=== PATIENT | female | born 1940 | race Caucasian/White ===

== ENCOUNTER 2018-05-04 02:44 | Outpatient (RCR) | payer MEDICARE, MEDICAID, SELFPAY ==
[2018-05-04] MEDS: Normal Saline Flush 10 ML SYR IVP (10:39)
[2018-05-04] MEDS: IRON SUCROSE COMPLEX 200 MG in Normal Saline 100 ML 110 MG IVPB (10:39)
[2018-05-18] MEDS: IRON SUCROSE COMPLEX 200 MG in Normal Saline 100 ML 110 MG IVPB (10:33)
[2018-05-18] MEDS: Normal Saline Flush 10 ML SYR IVP (10:33)
== END 2018-05-22 ==
LOC: INF 05-18 02:44
PROVIDERS: PCP Internal Medicine; Visit Provider Internal Medicine
DX: D64.9 Anemia, unspecified (principal)
CPT/HCPCS: 96365 ×2; J1756 ×2

== ENCOUNTER 2018-05-27 13:43 | Outpatient (CLI) | payer MEDICARE, MEDICAID, SELFPAY ==
[2018-05-27 14:18] LABS: Abs Immature Grans 0.03 k/cumm (0.0-0.09); Absolute Eosinophil Count 3.34 k/cumm (0.0-0.7); Absolute Monocyte Count 0.81 k/cumm (0.11-0.7); Absolute Neutrophil Count 4.77 k/cumm (1.2-6.7); Basophils % 0.9; Eosinophils % 31.1; HCT 30.5 % (36.0-46.0); HGB 9.4 g/dL (12.0-15.5); Immature Grans % 0.3; Lymphocytes % 15.8; Mean Corp. HGB Concentration 30.8 g/dL (32.0-36.0); Mean Corpuscular Hemoglobin 25.8 pg (27.0-33.0); Mean Corpuscular Volume 83.8 fL (80-95); Mean Platelet Volume 8.9 fL (8.0-11.0); Monocytes % 7.5; Neutrophils % 44.4; Platelet Count 414 x1000/uL (130-400); RBC 3.64 m/cumm (4.00-5.20); RBC Distribution Width 18.7 % (11.7-14.6); White Blood Cell Count 10.75 k/cumm (4.4-10.8)
[2018-05-27 14:35] LABS: Anisocytosis 2+; Ovalocytes 2+; Polychromasia Present
[2018-05-27 14:44] LABS: Hypochromasia 1+
[2018-05-27 15:44] LABS: Ferritin 215 ng/mL (8-388)
== END 2018-05-27 14:03 ==
PROVIDERS: PCP Internal Medicine; Visit Provider Internal Medicine
DX: D50.9 Iron deficiency anemia, unspecified (principal)
CPT/HCPCS: 36415; 82728; 85025

== ENCOUNTER 2018-06-01 00:54 | Outpatient (RCR) | payer MEDICARE, MEDICAID, SELFPAY ==
[2018-06-01] MEDS: IRON SUCROSE COMPLEX 200 MG in Normal Saline 100 ML 110 MG IVPB (10:20)
[2018-06-01] MEDS: Normal Saline Flush 10 ML SYR IVP (10:20)
== END 2018-06-21 23:59 | disposition home or self-care (01) ==
LOC: INF 00:54
PROVIDERS: PCP Internal Medicine; Visit Provider Internal Medicine
DX: D64.9 Anemia, unspecified (principal)
CPT/HCPCS: 96365; J1756

== ENCOUNTER 2018-07-21 08:54 | Emergency (ER) | payer MEDICARE, MEDICAID, SELFPAY ==
[2018-07-21 09:03] VITALS: BP 167/70; PULSE 90; RESP 16; TEMP 36.7; O2SAT 99
[2018-07-21 09:05] VITALS: RESP 16
--- NOTE | 2018-07-21 09:20 | ED.GENADUL_ITS ---
Discharge Plan Disposition Patient Disposition: HOME Condition: Stable Discharge Details Chief Complaint: GenMedical Clinical Impression: Knee pain, left Primary Care Provider: Autumn Awan ED Provider: Gene Chaudhary Home Meds and New Rx's Prescriptions: Continue acetaminophen [Mapap Extra Strength] 500 MG tablet 500 mg PO TID RF: 0 citalopram 20 MG tablet 20 mg PO DAILY RF: 0 loratadine 10 MG tablet 10 mg PO DAILY RF: 0 meloxicam 15 MG tablet 15 mg PO DAILY RF: 0 cefpodoxime 200 MG tablet 200 mg PO BID Qty: 20 RF: 0 Discharge Instructions Additional Instructions: I suspect you have arthritis that is causing your symptoms. Follow up with your primary care provider within 2 weeks if you have fevers, severe worsening of pain or persistent vomit return to the emergency department Medical Decision Making 78 yo female comes in with difficulty with walking due to discomfort in her knees, left greater than right since May. Denies any falls or trauma and no fevers. HAs pain of anterior knee with full rom on exam without warmth or redness and full rom of the hips. I suspect arthritis. Do not feel xrays indicated given lack of trauma as unlikely fx. The patient is here because she is having difficulty managing at home at this point. Will have care management assess. She has noticed some urinary incontinence so will check UA as well. HAs no calf pain or swelling so doubt dvt at this time met with care management and will be set up with home health, UA unremarkable. She has been able to ambulate here using a walker Differential Diagnosis arthritis, bursitis HPI General Mode of arrival: wheelchair . Date/Time Provider Initiated Documentation: 07/21/18 08:56 . Limitations to Documentation: no limitations . Information obtained by: patient and family . History of Present Illness 78 year old F presents to the emergency department with the chief complaint of knee pain, described as mild, with intensity rated at 3. Quality is described as aching, and is localized to the lower extremity. Patient reports no radiation. Patient started experiencing this hour(s) (1) and it has been constant. Rest improves symptom(s), Movement worsens symptoms . Patient did receive the following treatments prior to arrival, none Related Data Home Medications Medication Instructions Recorded Confirmed acetaminophen [Mapap Extra 500 mg PO TID 09/23/14 04/02/18 Strength] citalopram 20 mg PO DAILY 09/23/14 04/02/18 loratadine 10 mg PO DAILY 09/23/14 04/02/18 cefpodoxime 200 mg PO BID #20 tab 04/02/18 meloxicam 15 mg PO DAILY 04/02/18 04/02/18 Previous Rx's Medication Instructions Recorded cefpodoxime 200 mg PO BID #20 tab 04/02/18 Allergies Allergy/AdvReac Type Severity Reaction Status Date / Time Penicillins AdvReac Mild keeps Unverified 07/21/18 09:56 getting sicker General Stated Complaint: GenMedical IFTIKHAR: 3 Review of Systems Review of Systems All systems reviewed & are unremarkable except as noted in HPI and below Constitutional Denies chills, Denies fever(s) and Denies weakness Eyes Denies loss of vision ENT Denies change in voice Cardiovascular Denies chest pain and Denies dyspnea Respiratory Denies dyspnea Gastrointestinal Denies abdominal pain, Denies nausea and Denies vomiting Musculoskeletal Denies joint swelling Integumentary/Breasts Denies rash Neurologic Denies loss of vision and Denies weakness Psychiatric Denies depression Endocrine Denies cold intolerance and Denies heat intolerance Allergic/Immunologic Denies urticaria PFSH Social History Smoking/Tobacco Use Status: Former Tobacco Use Exam Const General: no acute distress Orientation: alert HENMT Head: normal to inspection Ears: external ears normal General nose exam: external nose normal Mouth: moist mucous membranes Eyes General: appearance normal, both eyes and all related structures Neck Neck: normal visual inspection Resp Effort & Inspection: normal respiratory effort and able to speak in complete sentences Cardio Rate: regular rate Skin General skin exam: no rashes or lesions noted Neuro General: alert and oriented x3 Extrem General: full ROM and normal capillary refill Psych Mental Status: mental status grossly normal Course Vital Signs Temperature 36.7 C 07/21/18 09:03 Pulse 90 07/21/18 09:03 Respiratory Rate 16 07/21/18 09:03 Blood Pressure 167/70 H 07/21/18 09:03 Pulse Oximetry 99 07/21/18 09:03 Temperature 36.7 C 07/21/18 09:03 Temperature Source Temporal Artery Scan 07/21/18 09:03 Pulse 90 07/21/18 09:03 Respiratory Rate 16 07/21/18 09:05 Respiratory Effort Non-Labored 07/21/18 09:05 Blood Pressure 167/70 H 07/21/18 09:03 Pulse Oximetry 99 07/21/18 09:03 Oxygen Delivery Method Room Air 07/21/18 09:03 Oxygen Flow Rate 0 07/21/18 09:03 Pain Level 10 07/21/18 09:03
[2018-07-21 09:37] LABS: Bilirubin Negative (Negative); Blood Small (Negative); Clarity Clear; Glucose Negative (Negative); Ketones Trace mg/dL (Negative); Leukocyte Esterase Negative (Negative); Nitrite Negative (Negative); Specific Gravity 1.015 (1.005-1.025); Urobilinogen 0.2 EU/dL (Up TO 0.2)
--- NOTE | 2018-07-21 09:40 | NUR.NOTE ---
Assumed care of patient, supportive family member at the bedside. Call huffman in reach, will continue to monitor.
[2018-07-21 09:57] LABS: Epithelial Cells Few HPF (Negative); Other Cells Few Transitional (Negative); WBC 0-2 HPF (0-5)
[2018-07-21 09:58] LABS: Bacteria Few HPF (Negative); C & S Indicated? No; Casts Negative LPF (Negative); Crystals Negative HPF (Negative); Mucus Moderate (Negative)
--- NOTE | 2018-07-21 10:08 | NUR.NOTE ---
Sveta, agronomy location manager is at the bedside with patient and daughter.
--- NOTE | 2018-07-21 10:54 | NUR.NOTE ---
Pt. ambulated independently with rolling walker in hallway about 40 feet, states that in her mobile home she would need to walk about 30 feet. Pt. admits to occasional pain.
[2018-07-21 11:31] VITALS: BP 155/70; PULSE 79; RESP 16; O2SAT 97
--- NOTE | 2018-07-21 11:45 | PDOC.ERCMPRO ---
Care Management Progress Note 07/21-Dr. Chaudhary requested assistance with discharge and services for Alexa. Met with Alexa and daughter Raisa Saez. Alexa and Raisa both stated that Luzs mobility has been decreasing for several months. Alexa is currently complaining of left knee pain. She has been having issues with her shoulders, left foot and left ankle. Alexa states she had been receiving home health PT but they stopped the end of last week and wanted her to go to outpatient PT for pool therapy. Both Alexa and Raisa stated that Alexa has been having worsening pain in the left knee for several months. Aelxa lives alone in her own home in [place]. Alexa has a homemaker that comes once a week for two hours. Prop Setter is Anjelica Devlin. Alexa states that she applying for alf medicaid, hasn't completed application yet. Alexa does have community Medicaid. VCIL built a ramp and are getting ready to modify her bathroom and put in grab bars. Alexa has a walker, cane, and shower chair. Alexa has a f/u with Dr. Awan on Friday, 07/24. Raisa has been in contact with Dr. Awan's ([facility]) office while Alexa has been in the ED. Alexa also has a f/u appt with Dr. Cohn, rheumatology on July 29. Discussed restarting PT which both Alexa and Raisa are in agreement with. Home Health form completed, signed by Dr. Chaudhary, and faxed to [facility]. This CM spoke with Danielle at [facility]. Discussed Level 3. Alexa and Raisa were interested in [facility]. Called [facility] and spoke with Derian. Derian states no beds. Derian has placed Alexa on the waiting list. This CM gave Raisa an application for [facility] to be completed. Discussion about rehab placement under Medicaid. No beds available at [facility] and [facility] or the [facility]. [facility] stated they would have a bed available next week. Raisa will reach out to Ban at the [facility] the first of next week to discuss bed availability. Alexa and Raisa are in agreement with home with [facility] and Raisa will reach out to the [facility] first of next week. Alexa and Raisa have my contact information if further assistance is needed.
--- NOTE | 2018-07-21 12:05 | CMPROGNOTE_ITS ---
Care Management Progress Note 07/21-Dr. Chaudhary requested assistance with discharge and services for Alexa. Met with Alexa and daughter Raisa Saez. Alexa and Raisa both stated that Luzs mobility has been decreasing for several months. Alexa is currently complaining of left knee pain. She has been having issues with her shoulders, left foot and left ankle. Alexa states she had been receiving home health PT but they stopped the end of last week and wanted her to go to outpatient PT for pool therapy. Both Alexa and Raisa stated that Alexa has been having worsening pain in the left knee for several months. Alexa lives alone in her own home in [place]. Alexa has a homemaker that comes once a week for two hours. Palm And Back Forger is Anjelica Devlin. Alexa states that she applying for half-way medicaid, hasn't completed application yet. Alexa does have community Medicaid. VCIL built a ramp and are getting ready to modify her bathroom and put in grab bars. Alexa has a walker, cane , and shower chair. Alexa has a f/u with Dr. Awan on Friday, 07/24. Raisa has been in contact with Dr. Awan's ([facility]) office while Alexa has been in the ED. Alexa also has a f/u appt with Dr. Cohn, rheumatology on July 29. Discussed restarting PT which both Alexa and Raisa are in agreement with. Home Health form completed, signed by Dr. Chaudhary, and faxed to [facility]. This CM spoke with Danielle at [facility]. Discussed Level 3. Alexa and Raisa were interested in [facility]. Called [facility] and spoke with Derian. Derian states no beds. Derian has placed Alexa on the waiting list. This CM gave Raisa an application for [facility] to be completed. Discussion about rehab placement under Medicaid. No beds available at [facility] and [facility] or the [facility]. [facility] stated they would have a bed available next week. Raisa will reach out to Ban at the [facility] the first of next week to discuss bed availability. Alexa and Raisa are in agreement with home with [facility] and Raisa will reach out to the [facility] first of next week. Alexa and Raisa have my contact information if further assistance is needed.
== END 2018-07-21 12:02 | disposition home or self-care (01) ==
PROVIDERS: Emergency Provider Emergency Medicine; PCP Internal Medicine
DX: M25.562 Pain in left knee (principal); M25.561 Pain in right knee; R31.9 Hematuria, unspecified
CPT/HCPCS: 51701; 99283; 81003; 81015

== ENCOUNTER 2018-09-17 09:54 | Outpatient (CLI) | payer MEDICARE, MEDICAID, SELFPAY ==
[2018-09-17 11:52] LABS: HCT 35.4 % (36.0-46.0); HGB 11.1 g/dL (12.0-15.5); Mean Corp. HGB Concentration 31.4 g/dL (32.0-36.0); Mean Corpuscular Hemoglobin 29.6 pg (27.0-33.0); Mean Corpuscular Volume 94.4 fL (80-95); Mean Platelet Volume 9.7 fL (8.0-11.0); Platelet Count 314 x1000/uL (130-400); RBC 3.75 m/cumm (4.00-5.20); RBC Distribution Width 17.1 % (11.7-14.6); White Blood Cell Count 14.08 k/cumm (4.4-10.8)
[2018-09-17 12:33] LABS: ALT 18 U/L (12-78); AST 17 U/L (15-37); Albumin 3.3 g/dL (3.4-5.0); Alkaline Phosphatase 102 U/L (46-116); Anion Gap 8.8 mmol/L (3-11); BUN 18 mg/dL (7-18); Bilirubin, Total 0.3 mg/dL (0.2-1.0); C-Reactive Protein 0.98 mg/dL (0.0-0.3); CO2 28.2 mmol/L (21.0-32.0); CREATININE 0.67 mg/dL (0.55-1.02); Calcium 8.5 mg/dL (8.5-10.1); Chloride 99 mmol/L (98-107); Glucose 134 mg/dL (70-100); Potassium 3.4 mmol/L (3.5-5.1); Sodium 136 mmol/L (136-145); Total Protein 6.3 g/dL (6.4-8.2)
[2018-09-17 13:31] LABS: ESR 13 MM/HR (0-30)
== END 2018-09-17 10:14 ==
PROVIDERS: PCP Internal Medicine; Visit Provider Internal Medicine Rheumatology
DX: M06.4 Inflammatory polyarthropathy (principal); Z79.899 Other long term (current) drug therapy
CPT/HCPCS: 36415; 80053; 85027; 85652; 86140

== ENCOUNTER 2019-01-02 00:52 | Outpatient (CLI) | payer MEDICARE, MEDICAID, SELFPAY ==
[2019-01-02 10:12] LABS: Mean Corp. HGB Concentration 32.4 g/dL (32.0-36.0); Mean Corpuscular Hemoglobin 31.5 pg (27.0-33.0); Mean Corpuscular Volume 97.1 fL (80-95); Mean Platelet Volume 9.7 fL (8.0-11.0); Platelet Count 308 x1000/uL (130-400); RBC 3.81 m/cumm (4.00-5.20); RBC Distribution Width 15.7 % (11.7-14.6); White Blood Cell Count 9.34 k/cumm (4.4-10.8)
[2019-01-02 10:51] LABS: ESR 19 MM/HR (0-30)
[2019-01-02 10:54] LABS: ALT 26 U/L (12-78); AST 17 U/L (15-37); Albumin 3.3 g/dL (3.4-5.0); Alkaline Phosphatase 85 U/L (46-116); Anion Gap 9.2 mmol/L (3-11); BUN 22 mg/dL (7-18); Bilirubin, Total 0.4 mg/dL (0.2-1.0); CO2 27.8 mmol/L (21.0-32.0); CREATININE 0.58 mg/dL (0.55-1.02); Calcium 8.9 mg/dL (8.5-10.1); Chloride 102 mmol/L (98-107); Cholesterol 198 mg/dL (50-200); Glucose 87 mg/dL (70-100); HDL Cholesterol 42 mg/dL (40-60); LDL CHOLESTEROL 118 mg/dL (<100); Potassium 3.9 mmol/L (3.5-5.1); Sodium 139 mmol/L (136-145); Total Protein 6.4 g/dL (6.4-8.2); Triglyceride 181 mg/dL (30-150)
[2019-01-02 11:28] LABS: C-Reactive Protein 0.61 mg/dL (0.0-0.3)
[2019-01-03 10:19] LABS: Hemoglobin A1C 5.4 % (4.5-6.2)
== END 2019-01-02 01:12 ==
PROVIDERS: PCP Internal Medicine; Visit Provider Internal Medicine
DX: M06.4 Inflammatory polyarthropathy (principal); Z79.899 Other long term (current) drug therapy; E78.5 Hyperlipidemia, unspecified; R73.01 Impaired fasting glucose
CPT/HCPCS: 36415; 80053; 80061; 83721; 85027; 85652; 83036; 86140

== ENCOUNTER 2019-01-10 10:40 | Inpatient (IN) | payer MEDICARE, MEDICAID, SELFPAY ==
[2019-01-10] VITALS (48 sets, daily range): BP systolic 125–175; BP diastolic 49–90; PULSE 59–78; RESP 11–29; TEMP 35.3–36.9; O2SAT 94–100
--- NOTE | 2019-01-10 11:14 | DI.RAD_ITS ---
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 There is no evidence of an acute fracture or dislocation.
--- NOTE | 2019-01-10 11:14 | DI.CT_ITS ---
SYMPTOM/DIAGNOSIS: SYNCOPE, POSSIBLE HEAD INJURY , UNKNOWN DOWN TIME NONCONTRAST HEAD CT: Comparison is made with 23 September 2014. No intracranial hemorrhage or skull fracture is seen. There is minimal sinus mucosal thickening. There are mild white matter changes of small vessel disease. The ventricles are normal in size. There is mild atrophy consistent with the patient's age. IMPRESSION: No acute abnormality. CT CERVICAL SPINE: There are degenerative changes at C1-2 as well as C6-7. No fracture or subluxation is seen. The airway appears intact. IMPRESSION: Degenerative changes. No acute abnormality.
--- NOTE | 2019-01-10 11:27 | ED.GENADUL_ITS ---
Discharge Plan Disposition [facility] Discharge Details Chief Complaint: Dizzy/Sync Clinical Impression: Syncope, Pulmonary emboli, Depression Admit Date/Time: 01/10/19 13:47 Admit Provider: Anita Carranza Attending Provider: Anita Carranza Primary Care Provider: Autumn Awan ED Provider: Jw Guillen Medical Decision Making Patient arrived with the above chief complaint. Vitals stable. Exam reveals mild tenderness of the left knee otherwise unremarked. Labs demonstrate normal CBC, CMP and troponin. Elevated d-dimer, therefore CTA chest ordered. CTA shows small left pulmonary embolism. No evidence of right heart strain on CT or on EKG. EKG shows normal sinus rhythm with a rate of 60. No ST changes and unchanged from previous. Head and neck CT are negative for acute injury. Discussed findings with patient and started Lovenox 1 mg/kg totaling 100 mg subcutaneous. Plan is to admit for syncope observation the setting of pulmonary embolism. In regards to the patient's depression, she denies thoughts of self- harm however is struggling greatly with her chronic pain. She is not on a analgesic regimen at this time. Case discussed with Dr. Carranza for admission will address depression and chronic pain during admission. ECG Data Attestation: I personally reviewed and interpreted this ECG (s) as follows: Interpretation: Normal sinus rhythm with a rate of 60. No STEMI unchanged April 02, 2018 HPI General Date/Time Provider Initiated Documentation: 01/10/19 11:14 . HPI Narrative: Alexa Lewis is an 78-year-old female with a significant past medical history for rheumatoid arthritis and episodic dizziness who presents to the emergency department via ambulance with syncope. Patient states she had some lightheadedness prior to having a bowel movement at home. She then ambulated to the living room chair afterwards she got up to make herself breakfast. She states while standing in her kitchen waiting for her breakfast she suddenly collapsed and woke up on the ground face down. She denies any preceding palpitations, chest pain, or shortness of breath. She is unaware of how long she was down for. She admits to chronic pain in her joints secondary to rheumatoid arthritis. Her left knee today is worse status post fall. She denies any head or neck pain. She does admit to feeling hopeless and is depressed secondary to her chronic pain. She is seen by a billboard installer in [facility] however will soon have to transition her care to [facility]. He denies any SI or HI however does state she would not want to live like this anymore if her pain is not controlled Related Data Home Medications Medication Instructions Recorded Confirmed acetaminophen [Mapap Extra 500 mg PO TID 09/23/14 01/10/19 Strength] citalopram 20 mg PO DAILY 09/23/14 01/10/19 loratadine 10 mg PO DAILY 09/23/14 01/10/19 aspirin [Aspir-Low] 81 mg PO DAILY 01/10/19 01/10/19 methotrexate sodium 12.5 mg PO QWEEK 01/10/19 01/10/19 omeprazole 20 mg PO DAILY 01/10/19 01/10/19 prednisone 7.5 mg PO DAILY 01/10/19 01/10/19 Allergies Allergy/AdvReac Type Severity Reaction Status Date / Time Penicillins AdvReac Mild keeps Unverified 01/10/19 12:34 getting sicker General Stated Complaint: Dizzy/Sync IFTIKHAR: 3 Review of Systems Constitutional Denies chills, Denies fatigue, Denies fever(s), Denies frequent falls, Denies headache(s), Denies lethargy, Denies night sweats, Reports weakness and Denies weight loss Eyes Denies blurry vision and Denies tunnel vision ENT Reports dizziness, Denies dry mouth, Denies headache(s), Denies hoarseness, Denies nasal trauma, Denies sinus pain and Denies sinus pressure Cardiovascular Denies chest pain, Denies chest pain at rest, Reports syncope, Denies rapid heart rate, Denies pedal edema, Denies edema, Denies irregular heart rhythm, Denies claudication and Denies dyspnea Respiratory Denies chest congestion, Denies cough, Denies hemoptysis, Denies pain on inspiration, Denies dyspnea and Denies wheezing Gastrointestinal Denies nausea and Denies vomiting Genitourinary Denies urinary frequency, Denies difficulty voiding, Denies urinary hesitancy and Denies urinary urgency Musculoskeletal Reports back pain, Denies myalgias, Reports arthralgias, Reports joint swelling, Reports limited range of motion and Denies numbness Integumentary/Breasts Denies rash Neurologic Reports dizziness, Reports syncope, Denies frequent falls, Denies headache(s), Denies numbness and Reports weakness Psychiatric Reports depression, Denies homicidal ideation and Denies suicidal ideation Endocrine Denies fatigue Hematologic/Lymphatic Denies easy bleeding Allergic/Immunologic Denies wheezing [facility] Social History Smoking/Tobacco Use Status: Former Tobacco Use Drug use: Never Do you feel safe in your relationship?: Yes Exam Const General: cooperative, healthy appearing, comfortable, no acute distress, well developed and well groomed Nutritional Appearance: obese Orientation: alert and awake HENCA Head: normal to inspection Ears: hearing grossly normal bilaterally General nose exam: external nose normal Face and sinus: normal facial exam Mouth: oral mucosae normal, lip normal and tongue normal Teeth and gingiva: dentition normal Eyes General: appearance normal, both eyes and all related structures Visual Weathers: normal visual weathers by confrontation Alignment and Position: alignment normal Periorbital: periorbital findings normal Conjunctivae: conjunctivae normal Pupils: PERRL and normal by confrontation EOM: EOM intact bilaterally Neck Neck: normal visual inspection, full ROM and supple Chest Chest: normal inspection of the chest and normal palpation of entire chest wall Resp Effort & Inspection: normal respiratory effort and able to speak in complete sentences Auscultation: clear to auscultation bilaterally Cardio Jugular venous pressure: no JVD Rate: regular rate Rhythm: regular rhythm Heart Sounds: S1 normal and S2 normal Pulses: normal peripheral pulses GI Inspection: normal to inspection Palpation: soft Back/Spine/Pelvis Back: no CVA tenderness Thoracic/Lumbar Spine: thoracic and lumbar spine normal to inspection Pelvis: no pain with anterior-posterior compression Skin General skin exam: no rashes or lesions noted and elasticity normal Lesions: no lesions Rashes: no rashes Neuro General: alert, awake, oriented x3, no focal motor deficits and CN's II-XI intact bilaterally Cognition: normal cognition Speech: speech normal Motor: muscle tone normal throughout Sensory Exam: no sensory deficits noted Extrem General: normal to inspection and no calf tenderness Left lower extremity: knee (Large midline vertical scar) Details: tenderness and abnormal ROM; no swelling Psych Appearance: grossly normal Mental Status: mental status grossly normal Speech and Movement: speech and movement normal Mood: congruent mood Affect: sad Attitude: cooperative Thought Process: normal Thought Content: normal Insight: insight good Course Vital Signs Respiratory Rate 12 01/10/19 10:39 Temperature 36.2 C L 01/10/19 10:49 Temperature Source Skin 01/10/19 10:49 Pulse 67 01/10/19 10:49 Pulse 61 01/10/19 10:50 Respiratory Rate 18 01/10/19 10:54 Respiratory Effort Non-Labored 01/10/19 10:54 Respiratory Depth Normal 01/10/19 10:54 Respiratory Pattern Normal 01/10/19 10:54 Blood Pressure 136/71 01/10/19 10:49 Blood Pressure Mean 83 01/10/19 10:46 Blood Pressure Position Sitting 01/10/19 10:49 Pulse Oximetry 97 01/10/19 10:50 Oxygen Delivery Method Room Air 01/10/19 10:49 Oxygen Flow Rate 0 01/10/19 10:49 Pain Level 0 01/10/19 10:49 Lab/Test Results Lab/Test Results: Lab Results 01/10/19 01/10/19 01/10/19 Range/Units 11:25 11:25 11:25 WBC 11.95 H (4.4-10.8) k/cumm RBC 3.68 L (4.00-5.20) m/cumm Hgb 11.6 L (12.0-15.5) g/dL Hct 35.7 L (36.0-46.0) % MCV 97.0 H (80-95) fL MCH 31.5 (27.0-33.0) pg MCHC 32.5 (32.0-36.0) g/dL RDW 15.5 H (11.7-14.6) % Plt Count 277 (130-400) x1000/uL MPV 9.7 (8.0-11.0) fL Immature Gran % 0.2 Neutrophils % 61.2 Lymphocytes % 20.1 Monocytes % 6.8 Eosinophils % 11.1 Basophils % 0.6 Absolute Neutrophils 7.31 H (1.2-6.7) k/cumm Absolute Lymphocytes 2.40 (1.2-3.4) k/cumm Absolute Monocytes 0.81 H (0.11-0.7) k/cumm Absolute Eosinophils 1.33 H (0.0-0.7) k/cumm Absolute Basophils 0.07 (0.0-0.2) k/cumm Differential Comment Agrees w/ instrument RBC Morphology Normal PT 9.9 (9.3-11.0) sec INR 1.0 (0.9-1.1) APTT 22.4 (21.0-31.4) sec D-Dimer 7019 H (<500) ng/mlFEU Sodium 135 L (136-145) mmol/L Potassium 3.5 (3.5-5.1) mmol/L Chloride 98 (98-107) mmol/L Carbon Dioxide 26.2 (21.0-32.0) mmol/L Anion Gap 10.8 (3-11) mmol/L BUN 21 H (7-18) mg/dL Creatinine 0.64 (0.55-1.02) mg/dL Estimated GFR/1.73 m2 >= 60.00 (mL/min/1.73m2) Glucose 95 (70-100) mg/dL Calcium 8.4 L (8.5-10.1) mg/dL Magnesium 1.7 L (1.8-2.4) mg/dL Total Bilirubin 0.4 (0.2-1.0) mg/dL AST 20 (15-37) U/L ALT 26 (12-78) U/L Alkaline Phosphatase 84 (46-116) U/L Troponin I < 0.02 (0.00-0.06) ng/mL Total Protein 6.4 (6.4-8.2) g/dL Albumin 3.3 L (3.4-5.0) g/dL Urine Color (Yellow) Urine Clarity Urine pH (5-8) Ur Specific Partridge (1.005-1.025) Urine Protein (Negative) mg/dL Urine Ketones (Negative) mg/dL Urine Blood (Negative) Urine Nitrite (Negative) Urine Bilirubin (Negative) Urine Urobilinogen (Up TO 0.2) EU/dL Ur Leukocyte Esterase (Negative) Urine RBC (0-2) Urine WBC (0-5) HPF Ur Epithelial Cells (Negative) HPF Urine Crystals (Negative) HPF Urine Bacteria (Negative) HPF Urine Casts (Negative) LPF Urine Mucus (Negative) Ur Culture Indicated? Urine Glucose (Negative) mg/dL 01/10/19 Range/Units 11:45 WBC (4.4-10.8) k/cumm RBC (4.00-5.20) m/cumm Hgb (12.0-15.5) g/dL Hct (36.0-46.0) % MCV (80-95) fL MCH (27.0-33.0) pg MCHC (32.0-36.0) g/dL RDW (11.7-14.6) % Plt Count (130-400) x1000/uL MPV (8.0-11.0) fL Immature Gran % Neutrophils % Lymphocytes % Monocytes % Eosinophils % Basophils % Absolute Neutrophils (1.2-6.7) k/cumm Absolute Lymphocytes (1.2-3.4) k/cumm Absolute Monocytes (0.11-0.7) k/cumm Absolute Eosinophils (0.0-0.7) k/cumm Absolute Basophils (0.0-0.2) k/cumm Differential Comment RBC Morphology PT (9.3-11.0) sec INR (0.9-1.1) APTT (21.0-31.4) sec D-Dimer (<500) ng/mlFEU Sodium (136-145) mmol/L Potassium (3.5-5.1) mmol/L Chloride (98-107) mmol/L Carbon Dioxide (21.0-32.0) mmol/L Anion Gap (3-11) mmol/L BUN (7-18) mg/dL Creatinine (0.55-1.02) mg/dL Estimated GFR/1.73 m2 (mL/min/1.73m2) Glucose (70-100) mg/dL Calcium (8.5-10.1) mg/dL Magnesium (1.8-2.4) mg/dL Total Bilirubin (0.2-1.0) mg/dL AST (15-37) U/L ALT (12-78) U/L Alkaline Phosphatase (46-116) U/L Troponin I (0.00-0.06) ng/mL Total Protein (6.4-8.2) g/dL Albumin (3.4-5.0) g/dL Urine Color Yellow (Yellow) Urine Clarity Sl cloudy Urine pH 8.5 H (5-8) Ur Specific Partridge 1.015 (1.005-1.025) Urine Protein Trace H (Negative) mg/dL Urine Ketones Negative (Negative) mg/dL Urine Blood Negative (Negative) Urine Nitrite Negative (Negative) Urine Bilirubin Negative (Negative) Urine Urobilinogen 0.2 (Up TO 0.2) EU/dL Ur Leukocyte Esterase Negative (Negative) Urine RBC 0-2 (0-2) Urine WBC 0-2 (0-5) HPF Ur Epithelial Cells Rare (Negative) HPF Urine Crystals Few amorphous (Negative) HPF Urine Bacteria Rare (Negative) HPF Urine Casts Negative (Negative) LPF Urine Mucus Trace (Negative) Ur Culture Indicated? No Urine Glucose Negative (Negative) mg/dL
[2019-01-10 11:36] LABS: Abs Immature Grans 0.02 k/cumm (0.0-0.09); Absolute Basophil Count 0.07 k/cumm (0.0-0.2); Absolute Eosinophil Count 1.33 k/cumm (0.0-0.7); Absolute Monocyte Count 0.81 k/cumm (0.11-0.7); Basophils % 0.6; Eosinophils % 11.1; HCT 35.7 % (36.0-46.0); HGB 11.6 g/dL (12.0-15.5); Immature Grans % 0.2; Lymphocytes % 20.1; Mean Corp. HGB Concentration 32.5 g/dL (32.0-36.0); Mean Corpuscular Hemoglobin 31.5 pg (27.0-33.0); Mean Platelet Volume 9.7 fL (8.0-11.0); Monocytes % 6.8; Neutrophils % 61.2; Platelet Count 277 x1000/uL (130-400); RBC 3.68 m/cumm (4.00-5.20); RBC Distribution Width 15.5 % (11.7-14.6); White Blood Cell Count 11.95 k/cumm (4.4-10.8)
[2019-01-10 11:44] LABS: Absolute Neutrophil Count 7.31 k/cumm (1.2-6.7)
[2019-01-10 11:50] LABS: PTT Activated 22.4 sec (21.0-31.4); Prothrombin Time 9.9 sec (9.3-11.0)
[2019-01-10 11:51] LABS: ALT 26 U/L (12-78); AST 20 U/L (15-37); Albumin 3.3 g/dL (3.4-5.0); Alkaline Phosphatase 84 U/L (46-116); Anion Gap 10.8 mmol/L (3-11); BUN 21 mg/dL (7-18); Bilirubin, Total 0.4 mg/dL (0.2-1.0); CO2 26.2 mmol/L (21.0-32.0); CREATININE 0.64 mg/dL (0.55-1.02); Calcium 8.4 mg/dL (8.5-10.1); Chloride 98 mmol/L (98-107); Glucose 95 mg/dL (70-100); Magnesium 1.7 mg/dL (1.8-2.4); Potassium 3.5 mmol/L (3.5-5.1); Sodium 135 mmol/L (136-145); Total Protein 6.4 g/dL (6.4-8.2)
[2019-01-10 11:52] LABS: Bilirubin Negative (Negative); Blood Negative (Negative); Clarity Sl Cloudy; Glucose Negative (Negative); Ketones Negative (Negative); Leukocyte Esterase Negative (Negative); Nitrite Negative (Negative); Specific Gravity 1.015 (1.005-1.025); Urobilinogen 0.2 EU/dL (Up TO 0.2); pH 8.5 (5-8)
[2019-01-10 11:52] LABS: Troponin I < 0.02 ng/mL (0.00-0.06)
[2019-01-10 12:01] LABS: Bacteria Rare HPF (Negative); C & S Indicated? No; Casts Negative LPF (Negative); Crystals Few Amorphous HPF (Negative); Epithelial Cells Rare HPF (Negative); Mucus Trace (Negative); RBC 0-2 (0-2); WBC 0-2 HPF (0-5)
[2019-01-10 12:05] LABS: D-Dimer 7019 ng/mlFEU (<500)
[2019-01-10 12:06] LABS: Diff Comment Agrees w/ Instrument; RBC Morphology Normal
--- NOTE | 2019-01-10 12:14 | DI.CT_ITS ---
SYMPTOM/DIAGNOSIS: SYNCOPE, ELEVATED D-DIMER, RULE OUT CHEST CT FOR PULMONARY EMBOLISM: CT angiography was performed with multi slice acquisition and multi planar and 3D reconstruction. The pulmonary arteries and aorta are well opacified with IV contrast. There is a filling defect in the left lower lobe pulmonary artery branch. No additional pulmonary emboli are identified. There is no evidence of aortic dissection. There is coronary artery as well as aortic calcification. There is enlargement of the left atrium and left ventricle. The exam is mildly limited by respiratory motion. No infiltrates or effusions are seen. There is enlargement of the right lobe of the thyroid. There is artifact extending through the thyroid. There is an old right lateral 8th rib fracture. IMPRESSION: Pulmonary embolism in branch of the left lower lobe. Cardiomegaly.
[2019-01-10] MEDS: Omnipaque 350 MG/ML 100 ML BTL IJ (12:30)
--- NOTE | 2019-01-10 12:56 | DI.VRAD_ITS ---
Addendum created by Alexandr Hollins MD on 01/10/2019 12:56:16 PM EDT Addendum: The impression to CT head should read No acute intracranial hemorrhage Opacities in the ethmoid sinuses may represent mild sinusitis Initial report created on 01/10/2019 12:55:32 PM EDT EXAM: CT Head Without Contrast EXAM DATE/TIME: 01/10/2019 11:17 AM CLINICAL HISTORY: 78 years old, female; Injury or trauma; Fall; Initial encounter; Blunt trauma (contusions or hematomas); With loss of consciousness; Not specified TECHNIQUE: Imaging protocol: Axial computed tomography images of the head/brain without contrast. Coronal and sagittal reformatted images were created and reviewed. COMPARISON: CT HEAD FACIALS WO 09/23/2014 12:40 PM FINDINGS: Brain: No acute intracranial hemorrhage.. There is mild diffuse heterogeneity of the white matter attenuation, consistent with chronic white matter ischemic changes. Mild cerebral atrophy Ventricles: Normal. No ventriculomegaly. Bones/joints: Degenerative changes in the temporomandibular joints Sinuses: Opacities in the ethmoid sinuses may represent mild sinusitis Mastoid air cells: Visualized mastoid air cells are unremarkable. No mastoid effusion. Soft tissues: Unremarkable. IMPRESSION: EXAM: CT Cervical Spine Without Contrast EXAM DATE/TIME: 01/10/2019 11:17 AM CLINICAL HISTORY: 78 years old, female; Injury or trauma; Fall; Initial encounter; Blunt trauma (contusions or hematomas); With loss of consciousness; Not specified TECHNIQUE: Imaging protocol: Axial computed tomography images of the cervical spine without intravenous contrast. Coronal and sagittal reformatted images were created and reviewed. COMPARISON: CT HEAD FACIALS WO 09/23/2014 12:40 PM FINDINGS: Vertebrae: No acute fracture of the cervical spine. No subluxation or dislocation of the cervical spine. Anterior osteophyte formation C5-T1 Degenerative changes in the facets at multiple levels Degenerative changes at C1/C2 Discs/Spinal canal/Neural foramina: Intervertebral disc space narrowing C6-T1 may represent degenerative disc disease.. Posterior osteophyte formation C5-T1 Soft tissues: Unremarkable. Thyroid: Right lobe of the thyroid is enlarged and heterogeneous and contains calcifications. Lungs: Lung apices are normal. IMPRESSION: 1. No acute fracture of the cervical spine. 2. No subluxation or dislocation of the cervical spine. 3. Intervertebral disc space narrowing C6-T1 may represent degenerative disc disease. Recommend MRI if clinically indicated. Dictated and Authenticated by: Aelxandr Hollins MD. Ordering:LACEY Escalera MD
--- NOTE | 2019-01-10 13:00 | DI.VRAD_ITS ---
Addendum created by Alexandr Hollins MD on 01/10/2019 1:05:17 PM EDT THIS REPORT CONTAINS FINDINGS THAT MAY BE CRITICAL TO PATIENT CARE. The findings were verbally communicated via telephone conference with Jw Guillen at 1:05 PM EDT on 01/10/2019. The findings were acknowledged and understood. Initial report created on 01/10/2019 1:00:21 PM EDT EXAM: CT Angiography Chest With Contrast EXAM DATE/TIME: 01/10/2019 12:15 PM CLINICAL HISTORY: 78 years old, female; Signs and symptoms and abnormal findings; Abnormal diagnostic tests; Elevated d-dimer; Other: Syncope TECHNIQUE: Imaging protocol: Axial computed tomographic angiography images of the chest with intravenous contrast using CT angiography protocol. Coronal and sagittal reformatted images were created and reviewed. 3D rendering: MIP reconstructed images were created and reviewed. COMPARISON: CR CHEST 2 VIEWS PA,LAT 04/02/2018 6:08 PM FINDINGS: Pulmonary arteries: Small left pulmonary embolus: Filling defect in a branch of the descending left pulmonary artery (4:37; 5:361). Aorta: Normal. No aortic aneurysm. No aortic dissection. Thyroid: Enlarged right lobe of the thyroid Lungs: Bibasilar atelectasis Pleural space: Normal. No pneumothorax. No pleural effusion. Heart: Normal. No cardiomegaly. No pericardial effusion. Lymph nodes: Unremarkable. No enlarged lymph nodes. Bones/joints: Cystic structures in the left humeral head Unhealed right lateral eighth rib fracture. Soft tissues: Unremarkable. IMPRESSION: Small left pulmonary embolus: Filling defect in a branch of the descending left pulmonary artery (4:37; 5:361). Dictated and Authenticated by: Alexandr Hollins MD. Ordering:LACEY Escalera MD
--- NOTE | 2019-01-10 13:03 | DI.VRAD_ITS ---
EXAM: XR Left Knee, 3 Views EXAM DATE/TIME: 01/10/2019 11:17 AM CLINICAL HISTORY: 78 years old, female; Pain; Knee; Left; Prior surgery; Surgery date: 6+ months TECHNIQUE: Imaging protocol: XR Left knee 3 views. COMPARISON: No relevant prior studies available. FINDINGS: Bones/joints: Total knee replacement There is no evidence of acute fracture. There is no evidence of malalignment or dislocation. 3 cm calcification anterior to the distal femur Soft tissues: Normal. IMPRESSION: There is no evidence of acute fracture. Dictated and Authenticated by: Alexandr Hollins MD. Ordering:LACEY Escalera MD
[2019-01-10] MEDS: Enoxaparin 100 MG/ML SYR SC (13:34)
[2019-01-10 14:36] LABS: Troponin I 0.02 ng/mL (0.00-0.06)
[2019-01-10] MEDS: Magnesium Oxide 400 MG TAB PO (14:55)
[2019-01-10] MEDS: Normal Saline 1,000 ML 100 ML IV (16:00)
[2019-01-10] MEDS: Acetaminophen 500 MG TAB PO (16:14)
[2019-01-10] MEDS: Hydrocortisone SOD SUC. 100 MG VIAL 50 MG IVP ×2 (16:36→22:08)
[2019-01-10] MEDS: Pantoprazole 40 MG VIAL IVP ×2 (16:36→19:23)
[2019-01-10] MEDS: Normal Saline Flush 10 ML SYR IVP ×2 (16:37→19:23)
--- NOTE | 2019-01-10 16:43 | HPE_ITS ---
Date of service: 01/10/19 Time of Service: 16:43 Assessment and Plan (1) Syncope: Current visit: Yes Status: Chronic Reports to the ED after syncopal episode at home today, where patient states she was in the kitchen felt dizzy, felt as though she was going to faint, went to sit in her chair and passed out. Believes it only lasted a couple of seconds. When she came through she was lying on the floor on her left side and pushed the help button around her neck, EMS helped her get up at the hospital she received a Chest CT, revealing a small PE, no SOB, though daughter does endorse that she has been having issues with trying to catch her breath when she is walking and she looks as though she is trying to get a deep breath. She was started on enoxaparin 1mg/kg bid for PE. It will be held and surgery consulted for positive hemeoccult, if ok with surgery will restart. Doppler u/s ordered to r/o DVT, She is on telemetery with echo pending for tomorrow, and u/s of carotids. This does not appear to be a vagal response as was just making breakfast, she was recently weaned from 10 mg of prednisone to 7.5 mg with increasing weakness. (2) Pulmonary embolism: Start date: 01/10/19 Start time: 16:29 Current visit: Yes Status: Chronic see above. 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 She was weaned down to 10 mg prednisone and was on for months over last couple weeks she was weaned down to 7.5 mg and since then her daughter believes she has gotten worse, she is more tired, falling now. Her K+ is borderline at 3.5, sodium 135, she appears to have a barakat on her legs, but denies being out in the sun. She will be started on a stress dose of steroids and we will see how she does with the stress dose with hopes to wean back to 10 mg she will need follow up for steroid dosing as an outpatient. (4) Rheumatoid arthritis: Start date: 01/10/19 Start time: 16:37 Current visit: Yes Status: Chronic Severe pain associated with RA, currently on methotrexate and prednisone, duloxitine has been added for the pain benefit with mood and tramadol for break through pain. (5) Pain: Start date: 01/10/19 Start time: 16:38 Current visit: Yes Status: Acute Chronic in nature with exacerbations, she is also having anxiety and depression related to pain. see above (6) H/O: GI bleed: Start date: 01/10/19 Start time: 16:39 Current visit: Yes Status: Acute History of iron deficient anemia in the setting of a GI bleed, currently being treated for PE hemetest was positive for blood. Monitor H/H Surgery consult, hold enoxaparin until surgery see pt, if ok will restart, started on Protonix 40 mg IV BID, carafate 1 gm bid (7) Occult blood positive stool: Start date: 01/10/19 Start time: 16:40 Current visit: Yes Status: Acute see above (8) Iron deficiency anemia: Start date: 01/10/19 Start time: 16:41 Current visit: Yes Status: Acute Received iron infusions in the past for Iron deficiency anemia in the setting of GI bleed. Stable H/H at this time. (9) HTN (hypertension): Start date: 01/10/19 Start time: 16:42 Current visit: Yes Status: Chronic Not currently on medication, does have a history, will monitor bp and see if it is elevated in the setting of pain. If elevated bp persists consider placing on low dose lisinopril. (10) DVT prophylaxis: Start date: 01/10/19 Start time: 16:40 Current visit: Yes Status: Acute On anticoagulation for PE (11) Discharge planning issues: Start date: 01/10/19 Start time: 16:40 Current visit: Yes Status: Acute DNR/DNI History of Present Illness Chief Complaint: SYNCOPE, PULMONARY EMBOLISM, ADRENAL INSUFFICIENCY Narrative: Ms. Lewis is an 78 y.o female with PMH RA reporting to [facility] emergency department after having a syncopal episode this morning. She was in the kitchen feeling dizzy and felt as though she was going to faint went to sit in her walker that is also a chair and had a syncopal episode. When she woke she was on the floor, she pushed the alert button around her neck and was brought to the emergency department by EMS. While in the ED she had a d-dimer at [address] followed by a chest CT revealing small left pulmonary embolus. She was asked to be admitted by our service. She was admitted to [facility] with telemetery. She was started on enoxaparin 100mg bid in the ED, hemeoccult reveals positive bloody stool. She does have a hx of GI bleed and iron deficiency anemia, her h/h is stable at this time, we will continue to monitor. Enoxaparin has been held, surgery consulted, PPI BID with Carafate. Enoxaparin will be restarted if ok with surgery. IVF infusing. Denies SOB at this time, not requiring any oxygen, echo with u/s bilateral lower extremities r/o dvt. She has been on steroids since last summer tapering a long dose for RA along with methotrexate, she was on 10 mg for a month or two and a couple of weeks ago tapered to 7.5 mg, her daughter noticed she was feeling weaker, having more pain, taking longer to get moving and now falling. Her K+ is border line at 3.5 sodium 135 and glucose 95, her legs look barakat though she has not been in the sun. We will treat her for adrenal insufficiency. She is also having severe pain from her RA with depression. Started on duloxitine for pain and mood, tylenol 1000 mg TID with tramadol for break through pain. For syncopal episode she is on telemetery, ECHO pending, u/s carotid. She deneis CP, SOB, N/V/D Review of Systems Constitutional Reports system reviewed and no additional complaints, except as docu Eyes Reports system reviewed and no additional complaints, except as docu ENT Reports system reviewed and no additional complaints, except as docu Cardiovascular Reports as per HPI Respiratory Reports as per HPI Gastrointestinal Reports system reviewed and no additional complaints, except as docu Genitourinary Reports system reviewed and no additional complaints, except as docu Musculoskeletal Reports as per HPI Integumentary/Breasts Reports system reviewed and no additional complaints, except as docu Neurologic Reports as per HPI Psychiatric Reports system reviewed and no additional complaints, except as docu Endocrine Reports as per HPI Hematologic/Lymphatic Reports as per HPI Allergic/Immunologic Reports system reviewed and no additional complaints, except as docu [facility] Social History Smoking/Tobacco Use Status: Former Tobacco Use Drug use: Never Do you feel safe in your relationship?: Yes Meds Home Medications Medication Instructions Recorded Confirmed Type acetaminophen [Mapap Extra 500 mg PO TID 09/23/14 01/10/19 History Strength] citalopram 20 mg PO DAILY 09/23/14 01/10/19 History loratadine 10 mg PO DAILY 09/23/14 01/10/19 History aspirin [Aspir-Low] 81 mg PO DAILY 01/10/19 01/10/19 History methotrexate sodium 12.5 mg PO QWEEK 01/10/19 01/10/19 History omeprazole 20 mg PO DAILY 01/10/19 01/10/19 History prednisone 7.5 mg PO DAILY 01/10/19 01/10/19 History Allergies Allergy/AdvReac Type Severity Reaction Status Date / Time Penicillins AdvReac Mild keeps Unverified 01/10/19 12:34 getting sicker Exam Const General: comfortable and no acute distress Nutritional Appearance: obese Orientation: alert, awake and oriented x3 HENMT Head: normal to inspection Eyes General: appearance normal, both eyes and all related structures Chest Chest: normal inspection of the chest Resp Effort & Inspection: normal respiratory effort and able to speak in complete sentences Auscultation: diminished lung sounds Cardio Jugular venous pressure: no JVD Palpation: normal PMI Rate: regular rate Rhythm: regular rhythm Heart Sounds: S1 normal and S2 normal GI Inspection: obesity Palpation: soft Auscultation: normal bowel sounds Rectal Exam - female: heme positive stool Back/Spine/Pelvis Back: no CVA tenderness Skin General skin exam: other Other: lower extermities look barakat Neuro General: alert, awake and oriented x3 Extrem General: normal to inspection Psych Appearance: grossly normal Affect: normal affect Attitude: cooperative Thought Process: normal Results Labs : 01/10/19 11:25 01/10/19 11:25 Laboratory Results - last 24 hr 01/10/19 01/10/19 01/10/19 11:25 11:25 11:25 WBC 11.95 H RBC 3.68 L Hgb 11.6 L Hct 35.7 L MCV 97.0 H MCH 31.5 MCHC 32.5 RDW 15.5 H Plt Count 277 MPV 9.7 Immature Gran % 0.2 Neutrophils % 61.2 Lymphocytes % 20.1 Monocytes % 6.8 Eosinophils % 11.1 Basophils % 0.6 Absolute Neutrophils 7.31 H Absolute Lymphocytes 2.40 Absolute Monocytes 0.81 H Absolute Eosinophils 1.33 H Absolute Basophils 0.07 Differential Comment Agrees w/ instrument RBC Morphology Normal PT 9.9 INR 1.0 APTT 22.4 D-Dimer 7019 H Sodium 135 L Potassium 3.5 Chloride 98 Carbon Dioxide 26.2 Anion Gap 10.8 BUN 21 H Creatinine 0.64 Estimated GFR/1.73 m2 >= 60.00 Glucose 95 Calcium 8.4 L Magnesium 1.7 L Total Bilirubin 0.4 AST 20 ALT 26 Alkaline Phosphatase 84 Troponin I < 0.02 Total Protein 6.4 Albumin 3.3 L Urine Color Urine Clarity Urine pH Ur Specific [place] Urine Protein Urine Ketones Urine Blood Urine Nitrite Urine Bilirubin Urine Urobilinogen Ur Leukocyte Esterase Urine RBC Urine WBC Ur Epithelial Cells Urine Crystals Urine Bacteria Urine Casts Urine Mucus Ur Culture Indicated? Urine Glucose 01/10/19 01/10/19 11:45 14:15 WBC RBC Hgb Hct MCV MCH MCHC RDW Plt Count MPV Immature Gran % Neutrophils % Lymphocytes % Monocytes % Eosinophils % Basophils % Absolute Neutrophils Absolute Lymphocytes Absolute Monocytes Absolute Eosinophils Absolute Basophils Differential Comment RBC Morphology PT INR APTT D-Dimer Sodium Potassium Chloride Carbon Dioxide Anion Gap BUN Creatinine Estimated GFR/1.73 m2 Glucose Calcium Magnesium Total Bilirubin AST ALT Alkaline Phosphatase Troponin I 0.02 Total Protein Albumin Urine Color Yellow Urine Clarity Sl cloudy Urine pH 8.5 H Ur Specific [place] 1.015 Urine Protein Trace H Urine Ketones Negative Urine Blood Negative Urine Nitrite Negative Urine Bilirubin Negative Urine Urobilinogen 0.2 Ur Leukocyte Esterase Negative Urine RBC 0-2 Urine WBC 0-2 Ur Epithelial Cells Rare Urine Crystals Few amorphous Urine Bacteria Rare Urine Casts Negative Urine Mucus Trace Ur Culture Indicated? No Urine Glucose Negative Last Vital Signs Temp 35.3 C L 01/10/19 16:18 Pulse 68 01/10/19 16:18 Resp 20 01/10/19 16:18 BP 150/81 H 01/10/19 16:18 Pulse Ox 97 01/10/19 16:18
--- NOTE | 2019-01-10 17:09 | NUR.NOTE ---
Nursing Note: Pt came to [facility] floor at 1500 via stretcher, with daughter at bedside. VSS, A&Ox3. 2 moderate assist to commode. Chronic pain; APAP administered at this time. No skin issues with the exception of several scars to wrists and knees from past surgeries. Pt and daughter familiarized with [facility] floor, call huffman within reach. RN will continue to monitor.
--- NOTE | 2019-01-10 19:06 | SCONE_ITS ---
Date of service: 01/10/19 Time of Service: 18:59 Assessment and Plan (1) Pulmonary embolism: Current visit: Yes Status: Chronic 78 y/o female with newly diagnosed pulmonary embolus which appears to be symptomatic. From a surgical standpoint, it would appear that the benefits for anticoagulation outweigh the risks as this time. Continue PPI coverage. Add Carafate. Monitor H/H. If she remains stable, then there is no urgent indication for endoscopy and she can follow-up with surgery or GI as an outpat ient to discuss outpatient EGD/colonoscopy. If she significantly drops her H/H and/ or develops signs of active GI bleed, then she will need urgent endoscopy and further management per findings. Discussed with Dr. Carranza. Will follow-up while inpatient as needed. (2) Occult blood positive stool: Current visit: Yes Status: Acute As above. No signs of active bleeding at this time. History of Present Illness Chief Complaint: Syncope Narrative: 78 y/o female admitted through the ED today for a syncopal episode and found to have a pulmonary embolus. Patient had a BM this morning which she describes as yellowish-brown in color and normal in appearance. Afterwards she felt dizzy and found herself lying on the floor after she had apparently passed out. She takes a baby ASA daily and has been on tapering doses of Prednisone and Methotrexate for severe arthritis. She is also on Prilosec chronically for GERD. She thinks that she had at least one prior colonoscopy in the past somewhere in the [facility] which was reportedly unremarkable. She also thinks that she had an EGD several years ago and was found to have a dried up ulcer for which she was started on the Prilosec. She denies any melena, hematochezia, diarrhea, constipation, nausea, vomiting, or abdominal pain. She had been on iron supplements in the past which made her stools dark but she is not on the iron supplements now. She is tolerating a po diet without problems. She was started on Lovenox for her PE but this was put on hold when she was found to be hemoccult (+) on exam on admission. H/H - 11.6/35.7. Stable/better than previous results in the last 3 years. Surgery consulted re: hemoccut (+) Review of Systems Constitutional Reports system reviewed and no additional complaints, except as docu Cardiovascular Denies chest pain, Reports syncope, Denies rapid heart rate and Reports dyspnea Respiratory Reports cough and Reports dyspnea Gastrointestinal Denies abdominal pain, Denies melena, Denies hematochezia, Denies constipation, Reports heartburn, Denies diarrhea, Denies nausea and Denies vomiting Genitourinary Denies hematuria and Denies dysuria Neurologic Reports syncope PFSH Medical History Arthritis (Acute) H/O: hysterectomy (Chronic) Surgical History History of cholecystectomy (Chronic) Social History Smoking/Tobacco Use Status: Former Tobacco Use Drug use: Never Do you feel safe in your relationship?: Yes Exam Const General: cooperative and well developed Nutritional Appearance: well nourished Orientation: alert and oriented x3 HENMT Head: normocephalic and atraumatic Eyes Sclera: sclerae normal Resp Effort & Inspection: normal respiratory effort and able to speak in complete sentences Cardio Jugular venous pressure: no JVD GI Inspection: non-distended Palpation: soft, not firm, no guarding, not rigid and nontender Skin General skin exam: no rashes or lesions noted and no jaundice Results Last Vital Signs Temp 35.3 C L 01/10/19 16:18 Pulse 68 01/10/19 16:18 Resp 20 01/10/19 16:18 BP 150/81 H 01/10/19 16:18 Pulse Ox 97 01/10/19 16:18 Labs : 01/10/19 11:25 01/10/19 11:25 Laboratory Results - last 24 hr 01/10/19 01/10/19 01/10/19 11:25 11:25 11:25 WBC 11.95 H RBC 3.68 L Hgb 11.6 L Hct 35.7 L MCV 97.0 H MCH 31.5 MCHC 32.5 RDW 15.5 H Plt Count 277 MPV 9.7 Immature Gran % 0.2 Neutrophils % 61.2 Lymphocytes % 20.1 Monocytes % 6.8 Eosinophils % 11.1 Basophils % 0.6 Absolute Neutrophils 7.31 H Absolute Lymphocytes 2.40 Absolute Monocytes 0.81 H Absolute Eosinophils 1.33 H Absolute Basophils 0.07 Differential Comment Agrees w/ instrument RBC Morphology Normal PT 9.9 INR 1.0 APTT 22.4 D-Dimer 7019 H Sodium 135 L Potassium 3.5 Chloride 98 Carbon Dioxide 26.2 Anion Gap 10.8 BUN 21 H Creatinine 0.64 Estimated GFR/1.73 m2 >= 60.00 Glucose 95 Calcium 8.4 L Magnesium 1.7 L Total Bilirubin 0.4 AST 20 ALT 26 Alkaline Phosphatase 84 Troponin I < 0.02 Total Protein 6.4 Albumin 3.3 L Urine Color Urine Clarity Urine pH Ur Specific [place] Urine Protein Urine Ketones Urine Blood Urine Nitrite Urine Bilirubin Urine Urobilinogen Ur Leukocyte Esterase Urine RBC Urine WBC Ur Epithelial Cells Urine Crystals Urine Bacteria Urine Casts Urine Mucus Ur Culture Indicated? Urine Glucose 01/10/19 01/10/19 11:45 14:15 WBC RBC Hgb Hct MCV MCH MCHC RDW Plt Count MPV Immature Gran % Neutrophils % Lymphocytes % Monocytes % Eosinophils % Basophils % Absolute Neutrophils Absolute Lymphocytes Absolute Monocytes Absolute Eosinophils Absolute Basophils Differential Comment RBC Morphology PT INR APTT D-Dimer Sodium Potassium Chloride Carbon Dioxide Anion Gap BUN Creatinine Estimated GFR/1.73 m2 Glucose Calcium Magnesium Total Bilirubin AST ALT Alkaline Phosphatase Troponin I 0.02 Total Protein Albumin Urine Color Yellow Urine Clarity Sl cloudy Urine pH 8.5 H Ur Specific [place] 1.015 Urine Protein Trace H Urine Ketones Negative Urine Blood Negative Urine Nitrite Negative Urine Bilirubin Negative Urine Urobilinogen 0.2 Ur Leukocyte Esterase Negative Urine RBC 0-2 Urine WBC 0-2 Ur Epithelial Cells Rare Urine Crystals Few amorphous Urine Bacteria Rare Urine Casts Negative Urine Mucus Trace Ur Culture Indicated? No Urine Glucose Negative
[2019-01-10] MEDS: Acetaminophen 500 MG TAB 1000 MG PO (19:23)
[2019-01-10] MEDS: Sucralfate 1 GM TAB PO (22:08)
[2019-01-10] MEDS: traMADol 50 MG TAB PO (23:34)
[2019-01-11] VITALS (9 sets, daily range): BP systolic 123–181; BP diastolic 53–95; PULSE 60–76; RESP 16–18; TEMP 35.7–37.1; O2SAT 91–99
[2019-01-11] MEDS: Normal Saline 1,000 ML 100 ML IV ×2 (01:04→15:25)
[2019-01-11] MEDS: Enoxaparin 100 MG/ML SYR SC ×2 (03:25→15:21)
[2019-01-11 07:24] LABS: Abs Immature Grans 0.01 k/cumm (0.0-0.09); Absolute Basophil Count 0.03 k/cumm (0.0-0.2); Absolute Lymphocyte Count 1.83 k/cumm (1.2-3.4); Absolute Monocyte Count 0.51 k/cumm (0.11-0.7); Basophils % 0.4; Eosinophils % 6.1; HCT 34.7 % (36.0-46.0); Immature Grans % 0.1; Lymphocytes % 22.4; Mean Corp. HGB Concentration 31.7 g/dL (32.0-36.0); Mean Corpuscular Hemoglobin 30.9 pg (27.0-33.0); Mean Corpuscular Volume 97.5 fL (80-95); Mean Platelet Volume 9.7 fL (8.0-11.0); Monocytes % 6.2; Neutrophils % 64.8; Platelet Count 259 x1000/uL (130-400); RBC 3.56 m/cumm (4.00-5.20); RBC Distribution Width 15.1 % (11.7-14.6); White Blood Cell Count 8.18 k/cumm (4.4-10.8)
--- NOTE | 2019-01-11 07:30 | MERGE_ITS ---
*[facility]* *[facility]* [address] [place] [address] Date of study: 01/11/2019 Transthoracic Echocardiography M-mode, complete 2D, complete spectral Doppler, and color Doppler *STUDY CONCLUSIONS* Summary: 1. Left ventricle: The cavity size was normal. Systolic function was normal. The estimated ejection fraction was 60-65%. Findings consistent with diastolic dysfunction. Doppler parameters are consistent with high ventricular filling pressure. 2. Mitral valve: There was moderate regurgitation. 3. Left atrium: The atrium was mildly dilated. 4. Right ventricle: The cavity size was normal. Wall thickness was normal. Systolic function was normal. 5. Atrial septum: No defect or patent foramen ovale was identified. 6. Pulmonary arteries: Pulmonary systolic pressure was in the range of 20mm Hg to 30mm Hg. 7. Inferior vena cava: The vessel was patent and normal in size. The respirophasic diameter changes were in the normal range (greater than or equal to 50%), consistent with normal central venous pressure. *PATIENT PRESENTATION* Height: 154.9cm ((61in) ) S/D Pressure: 155 / 69 Weight: 93.9kg ((206.6lb) ) BSA: 2.06m^2 Test start time: 07:40 AM. Test stop time: 08:40 AM. PERFORMING Unknown CONSULTING Autumn Awan PERFORMING [facility] ELECTRICIAN UNDERGROUND RT Dariela (R)(CT), [facility] ORDERING Anita Carranza REFERRING Anita Carranza *PROCEDURE DATA* Procedure information: The patient was identified by two identifiers. This study was interpreted by [facility]. Pertinent images and digital data are archived for permanent storage and are available for subsequent review. No prior study was available for comparison. Study status: Routine. Transthoracic echocardiography. M-mode, complete 2D, complete spectral Doppler, and color Doppler. A Transthoracic Echocardiogram was performed. Scanning was performed from the parasternal, apical, subcostal, and suprasternal notch acoustic windows. Images were obtained using an [id number] cardiac ultrasound machine. Image quality was adequate. Study completion: The patient tolerated the procedure well. History: PMH: PE syncope. *CARDIAC ANATOMY* Left ventricle: The cavity size was normal. Systolic function was normal. The estimated ejection fraction was 60-65%. The tissue Doppler parameters were abnormal. Findings consistent with diastolic dysfunction. Doppler parameters are consistent with high ventricular filling pressure. Aortic valve: Trileaflet. Doppler: There was no stenosis. There was no regurgitation. VTI ratio of LVOT to aortic valve: 0.59. Valve area (VTI): 1.8cm^2. Indexed valve area (VTI): 0.9cm^2/m^2. Peak velocity ratio of LVOT to aortic valve: 0.6. Valve area (Vmax): 1.8cm^2. Indexed valve area (Vmax): 0.9cm^2/m^2. Mean velocity ratio of LVOT to aortic valve: 0.57. Valve area (Vmean): 1.7cm^2. Indexed valve area (Vmean): 0.8cm^2/m^2. Mean gradient (S): 9.1mm Hg. Peak gradient (S): 15.3mm Hg. Aorta: Aortic root: The aortic root was normal in size. Ascending aorta: The ascending aorta was mildly dilated. Mitral valve: Doppler: There was no evidence for stenosis. There was moderate regurgitation. Valve area by pressure half-time: 3.2cm^2. Indexed valve area by pressure half-time: 1.5cm^2/m^2. Peak gradient (D): 4.7mm Hg. Left atrium: The atrium was mildly dilated. Atrial septum: No defect or patent foramen ovale was identified. Right ventricle: The cavity size was normal. Wall thickness was normal. Systolic function was normal. Pulmonic valve: Doppler: There was no evidence for stenosis. There was mild regurgitation. Peak gradient (S): 6.3mm Hg. Tricuspid valve: Doppler: There was mild regurgitation. Pulmonary artery: Poorly visualized. Pulmonary systolic pressure was in the range of 20mm Hg to 30mm Hg. Right atrium: The atrium was normal in size. Pericardium: There was no pericardial effusion. Systemic veins: Inferior vena cava: Well visualized. The vessel was patent and normal in size. The respirophasic diameter changes were in the normal range (greater than or equal to 50%), consistent with normal central venous pressure. Baseline ECG: Normal sinus rhythm. Measurements Left ventricle Value Reference LV ID, ED, PLAX 5.0 cm 3.5 - 6.0 LV ID, ES, PLAX 3.5 cm 2.1 - 4.0 LV PW thickness, ED, PLAX 1.1 cm LV end-diastolic volume, 1-p A2C 66 ml LV ejection fraction, 1-p A2C 57 % LV end-diastolic volume, 1-p A4C 98 ml LV ejection fraction, 1-p A4C 58 % LV e', lateral 0.051 m/sec LV E/e', lateral 21 LV e', medial 0.037 m/sec LV E/e', medial 29 LV e', average 0.044 m/sec LV E/e', average 25 Ventricular septum Value Reference IVS thickness, ED, PLAX 1.2 cm LVOT Value Reference LVOT ID, A-P 2.0 cm LVOT area 3 cm^2 LVOT peak velocity, S 1.18 m/sec LVOT mean velocity, S 0.83 m/sec LVOT VTI, S 28.8 cm LVOT peak gradient, S 5.6 mm Hg LVOT mean gradient, S 3.2 mm Hg Stroke volume (SV), LVOT DP 86 ml Stroke index (SV/bsa), LVOT DP 42 ml/m^2 Aortic valve Value Reference Aortic valve peak velocity, S 2 m/sec Aortic valve mean velocity, S 1.45 m/sec Aortic valve VTI, S 49.0 cm Aortic mean gradient, S 9.1 mm Hg Aortic peak gradient, S 15.3 mm Hg VTI ratio, LVOT/AV 0.59 Aortic valve area, VTI 1.8 cm^2 Velocity ratio, peak, LVOT/AV 0.6 Aortic valve area, peak velocity 1.8 cm^2 Velocity ratio, mean, LVOT/AV 0.57 Aortic valve area, mean velocity 1.7 cm^2 Aortic valve area/bsa, mean velocity 0.8 cm^2/m^2 Aorta Value Reference Aortic root ID, ED 2.6 cm Ascending aorta ID, A-P, S 3.4 cm Left atrium Value Reference LA ID, A-P, ES 4.6 cm LA ID/bsa, A-P 2.2 cm/m^2 <=2.2 LA area, ES, A4C (H) 24.1 cm^2 8.8 - 23.4 LA area, ES, A2C 21 cm^2 LA volume/bsa, ES, 1-p A4C 44 ml/m^2 LA volume, ES, 2-p 72 ml LA volume/bsa, ES, 2-p 35 ml/m^2 LA/aortic root ratio 1.74 Mitral valve Value Reference Mitral E-wave peak velocity 1.08 m/sec Mitral A-wave peak velocity 1.25 m/sec Mitral deceleration time (H) 239 ms 150 - 230 Mitral pressure half-time 69 ms Mitral peak gradient, D 4.7 mm Hg Mitral E/A ratio, peak 0.87 Mitral valve area, PHT, DP 3.2 cm^2 Mitral peak LV-LA gradient, S 166.6 mm Hg Mitral maximal regurg velocity, PISA 6.45 m/sec Mitral regurg VTI, PISA 255.3 cm Pulmonary veins Value Reference Pulmonary vein peak velocity, S 0.58 m/sec Pulmonary vein peak velocity, D 0.47 m/sec Pulmonary vein velocity ratio, peak, 1.23 S/D Pulmonary vein A-wave reversal peak 0.28 m/sec velocity Pulmonary vein A-wave reversal 163 ms duration Tricuspid valve Value Reference Tricuspid regurg peak velocity 2.3 m/sec Tricuspid peak RV-RA gradient 21.7 mm Hg Right atrium Value Reference RA area, ES, A4C 13.4 cm^2 8.3 - 19.5 Pulmonic valve Value Reference Pulmonic peak gradient, S 6.3 mm Hg Legend: (L) and (H) merrill values outside specified reference range. I have personally reviewed the images and have reviewed and edited the reported findings. Electronically signed by Gene Jacinto MD 01/11/2019 18:19
[2019-01-11 07:31] LABS: Anion Gap 8.4 mmol/L (3-11); BUN 14 mg/dL (7-18); CO2 27.6 mmol/L (21.0-32.0); Calcium 8.4 mg/dL (8.5-10.1); Chloride 102 mmol/L (98-107); Glucose 105 mg/dL (70-100); Magnesium 1.7 mg/dL (1.8-2.4); Potassium 3.6 mmol/L (3.5-5.1); Sodium 138 mmol/L (136-145)
--- NOTE | 2019-01-11 08:53 | DI.US_ITS ---
SYMPTOM/DIAGNOSIS: SYNCOPE AND DIZZINESS CAROTID ULTRASOUND: There is calcific plaque seen in both common carotid bulbs as well as proximal internal carotid arteries. No significant velocity elevations are seen, consistent with less than 50% stenosis. Both vertebral arteries show antegrade flow. IMPRESSION: Calcific plaque without significant internal carotid artery stenosis.
--- NOTE | 2019-01-11 09:21 | DI.US_ITS ---
SYMPTOM/DIAGNOSIS: R/O DVT BILATERAL LOWER EXTREMITY ULTRASOUND: The femoral and popliteal veins and visualized portions of the calf veins are freely compressible. No thrombus is visualized. There is no evidence of Brooks's cyst or hematoma. No superficial venous thrombosis is identified. IMPRESSION: Negative bilateral lower extremity ultrasound. No evidence of DVT.
[2019-01-11] MEDS: Acetaminophen 500 MG TAB 1000 MG PO ×3 (10:00→20:31)
[2019-01-11] MEDS: Magnesium Oxide 400 MG TAB PO ×2 (10:00→10:20)
[2019-01-11] MEDS: Sucralfate 1 GM TAB PO ×4 (10:00→20:30)
[2019-01-11] MEDS: MAGNESIUM SULFATE 2 GM/50 ML BAG IVPB (10:00)
[2019-01-11] MEDS: DULoxetine 20 MG CAP PO (10:01)
[2019-01-11] MEDS: Loratidine 10 MG TAB PO (10:01)
[2019-01-11] MEDS: Pantoprazole 40 MG VIAL IVP ×2 (10:01→20:31)
[2019-01-11] MEDS: Normal Saline Flush 10 ML SYR IVP ×2 (10:01→20:31)
[2019-01-11] MEDS: traMADol 50 MG TAB PO (10:18)
[2019-01-11] MEDS: Hydrocortisone SOD SUC. 100 MG VIAL 50 MG IVP (10:25)
--- NOTE | 2019-01-11 10:51 | PDOC.CMIN ---
Care Management Initial Assess REASON FOR HOSPITALIZATION:: Syncope PAST MEDICAL HISTORY/PAST SURGICAL HISTORY:: Rheumatoid Arthritis, arthritis, hysterectomy, cholecystectomy PREVIOUS FUNCTIONAL STATUS/SOCIAL/FAMILY SUPPORTS:: Alexa resides alone in [place], [place]. Her daughter and primary support person, Raisa resides nearby in [place]. CURRENT FUNCTIONAL STATUS:: Alexa was lying in bed, talkative and open to discussion. She was pleasant in interaction. ADVANCE DIRECTIVES:: On file; Raisa as agent. Has patient been provided with information about the portal?: Yes Did the patient sign up for the portal?: No CODE STATUS:: DNR/DNI INSURANCE COVERAGE / FINANCIAL ISSUES:: Medicaid. Medicare CURRENT HOME/COMMUNITY SERVICES/EQUIPMENT:: [employer], handicap accessible ramp, shower, toilet. 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 Homemaker tasks-2hrs/wk. PRIMARY CARE PHYSICIAN:: Autumn Awan POTENTIAL DISCHARGE NEEDS:: Evaluation for further needs, syncope work up. PATIENT/FAMILY EDUCATION NEEDS:: Review discharge instructions, discuss Ask Me Three. ANTICIPATED BARRIERS TO DISCHARGE:: None identified. TRANSPORTATION:: Via private vehicle with her daughter. PLAN:: Alexa will have a work up for syncope including Echo and Ultrasound. She had a surgical consult with Dr. Rinaldi who reported she could appropriately utilize anticoagulation to treat development of small PE per MD.
--- NOTE | 2019-01-11 10:58 | INITIAL_ITS ---
Care Management Initial Assess REASON FOR HOSPITALIZATION:: Syncope PAST MEDICAL HISTORY/PAST SURGICAL HISTORY:: Rheumatoid Arthritis, arthritis, hysterectomy, cholecystectomy PREVIOUS FUNCTIONAL STATUS/SOCIAL/FAMILY SUPPORTS:: Alexa resides alone in [place], [place]. Her daughter and primary support person, Raisa resides nearby in [place]. CURRENT FUNCTIONAL STATUS:: Alexa was lying in bed, talkative and open to discussion. She was pleasant in interaction. ADVANCE DIRECTIVES:: On file; Raisa as agent. Has patient been provided with information about the portal?: Yes Did the patient sign up for the portal?: No CODE STATUS:: DNR/DNI INSURANCE COVERAGE / FINANCIAL ISSUES:: Medicaid. Medicare CURRENT HOME/COMMUNITY SERVICES/EQUIPMENT:: [employer], handicap accessible ramp, shower, toilet. plastic tool maker; grocery shopping and food prep; one hour/wk. Homemaker tasks-2hrs/wk. PRIMARY CARE PHYSICIAN:: Autumn Awna POTENTIAL DISCHARGE NEEDS:: Evaluation for further needs, syncope work up. PATIENT/FAMILY EDUCATION NEEDS:: Review discharge instructions, discuss Ask Me Three. ANTICIPATED BARRIERS TO DISCHARGE:: None identified. TRANSPORTATION:: Via private vehicle with her daughter. PLAN:: Alexa will have a work up for syncope including Echo and Ultrasound. She had a surgical consult with Dr. Rinaldi who reported she could appropriately utilize anticoagulation to treat development of small PE per MD.
--- NOTE | 2019-01-11 13:58 | PGE_ITS ---
Date of Service Date of service: 01/11/19 Time of Service: 14:21 Assessment and Plan (1) Syncope: Current visit: Yes Status: Chronic Today no c/o dizziness, or syncopal episodes. Carotid u/s reveals Calcific plaque without significant internal carotid artery stenosis. Lipid panel ordered for am, consider statin for patient given plaque identification on discharge. Extremity u/s was negative for DVT bilaterally. Consider adrenal insufficiency or PE cause of syncopal episode. (2) Pulmonary embolism: Start date: 01/11/19 Start time: 14:02 Current visit: Yes Status: Chronic Surgery consulted on patient, ok to start anticoagulation recommend monitoring H/H stable at this time and if worsening bleeding or decline in H/H they will scope. would like to transition to eliquis will check with CM if insurance will cover and switch, if not consider a different po anticoagulatoin (3) Adrenal insufficiency: Start date: 01/11/19 Start time: 14:14 Current visit: Yes Status: Acute intermediate steroid use over the course of last year starting last summer, while trying to control RA symptoms. She was started on stress dose steroids with great improvement today. She feels energetic with a pain of 2 she was able to ambulate around the room with no weakness, dizziness. She will need a long taper and outpatient management for the right dose to prevent her symtpoms. (4) Rheumatoid arthritis: Start date: 01/11/19 Start time: 14:16 Current visit: Yes Status: Chronic Severe pain associated with RA, currently on methotrexate and prednisone, after adding duloxitine her pain level is a 2, she states this is the least amount of pain she has had in a long time, continue duloxitine, tramadol for break through and tylenol (5) Pain: Start date: 01/11/19 Start time: 14:17 Current visit: Yes Status: Acute Chronic in nature with exacerbations, she is also having anxiety and depression related to pain. see above (6) H/O: GI bleed: Start date: 01/11/19 Start time: 14:17 Current visit: Yes Status: Acute Heme positive stools seen by surgery:rom a surgical standpoint, it would appear that the benefits for anticoagulation outweigh the risks as this time. Continue PPI coverage. Add Carafate. Monitor H/H. If she remains stable, then there is no urgent indication for endoscopy and she can follow-up with surgery or GI as an outpatient to discuss outpatient EGD/colonoscopy. If she significantly drops her H/H and/ or develops signs of active GI bleed, then she will need urgent endoscopy and further management per findings. Discussed with Dr. Carranza. Will follow-up while inpatient as needed. (7) Occult blood positive stool: Start date: 01/11/19 Start time: 14:18 Current visit: Yes Status: Acute see above (8) Iron deficiency anemia: Start date: 01/11/19 Start time: 14:18 Current visit: Yes Status: Acute Received iron infusions in the past for Iron deficiency anemia in the setting of GI bleed. Stable H/H at this time. (9) HTN (hypertension): Start date: 01/11/19 Start time: 14:18 Current visit: Yes Status: Chronic Blood pressure is better improved today in the setting of better pain management and less anxiety. (10) DVT prophylaxis: Start date: 01/11/19 Start time: 14:19 Current visit: Yes Status: Acute On anticoagulation for PE (11) Discharge planning issues: Start date: 01/11/19 Start time: 14:19 Current visit: Yes Status: Acute DNR/DNI Will need long tapering steroid dose with follow up for adrenal insufficency. Subjective Patient reports: feels better Interval history since last seen: Mrs. Lewis is feeling much better today. She states she feels great. She appears to be more awake and energetic. Her pain is a 2, her blood pressure is lower. She was able to ambulate around the room without difficulty, moving her legs better than she has been able to in a month. She will need a care home taper steroid with follow up as an outpatient to manage adrenal insufficiency. Her carotid u/s revealed calcification plaque, a lipid panel was ordered for the morning recommend a statin on discharge. Her extremity venous u/s showed no evidence of DVT. She has had no dizziness or feelings of fainting when getting up today. Echo results pending at this time. Transitioning her to po anticoagulation and she could possibly go home tomorrow or the day after. Exam Const General: comfortable and no acute distress Nutritional Appearance: obese Orientation: alert, awake and oriented x3 HENMT Head: normal to inspection Eyes General: appearance normal, both eyes and all related structures Chest Chest: normal inspection of the chest Resp Effort & Inspection: normal respiratory effort and able to speak in complete s entences Auscultation: diminished lung sounds Cardio Jugular venous pressure: no JVD Palpation: normal PMI Rate: regular rate Rhythm: regular rhythm Heart Sounds: S1 normal and S2 normal GI Inspection: obesity Palpation: soft Auscultation: normal bowel sounds Rectal Exam - female: heme positive stool Back/Spine/Pelvis Back: no CVA tenderness Skin General skin exam: other Neuro General: alert, awake and oriented x3 Extrem General: normal to inspection Psych Appearance: grossly normal Affect: normal affect Attitude: cooperative Thought Process: normal Objective Objective Clinical Data: Abnormal lab results 01/11/19 01/11/19 Range/Units 07:06 07:06 RBC 3.56 L (4.00-5.20) m/cumm Hgb 11.0 L (12.0-15.5) g/dL Hct 34.7 L (36.0-46.0) % MCV 97.5 H (80-95) fL MCHC 31.7 L (32.0-36.0) g/dL RDW 15.1 H (11.7-14.6) % Glucose 105 H (70-100) mg/dL Calcium 8.4 L (8.5-10.1) mg/dL Magnesium 1.7 L (1.8-2.4) mg/dL Vital Signs Temperature 35.9 C L 01/11/19 11:00 Temperature Source Tympanic 01/11/19 11:00 Pulse 60 01/11/19 11:00 Pulse Rhythm Regular 01/11/19 10:03 Pulse 67 01/10/19 14:46 Respiratory Rate 18 01/11/19 11:00 Respiratory Effort Non-Labored 01/11/19 10:03 Respiratory Depth Normal 01/11/19 10:03 Respiratory Pattern Normal 01/11/19 10:03 Blood Pressure 132/69 01/11/19 11:00 Blood Pressure Mean 67 01/10/19 14:46 Blood Pressure Position Sitting 01/10/19 10:49 Pulse Oximetry 99 01/11/19 11:00 Oxygen Delivery Method Room Air 01/11/19 11:00 Oxygen Flow Rate 0 01/11/19 11:00 Pain Level 0 01/11/19 11:00 Intake & Output 01/10/19 01/11/1901/11/19 23:59 11:59 23:59 Intake Total 1400 / 1400 1406.667 / 1406.667 Output Total 1799 250 / 250 Balance -400 / -650 1156.667 / 1156.667 Weight 93.894 kg 94.2 kg Intake: IV 40 / 40 926.667 / 926.667 Oral 1360 / 1360 480 / 480 Output: Urine 1799 250 / 250 Other: Urine Color Yellow Yellow Urine Appearance Clear Clear Urine Odor Normal Normal Comment Pt reports occassional incontinence. pt reports that she does not have to void at this time. Voiding Methods Bedside Commode Toilet Laboratory Results WBC 8.18 k/cumm (4.4-10.8) D 01/11/19 07:06 RBC 3.56 m/cumm (4.00-5.20) L 01/11/19 07:06 Hgb 11.0 g/dL (12.0-15.5) L 01/11/19 07:06 Hct 34.7 % (36.0-46.0) L 01/11/19 07:06 MCV 97.5 fL (80-95) H 01/11/19 07:06 MCH 30.9 pg (27.0-33.0) 01/11/19 07:06 MCHC 31.7 g/dL (32.0-36.0) L 01/11/19 07:06 RDW 15.1 % (11.7-14.6) H 01/11/19 07:06 Plt Count 259 x1000/uL (130-400) 01/11/19 07:06 MPV 9.7 fL (8.0-11.0) 01/11/19 07:06 Immature Gran % 0.1 01/11/19 07:06 Neutrophils % 64.8 01/11/19 07:06 Lymphocytes % 22.4 01/11/19 07:06 Monocytes % 6.2 01/11/19 07:06 Eosinophils % 6.1 01/11/19 07:06 Basophils % 0.4 01/11/19 07:06 Absolute Neutrophils 5.30 k/cumm (1.2-6.7) 01/11/19 07:06 Absolute Lymphocytes 1.83 k/cumm (1.2-3.4) 01/11/19 07:06 Absolute Monocytes 0.51 k/cumm (0.11-0.7) 01/11/19 07:06 Absolute Eosinophils 0.50 k/cumm (0.0-0.7) 01/11/19 07:06 Absolute Basophils 0.03 k/cumm (0.0-0.2) 01/11/19 07:06 Differential Comment Agrees w/ instrument 01/10/19 11:25 RBC Morphology Normal 01/10/19 11:25 PT 9.9 sec (9.3-11.0) 01/10/19 11:25 INR 1.0 (0.9-1.1) 01/10/19 11:25 APTT 22.4 sec (21.0-31.4) 01/10/19 11:25 D-Dimer 7019 ng/mlFEU (<500) H 01/10/19 11:25 Sodium 138 mmol/L (136-145) 01/11/19 07:06 Potassium 3.6 mmol/L (3.5-5.1) 01/11/19 07:06 Chloride 102 mmol/L (98-107) 01/11/19 07:06 Carbon Dioxide 27.6 mmol/L (21.0-32.0) 01/11/19 07:06 Anion Gap 8.4 mmol/L (3-11) 01/11/19 07:06 BUN 14 mg/dL (7-18) D 01/11/19 07:06 Creatinine 0.60 mg/dL (0.55-1.02) 01/11/19 07:06 Estimated GFR/1.73 m2 >= 60.00 (mL/min/1.73m2) 01/11/19 07:06 Glucose 105 mg/dL (70-100) H 01/11/19 07:06 Calcium 8.4 mg/dL (8.5-10.1) L 01/11/19 07:06 Magnesium 1.7 mg/dL (1.8-2.4) L 01/11/19 07:06 Total Bilirubin 0.4 mg/dL (0.2-1.0) 01/10/19 11:25 AST 20 U/L (15-37) 01/10/19 11:25 ALT 26 U/L (12-78) 01/10/19 11:25 Alkaline Phosphatase 84 U/L (46-116) 01/10/19 11:25 Troponin I 0.02 ng/mL (0.00-0.06) 01/10/19 14:15 Total Protein 6.4 g/dL (6.4-8.2) 01/10/19 11:25 Albumin 3.3 g/dL (3.4-5.0) L 01/10/19 11:25 Urine Color Yellow (Yellow) 01/10/19 11:45 Urine Clarity Sl cloudy 01/10/19 11:45 Urine pH 8.5 (5-8) H 01/10/19 11:45 Ur Specific Anderson 1.015 (1.005-1.025) 01/10/19 11:45 Urine Protein Trace mg/dL (Negative) H 01/10/19 11:45 Urine Ketones Negative mg/dL (Negative) 01/10/19 11:45 Urine Blood Negative (Negative) 01/10/19 11:45 Urine Nitrite Negative (Negative) 01/10/19 11:45 Urine Bilirubin Negative (Negative) 01/10/19 11:45 Urine Urobilinogen 0.2 EU/dL (Up TO 0.2) 01/10/19 11:45 Ur Leukocyte Esterase Negative (Negative) 01/10/19 11:45 Urine RBC 0-2 (0-2) 01/10/19 11:45 Urine WBC 0-2 HPF (0-5) 01/10/19 11:45 Ur Epithelial Cells Rare HPF (Negative) 01/10/19 11:45 Urine Crystals Few amorphous HPF (Negative) 01/10/19 11:45 Urine Bacteria Rare HPF (Negative) 01/10/19 11:45 Urine Casts Negative LPF (Negative) 01/10/19 11:45 Urine Mucus Trace (Negative) 01/10/19 11:45 Ur Culture Indicated? No 01/10/19 11:45 Urine Glucose Negative mg/dL (Negative) 01/10/19 11:45
--- NOTE | 2019-01-11 14:53 | OT.INIE ---
Occupational Therapy Notes Inpatient Occupational Therapy Evaluation Date: 01/11/19 Referring Doctor:Kathryn Mccartney NP OT Orders: Falls, Syncope Precautions: Fall, Standard PATIENT PROFILE/ADMITTING DIAGNOSIS: Pt is a 78 year old female who was admitted through the ER on 01/10/19 for syncope, depression and pulmonary emboli. She states that she has had multiple tests throughout the day to assess for other DVT in her legs/(B) UEs. Past Medical History: Medical History Arthritis (Acute) H/O: hysterectomy (Chronic) Surgical History History of cholecystectomy (Chronic) Social History/Home Situation: Pt lives alone. She reports that prior to admission she was (I) with all ADLs/IADLs and that she gets (A) as needed from her friends/daughter. Equipment owned/DME: shower bench, grab bars. SUBJECTIVE: Pt was sitting in bed when OT arrived. She was agreeable to OT session and reports that she is tired from testing that has been performed prior. 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 Daily Activity Inpatient Short Form: Raw score: 23 Standardized score: 51.12 CMS score: 15.86% INFORMED CONSENT/EDUCATION: Pt instructed in purpose of OT Consult and plan of care. ASSESSMENT: Patient is a 78-year-old female referred to occupational therapy services with diagnosis of falls, syncope. Patient presents with clinical signs and symptoms consistent with dx, as demonstrated by the following impairment level findings/functional limitations: Decreased functional activity tolerance, decreased functional mobility, decreased (I) in baseline level of function for ADLs/IADLs, decreased (L) cement despatch operator strength. AMPAC score 23, CMS score 15.86% Patient is assessed as a Moderate 72653 complexity based on the following: History: See Above Examination: See Above Presentation: Evolving Decision Making: AMPAC score 23, CMS score 15.86% GOALS Goals x1 week in hospital setting 1. Transfers (I) 2. Dressing Sitting in chair (I) UE/LE dressing 3. Bathing Sitting in chair (I) with UE/LE bathing 4. Toileting on toilet (I) 5. Eating (I) 6. Brushing hair and teeth (I) standing at sink PLAN OF CARE/TREATMENT PLAN: 1x/day, 5 days/ week x 1week Initiate Occupational Therapy Services for bathing, dressing, grooming, toileting, eating, transfer training. DISCHARGE RECOMMENDATIONS Home when medically cleared per MD. TREATMENT TIME/MINUTES/CODES 36696, [id number], 25 minutes (10:25) [facility]
--- NOTE | 2019-01-11 15:06 | OTIE_ITS ---
Occupational Therapy Notes Inpatient Occupational Therapy Evaluation Date: 01/11/19 Referring Doctor:Kathryn Mccartney NP OT Orders: Falls, Syncope Precautions: Fall, Standard PATIENT PROFILE/ADMITTING DIAGNOSIS: Pt is a 78 year old female who was admitted through the ER on 01/10/19 for syncope, depression and pulmonary emboli. She states that she has had multiple tests throughout the day to assess for other DVT in her legs/(B) UEs. Past Medical History: Medical History Arthritis (Acute) H/O: hysterectomy (Chronic) Surgical History History of cholecystectomy (Chronic) Social History/Home Situation: Pt lives alone. She reports that prior to admission she was (I) with all ADLs/IADLs and that she gets (A) as needed from her friends/daughter. Equipment owned/DME: shower bench, grab bars. SUBJECTIVE: Pt was sitting in bed when OT arrived. She was agreeable to OT session and reports that she is tired from testing that has been performed prior. OBJECTIVE: General Observation: IV (L) UE Mental Status: A&Ox3 Pain: no c/o pain ROM: RUE AROM WFL L UE AROM WFL STRENGTH: RUE Shoulder flexion 4+/5, elbow 5/5, (R) help desk engineer > (L) LUE Shoulder flexion 4+/5, elbow 4+/5, (R) help desk engineer > (L) FUNCTIONAL MOBILITY/ADLS: BATHING Sitting in bed with max (A) set up per nursing (I) Washed face and (B) UE GROOMING Sitting in bed with max (A) set up (I) brushing teeth BALANCE: Static sitting Normal Dynamic Sitting Normal SPECIAL TESTS: Daily Activity Limitations Standardized Measure [facility] AM -PAC ?6 clicks? Daily Activity Inpatient Short Form: Raw score: 23 Standardized score: 51.12 CMS score: 15.86% INFORMED CONSENT/EDUCATION: Pt instructed in purpose of OT Consult and plan of care. ASSESSMENT: Patient is a 78-year-old female referred to occupational therapy services with diagnosis of falls, syncope. Patient presents with clinical signs and symptoms consistent with dx, as demonstrated by the following impairment level findings/functional limitations: Decreased functional activity tolerance, decreased functional mobility, decreased (I) in baseline level of function for ADLs/IADLs, decreased (L) help desk engineer strength. AMPAC score 23, CMS score 15.86% Patient is assessed as a Moderate 07605 complexity based on the following: History: See Above Examination: See Above Presentation: Evolving Decision Making: AMPAC score 23, CMS score 15.86% GOALS Goals x1 week in hospital setting 1. Transfers (I) 2. Dressing Sitting in chair (I) UE/LE dressing 3. Bathing Sitting in chair (I) with UE/LE bathing 4. Toileting on toilet (I) 5. Eating (I) 6. Brushing hair and teeth (I) standing at sink PLAN OF CARE/TREATMENT PLAN: 1x/day, 5 days/ week x 1week Initiate Occupational Therapy Services for bathing, dressing, grooming, toileting, eating, transfer training. DISCHARGE RECOMMENDATIONS Home when medically cleared per MD. TREATMENT TIME/MINUTES/CODES 70510, 19381, 25 minutes (10:25) [facility]
--- NOTE | 2019-01-11 15:12 | CHAPLAIN ---
Alexa was in bed, she was very pleasant when I visited. We had a short visit. She seems to be comfortable being here.
--- NOTE | 2019-01-11 15:20 | PHARADMIT ---
Admission Pharmacy Clinical Review Syncope Code Status DNR/DNI Current Weight 94.2 kg Renally Cleared and Narrow Therapeutic Index Meds Crcl ~78.4 mL/min using adjusted body weight QTc Value / Action Taken QTc 406 BP Control, Fever BP 132/69 afebrile Electrolytes reviewed mag 1.7 DVT Prophylaxis enoxaparin Opiate Usage / Scheduled Bowel Regimen Ordered no/prn Plt/SCr for Heparin / Enoxaparin plt 259 SCr 0.60 INR for Warfarin n/a H/H stable, WBC/Bands h/h 11.0/34.7 wbc 8.18 Antibiotic appropriateness none Cultures and Sensitivities none Surgical ABX d/c within 24 hr n/a DM control / Insulin Dosing BG 105 none Heart Failure (Check EF%) (MERLYN's, B-Block, Diuretics) none IV to PO Switch n/a Home Meds Reviewed -omeprazole may increase the serum concentration of citalopram; watch for toxicity if used in combination -aspirin may increase the serum concentration of methotrexate (lower doses for prophylaxis of cardiovascular events are not likely to be of concern) Home Meds Not Ordered aspirin, citalopram, omeprazole(has pantoprazole ordered), prednisone(has hydrocortisone ordered) Comments monitor h/h
[2019-01-12] VITALS (13 sets, daily range): BP systolic 91–183; BP diastolic 57–79; PULSE 64–150; RESP 16–20; TEMP 36.1–36.9; O2SAT 93–97
[2019-01-12] MEDS: Normal Saline 1,000 ML 100 ML IV (00:05)
[2019-01-12] MEDS: traMADol 50 MG TAB PO ×2 (01:44→11:41)
[2019-01-12] MEDS: Enoxaparin 100 MG/ML SYR SC (03:21)
[2019-01-12 08:06] LABS: Abs Immature Grans 0.03 k/cumm (0.0-0.09); Absolute Basophil Count 0.06 k/cumm (0.0-0.2); Absolute Eosinophil Count 1.52 k/cumm (0.0-0.7); Absolute Lymphocyte Count 3.22 k/cumm (1.2-3.4); Absolute Monocyte Count 0.66 k/cumm (0.11-0.7); Absolute Neutrophil Count 4.43 k/cumm (1.2-6.7); Basophils % 0.6; Eosinophils % 15.3; HCT 35.8 % (36.0-46.0); HGB 11.4 g/dL (12.0-15.5); Immature Grans % 0.3; Lymphocytes % 32.5; Mean Corp. HGB Concentration 31.8 g/dL (32.0-36.0); Mean Corpuscular Hemoglobin 31.3 pg (27.0-33.0); Mean Corpuscular Volume 98.4 fL (80-95); Mean Platelet Volume 10.3 fL (8.0-11.0); Monocytes % 6.7; Neutrophils % 44.6; Platelet Count 290 x1000/uL (130-400); RBC 3.64 m/cumm (4.00-5.20); RBC Distribution Width 15.3 % (11.7-14.6); White Blood Cell Count 9.92 k/cumm (4.4-10.8)
[2019-01-12 08:20] LABS: Anion Gap 6.8 mmol/L (3-11); BUN 13 mg/dL (7-18); CO2 29.2 mmol/L (21.0-32.0); CREATININE 0.51 mg/dL (0.55-1.02); Calcium 8.6 mg/dL (8.5-10.1); Chloride 102 mmol/L (98-107); Glucose 94 mg/dL (70-100); Potassium 3.4 mmol/L (3.5-5.1); Sodium 138 mmol/L (136-145)
[2019-01-12 08:26] LABS: Cholesterol 198 mg/dL (50-200); HDL Cholesterol 44 mg/dL (40-60); LDL CHOLESTEROL 123 mg/dL (<100); Magnesium 1.9 mg/dL (1.8-2.4); Triglyceride 173 mg/dL (30-150)
[2019-01-12 08:30] LABS: Diff Comment Diff Reviewed; RBC Morphology Normal
[2019-01-12] MEDS: Acetaminophen 500 MG TAB 1000 MG PO ×3 (09:46→20:01)
[2019-01-12] MEDS: Hydrocortisone SOD SUC. 100 MG VIAL 50 MG IVP (09:47)
[2019-01-12] MEDS: Magnesium Oxide 400 MG TAB PO (09:47)
[2019-01-12] MEDS: Normal Saline Flush 10 ML SYR IVP ×2 (09:47→20:00)
[2019-01-12] MEDS: Pantoprazole 40 MG VIAL IVP ×2 (09:47→20:00)
[2019-01-12] MEDS: Loratidine 10 MG TAB PO (09:47)
[2019-01-12] MEDS: DULoxetine 20 MG CAP PO (09:47)
--- NOTE | 2019-01-12 10:07 | OT.INDS ---
Date of service: 01/12/19 Time of Service: 08:45 Occupational Therapy Notes Occupational Therapy Inpatient Discharge Summary Date: 01/12/19 Dates of Service: 01/11/19-01/12/19 Referring Doctor:Kathryn Mccartney NP OT Orders: Falls, Syncope Precautions: Fall, Standard PATIENT PROFILE/ADMITTING DIAGNOSIS: Pt is a 78 year old female who was admitted through the ER on 01/10/19 for syncope, depression and pulmonary emboli. She states that she has had multiple tests throughout the day to assess for other DVT in her legs/(B) UEs. Past Medical History: Medical History Arthritis (Acute) H/O: hysterectomy (Chronic) Surgical History History of cholecystectomy (Chronic) Social History/Home Situation: Pt lives alone. She reports that prior to admission she was (I) with all ADLs/IADLs and that she gets (A) as needed from her friends/daughter. Equipment owned/DME: shower bench, grab bars. SUBJECTIVE: Pt was sitting in bed when OT arrived. She was agreeable to OT session. She states that she would like to get washed up today but only her UE as she states she will be going home today and that her daughter will help her. OBJECTIVE: General Observation: IV (L) UE Mental Status: A&Ox3 Pain: no c/o pain ROM: RUE AROM WFL L UE AROM WFL STRENGTH: RUE Shoulder flexion 4+/5, elbow 5/5, (R) transcription typist > (L) LUE Shoulder flexion 4+/5, elbow 4+/5, (R) transcription typist > (L) FUNCTIONAL MOBILITY/ADLS: BATHING Sitting on side of bed with max (A) set up (I) face, (B) UE, max (A) back. GROOMING Standing at sink (I) brushing teeth BALANCE: Static sitting Normal Dynamic Sitting Normal ASSESSMENT: Patient is a 78-year-old female referred to occupational therapy services with diagnosis of falls, syncope. She was seen for 2 skilled OT sessions. Pt demonstrated increased (I) in ADL routine. Pt does not want to perform LE bathing as she states that she is going home today. Functionally pt is able to perform her ADLs. Plan per CM is pt will be discharged later this afternoon. OT will d/c pt from skilled OT services. GOALS 1. Transfers (I) (S at this time) 2. Dressing Sitting in chair (I) UE/LE dressing (MET) 3. Bathing Sitting in chair (I) with UE/LE bathing (MET) 4. Toileting on toilet (I) (MET) 5. Eating (I) (MET) 6. Brushing hair and teeth (I) standing at sink (MET) PLAN OF CARE/TREATMENT PLAN: Discharge from skilled OT services. DISCHARGE RECOMMENDATIONS Home when medically cleared per MD. TREATMENT TIME/MINUTES/CODES [id number], 30 minutes (08:45) [facility]
--- NOTE | 2019-01-12 10:14 | OTDS_ITS ---
Date of service: 01/12/19 Time of Service: 08:45 Occupational Therapy Notes Occupational Therapy Inpatient Discharge Summary Date: 01/12/19 Dates of Service: 01/11/19-01/12/19 Referring Doctor:Kathryn Mccartney NP OT Orders: Falls, Syncope Precautions: Fall, Standard PATIENT PROFILE/ADMITTING DIAGNOSIS: Pt is a 78 year old female who was admitted through the ER on 01/10/19 for syncope, depression and pulmonary emboli. She states that she has had multiple tests throughout the day to assess for other DVT in her legs/(B) UEs. Past Medical History: Medical History Arthritis (Acute) H/O: hysterectomy (Chronic) Surgical History History of cholecystectomy (Chronic) Social History/Home Situation: Pt lives alone. She reports that prior to admission she was (I) with all ADLs/IADLs and that she gets (A) as needed from her friends/daughter. Equipment owned/DME: shower bench, grab bars. SUBJECTIVE: Pt was sitting in bed when OT arrived. She was agreeable to OT session. She states that she would like to get washed up today but only her UE as she states she will be going home today and that her daughter will help her. OBJECTIVE: General Observation: IV (L) UE Mental Status: A&Ox3 Pain: no c/o pain ROM: RUE AROM WFL L UE AROM WFL STRENGTH: RUE Shoulder flexion 4+/5, elbow 5/5, (R) inspector process > (L) LUE Shoulder flexion 4+/5, elbow 4+/5, (R) inspector process > (L) FUNCTIONAL MOBILITY/ADLS: BATHING Sitting on side of bed with max (A) set up (I) face, (B) UE, max (A) back. GROOMING Standing at sink (I) brushing teeth BALANCE: Static sitting Normal Dynamic Sitting Normal ASSESSMENT: Patient is a 78-year-old female referred to occupational therapy services with diagnosis of falls, syncope. She was seen for 2 skilled OT sessions. Pt demonstrated increased (I) in ADL routine. Pt does not want to perform LE bathing as she states that she is going home today. Functionally pt is able to perform her ADLs. Plan per CM is pt will be discharged later this afternoon. OT will d/c pt from skilled OT services. GOALS 1. Transfers (I) (S at this time) 2. Dressing Sitting in chair (I) UE/LE dressing (MET) 3. Bathing Sitting in chair (I) with UE/LE bathing (MET) 4. Toileting on toilet (I) (MET) 5. Eating (I) (MET) 6. Brushing hair and teeth (I) standing at sink (MET) PLAN OF CARE/TREATMENT PLAN: Discharge from skilled OT services. DISCHARGE RECOMMENDATIONS Home when medically cleared per MD. TREATMENT TIME/MINUTES/CODES [id number], 30 minutes (08:45) [facility]
[2019-01-12] MEDS: Potassium Chloride 20 MEQ TABCR 40 MEQ PO ×2 (11:42→20:01)
[2019-01-12] MEDS: Sucralfate 1 GM TAB PO ×3 (11:42→20:00)
--- NOTE | 2019-01-12 15:35 | PGE_ITS ---
Date of Service Date of service: 01/12/19 Time of Service: 15:32 Assessment and Plan (1) Syncope: Current visit: Yes Status: Chronic Denies dizziness or syncopal episodes again today. Carotid ultrasound reveals calcific plaque without significant internal carotid artery stenosis. Extremity ultrasound was negative for DVT bilaterally. Echocardiogram shows LVEF of 60-65% with diastolic dysfunction. Mitral valve with moderate regurgitation, left atrium mildly dilated, pulmonary systolic pressure 20-30 mmHg. Orthostatic blood pressure changes noted. (2) Orthostatic hypotension: Current visit: Yes Status: Acute As above, trial midodrine. Continue to monitor. (3) SVT (supraventricular tachycardia): Current visit: Yes Status: Chronic Noted on telemetry. One episode x11 beats overnight. Continue to monitor on telemetry. Hold off on starting beta blockers in the setting of orthostatic hypotension. Consider extended cafeteria monitor on discharge. (4) Pulmonary embolism: Current visit: Yes Status: Chronic She was seen by general surgery, recommend anticoagulation with stable hemoglobin and hematocrit. Continue to monitor hemoglobin and hematocrit. Transition from Lovenox to Eliquis today. (5) Adrenal insufficiency: Current visit: Yes Status: Acute On chronic steroids. Improved on stress dose steroids. Transition from IV steroids to oral prednisone today. Continue to monitor. Will need follow-up with rheumatology. (6) Rheumatoid arthritis: Current visit: Yes Status: Chronic As above, has been chronically on steroids and methotrexate. Pain improved with the addition of Cymbalta. Transition to oral steroids and begin to taper as above. (7) Pain: Current visit: Yes Status: Acute Chronic pain improved with the addition of Cymbalta. Continue Tylenol and tramadol for breakthrough pain. (8) H/O: GI bleed: Current visit: Yes Status: Acute With heme positive stools. She has been seen by general surgery, agree with anticoagulation as long as hemoglobin and hematocrit remained stable. Continue PPI and Carafate. Will need follow-up with general surgery for endoscopy. Continue to follow hemoglobin and hematocrit. (9) Occult blood positive stool: Current visit: Yes Status: Acute As above, continue to monitor hemoglobin hematocrit. (10) Iron deficiency anemia: Current visit: Yes Status: Acute Has received iron infusions in the past for iron deficiency anemia. Hemoglobin and hematocrit currently stable. Continue to monitor hemoglobin and hematocrit. (11) DVT prophylaxis: Current visit: Yes Status: Acute On anticoagulation with Eliquis. (12) Discharge planning issues: Current visit: Yes Status: Acute She is a DNR/DNI. This case was discussed with Dr. Carranza who is in agreement. Subjective Interval history since last seen: Alexa Lewis reports feeling better today. She is sitting up in the chair. Her only complaint is right wrist pain that she reports is tolerable. Nursing reports asymptomatic orthostatic blood pressure changes. She denies any dizziness or syncope. She denies any shortness of breath, cough, wheezing, chest pain/pressure, palpitations. She was noted to have 11 beats of SVT noted on telemetry at 0330 this morning, she was not aware of the episode, she denied feeling any palpitations. She reports that she has been eating and drinking, no abdominal pain, nausea, vomiting or diarrhea. She has not had a bowel movement for 2 days. Exam Narrative Exam Narrative: General: awake and alert, sitting up in chair with BLE's elevated. In no acute distress. HEENT: normocephalic, atraumatic, mucous membranes moist. Neck: supple, no JVD. Respiratory: respirations even and unlabored, lung sounds clear to auscultation throughout. Cardiovascular: Heart has regular rate and rhythm, soft, 1-2/6 systolic ejection murmur. Gastrointestinal: Normoactive bowel sounds, soft, nontender on palpation, nondistended. Extremities: Trace edema to bilateral lower extremities, pedal pulses palpable bilaterally. Objective Objective Clinical Data: Abnormal lab results 01/12/19 01/12/19 01/12/19 Range/Units 07:06 07:06 07:06 RBC 3.64 L (4.00-5.20) m/cumm Hgb 11.4 L (12.0-15.5) g/dL Hct 35.8 L (36.0-46.0) % MCV 98.4 H (80-95) fL MCHC 31.8 L (32.0-36.0) g/dL RDW 15.3 H (11.7-14.6) % Absolute Eosinophils 1.52 H (0.0-0.7) k/cumm Potassium 3.4 L (3.5-5.1) mmol/L Creatinine 0.51 L (0.55-1.02) mg/dL Triglycerides 173 H (30-150) mg/dL LDL Cholesterol Direct 123 H (<100) mg/dL Vital Signs Temperature 36.4 C L 01/12/19 11:00 Temperature Source Tympanic 01/12/19 11:00 Pulse 75 01/12/19 14:11 Pulse Rhythm Regular 01/12/19 12:20 Pulse 67 01/10/19 14:46 Respiratory Rate 16 01/12/19 11:00 Respiratory Effort Non-Labored 01/12/19 12:20 Respiratory Depth Normal 01/12/19 12:20 Respiratory Pattern Normal 01/12/19 12:20 Blood Pressure 133/67 01/12/19 14:11 Blood Pressure Mean 67 01/10/19 14:46 Blood Pressure Position Sitting 01/10/19 10:49 Pulse Oximetry 97 01/12/19 11:00 Oxygen Delivery Method Room Air 01/12/19 03:29 Oxygen Flow Rate 0 01/12/19 03:29 Pain Level 2 01/12/19 11:41 Comment 01/12/19 00:18 Intake & Output 01/11/19 01/12/19 01/12/19 23:59 11:59 23:59 Intake Total 790 / 3196.667 2466.667 / 2706.667 240 / 2706.667 Output Total 700 / 950 1400 / 1400 Balance 90 / 2246.667 1066.667 / 1306.667 240 / 1306.667 Intake: IV 70 / 9972.040 1586.667 / 1866.667 Oral 720 / 1200 600 / 840 240 / 840 Output: Urine 700 / 950 1400 / 1400 Other: Urine Color Yellow Yellow Urine Appearance Clear Clear Urine Odor Normal Voiding Methods Bedside Commode Toilet Laboratory Results WBC 9.92 k/cumm (4.4-10.8) 01/12/19 07:06 RBC 3.64 m/cumm (4.00-5.20) L 01/12/19 07:06 Hgb 11.4 g/dL (12.0-15.5) L 01/12/19 07:06 Hct 35.8 % (36.0-46.0) L 01/12/19 07:06 MCV 98.4 fL (80-95) H 01/12/19 07:06 MCH 31.3 pg (27.0-33.0) 01/12/19 07:06 MCHC 31.8 g/dL (32.0-36.0) L 01/12/19 07:06 RDW 15.3 % (11.7-14.6) H 01/12/19 07:06 Plt Count 290 x1000/uL (130-400) 01/12/19 07:06 MPV 10.3 fL (8.0-11.0) 01/12/19 07:06 Immature Gran % 0.3 01/12/19 07:06 Neutrophils % 44.6 01/12/19 07:06 Lymphocytes % 32.5 01/12/19 07:06 Monocytes % 6.7 01/12/19 07:06 Eosinophils % 15.3 01/12/19 07:06 Basophils % 0.6 01/12/19 07:06 Absolute Neutrophils 4.43 k/cumm (1.2-6.7) 01/12/19 07:06 Absolute Lymphocytes 3.22 k/cumm (1.2-3.4) 01/12/19 07:06 Absolute Monocytes 0.66 k/cumm (0.11-0.7) 01/12/19 07:06 Absolute Eosinophils 1.52 k/cumm (0.0-0.7) H 01/12/19 07:06 Absolute Basophils 0.06 k/cumm (0.0-0.2) 01/12/19 07:06 Differential Comment Diff reviewed 01/12/19 07:06 RBC Morphology Normal 01/12/19 07:06 PT 9.9 sec (9.3-11.0) 01/10/19 11:25 INR 1.0 (0.9-1.1) 01/10/19 11:25 APTT 22.4 sec (21.0-31.4) 01/10/19 11:25 D-Dimer 7019 ng/mlFEU (<500) H 01/10/19 11:25 Sodium 138 mmol/L (136-145) 01/12/19 07:06 Potassium 3.4 mmol/L (3.5-5.1) L 01/12/19 07:06 Chloride 102 mmol/L (98-107) 01/12/19 07:06 Carbon Dioxide 29.2 mmol/L (21.0-32.0) 01/12/19 07:06 Anion Gap 6.8 mmol/L (3-11) 01/12/19 07:06 BUN 13 mg/dL (7-18) 01/12/19 07:06 Creatinine 0.51 mg/dL (0.55-1.02) L 01/12/19 07:06 Estimated GFR/1.73 m2 >= 60.00 (mL/min/1.73m2) 01/12/19 07:06 Glucose 94 mg/dL (70-100) 01/12/19 07:06 Calcium 8.6 mg/dL (8.5-10.1) 01/12/19 07:06 Magnesium 1.9 mg/dL (1.8-2.4) 01/12/19 07:06 Total Bilirubin 0.4 mg/dL (0.2-1.0) 01/10/19 11:25 AST 20 U/L (15-37) 01/10/19 11:25 ALT 26 U/L (12-78) 01/10/19 11:25 Alkaline Phosphatase 84 U/L (46-116) 01/10/19 11:25 Troponin I 0.02 ng/mL (0.00-0.06) 01/10/19 14:15 Total Protein 6.4 g/dL (6.4-8.2) 01/10/19 11:25 Albumin 3.3 g/dL (3.4-5.0) L 01/10/19 11:25 Triglycerides 173 mg/dL (30-150) H 01/12/19 07:06 Total Cholesterol 198 mg/dL (50-200) 01/12/19 07:06 LDL Cholesterol Direct 123 mg/dL (<100) H 01/12/19 07:06 HDL Cholesterol 44 mg/dL (40-60) 01/12/19 07:06 Urine Color Yellow (Yellow) 01/10/19 11:45 Urine Clarity Sl cloudy 01/10/19 11:45 Urine pH 8.5 (5-8) H 01/10/19 11:45 Ur Specific Francis 1.015 (1.005-1.025) 01/10/19 11:45 Urine Protein Trace mg/dL (Negative) H 01/10/19 11:45 Urine Ketones Negative mg/dL (Negative) 01/10/19 11:45 Urine Blood Negative (Negative) 01/10/19 11:45 Urine Nitrite Negative (Negative) 01/10/19 11:45 Urine Bilirubin Negative (Negative) 01/10/19 11:45 Urine Urobilinogen 0.2 EU/dL (Up TO 0.2) 01/10/19 11:45 Ur Leukocyte Esterase Negative (Negative) 01/10/19 11:45 Urine RBC 0-2 (0-2) 01/10/19 11:45 Urine WBC 0-2 HPF (0-5) 01/10/19 11:45 Ur Epithelial Cells Rare HPF (Negative) 01/10/19 11:45 Urine Crystals Few amorphous HPF (Negative) 01/10/19 11:45 Urine Bacteria Rare HPF (Negative) 01/10/19 11:45 Urine Casts Negative LPF (Negative) 01/10/19 11:45 Urine Mucus Trace (Negative) 01/10/19 11:45 Ur Culture Indicated? No 01/10/19 11:45 Urine Glucose Negative mg/dL (Negative) 01/10/19 11:45
--- NOTE | 2019-01-12 15:55 | PT.INTREAT ---
Date of service: 01/12/19 Time of Service: 15:55 PT Notes Inpatient Physical Therapy Treatment Note [facility] Date: 01/12/19 PRECAUTIONS: Fall SUBJECTIVE: Alexa states that she is feeling better and is looking forward to returning home. In the afternoon she states I've been walking around all day. OBJECTIVE: PAIN: No c/o pain BED MOBILITY/TRANSFERS Supine?sit: Min A with HOB flat Sit-stand: SBA Stand-sit: SBA in a.m.; S in p.m. GAIT Assistive Device: FWW; 4WW Weight bearing: Full Assist: SBA Distance: 75' with FWW + 75' with 4WW in a.m.; 15' with 4WW in p.m. Deviation: Slowed imelda, decreased step-height on L THEREX: Patient completed several standing lower extremity strengthening exercises, as per flow sheet. TOILETING: Patient toileted with supervision for transfers ASSESSMENT: Patient tolerated sessions well, without complaint. She was able to tolerate a progression in gait distance with FWW, then 4WW support and SBA. She would benefit from continued strengthening, as well as gait and transfer training for improved activity tolerance and mobility. PLAN: Continue with PT's POC TREATMENT CODE/TIME: Session 1: 35 minutes; [id number], [id number] Session 2: 10 minutes; [id number]
--- NOTE | 2019-01-12 16:49 | PDOC.CMPRO ---
Care Management Progress Note S/O: Alexa was sitting up in her chair when CM met with her. She remains pleasant in interaction and shared no concerns at this time. CM spoke with Alexa's CM at [facility]; Anjelica as well as Cherrie Cedeno. Both CMs requested notification of discharge planning due to coordination of homemaker services. CM will continue to follow. A: 78 year old female admitted to [facility] 01/10/19 for Syncope P: Alexa will discharge home when ready per MD; anticipate she will discharge home on new prescription of Eliquis. She will transport via private vehicle with her daughter, Raisa, resume current service supports and follow up with her PCP.
--- NOTE | 2019-01-12 16:59 | CMPROGNOTE_ITS ---
Care Management Progress Note S/O: Alexa was sitting up in her chair when CM met with her. She remains pleasant in interaction and shared no concerns at this time. CM spoke with Alexa's CM at [facility] [place]; Anjelica as well as Cherrie Cedeno. Both CMs requested notification of discharge planning due to coordination of homemaker services. CM will continue to follow. A: 78 year old female admitted to [facility] 01/10/19 for Syncope P: Alexa will discharge home when ready per MD; anticipate she will discharge home on new prescription of Eliquis. She will transport via private vehicle with her daughter, Raisa, resume current service supports and follow up with her PCP.
[2019-01-12] MEDS: Apixaban 5 MG TAB 10 MG PO (20:01)
[2019-01-12] MEDS: Midodrine 2.5 MG TAB PO (20:09)
[2019-01-13] VITALS (7 sets, daily range): BP systolic 122–149; BP diastolic 67–87; PULSE 66–80; RESP 16–19; TEMP 36.5–36.6; O2SAT 95–96
[2019-01-13] MEDS: traMADol 50 MG TAB PO ×2 (03:14→08:23)
[2019-01-13 07:30] LABS: Abs Immature Grans 0.02 k/cumm (0.0-0.09); Absolute Basophil Count 0.04 k/cumm (0.0-0.2); Absolute Lymphocyte Count 2.69 k/cumm (1.2-3.4); Absolute Monocyte Count 0.66 k/cumm (0.11-0.7); Absolute Neutrophil Count 5.43 k/cumm (1.2-6.7); Basophils % 0.4; Eosinophils % 15.3; HCT 34.2 % (36.0-46.0); HGB 10.8 g/dL (12.0-15.5); Immature Grans % 0.2; Lymphocytes % 25.8; Mean Corp. HGB Concentration 31.6 g/dL (32.0-36.0); Mean Corpuscular Volume 98.3 fL (80-95); Mean Platelet Volume 9.8 fL (8.0-11.0); Monocytes % 6.3; Platelet Count 275 x1000/uL (130-400); RBC 3.48 m/cumm (4.00-5.20); RBC Distribution Width 15.3 % (11.7-14.6); White Blood Cell Count 10.44 k/cumm (4.4-10.8)
[2019-01-13 08:04] LABS: Anion Gap 7.5 mmol/L (3-11); BUN 12 mg/dL (7-18); CO2 26.5 mmol/L (21.0-32.0); CREATININE 0.65 mg/dL (0.55-1.02); Calcium 8.5 mg/dL (8.5-10.1); Chloride 101 mmol/L (98-107); Glucose 96 mg/dL (70-100); Magnesium 1.7 mg/dL (1.8-2.4); Sodium 135 mmol/L (136-145)
[2019-01-13] MEDS: Pantoprazole 40 MG VIAL IVP (08:21)
[2019-01-13] MEDS: Magnesium Oxide 400 MG TAB PO (08:21)
[2019-01-13] MEDS: Midodrine 2.5 MG TAB PO ×2 (08:21→14:15)
[2019-01-13] MEDS: Potassium Chloride 20 MEQ TABCR 40 MEQ PO (08:21)
[2019-01-13] MEDS: DULoxetine 20 MG CAP PO (08:21)
[2019-01-13] MEDS: Acetaminophen 500 MG TAB 1000 MG PO ×2 (08:22→14:15)
[2019-01-13] MEDS: Sucralfate 1 GM TAB PO ×3 (08:22→15:45)
[2019-01-13] MEDS: predniSONE 10 MG TAB PO (08:22)
[2019-01-13] MEDS: Loratidine 10 MG TAB PO (08:22)
[2019-01-13] MEDS: Apixaban 5 MG TAB 10 MG PO (08:23)
[2019-01-13 08:31] LABS: Anisocytosis 1+; Basophilic Stippling Present; Diff Comment Manual Differential; Polychromasia Present
--- NOTE | 2019-01-13 12:18 | W.PM.DS.N ---
Date of service: 01/13/19 Time of Service: 12:18 DS: Diagnosis Discharge Diagnosis (1) Syncope: Status: Chronic (2) Orthostatic hypotension: Status: Acute (3) SVT (supraventricular tachycardia): Status: Chronic (4) Pulmonary embolism: Status: Chronic (5) Adrenal insufficiency: Status: Acute (6) Rheumatoid arthritis: Status: Chronic (7) Pain: Status: Acute (8) H/O: GI bleed: Status: Acute (9) Occult blood positive stool: Status: Acute (10) Iron deficiency anemia: Status: Acute Discharge Plan Disposition Patient Disposition: HOME W/HOME HEALTH SERVICE Condition: Improving Discharge Details Reason For Visit: SYNCOPE Admit Date/Time: 01/10/19 13:47 Admit Provider: Anita Carranza Attending Provider: Anita Carranza Primary Care Provider: Autumn Awan Hospital Course Hospital Course: Alexa Lewis is a very pleasant 78-year-old female with a past medical history significant for depression, iron deficiency anemia, GI bleed, rheumatoid arthritis with chronic steroid use and adrenal insufficiency who presented to the emergency department on 01/10/2019 with the reports of a syncopal episode at home. Her syncopal episode was preceded by feeling dizzy, and associated with a fall. She was able to use her life alert to activate EMS and was transported to the emergency department. While she was in the emergency department she had labs and was found to have a d-dimer of 7019 followed by a chest CT which showed small left pulmonary embolus. She had a carotid artery ultrasound which showed calcific plaque without significant internal carotid artery stenosis. She had a CT head/cervical spine which revealed degenerative changes of her cervical spine, no acute abnormality. She had bilateral lower extremity ultrasounds which did not reveal evidence of a DVT. She went on to have an echocardiogram which revealed Aleve EF of 60 to 65%, findings consistent with diastolic dysfunction, mitral valve had moderate regurgitation, left atrium was mildly dilated, her pulmonary systolic pressure was 20 to 30 mmHg. She was admitted to the [facility] floor for further evaluation and management. She was initially started on therapeutic Lovenox. She was found to have heme positive stools and has a history of GI bleed with iron deficiency anemia. General surgery was consulted, she was initiated on PPI therapy with Carafate. General surgery felt that the benefits outweigh the risks and she was continued on anticoagulation. She transitioned to apixaban. Her hemoglobin and hematocrit have been monitored and have remained stable. She will be discharged home on a apixaban with follow-up CBC next week. She was also found to be experiencing increasing weakness and pain at home. She reported that she has been chronically on methotrexate and steroids and has been on a long prednisone taper at home. Given this, renal insufficiency was suspected. She was placed on high-dose steroids with improvement in her energy level. Her steroids were transitioned back to oral prednisone, she will be discharged home on 10 mg daily and will need to follow-up as an outpatient. For the syncopal episode, she was monitored on telemetry. She was noted on 423 at 3:30 AM to have one episode of SVT that lasted for 11 beats. She was also found later that morning to be orthostatic with her vital signs. She was started on Midodrine the day prior to her discharge. On the day of discharge, she is no longer experiencing blood pressure orthostatic changes. She will be discharged home on low-dose midodrine. Given the episode of SVT, she will be discharged home on a physician non invasive cardiologist to evaluate for further episodes of SVT. She was not initiated on beta-meghana therapy due to the orthostatic hypotension. She will follow-up with her primary care provider as scheduled. Her cholesterol was elevated, consider adding statin. She was counseled on heart healthy eating. Home Meds and New Rx's Prescriptions: New Eliquis 5 mg Tablet 10 mg PO BID Qty: 60 RF: 0 prednisone 10 mg Tablet 10 mg PO DAILY Qty: 14 RF: 0 sucralfate 1 gram Tablet 1 g PO AC & HS Qty: 120 RF: 0 midodrine 5 mg Tablet 2.5 mg PO TID Qty: 60 RF: 0 tramadol 50 mg Tablet 50 mg PO Q6H PRN PRNQty: 10 RF: 0 magnesium oxide 400 mg (241.3 mg magnesium) Tablet 400 mg PO BID Qty: 4 RF: 0 duloxetine [Cymbalta] 20 mg Capsule,Delayed Release(Dr/Ec) 20 mg PO DAILY Qty: 30 RF: 0 omeprazole 40 mg capsule,delayed release(DR/EC) 40 mg PO BID Qty: 30 RF: 0 Continued acetaminophen [Mapap Extra Strength] 500 MG tablet 500 mg PO TID RF: 0 citalopram 20 MG tablet 20 mg PO DAILY RF: 0 loratadine 10 MG tablet 10 mg PO DAILY RF: 0 aspirin [Aspir-Low] 81 mg Tablet,Delayed Release (Dr/Ec) 81 mg PO DAILY RF: 0 methotrexate sodium 2.5 mg Tablet 12.5 mg PO QWEEK RF: 0 Discontinued prednisone 5 mg Tablet 7.5 mg PO DAILY RF: 0 omeprazole 20 mg Capsule,Delayed Release(Dr/Ec) 20 mg PO DAILY RF: 0 Discharge Instructions Instructions: Supraventricular Tachycardia (DC), Pulmonary Embolism (DC), Heart Healthy Diet (DC), Safe Use of Anticoagulants (DC) Additional Instructions: Take Apixiban 10 mg two times daily for 6 more days then decrease to 5 mg two times daily (For Pulmonary embolism/blood clot in your lung). Continue taking Omeprazole two times per day and carafate before meals and at bedtime to protect your stomach (so you do not have a GI bleed). You need to have labs drawn next week to make sure you are not getting more anemic. Continue taking Midodrine for orthostatic hypotension (low blood pressure when you stand up). Wear heart monitor as directed. Take Prednisone 10 mg/day until you are advised otherwise. Follow up with your PCP as scheduled. Home health will come to your home. Take care! Stand Alone Forms: Nursing Discharge Form Referrals: Autumn Awan [Primary Care Provider] - Activity:: Activity as Tolerated Equipment/Supplies:: No Equipment Needed Diet:: Heart healthy diet. Discharge Orders Discharge Orders: Discharge Order (Routine); Ordered 01/13/19 Ordered By: Radha Vizcaino Other Ambulatory Orders: Complete Blood Count No Diff (Routine) Timeframe: 1 Week Location: Determined by Patient Ordered By: Radha Vizcaino Cardiac Event Recorder (Outpt) (ONCE) Location: Determined by Patient Ordered By: Radha Vizcaino Exam Narrative Exam Narrative: General: awake and alert, laying in bed. In no acute distress. HEENT: normocephalic, atraumatic, mucous membranes moist. Neck: supple, no JVD. Respiratory: respirations even and unlabored, lung sounds clear to auscultation throughout. Cardiovascular: Heart has regular rate and rhythm, soft, 1-2/6 systolic ejection murmur. Gastrointestinal: Normoactive bowel sounds, soft, nontender on palpation, nondistended. Extremities: Trace edema to bilateral lower extremities, pedal pulses palpable bilaterally. DS: Data Vitals/I&O Vitals and I&O: Vital Signs Temperature 36.5 C 01/13/19 07:20 Temperature Source Tympanic 01/13/19 07:20 Pulse 66 01/13/19 11:07 Pulse Rhythm Regular 01/12/19 22:34 Pulse 67 01/10/19 14:46 Respiratory Rate 16 01/13/19 07:20 Respiratory Effort Non-Labored 01/12/19 22:34 Respiratory Depth Normal 01/12/19 22:34 Respiratory Pattern Normal 01/12/19 22:34 Blood Pressure 132/76 01/13/19 11:07 Blood Pressure Mean 67 01/10/19 14:46 Blood Pressure Position Sitting 01/10/19 10:49 Pulse Oximetry 96 01/13/19 07:20 Oxygen Delivery Method Room Air 01/13/19 07:20 Oxygen Flow Rate 0 01/13/19 07:20 Pain Level 3 01/13/19 08:23 Comment 01/12/19 00:18 Intake & Output 01/12/19 01/13/19 01/13/19 23:59 11:59 23:59 Intake Total 740 / 3206.667 500 / 500 Output Total 1000 / 2400 1000 / 1000 Balance -260 / 806.667 -500 / -500 Weight 94.4 kg Intake: IV 20 / 1886.667 Oral 720 / 1320 500 / 500 Output: Urine 1000 / 2400 1000 / 1000 Other: Urine Color Yellow Pale Urine Appearance Clear Clear Urine Odor Strong Voiding Methods Bedside Commode Toilet Completed studies during hospitalization [Text1]: 01/10/19: NONCONTRAST HEAD CT: Comparison is made with 23 September 2014. No intracranial hemorrhage or skull fracture is seen. There is minimal sinus mucosal thickening. There are mild white matter changes of small vessel disease. The ventricles are normal in size. There is mild atrophy consistent with the patient's age. IMPRESSION: No acute abnormality. CT CERVICAL SPINE: There are degenerative changes at C1-2 as well as C6-7. No fracture or subluxation is seen. The airway appears intact. IMPRESSION: Degenerative changes. No acute abnormality. X-ray LEFT KNEE: A total knee prosthesis is seen. There is no evidence of an acute fracture or dislocation. CHEST CT FOR PULMONARY EMBOLISM: CT angiography was performed with multi slice acquisition and multi planar and 3D reconstruction. The pulmonary arteries and aorta are well opacified with IV contrast. There is a filling defect in the left lower lobe pulmonary artery branch. No additional pulmonary emboli are identified. There is no evidence of aortic dissection. There is coronary artery as well as aortic calcification. There is enlargement of the left atrium and left ventricle. The exam is mildly limited by respiratory motion. No infiltrates or effusions are seen. There is enlargement of the right lobe of the thyroid. There is artifact extending through the thyroid. There is an old right lateral 8th rib fracture. IMPRESSION: Pulmonary embolism in branch of the left lower lobe. Cardiomegaly. Date of study: 01/11/2019 Transthoracic Echocardiography M-mode, complete 2D, complete spectral Doppler, and color Doppler *STUDY CONCLUSIONS* Summary: 1. Left ventricle: The cavity size was normal. Systolic function was normal. The estimated ejection fraction was 60-65%. Findings consistent with diastolic dysfunction. Doppler parameters are consistent with high ventricular filling pressure. 2. Mitral valve: There was moderate regurgitation. 3. Left atrium: The atrium was mildly dilated. 4. Right ventricle: The cavity size was normal. Wall thickness was normal. Systolic function was normal. 5. Atrial septum: No defect or patent foramen ovale was identified. 6. Pulmonary arteries: Pulmonary systolic pressure was in the range of 20mm Hg to 30mm Hg. 7. Inferior vena cava: The vessel was patent and normal in size. The respirophasic diameter changes were in the normal range (greater than or equal to 50%), consistent with normal central venous pressure. 01/11/19: CAROTID ULTRASOUND: There is calcific plaque seen in both common carotid bulbs as well as proximal internal carotid arteries. No significant velocity elevations are seen, consistent with less than 50% stenosis. Both vertebral arteries show antegrade flow. IMPRESSION: Calcific plaque without significant internal carotid artery stenosis. BILATERAL LOWER EXTREMITY ULTRASOUND: The femoral and popliteal veins and visualized portions of the calf veins are freely compressible. No thrombus is visualized. There is no evidence of Brooks's cyst or hematoma. No superficial venous thrombosis is identified. IMPRESSION: Negative bilateral lower extremity ultrasound. No evidence of DVT. Labs on day of discharge: Labs from last 24 hours 01/13/19 01/13/19 07:12 07:12 WBC 10.44 RBC 3.48 L Hgb 10.8 L Hct 34.2 L MCV 98.3 H MCH 31.0 MCHC 31.6 L RDW 15.3 H Plt Count 275 MPV 9.8 Immature Gran % 0.2 Neutrophils % 52.0 Lymphocytes % 25.8 Monocytes % 6.3 Eosinophils % 15.3 Basophils % 0.4 Absolute Neutrophils 5.43 Absolute Lymphocytes 2.69 Absolute Monocytes 0.66 Absolute Eosinophils 1.60 H Absolute Basophils 0.04 Differential Comment Manual differential RBC Morphology See below Polychromasia Present Basophilic Stippling Present Anisocytosis 1+ Sodium 135 L Potassium 4.0 Chloride 101 Carbon Dioxide 26.5 Anion Gap 7.5 BUN 12 Creatinine 0.65 Estimated GFR/1.73 m2 >= 60.00 Glucose 96 Calcium 8.5 Magnesium 1.7 L PFSH Medical History Arthritis (Acute) H/O: hysterectomy (Chronic) Surgical History History of cholecystectomy (Chronic) Social History Smoking/Tobacco Use Status: Former Tobacco Use Drug use: Never Do you feel safe in your relationship?: Yes
--- NOTE | 2019-01-13 13:09 | PDOC.HHF2F ---
1. Encounter Date and Reason I certify that KAVEH MONTANO was seen by Radha Vizcaino on 01/13/19 and that I had a [id number] encounter with this patient that meets the physician face to face encounter requirements. 2. Clinical Findings Supporting Skilled Need and Homebound Status I certify that home health services are medically necessary, include either intermittent longterm and/or physical/speech therapy, and that this patient is homebound in that absences from the home require considerable and taxing effort and are infrequent or of short duration, or are attributable to the need to receive medical care. [X] (a) Attached documentation from encounter provides clinical findings supporting skilled need and homebound status (including what assistance patient requires to leave the home). The encounter with the patient was in whole, or in part, for the following medical condition, which is the primary reason for home health care: SYNCOPE with fall, SVT, othostatic hypotension, PE on anticoagulation with Hx GI bleed Half-Way: Needed to monitor medication administration, monitor vital signs including orthostatic vital signs. Please draw CBC on 01/20/19, results to PCP. Physical Therapy: Needed to continue to work on strength and endurance after hospitalization. OT: needed to evaluate home and make recommendations in home setting. Speech Therapy: Homebound: Unable to leave home without assistance. 3. Certification and Authentication I certify that I composed the above information based on my clinical judgement relating to this patient's medical condition and, if applicable, clinical findings communicated to me by the NPP or inpatient physician who performed the Home Health Referral. All further orders will be obtained through ___Autumn Awan (Community Based Physician - PCP)
--- NOTE | 2019-01-13 13:12 | HHF2F_ITS ---
1. Encounter Date and Reason I certify that KAVEH MONTANO was seen by Radha Vizcaino on 01/13/19 and that I had a [id number] encounter with this patient that meets the physician face to face encounter requirements. 2. Clinical Findings Supporting Skilled Need and Homebound Status I certify that home health services are medically necessary, include either intermittent senior living and/or physical/speech therapy, and that this patient is homebound in that absences from the home require considerable and taxing effort and are infrequent or of short duration, or are attributable to the need to receive medical care. [X] (a) Attached documentation from encounter provides clinical findings supporting skilled need and homebound status (including what assistance patient requires to leave the home). The encounter with the patient was in whole, or in part, for the following medical condition, which is the primary reason for home health care: SYNCOPE with fall, SVT, othostatic hypotension, PE on anticoagulation with Hx GI bleed Senior Living: Needed to monitor medication administration, monitor vital signs including orthostatic vital signs. Please draw CBC on 01/20/19, results to PCP. Physical Therapy: Needed to continue to work on strength and endurance after hospitalization. OT: needed to evaluate home and make recommendations in home setting. Speech Therapy: Homebound: Unable to leave home without assistance. 3. Certification and Authentication I certify that I composed the above information based on my clinical judgement relating to this patient's medical condition and, if applicable, clinical findings communicated to me by the NPP or inpatient physician who performed the Home Health Referral. All further orders will be obtained through ___Autumn Awan (Community Based Physician - PCP)
--- NOTE | 2019-01-13 15:09 | PT.INIE ---
Date of service: 01/11/19 Time of Service: 11:43 PT Notes Inpatient Physical Therapy Evaluation Date: 01/11/2019 Referring Doctor: Kathryn Mccartney NP PT Orders: PT CONSULT: Falls,syncope Precautions: Fall. Standard. Patient Profile/Admitting Diagnosis: Patient is an 78-year-old female who presented to the ED on 01/10/2019 with chief complaints of dizziness, fainting sensation with passing out on chair. She found herself on the floor upon regaining of consciousness and subsequently called EMS via [facility]. Patient was diagnosed with pulmonary embolism, syncope, and adrenal insufficiency. Patient is on anticoagulation to manage pulmonary embolism. PMHX: Medical History Arthritis (Acute) H/O: hysterectomy (Chronic) Surgical History History of cholecystectomy (Chronic) Bilateral total knee arthroplasty Social History/Home Situation: Patient lives alone in an 80-feet long mobile home in [place] with a ramp leading onto a deck and onto the kitchen. 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 She states she previously worked with home health PT for trengthening and fall reduction 6 months ago. She is on the moderate needs program through the [facility] for independent living. Daughter helps with meals. She states she has had 2 falls in the past 3 months. 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 She states that her dizzy spells started since MD increased her methothrexate and prednisone medication. Objective: General Observation: Patient lying in bed. Telemetry on. Bilateral TEDS on. Swelling noted on bilateral legs. Mental Status: Alert and oriented x3 Pain: 1-2/10 at rest on left leg, 4/10 with weightbearing. ROM: Right Upper Extremity: Shoulder Flexion WFL. Shoulder abduction WFL. Elbow flexion WFL. Wrist flexion WFL. Functional opening and closing of hand WFL. Left Upper Extremity: Shoulder Flexion WFL. Shoulder abduction WFL. Elbow flexion WFL. Wrist flexion WFL. Functional opening and closing of hand WFL. Right Lower Extremity: Hip flexion WFL. Hip abduction WFL. Knee flexion WFL. Ankle dorsiflexion WFL. Ankle plantarflexion WFL. Left Lower Extremity: Hip flexion 0-30. Hip abduction 0-10. Knee flexion 0-40. Ankle dorsiflexion 5 degrees beyond neutral. Ankle plantarflexion 5 degrees beyond neutral. Strength: Right Upper Extremity: Shoulder flexors 4/5. Shoulder abductors 4 /5. Elbow flexors 4 /5. Elbow extensors 3+/5. Wood Scrap Handler strong. Left Upper Extremity: Shoulder flexors 4/5. Shoulder abductors 4 /5. Elbow flexors 4 /5. Elbow extensors 3+/5. Wood Scrap Handler strong. Right Lower Extremity: Hip flexors 4+/5. Hip abductors 4+/5. Knee flexors 4+/5. Knee extensors 4 /5. Ankle dorsiflexors 5/5. Ankle plantarflexors 5/5. Left Lower Extremity:Hip flexors 3- /5. Hip abductors 3- /5. Knee flexors 3- /5. Knee extensors 3- /5. Ankle dorsiflexors 3- /5. Ankle plantarflexors 3- /5. Sensation: As to pain and pressure on bilateral lower extremities BED MOBILITY LEVELS/TRANSFERS Rolling minimal assist Supine to sit minimal assist Sit to supine minimal assist Sit to stand minimal assist Stand to sit minimal assist Bed to chair minimal assist Chair to bed minimal assist Gait: Patient tolerated level surface ambulation 20 feet x2 with 4WW with CGA provided with decreased step height and length on the left side, slowed imelda, and decreased gait velocity. Patient reported for a left LE with weight bearing. No pain in the chest reported throughout gait activity. Balance: Static Sitting: Good Dynamic Sitting: Good Static Standing: Fair Dynamic Standing: Fair Special Tests: Mobility Limitations Standardized Measure [facility]-P[facility] 6 clicks Basic Mobility Inpatient Short Form: Raw Score: 18 CMS Score: 47% deficit Informed Consent/Education: Patient instructed in purpose of PT consult and plan of care. Patient was instructed with a 4WW management gait pattern. Emphasized using call button when getting out of bed for overall safety due to diagnosis of syncope. Assessment: Patient is a 78 year old female referred to physical therapy services with the diagnosis of pulmonary embolism, syncope, and adrenal insufficiency. Patient presents with clinical signs and symptoms consistent with current/admitting diagnoses that have resulted to mobility limitations, gait instability, generalized weakness, and impairment of motor control as demonstrated by the following impairment level findings: 1. Decreased strength to B LE major muscle groups 2. Impaired sitting/standing balance 3. Impaired activity tolerance 4. Limitation of joint range of motion in left LE Impairments are contributing to the following functional limitations: 1. Dependent bed mobility skills 2. Increased dependence with transfers 3. Inability to safely ambulate without assistive device and physical assistance 4. Increase completion time for mobility ADL performance 5. Increased fall risk 6. Inability to negotiate steps alone safely Patient is assessed as a Moderate [id number] complexity based on the following: History: 78-year-old female who was previously mobility ADL performance with past medical history and comorbidities indicated above Examination: Underlying impairments and functional limitations as noted above Presentation: Evolving Decision Makin moderate Goals: 1. Supine-Sit independent 2. Sit-Supine independent 3. Sit-Stand independent 4. Stand-Sit independent 5. Bed-Chair independent 6. Chair-Bed independent 7. Independent gait on level surface with use of least restrictive device for at least 300 feet without report of pain nor dyspnea 8. Independent stair negotiation while holding onto bilateral rails for at least 10 steps without report of pain nor dyspnea 9. Independent with home exercise program 10. Good static and dynamic standing balance/tolerance Plan of Care/Treatment Plan: 1-2x/day, 7 days/week x 1 week. Plan of care has been reviewed with the RIBBER providing the service under Physical Therapy direction. Initiate Physical Therapy intervention for strengthening, bed mobility, transfers, gait, stairs, balance training, use of assistive device. DISCHARGE RECOMMENDATIONS: Patient will highly benefit from skilled therapy services in order to mobility level, assess home safety, and establish/implement this program for strengthening and fall reduction. No equipment needed at this time. TREATMENT CODE/TIME: 72690 25 minutes, 87523 26 minutes beginning at 11:43 AM. Thank you for this referral. Danette Conley, PT, DPT, CLT [facility]
--- NOTE | 2019-01-13 15:25 | IN_ITS ---
Date of service: 01/11/19 Time of Service: 11:43 PT Notes Inpatient Physical Therapy Evaluation Date: 01/11/2019 Referring Doctor: Kathryn Mccartney NP PT Orders: PT CONSULT: Falls,syncope Precautions: Fall. Standard. Patient Profile/Admitting Diagnosis: Patient is an 78-year-old female who presented to the ED on 01/10/2019 with chief complaints of dizziness, fainting sensation with passing out on chair. She found herself on the floor upon regaining of consciousness and subsequently called EMS via [facility]. Patient was diagnosed with pulmonary embolism, syncope, and adrenal insufficiency. Patient is on anticoagulation to manage pulmonary embolism. PMHX: Medical History Arthritis (Acute) H/O: hysterectomy (Chronic) Surgical History History of cholecystectomy (Chronic) Bilateral total knee arthroplasty Social History/Home Situation: Patient lives alone in an 80-feet long mobile home in [place] with a ramp leading onto a deck and onto the kitchen. Patient has a handicap shower and receives 3 hours a week of occupational therapist home based through [facility] for the past 3 years now. She states she previously worked with home health PT for trengthening and fall reduction 6 months ago. She is on the moderate needs program through the [facility] for independent living. Daughter helps with meals. She states she has had 2 falls in the past 3 months. Current Functional Limitations: Requires assistance with all transfer and ambulation to 4WW Equipment Owned/DME: [employer], manager presentation, shower chair Subjective: Patient is pleasant and cooperative, agreeable to a PT consult and treatment. She states that her dizzy spells started since MD increased her methothrexate and prednisone medication. Objective: General Observation: Patient lying in bed. Telemetry on. Bilateral TEDS on. Swelling noted on bilateral legs. Mental Status: Alert and oriented x3 Pain: 1-2/10 at rest on left leg, 4/10 with weightbearing. ROM: Right Upper Extremity: Shoulder Flexion WFL. Shoulder abduction WFL. Elbow flexion WFL. Wrist flexion WFL. Functional opening and closing of hand WFL. Left Upper Extremity: Shoulder Flexion WFL. Shoulder abduction WFL. Elbow flexion WFL. Wrist flexion WFL. Functional opening and closing of hand WFL. Right Lower Extremity: Hip flexion WFL. Hip abduction WFL. Knee flexion WFL. Ankle dorsiflexion WFL. Ankle plantarflexion WFL. Left Lower Extremity: Hip flexion 0-30. Hip abduction 0-10. Knee flexion 0-40. Ankle dorsiflexion 5 degrees beyond neutral. Ankle plantarflexion 5 degrees beyond neutral. Strength: Right Upper Extremity: Shoulder flexors 4/5. Shoulder abductors 4 /5. Elbow flexors 4 /5. Elbow extensors 3+/5. Thread Cutter strong. Left Upper Extremity: Shoulder flexors 4/5. Shoulder abductors 4 /5. Elbow flexors 4 /5. Elbow extensors 3+/5. Thread Cutter strong. Right Lower Extremity: Hip flexors 4+/5. Hip abductors 4+/5. Knee flexors 4+/5. Knee extensors 4 /5. Ankle dorsiflexors 5/5. Ankle plantarflexors 5/5. Left Lower Extremity:Hip flexors 3- /5. Hip abductors 3- /5. Knee flexors 3- /5. Knee extensors 3- /5. Ankle dorsiflexors 3- /5. Ankle plantarflexors 3- /5. Sensation: As to pain and pressure on bilateral lower extremities BED MOBILITY LEVELS/TRANSFERS Rolling minimal assist Supine to sit minimal assist Sit to supine minimal assist Sit to stand minimal assist Stand to sit minimal assist Bed to chair minimal assist Chair to bed minimal assist Gait: Patient tolerated level surface ambulation 20 feet x2 with 4WW with CGA provided with decreased step height and length on the left side, slowed imelda, and decreased gait velocity. Patient reported for a left LE with weight bearing. No pain in the chest reported throughout gait activity. Balance: Static Sitting: Good Dynamic Sitting: Good Static Standing: Fair Dynamic Standing: Fair Special Tests: Mobility Limitations Standardized Measure [facility]-PAC 6 clicks Basic Mobility Inpatient Short Form: Raw Score: 18 CMS Score: 47% deficit Informed Consent/Education: Patient instructed in purpose of PT consult and plan of care. Patient was instructed with a 4WW management gait pattern. Emphasized using call button when getting out of bed for overall safety due to diagnosis of syncope. Assessment: Patient is a 78 year old female referred to physical therapy services with the diagnosis of pulmonary embolism, syncope, and adrenal insufficiency. Patient presents with clinical signs and symptoms consistent with current/admitting diagnoses that have resulted to mobility limitations, gait instability, generalized weakness, and impairment of motor control as demonstrated by the following impairment level findings: 1. Decreased strength to B LE major muscle groups 2. Impaired sitting/standing balance 3. Impaired activity tolerance 4. Limitation of joint range of motion in left LE Impairments are contributing to the following functional limitations: 1. Dependent bed mobility skills 2. Increased dependence with transfers 3. Inability to safely ambulate without assistive device and physical assistance 4. Increase completion time for mobility ADL performance 5. Increased fall risk 6. Inability to negotiate steps alone safely Patient is assessed as a Moderate 91355 complexity based on the following: History: 78-year-old female who was previously mobility ADL performance with past medical history and comorbidities indicated above Examination: Underlying impairments and functional limitations as noted above Presentation: Evolving Decision Makin moderate Goals: 1. Supine-Sit independent 2. Sit-Supine independent 3. Sit-Stand independent 4. Stand-Sit independent 5. Bed-Chair independent 6. Chair-Bed independent 7. Independent gait on level surface with use of least restrictive device for at least 300 feet without report of pain nor dyspnea 8. Independent stair negotiation while holding onto bilateral rails for at least 10 steps without report of pain nor dyspnea 9. Independent with home exercise program 10. Good static and dynamic standing balance/tolerance Plan of Care/Treatment Plan: 1-2x/day, 7 days/week x 1 week. Plan of care has been reviewed with the [employer] providing the service under Physical Therapy direction. Initiate Physical Therapy intervention for strengthening, bed mobility, transfers, gait, stairs, balance training, use of assistive device. DISCHARGE RECOMMENDATIONS: Patient will highly benefit from skilled therapy services in order to mobility level, assess home safety, and establish/implement this program for strengthening and fall reduction. No equipment needed at this time. TREATMENT CODE/TIME: 52564 25 minutes, 18577 26 minutes beginning at 11:43 AM. Thank you for this referral. Danette Conley, PT, DPT, CLT [facility]
--- NOTE | 2019-01-13 15:39 | PDOC.CMDIS ---
LACE Index Scoring Tool - Questions: Length of Stay (in days): 4 - 6 Acuity (Admit via E.D.?): Yes E.D. Visits: 3 - Answers: Total Score: 10 Risk of Readmission: High Risk Care Management Discharge Reason for Hospitalization: Syncope Discharge Plan: Alexa will discharge home on new prescription of Eliquis when ready per MD, she will also have new orders for [facility] RN/PT/OT (CM notified [facility]; Nusrat) and resume nursing home physician supports (CM notified CM: Anjelica Devlin). She will transport via private vehicle with her daughter, Raisa, resume current service supports and follow up with her PCP. Patient/Family Education Needs: Review of discharge instructions, discuss Ask Me Three. Services Needed at Discharge: Home Health Care Services (RN/PT/OT), Homemaking Services
--- NOTE | 2019-01-13 15:46 | INDS_ITS ---
Date of service: 01/13/19 Time of Service: 10:49 PT Notes Inpatient Physical Therapy Discharge Summary Dates: 01/13/2019 Dates of Service: 01/11/2019 through 4 to Referring Doctor: Kathryn Mccartney NP PT Orders: PT CONSULT: Falls,syncope Precautions: Fall. Standard. Patient Profile/Admitting Diagnosis: Patient is an 78-year-old female who presented to the ED on 01/10/2019 with chief complaints of dizziness, fainting sensation with passing out on chair. She found herself on the floor upon reg aining of consciousness and subsequently called EMS via [facility]. Patient was diagnosed with pulmonary embolism, syncope, and adrenal insufficiency. Patient is on anticoagulation to manage pulmonary embolism. PMHX: Medical History Arthritis (Acute) H/O: hysterectomy (Chronic) Surgical History History of cholecystectomy (Chronic) Bilateral total knee arthroplasty Social History/Home Situation: Patient lives alone in an 80-feet long mobile home in [place] with a ramp leading onto a deck and onto the kitchen. Patient has a handicap shower and receives 3 hours a week of home health nurse licensed practical through [facility] for the past 3 years now. She states she previously worked with home health PT for trengthening and fall reduction 6 months ago. She is on the moderate needs program through the [facility] for independent living. Daughter helps with meals. She states she has had 2 falls in the past 3 months. Current Functional Limitations: Requires assistance with all transfer and ambulation to 4WW Equipment Owned/DME: [employer], coil machine supervisor, shower chair Subjective: Patient looks forward to going home this afternoon with daughter. She denies dizziness, chest pain, headache, leg pain throughout her 2 PT sessions today. Objective: General Observation: Patient sitting at edge of bed. Bilateral TEDS on. Swelling decreased on bilateral wrist and hand. Mental Status: Alert and oriented x3 Pain: 0/10. ROM: Right Upper Extremity: Shoulder Flexion WFL. Shoulder abduction WFL. Elbow flexion WFL. Wrist flexion WFL. Functional opening and closing of hand WFL. Left Upper Extremity: Shoulder Flexion WFL. Shoulder abduction WFL. Elbow flexion WFL. Wrist flexion WFL. Functional opening and closing of hand WFL. Right Lower Extremity: Hip flexion WFL. Hip abduction WFL. Knee flexion WFL. Ankle dorsiflexion WFL. Ankle plantarflexion WFL. Left Lower Extremity: Hip flexion 0-30. Hip abduction 0-10. Knee flexion 0-40. Ankle dorsiflexion 5 degrees beyond neutral. Ankle plantarflexion 5 degrees beyond neutral. Strength: Right Upper Extremity: Shoulder flexors 4/5. Shoulder abductors 4 /5. Elbow flexors 4 /5. Elbow extensors 3+/5. Thermo Cementing Folder Operator strong. Left Upper Extremity: Shoulder flexors 4/5. Shoulder abductors 4 /5. Elbow flexors 4 /5. Elbow extensors 3+/5. Thermo Cementing Folder Operator strong. Right Lower Extremity: Hip flexors 4+/5. Hip abductors 4+/5. Knee flexors 4+/5. Knee extensors 4 /5. Ankle dorsiflexors 5/5. Ankle plantarflexors 5/5. Left Lower Extremity:Hip flexors 3- /5. Hip abductors 3- /5. Knee flexors 3- /5. Knee extensors 3- /5. Ankle dorsiflexors 3- /5. Ankle plantarflexors 3- /5. Sensation: Intact as to pain and pressure on bilateral lower extremities. BED MOBILITY LEVELS/TRANSFERS Rolling independent Supine to sit independent Sit to supine independent Sit to stand independent Stand to sit independent Bed to chair independent Chair to bed independent Gait: Patient tolerated level surface ambulation 150 feet with 4WW with SBA provided with increased step height and length on the left side, improved, and gait velocity. Balance: Static Sitting: Good Dynamic Sitting: Good Static Standing: Fair Dynamic Standing: Fair Special Tests: Mobility Limitations Standardized Measure [facility] AM-PAC 6 clicks Basic Mobility Inpatient Short Form: Raw Score: 22 CMS Score: 21% deficit Assessment: Patient is a 78 year old female referred to physical therapy services with the diagnosis of pulmonary embolism, syncope, and adrenal insufficiency. Patient presents with clinical signs and symptoms consistent with current/admitting diagnoses that have resulted to mobility limitations, gait instability, generalized weakness, and impairment of motor control as demonstrated by the following impairment level findings: 1. Decreased strength to B LE major muscle groups 2. Impaired sitting/standing balance 3. Impaired activity tolerance 4. Limitation of joint range of motion in left LE Impairments are contributing to the following functional limitations: 1. Dependent bed mobility skills 2. Increased dependence with transfers 3. Inability to safely ambulate without assistive device and physical assistance 4. Increase completion time for mobility ADL performance 5. Increased fall risk 6. Inability to negotiate steps alone safely Goals: 1. Supine-Sit independent MET 2. Sit-Supine independent MET 3. Sit-Stand independent MET 4. Stand-Sit independent MET 5. Bed-Chair independent MET 6. Chair-Bed independent MET 7. Independent gait on level surface with use of least restrictive device for at least 300 feet without report of pain nor dyspnea NOT MET 8. Independent stair negotiation while holding onto bilateral rails for at least 10 steps without report of pain nor dyspnea NOT MET 9. Independent with home exercise program MET 10. Good static and dynamic standing balance/tolerance NOT MET DISCHARGE RECOMMENDATIONS: Patient will highly benefit from skilled home health physical therapy services in order to mobility level, assess home safety, and establish/implement this program for strengthening and fall reduction. No equipment needed at this time. TREATMENT CODE/TIME: 09014 25 minutes, 03222 26 minutes beginning at 11:43 AM. Thank you for this referral. Danette Conley, PT, DPT, CLT [facility]
--- NOTE | 2019-01-13 15:47 | CMDISCH_ITS ---
LACE Index Scoring Tool - Questions: Length of Stay (in days): 4 - 6 Acuity (Admit via E.D.?): Yes E.D. 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 She will transport via private vehicle with her daughter, Raisa, resume current service supports and follow up with her PCP. Patient/Family Education Needs: Review of discharge instructions, discuss Ask Me Three. Services Needed at Discharge: Home Health Care Services (RN/PT/OT), Homemaking Services
== END 2019-01-13 16:45 | disposition home health service (06) | DRG 312 ==
LOC: ER 14:06 → MS 15:08
PROVIDERS: Nurse Practitioner Family; Admitting Provider Internal Medicine; Emergency Provider Physician Assistant; PCP Internal Medicine; Visit Provider Internal Medicine
DX: R55 Syncope and collapse (principal); I47.1 Supraventricular tachycardia; I50.30 Unspecified diastolic (congestive) heart failure; E27.40 Unspecified adrenocortical insufficiency; I95.1 Orthostatic hypotension; R19.5 Other fecal abnormalities; I26.99 Other pulmonary embolism without acute cor pulmonale; D50.9 Iron deficiency anemia, unspecified; I05.1 Rheumatic mitral insufficiency; G89.29 Other chronic pain; F41.8 Other specified anxiety disorders; W18.39XA Other fall on same level, initial encounter; M06.9 Rheumatoid arthritis, unspecified; Z79.52 Long term (current) use of systemic steroids
CPT/HCPCS: 36415; 51701; 71275; 73562; 80048; 80053; 80061; 83721; 93005; 93270; 93306; 96372; 97110; 97162; 97166; 97530; 97535; 99222; 99223; 99232; 99233; 99239; 99252; 99285; 70450; 72125; 81003; 81015; 83735; 84484; 85025; 85379; 85610; 85730; 93010; 93880; 93970; J1650; J1720; J3490; J7512

== ENCOUNTER 2019-01-18 13:27 | Emergency (ER) | payer MEDICARE, MEDICAID, SELFPAY ==
[2019-01-18] VITALS (43 sets, daily range): BP systolic 134–171; BP diastolic 51–88; PULSE 68–88; RESP 8–29; TEMP 36.5–37; O2SAT 92–99
--- NOTE | 2019-01-18 13:54 | DI.RAD_ITS ---
SYMPTOMS/DIAGNOSIS: WRIST PAIN; LIGHTHEADEDNESS LEFT WRIST: Three views. There is a nondisplaced fracture involving the lateral aspect of the distal left radius with extension to the radiocarpal joint. No other fracture is identified. The bones appear osteopenic. There is soft tissue swelling about the wrist. IMPRESSION: Nondisplaced intraarticular fracture of the distal left radius. CHEST X-RAY, AP AND LATERAL: Comparison is 04/02/18. The heart size and pulmonary vasculature are within normal limits. No infiltrates, effusions or pneumothoraces are identified. Degenerative changes are seen in the spine. IMPRESSION: No acute pulmonary process.
[2019-01-18 14:00] LABS: Lactate-non-spesis 1.4 mmol/l (0.6-1.4)
[2019-01-18 14:06] LABS: Abs Immature Grans 0.02 k/cumm (0.0-0.09); Absolute Basophil Count 0.04 k/cumm (0.0-0.2); Absolute Eosinophil Count 0.47 k/cumm (0.0-0.7); Absolute Lymphocyte Count 0.75 k/cumm (1.2-3.4); Absolute Monocyte Count 0.45 k/cumm (0.11-0.7); Absolute Neutrophil Count 7.68 k/cumm (1.2-6.7); Basophils % 0.4; HCT 33.8 % (36.0-46.0); HGB 10.7 g/dL (12.0-15.5); Immature Grans % 0.2; Mean Corp. HGB Concentration 31.7 g/dL (32.0-36.0); Mean Corpuscular Hemoglobin 31.2 pg (27.0-33.0); Mean Corpuscular Volume 98.5 fL (80-95); Mean Platelet Volume 9.8 fL (8.0-11.0); Monocytes % 4.8; Neutrophils % 81.6; Platelet Count 300 x1000/uL (130-400); RBC 3.43 m/cumm (4.00-5.20); RBC Distribution Width 15.7 % (11.7-14.6); White Blood Cell Count 9.41 k/cumm (4.4-10.8)
[2019-01-18 14:18] LABS: ALT 31 U/L (12-78); AST 19 U/L (15-37); Albumin 3.1 g/dL (3.4-5.0); Alkaline Phosphatase 98 U/L (46-116); Anion Gap 7.5 mmol/L (3-11); BUN 24 mg/dL (7-18); Bilirubin, Total 0.3 mg/dL (0.2-1.0); CO2 29.5 mmol/L (21.0-32.0); CREATININE 0.71 mg/dL (0.55-1.02); Calcium 8.7 mg/dL (8.5-10.1); Chloride 100 mmol/L (98-107); Glucose 134 mg/dL (70-100); Potassium 4.2 mmol/L (3.5-5.1); Sodium 137 mmol/L (136-145); Total Protein 6.5 g/dL (6.4-8.2); Troponin I 0.02 ng/mL (0.00-0.06)
[2019-01-18 14:28] LABS: Bilirubin Negative (Negative); Blood Small (Negative); Clarity Clear; Glucose Negative (Negative); Ketones Negative (Negative); Leukocyte Esterase Negative (Negative); Nitrite Negative (Negative); Urobilinogen 0.2 EU/dL (Up TO 0.2)
[2019-01-18 14:37] LABS: Epithelial Cells Rare HPF (Negative); WBC 0-2 HPF (0-5)
[2019-01-18 14:38] LABS: Bacteria Negative HPF (Negative); C & S Indicated? No; Casts Negative LPF (Negative); Crystals Negative HPF (Negative); Mucus Negative (Negative)
--- NOTE | 2019-01-18 15:42 | ED.GENADUL_ITS ---
Discharge Plan Disposition Patient Disposition: HOME Condition: Stable Discharge Details Chief Complaint: GenMedical Clinical Impression: Fracture of left radius Primary Care Provider: Autumn Awan ED Provider: Gene Chaudhary Home Meds and New Rx's Prescriptions: No Action acetaminophen [Mapap Extra Strength] 500 MG tablet 1,000 mg PO TID RF: 0 citalopram 20 MG tablet 20 mg PO DAILY RF: 0 loratadine 10 MG tablet 10 mg PO DAILY RF: 0 aspirin [Aspir-Low] 81 mg Tablet,Delayed Release (Dr/Ec) 81 mg PO DAILY RF: 0 methotrexate sodium 2.5 mg Tablet 12.5 mg PO QWEEK RF: 0 Eliquis 5 mg Tablet 10 mg PO BID Qty: 60 RF: 0 prednisone 10 mg Tablet 10 mg PO DAILY Qty: 14 RF: 0 sucralfate 1 gram Tablet 1 g PO AC & HS Qty: 120 RF: 0 midodrine 5 mg Tablet 2.5 mg PO TID Qty: 60 RF: 0 tramadol 50 mg Tablet 50 mg PO Q6H PRN PRNQty: 10 RF: 0 magnesium oxide 400 mg (241.3 mg magnesium) Tablet 400 mg PO BID Qty: 4 RF: 0 duloxetine [Cymbalta] 20 mg Capsule,Delayed Release(Dr/Ec) 20 mg PO DAILY Qty: 30 RF: 0 omeprazole 40 mg capsule,delayed release(DR/EC) 40 mg PO BID Qty: 30 RF: 0 Discharge Instructions Instructions: Arm Fracture in Adults (ED) Additional Instructions: call orthopedics in the morning for an appointment Referrals: Wilfred Haq MD [ [facility] STAFF PHYSICIAN] - Discharge Data Discharge Date/Time-TO BE ENTERED AT DEPARTURE: 01/18/19 19:30 Medical Decision Making <Trinidad Montes De Oca MD - Last Filed: 02/08/19 08:40> Alexa Lewis is an 78 y/o woman with history of SVT, orthostatic hypotension, hypertension, rheumatoid arthritis, adrenal insufficiency, pulmonary embolism who presented to the emergency department with orthostatic hypotension and wrist pain. On exam patient is well and nontoxic appearing. She does have diffuse tenderness to the left wrist with mild edema no overlying skin changes. Concern for possible worsening adrenal insufficiency, however I have low suspicion for this given patient feeling overall very well and good blood pressure currently. Low suspicion for ACS, metabolic/lyte derangement. Exam/history is not consistent with worsening PE, sepsis, acute aortic etiology. Plan for screening labs, EKG, chest x-ray. Repeat orthostatic vital signs. Wrist x-ray. Will monitor and reassess. Orthostatic vital signs without significant positional change. Pt reports feeling well and that she doesn't feel that she needed to come to the ED today, other than for eval of her continued wrist pain. Labs non-diagnostic. CXR okay, wrist film shows intra-articular distal radius fx. Pt discussed with Dr. Haq who reviewed films, requested volar splint and outpt f/u with ortho in one week, requests MCP joints be left exposed so that Pt is able to use her walker. Pt uses walker to get around at baseline, will need platform walker. Splint applied without complication. Pt reporting mild wrist pain improved after splint, no other complaints. Pt states she would like to go home but is concerned about getting around at home with her usual walker with splinted wrist. Care management involved for assistance obtaining platform walker. Pt signed out to Dr. Chaudhary at shift change with repeat trop, care management, dispo pending. Medical Records Medical records reviewed: Yes I reviewed the patient's medical records. Imaging Data Radiologic Study: Attestation: I personally reviewed and interpreted this imaging study as follows: Radiologist's impression: LEFT WRIST: Three views. There is a nondisplaced fracture involving the lateral aspect of the distal left radius with extension to the radiocarpal joint. No other fracture is identified. The bones appear osteopenic. There is soft tissue swelling about the wrist. IMPRESSION: Nondisplaced intraarticular fracture of the distal left radius. CHEST X-RAY, AP AND LATERAL: Comparison is 04/02/18. The heart size and pulmonary vasculature are within normal limits. No infiltrates, effusions or pneumothoraces are identified. Degenerative changes are seen in the spine. IMPRESSION: No acute pulmonary process. Lab Data Lab results reviewed: Yes I reviewed the patient's lab results. ECG Data Attestation: I personally reviewed and interpreted this ECG (s) as follows: Interpretation: EKG shows sinus rhythm 73, left axis with left anterior fascicular block, <1mm HARRISON V1, V2, nondiagnostic EKG <Gene Chaudhary MD - Last Filed: 01/18/19 19:13> pt remains stable, second troponin negative. Care management unable to get a platform walker until tomorrow. Family and pt is comfortable going home tonight until then. HPI <Trinidad Montes De Oca MD - Last Filed: 02/08/19 08:40> General Mode of arrival: EMS . Date/Time Provider Initiated Documentation: 01/18/19 13:52 . Limitations to Documentation: no limitations . Information obtained by: patient, RN notes reviewed and old records reviewed . HPI Narrative: Alexa Lewis is an 78 y/o woman with history of SVT, orthostatic hypotension, hypertension, rheumatoid arthritis, adrenal insufficiency, pulmonary embolism presenting to the emergency department with orthostatic hypotension and wrist pain. Patient reports that on , she had lightheadedness and had a syncopal episode for which she was seen here in the emergency department. She was admitted to the hospital for pulmonary embolism, and was found to have continued hypotension which was thought to be related to adrenal insufficiency. She was started on prednisone. She was discharged home on 01/13/2019. Patient reports that she has had left-sided wrist pain since the syncopal episode on the date that she was admitted. She reports that this is ongoing and unchanged. Patient also reports that home health came to see her today, and sent her to the emergency department for continued orthostatic hypotension. Patient reports that she has been intermittently lightheaded since returning home, but she has not fainted or felt that she would actually faint. Patient has had very difficult time at home since her discharge because she reports that she normally gets around with a walker, and cannot use the walker secondary to left-sided wrist pain. She denies any other pain, fever, cough, shortness of breath, vomiting, diarrhea. Has been eating and drinking as usual. Related Data Home Medications Medication Instructions Recorded Confirmed acetaminophen [Mapap Extra 1,000 mg PO TID 09/23/14 01/18/19 Strength] citalopram 20 mg PO DAILY 09/23/14 01/18/19 loratadine 10 mg PO DAILY 09/23/14 01/18/19 aspirin [Aspir-Low] 81 mg PO DAILY 01/10/19 01/18/19 methotrexate sodium 12.5 mg PO QWEEK 01/10/19 01/18/19 apixaban [Eliquis] 10 mg PO BID #60 tab 01/13/19 01/18/19 duloxetine [Cymbalta] 20 mg PO DAILY #30 cap 01/13/19 01/18/19 magnesium oxide 400 mg PO BID #4 tab 01/13/19 01/18/19 midodrine 2.5 mg PO TID #60 tab 01/13/19 01/18/19 omeprazole 40 mg PO BID #30 cap 01/13/19 01/18/19 prednisone 10 mg PO DAILY #14 tab 01/13/19 01/18/19 sucralfate 1 g PO AC & HS #120 tab 01/13/19 01/18/19 tramadol 50 mg PO Q6H PRN PRN #10 tab 01/13/19 01/18/19 Previous Rx's Medication Instructions Recorded apixaban [Eliquis] 10 mg PO BID #60 tab 01/13/19 duloxetine [Cymbalta] 20 mg PO DAILY #30 cap 01/13/19 magnesium oxide 400 mg PO BID #4 tab 01/13/19 midodrine 2.5 mg PO TID #60 tab 01/13/19 omeprazole 40 mg PO BID #30 cap 01/13/19 prednisone 10 mg PO DAILY #14 tab 01/13/19 sucralfate 1 g PO AC & HS #120 tab 01/13/19 tramadol 50 mg PO Q6H PRN PRN #10 tab 01/13/19 Allergies Allergy/AdvReac Type Severity Reaction Status Date / Time Penicillins AdvReac Mild keeps Unverified 01/18/19 13:42 getting sicker General Stated Complaint: GenMedical IFTIKHAR: 3 Review of Systems <Trinidad Montes De Oca MD - Last Filed: 02/08/19 08:40> Review of Systems Constitutional: denies fevers Eyes: denies eye pain ENT: denies facial pain, dental pain, sore throat Cardiovascular: denies chest pain, reports intermittent lightheadedness Respiratory: denies SOB, cough GI: denies abdominal pain, vomiting, diarrhea : denies flank pain MSK: denies back pain, neck pain, myalgias, left reports left wrist pain Skin: denies rash Neuro: denies headaches, numbness, weakness PFSH <Trinidad Montes De Oca MD - Last Filed: 02/08/19 08:40> Medical History Arthritis (Acute) H/O: hysterectomy (Chronic) Social History Smoking/Tobacco Use Status: Former Tobacco Use Drug use: Never Do you feel safe in your relationship?: Yes Exam <Trinidad Montes De Oca MD - Last Filed: 02/08/19 08:40> Narrative Exam Narrative: Constitutional: well and [id number], pleasant, conversing normally HENT: head atraumatic/normocephalic/normal inspection, mucous membranes moist Eyes: conjunctiva normal, sclera normal, pupils 3mm b/l Neck: no stridor, normal ROM, trachea midline Chest: normal inspection Resp: normal work of breathing, LCTAB Cardio: normal rate, normal rhythm, no murmur appreciated GI: abdomen soft, non-tender, non-distended Back: normal inspection, no rash Skin: warm, dry, normal color, no rash Neuro: alert, not altered, grossly non-focal, normal tone Ext: Diffuse moderate tenderness of the left wrist with mild edema, no overlying skin changes Psych: normal mood, normal affect, normal behavior Course <Trinidad Montes De Oca MD - Last Filed: 02/08/19 08:40> Vital Signs Temperature 36.5 C 01/18/19 13:36 Pulse 79 01/18/19 13:36 Respiratory Rate 19 01/18/19 13:36 Blood Pressure 156/57 H 01/18/19 13:36 Pulse Oximetry 99 01/18/19 13:36 Temperature 36.5 C 01/18/19 13:36 Temperature Source Skin 01/18/19 13:36 Pulse 79 01/18/19 13:36 Respiratory Rate 19 01/18/19 13:48 Respiratory Effort Non-Labored 01/18/19 13:48 Respiratory Depth Normal 01/18/19 13:48 Respiratory Pattern Normal 01/18/19 13:48 Blood Pressure 156/57 H 01/18/19 13:36 Blood Pressure Position Sitting 01/18/19 13:36 Pulse Oximetry 99 01/18/19 13:36 Oxygen Delivery Method Room Air 01/18/19 13:36 Oxygen Flow Rate 0 01/18/19 13:36 Pain Level 8 01/18/19 13:36 Procedures <Trinidad Montes De Oca MD - Last Filed: 02/08/19 08:40> Orthopedic Splinting/Casting Injury #1: Side: left Upper Extremity Injury Location: wrist Upper Extremity Immobilizer: volar spint Additional Comments: post splint check shows exposed digits NVI. Pt reporting no discomfort from splint. Sign Out <Trinidad Montes De Oca MD - Last Filed: 02/08/19 08:40> Sign Out Data: Sign Out Comment: Pt signed out to Dr. Chaudhary at shift change with platform walker, repeat trop, dispo pending Last updated by Trinidad Montes De Oca MD at 01/18/19 17:00
[2019-01-18] MEDS: Normal Saline Flush 10 ML SYR IVP (17:19)
[2019-01-18 17:20] LABS: Troponin I 0.02 ng/mL (0.00-0.06)
--- NOTE | 2019-01-18 21:10 | PDOC.ERCMPRO ---
- If Service Date Differs Date of service: 01/18/19 Time of Service: 21:10 Care Management Progress Note CM met with the patient at the request of provider. Alexa was discharged on 01/13/19 after syncope at home. She return to the ED related to pain in her left wrist. She was found to have a fracture of her left wrist. Alexa had a splint placed on her left arm. Alexa would like a platform walker so that she can ambulate and does not want to be discharged home if she is unable to obtain one. CM contacted [facility] there will not have a platform walker for at least a week and [facility] does not deliver. CM reviewed goals of care and benefit of rehab with the patient. Alexa and her daughter request a [facility], and [facility]. CM spoke with [facility] and there is one available bed. CM faxed referrals at the patients request. Alexa will return home with her daughter for the night and will wait for placement at home. CM will follow up with SNF facility in the morning and contact Pt and her daughter with update. Daughter Raisa should be contacted by cell phone. CM will request recent discharge provider to complete the shelter forms.
--- NOTE | 2019-01-18 21:30 | CMPROGNOTE_ITS ---
- If Service Date Differs Date of service: 01/18/19 Time of Service: 21:10 Care Management Progress Note CM met with the patient at the request of provider. Alexa was discharged on 01/13/19 after syncope at home. She return to the ED related to pain in her left wrist. She was found to have a fracture of her left wrist. Alexa had a splint placed on her left arm. Alexa would like a platform walker so that she can ambulate and does not want to be discharged home if she is unable to obtain one. CM contacted [facility] there will not have a platform walker for at least a week and [facility] does not deliver. CM reviewed goals of care and benefit of rehab with the patient. Alexa and her daughter request a referral [facility], [facility], and [facility]. CM spoke with [facility] and there is one available bed. CM faxed referrals at the patients request. Alexa will return home with her daughter for the night and will wait for placement at home. CM will follow up with SNF facility in the morning and contact Pt and her daughter with update. Daughter Raisa should be contacted by cell phone. CM will request recent discharge provider to complete the senior care forms.
--- NOTE | 2019-01-19 14:16 | PDOC.ERCMPRO ---
Care Management Progress Note O-Received call from daughter, Raisa Saez requesting results on referral to [facility]. CM contacted [facility] and they will accept for admission on or Friday of this week. Daughter was made aware of this. Stated that if she is to stay home another few days, really needs the platform walker recommended by ER MD. She is willing to drive to [place] in [place] to obtain it. CM completed referral prescription for platform walker, obtained ED MD signature and faxed to [place]. Even though she will be going to SNF later this week, she needs the platform walker until she can go to the SNF. P-Daughter will go to [place] today to picker machine operator walker.
--- NOTE | 2019-01-19 14:23 | CMPROGNOTE_ITS ---
Care Management Progress Note O-Received call from daughter, Raisa Saez requesting results on referral to [facility]. CM contacted [facility] and they will accept for admission on or Friday of this week. Daughter was made aware of this. Stated that if she is to stay home another few days, really needs the platform walker recommended by ER MD. She is willing to drive to [place] in [place] to obtain it. CM completed referral prescription for platform walker, obtained ED MD signature and faxed to [place]. Even though she will be going to SNF later this week, she needs the platform walker until she can go to the SNF. P-Daughter will go to [place] today to orange picker machine operator walker.
== END 2019-01-18 19:30 | disposition home or self-care (01) ==
PROVIDERS: Student in an Organized Health Care Education/Training Program; Emergency Provider Emergency Medicine; PCP Internal Medicine
DX: S52.592A Other fractures of lower end of left radius, initial encounter for closed fracture (principal); E27.40 Unspecified adrenocortical insufficiency; I95.1 Orthostatic hypotension; I10 Essential (primary) hypertension; W01.0XXA Fall on same level from slipping, tripping and stumbling without subsequent striking against object, initial encounter
CPT/HCPCS: 25600; 36415; 51701; 80053; 93005; 99285; 71046; 73110; 81003; 81015; 83605; 84484; 85025; 93010

== ENCOUNTER 2019-01-20 10:51 | Outpatient (REF) | payer MEDICARE, MEDICAID, SELFPAY ==
[2019-01-20 11:28] LABS: Abs Immature Grans 0.03 k/cumm (0.0-0.09); Absolute Basophil Count 0.03 k/cumm (0.0-0.2); Absolute Eosinophil Count 0.94 k/cumm (0.0-0.7); Absolute Lymphocyte Count 0.91 k/cumm (1.2-3.4); Absolute Monocyte Count 0.54 k/cumm (0.11-0.7); Absolute Neutrophil Count 10.74 k/cumm (1.2-6.7); Basophils % 0.2; Eosinophils % 7.1; HCT 32.2 % (36.0-46.0); Immature Grans % 0.2; Lymphocytes % 6.9; Mean Corp. HGB Concentration 31.1 g/dL (32.0-36.0); Mean Corpuscular Hemoglobin 30.9 pg (27.0-33.0); Mean Corpuscular Volume 99.4 fL (80-95); Mean Platelet Volume 9.8 fL (8.0-11.0); Monocytes % 4.1; Neutrophils % 81.5; Platelet Count 290 x1000/uL (130-400); RBC 3.24 m/cumm (4.00-5.20); RBC Distribution Width 15.7 % (11.7-14.6); White Blood Cell Count 13.18 k/cumm (4.4-10.8)
== END 2019-01-20 11:11 ==
LOC: LBN 10:51
PROVIDERS: PCP Internal Medicine; Visit Provider Internal Medicine
DX: D50.9 Iron deficiency anemia, unspecified (principal); I26.99 Other pulmonary embolism without acute cor pulmonale
CPT/HCPCS: 85025

== ENCOUNTER 2019-03-26 10:33 | Emergency (ER) | payer MEDICARE, MEDICAID, SELFPAY ==
[2019-03-26 10:36] VITALS: BP 138/64; PULSE 77; RESP 16; TEMP 36.4; O2SAT 99
--- NOTE | 2019-03-26 10:42 | W.ED.GENAD ---
Discharge Plan Disposition Patient Disposition: HOME Condition: Improving Discharge Details Chief Complaint: Abd Prob Clinical Impression: Constipation Primary Care Provider: Autumn Awan ED Provider: An Melchor Home Meds and New Rx's Prescriptions: Continued acetaminophen [Mapap Extra Strength] 500 MG tablet 1,000 mg PO TID RF: 0 citalopram 20 MG tablet 20 mg PO DAILY RF: 0 loratadine 10 MG tablet 10 mg PO DAILY RF: 0 aspirin [Aspir-Low] 81 mg Tablet,Delayed Release (Dr/Ec) 81 mg PO DAILY RF: 0 methotrexate sodium 2.5 mg Tablet 12.5 mg PO QWEEK RF: 0 Eliquis 5 mg Tablet 10 mg PO BID Qty: 60 RF: 0 prednisone 10 mg Tablet 10 mg PO DAILY Qty: 14 RF: 0 sucralfate 1 gram Tablet 1 g PO AC & HS Qty: 120 RF: 0 midodrine 5 mg Tablet 2.5 mg PO TID Qty: 60 RF: 0 magnesium oxide 400 mg (241.3 mg magnesium) Tablet 400 mg PO BID Qty: 4 RF: 0 duloxetine [Cymbalta] 20 mg Capsule,Delayed Release(Dr/Ec) 20 mg PO DAILY Qty: 30 RF: 0 omeprazole 40 mg capsule,delayed release(DR/EC) 40 mg PO BID Qty: 30 RF: 0 Discharge Instructions Instructions: Constipation (ED) Additional Instructions: Encourage hydration. Please begin daily MiraLAX as advised in the bottle. Please keep upcoming appointment with your primary care. If you develop increased abdominal pain, fever/chills, nausea/vomiting, no blood in your stool or have other new/worsening symptoms please seek care urgently once again. The source of constipation is likely your pain medication, will likely need to continue with a stool softener while on this Referrals: Autumn Awan [Primary Care Provider] - Discharge Data Discharge Date/Time-TO BE ENTERED AT DEPARTURE: 03/26/19 11:30 Medical Decision Making Patient is an 78-year-old female, brought in via EMS and accompanied by her daughter, with chief complaint of constipation. Patient reports that she has had a daily bowel movement but has had more firm stools than typical associated with her oxycodone usage. Since beginning the medication, she reports that she has had more firm bowel movements that can be painful for her at times and she is been much more concerned with occasional constipation recently. patient has left hip avascular necrosis and has been taking oxycodone to help with her discomfort pending a surgical intervention. Patient states that she had a normal bowel movement prior to breakfast this morning. No nausea or vomiting. Had normal appetite for breakfast. However, after breakfast, she felt the urge to go again and had discomfort with his bowel movement. She called EMS she felt she needed assistance with a bowel movement. However, upon their arrival the patient had had a large bowel movement felt much improved. She denies any blood in her stool. Is not having any abdominal pain at this time. States she had one similar episode to this over the weekend. Is not routinely taking any stool softeners. No fevers or chills. Surgical history pertinent for cholecystectomy and hysterectomy On exam, she appears slightly anxious. She is worried about her upcoming surgery. Her abdomen is obese. Surgical incisions are noted, appeared to have healed. Abdomen is benign with no peritoneal findings no tenderness elicited. No pulsatile mass, vascular exam is normal. At this point, the patient is passing flatus, has had bowel movements and has had resolution of her symptoms patient and I feel that further evaluation is warranted. I did offer further evaluation to the patient and her daughter but at this point, as her symptoms have improved, she declines and prefers to go home to rest. We discussed her narcotic usage in depth and how this will be affecting her bowel habits. I did advise that she begin taking MiraLAX daily while on the narcotics. Patient and I discussed this in depth. She has an appointment next week with her primary care at which time she will discuss this further. She was given strict return precautions, she is able to return with any new/worsening symptoms. All other questions and concerns were addressed and they are in agreement this plan HPI General Mode of arrival: EMS. Date/Time Provider Initiated Documentation: 03/26/19 10:41. Limitations to Documentation: no limitations. Information obtained by: patient, family (Accompanied by daughter), EMS and RN notes reviewed. History of Present Illness 78 year old F presents to the emergency department with the chief complaint of Lower abdominal pain, described as similar to prior episodes, Quality is described as aching (Cramping), and is localized to the abdomen. Patient reports no radiation. Patient started experiencing this hour(s) and it has been now resolved. other things that improve symptom(s), (Bowel movement) No exacerbating factors reported . Patient notes denies chest pain, cough, diaphoresis, fever/chills, loss of appetite, malaise, nausea/vomiting, shortness of breath and weakness. Patient did receive the following treatments prior to arrival, none Related Data Home Medications Medication Instructions Recorded Confirmed acetaminophen [Mapap Extra 1,000 mg PO TID 09/23/14 01/18/19 Strength] citalopram 20 mg PO DAILY 09/23/14 01/18/19 loratadine 10 mg PO DAILY 09/23/14 01/18/19 aspirin [Aspir-Low] 81 mg PO DAILY 01/10/19 01/18/19 methotrexate sodium 12.5 mg PO QWEEK 01/10/19 01/18/19 Eliquis 10 mg PO BID #60 tab 01/13/19 01/18/19 duloxetine [Cymbalta] 20 mg PO DAILY #30 cap 01/13/19 01/18/19 magnesium oxide 400 mg PO BID #4 tab 01/13/19 01/18/19 midodrine 2.5 mg PO TID #60 tab 01/13/19 01/18/19 omeprazole 40 mg PO BID #30 cap 01/13/19 01/18/19 prednisone 10 mg PO DAILY #14 tab 01/13/19 01/18/19 sucralfate 1 g PO AC & HS #120 tab 01/13/19 01/18/19 Previous Rx's Medication Instructions Recorded Eliquis 10 mg PO BID #60 tab 01/13/19 duloxetine [Cymbalta] 20 mg PO DAILY #30 cap 01/13/19 magnesium oxide 400 mg PO BID #4 tab 01/13/19 midodrine 2.5 mg PO TID #60 tab 01/13/19 omeprazole 40 mg PO BID #30 cap 01/13/19 prednisone 10 mg PO DAILY #14 tab 01/13/19 sucralfate 1 g PO AC & HS #120 tab 01/13/19 Allergies Allergy/AdvReac Type Severity Reaction Status Date / Time Penicillins AdvReac Mild keeps Unverified 03/26/19 10:43 getting sicker General Stated Complaint: Abd Prob IFTIKHAR: 3 Review of Systems Constitutional Reports as per HPI, Denies chills, Denies fatigue, Denies fever(s) and Denies headache(s) ENT Denies headache(s) Cardiovascular Reports as per HPI, Denies chest pain and Denies dyspnea Respiratory Reports as per HPI, Denies cough and Denies dyspnea Gastrointestinal Reports as per HPI Musculoskeletal Reports as per HPI and Denies back pain Integumentary/Breasts Reports as per HPI and Denies rash Neurologic Reports as per HPI and Denies headache(s) Endocrine Denies fatigue PFS Medical History Arthritis (Acute) H/O: hysterectomy (Chronic) Surgical History History of cholecystectomy (Chronic) Social History Smoking/Tobacco Use Status: Former Tobacco Use Alcohol Intake: never Drug use: Never Do you feel safe at home: Yes Do you feel safe in your relationship?: Yes Exam Const General: cooperative, healthy appearing, comfortable, no acute distress, well developed and anxious Nutritional Appearance: well nourished and overweight Orientation: alert and awake HENMT Head: normal to inspection Mouth: moist mucous membranes Resp Effort & Inspection: normal respiratory effort, able to speak in complete sentences and no respiratory distress Auscultation: clear to auscultation bilaterally, no rales, no rhonchi and no wheezes Cardio Rate: regular rate Rhythm: regular rhythm Heart Sounds: S1 normal and S2 normal GI Inspection: normal to inspection, no edema, non-distended, obesity, no visible herniation and no visible pulsation Palpation: soft, no hepatosplenomegaly, not firm, no guarding, no pulsatile masses, not rigid, nontender and No ascites Percussion: normal to percussion Auscultation: normal bowel sounds Back/Spine/Pelvis Back: no CVA tenderness Skin General skin exam: no rashes or lesions noted Trauma: no lacerations or abrasions Neuro General: alert and awake Cognition: normal cognition Speech: speech normal Gait: normal gait Extrem General: normal to inspection, full ROM, normal capillary refill, no joint enlargement, no pedal edema and no calf tenderness Psych Appearance: grossly normal and well kempt Mental Status: mental status grossly normal Speech and Movement: speech and movement normal Course Vital Signs Temperature 36.4 C L 03/26/19 10:36 Pulse 77 03/26/19 10:36 Respiratory Rate 16 03/26/19 10:36 Blood Pressure 138/64 03/26/19 10:36 Pulse Oximetry 99 03/26/19 10:36 Temperature 36.4 C L 03/26/19 10:36 Temperature Source Temporal Artery Scan 03/26/19 10:36 Pulse 77 03/26/19 10:36 Respiratory Rate 16 03/26/19 10:36 Respiratory Effort Non-Labored 03/26/19 10:36 Blood Pressure 138/64 03/26/19 10:36 Pulse Oximetry 99 03/26/19 10:36 Oxygen Delivery Method Room Air 03/26/19 10:36 Oxygen Flow Rate 0 03/26/19 10:36
--- NOTE | 2019-03-26 11:23 | ED.GENADUL_ITS ---
Discharge Plan Disposition Patient Disposition: HOME Condition: Improving Discharge Details Chief Complaint: Abd Prob Clinical Impression: Constipation Primary Care Provider: Autumn Awan ED Provider: An Melchor Home Meds and New Rx's Prescriptions: Continued acetaminophen [Mapap Extra Strength] 500 MG tablet 1,000 mg PO TID RF: 0 citalopram 20 MG tablet 20 mg PO DAILY RF: 0 loratadine 10 MG tablet 10 mg PO DAILY RF: 0 aspirin [Aspir-Low] 81 mg Tablet,Delayed Release (Dr/Ec) 81 mg PO DAILY RF: 0 methotrexate sodium 2.5 mg Tablet 12.5 mg PO QWEEK RF: 0 Eliquis 5 mg Tablet 10 mg PO BID Qty: 60 RF: 0 prednisone 10 mg Tablet 10 mg PO DAILY Qty: 14 RF: 0 sucralfate 1 gram Tablet 1 g PO AC & HS Qty: 120 RF: 0 midodrine 5 mg Tablet 2.5 mg PO TID Qty: 60 RF: 0 magnesium oxide 400 mg (241.3 mg magnesium) Tablet 400 mg PO BID Qty: 4 RF: 0 duloxetine [Cymbalta] 20 mg Capsule,Delayed Release(Dr/Ec) 20 mg PO DAILY Qty: 30 RF: 0 omeprazole 40 mg capsule,delayed release(DR/EC) 40 mg PO BID Qty: 30 RF: 0 Discharge Instructions Instructions: Constipation (ED) Additional Instructions: Encourage hydration. Please begin daily MiraLAX as advised in the bottle. Please keep upcoming appointment with your primary care. If you develop increased abdominal pain, fever/chills, nausea/vomiting, no blood in your stool or have other new/worsening symptoms please seek care urgently once again. The source of constipation is likely your pain medication, will likely need to continue with a stool softener while on this Referrals: Autumn Awan [Primary Care Provider] - Discharge Data Discharge Date/Time-TO BE ENTERED AT DEPARTURE: 03/26/19 11:30 Medical Decision Making Patient is an 78-year-old female, brought in via EMS and accompanied by her daughter, with chief complaint of constipation. Patient reports that she has had a daily bowel movement but has had more firm stools than typical associated with her oxycodone usage. Since beginning the medication, she reports that she has had more firm bowel movements that can be painful for her at times and she is been much more concerned with occasional constipation recently. patient has left hip avascular necrosis and has been taking oxycodone to help with her dis comfort pending a surgical intervention. Patient states that she had a normal bowel movement prior to breakfast this morning. No nausea or vomiting. Had normal appetite for breakfast. However, after breakfast, she felt the urge to go again and had discomfort with his bowel movement. She called EMS she felt she needed assistance with a bowel movement. However, upon their arrival the patient had had a large bowel movement felt much improved. She denies any blood in her stool. Is not having any abdominal pain at this time. States she had one similar episode to this over the weekend. Is not routinely taking any stool softeners. No fevers or chills. Surgical history pertinent for cholecystectomy and hysterectomy On exam, she appears slightly anxious. She is worried about her upcoming surgery. Her abdomen is obese. Surgical incisions are noted, appeared to have healed. Abdomen is benign with no peritoneal findings no tenderness elicited. No pulsatile mass, vascular exam is normal. At this point, the patient is passing flatus, has had bowel movements and has had resolution of her symptoms patient and I feel that further evaluation is warranted. I did offer further evaluation to the patient and her daughter but at this point, as her symptoms have improved, she declines and prefers to go home to rest. We discussed her narcotic usage in depth and how this will be affecting her bowel habits. I did advise that she begin taking MiraLAX daily while on the narcotics. Patient and I discussed this in depth. She has an appointment next week with her primary care at which time she will discuss this further. She was given strict return precautions, she is able to return with any new/worsening symptoms. All other questions and concerns were addressed and they are in agreement this plan HPI General Mode of arrival: EMS . Date/Time Provider Initiated Documentation: 03/26/19 10:41 . Limitations to Documentation: no limitations . Information obtained by: patient, family (Accompanied by daughter), EMS and RN notes reviewed . History of Present Illness 78 year old F presents to the emergency department with the chief complaint of Lower abdominal pain, described as similar to prior episodes, Quality is described as aching (Cramping), and is localized to the abdomen. Patient reports no radiation. Patient started experiencing this hour(s) and it has been now resolved. other things that improve symptom(s), (Bowel movement) No exacerbating factors reported . Patient notes denies chest pain, cough, diaphoresis, fever/chills, loss of appetite, malaise, nausea/vomiting, shortness of breath and weakness. Patient did receive the following treatments prior to arrival, none Related Data Home Medications Medication Instructions Recorded Confirmed acetaminophen [Mapap Extra 1,000 mg PO TID 09/23/14 01/18/19 Strength] citalopram 20 mg PO DAILY 09/23/14 01/18/19 loratadine 10 mg PO DAILY 09/23/14 01/18/19 aspirin [Aspir-Low] 81 mg PO DAILY 01/10/19 01/18/19 methotrexate sodium 12.5 mg PO QWEEK 01/10/19 01/18/19 Eliquis 10 mg PO BID #60 tab 01/13/19 01/18/19 duloxetine [Cymbalta] 20 mg PO DAILY #30 cap 01/13/19 01/18/19 magnesium oxide 400 mg PO BID #4 tab 01/13/19 01/18/19 midodrine 2.5 mg PO TID #60 tab 01/13/19 01/18/19 omeprazole 40 mg PO BID #30 cap 01/13/19 01/18/19 prednisone 10 mg PO DAILY #14 tab 01/13/19 01/18/19 sucralfate 1 g PO AC & HS #120 tab 01/13/19 01/18/19 Previous Rx's Medication Instructions Recorded Eliquis 10 mg PO BID #60 tab 01/13/19 duloxetine [Cymbalta] 20 mg PO DAILY #30 cap 01/13/19 magnesium oxide 400 mg PO BID #4 tab 01/13/19 midodrine 2.5 mg PO TID #60 tab 01/13/19 omeprazole 40 mg PO BID #30 cap 01/13/19 prednisone 10 mg PO DAILY #14 tab 01/13/19 sucralfate 1 g PO AC & HS #120 tab 01/13/19 Allergies Allergy/AdvReac Type Severity Reaction Status Date / Time Penicillins AdvReac Mild keeps Unverified 03/26/19 10:43 getting sicker General Stated Complaint: Abd Prob IFTIKHAR: 3 Review of Systems Constitutional Reports as per HPI, Denies chills, Denies fatigue, Denies fever(s) and Denies headache(s) ENT Denies headache(s) Cardiovascular Reports as per HPI, Denies chest pain and Denies dyspnea Respiratory Reports as per HPI, Denies cough and Denies dyspnea Gastrointestinal Reports as per HPI Musculoskeletal Reports as per HPI and Denies back pain Integumentary/Breasts Reports as per HPI and Denies rash Neurologic Reports as per HPI and Denies headache(s) Endocrine Denies fatigue [facility] Medical History Arthritis (Acute) H/O: hysterectomy (Chronic) Surgical History History of cholecystectomy (Chronic) Social History Smoking/Tobacco Use Status: Former Tobacco Use Alcohol Intake: never Drug use: Never Do you feel safe at home: Yes Do you feel safe in your relationship?: Yes Exam Const General: cooperative, healthy appearing, comfortable, no acute distress, well developed and anxious Nutritional Appearance: well nourished and overweight Orientation: alert and awake HENNH Head: normal to inspection Mouth: moist mucous membranes Resp Effort & Inspection: normal respiratory effort, able to speak in complete sentences and no respiratory distress Auscultation: clear to auscultation bilaterally, no rales, no rhonchi and no wheezes Cardio Rate: regular rate Rhythm: regular rhythm Heart Sounds: S1 normal and S2 normal GI Inspection: normal to inspection, no edema, non-distended, obesity, no visible herniation and no visible pulsation Palpation: soft, no hepatosplenomegaly, not firm, no guarding, no pulsatile masses, not rigid, nontender and No ascites Percussion: normal to percussion Auscultation: normal bowel sounds Back/Spine/Pelvis Back: no CVA tenderness Skin General skin exam: no rashes or lesions noted Trauma: no lacerations or abrasions Neuro General: alert and awake Cognition: normal cognition Speech: speech normal Gait: normal gait Extrem General: normal to inspection, full ROM, normal capillary refill, no joint enlargement, no pedal edema and no calf tenderness Psych Appearance: grossly normal and well kempt Mental Status: mental status grossly normal Speech and Movement: speech and movement normal Course Vital Signs Temperature 36.4 C L 07/05/19 10:36 Pulse 77 03/26/19 10:36 Respiratory Rate 16 03/26/19 10:36 Blood Pressure 138/64 03/26/19 10:36 Pulse Oximetry 99 03/26/19 10:36 Temperature 36.4 C L 03/26/19 10:36 Temperature Source Temporal Artery Scan 03/26/19 10:36 Pulse 77 03/26/19 10:36 Respiratory Rate 16 03/26/19 10:36 Respiratory Effort Non-Labored 03/26/19 10:36 Blood Pressure 138/64 03/26/19 10:36 Pulse Oximetry 99 03/26/19 10:36 Oxygen Delivery Method Room Air 03/26/19 10:36 Oxygen Flow Rate 0 03/26/19 10:36
== END 2019-03-26 11:30 | disposition home or self-care (01) ==
PROVIDERS: Emergency Provider Physician Assistant; PCP Internal Medicine
DX: K59.00 Constipation, unspecified (principal); M87.052 Idiopathic aseptic necrosis of left femur; Z79.891 Long term (current) use of opiate analgesic
CPT/HCPCS: 99283

== ENCOUNTER 2019-10-05 10:46 | Outpatient (REF) | payer MEDICARE, MEDICAID, SELFPAY ==
[2019-10-05 14:03] LABS: Bilirubin Negative (Negative); Blood Trace-intact (Negative); Clarity Clear (Clear); Glucose Negative (Negative); Ketones Negative (Negative); Leukocyte Esterase Negative (Negative); Nitrite Negative (Negative); Specific Gravity 1.025 (1.005-1.025); Urobilinogen 0.2 EU/dL (Up TO 0.2)
[2019-10-05 14:21] LABS: Bacteria Negative HPF (Negative); C & S Indicated? No; Casts Negative LPF (Negative); Crystals Negative HPF (Negative); Epithelial Cells Rare HPF (Negative); Mucus Moderate (Negative); WBC 0-2 HPF (0-5)
== END 2019-10-05 11:06 ==
LOC: LBN 10:46
PROVIDERS: PCP Internal Medicine; Visit Provider Internal Medicine
DX: R30.9 Painful micturition, unspecified (principal)
CPT/HCPCS: 81003; 81015

== ENCOUNTER 2020-03-03 04:03 | Outpatient (CLI) | payer MEDICARE, MEDICAID, SELFPAY ==
[2020-03-03 11:32] LABS: Abs Immature Grans 0.02 k/cumm (0.0-0.09); Absolute Basophil Count 0.04 k/cumm (0.0-0.2); Absolute Eosinophil Count 0.78 k/cumm (0.0-0.7); Absolute Lymphocyte Count 0.75 k/cumm (1.2-3.4); Absolute Monocyte Count 0.51 k/cumm (0.11-0.7); Absolute Neutrophil Count 7.63 k/cumm (1.2-6.7); Basophils % 0.4; HCT 25.8 % (36.0-46.0); HGB 7.3 g/dL (12.0-15.5); Immature Grans % 0.2 %; Lymphocytes % 7.7; Mean Corp. HGB Concentration 28.3 g/dL (32.0-36.0); Mean Corpuscular Hemoglobin 24.3 pg (27.0-33.0); Mean Platelet Volume 9.6 fL (8.0-11.0); Monocytes % 5.2; Neutrophils % 78.5; Platelet Count 350 x1000/uL (130-400); RBC Distribution Width 17.5 % (11.7-14.6); White Blood Cell Count 9.73 k/cumm (4.4-10.8)
[2020-03-03 11:50] LABS: Anisocytosis 1+; Basophilic Stippling Present; Diff Comment RBC Morph Reviewed; Hypochromasia 2+; Microcytosis 2+
[2020-03-03 11:51] LABS: Poikilocytes 2+
[2020-03-03 12:15] LABS: ALT 15 U/L (14-59); AST 17 U/L (15-37); Albumin 3.5 g/dL (3.4-5.0); Alkaline Phosphatase 129 U/L (46-116); Anion Gap 8.7 mmol/L (3-11); BUN 14 mg/dL (7-18); Bilirubin, Total 0.4 mg/dL (0.2-1.0); C-Reactive Protein 0.37 mg/dL (0.0-0.3); CO2 27.3 mmol/L (21.0-32.0); CREATININE 0.78 mg/dL (0.55-1.02); Calcium 8.3 mg/dL (8.5-10.1); Chloride 97 mmol/L (98-107); Glucose 119 mg/dL (74-106); Potassium 4.1 mmol/L (3.5-5.1); Sodium 133 mmol/L (136-145); Total Protein 6.4 g/dL (6.4-8.2)
[2020-03-03 12:27] LABS: ESR 16 mm/hr (0-30)
== END 2020-03-03 04:23 ==
PROVIDERS: PCP Internal Medicine; Visit Provider Internal Medicine
DX: M06.9 Rheumatoid arthritis, unspecified (principal); Z79.899 Other long term (current) drug therapy
CPT/HCPCS: 36415; 80053; 85652; 85025; 86140

== ENCOUNTER 2020-03-13 00:55 | Outpatient (RCR) | payer MEDICARE, MEDICAID, SELFPAY ==
[2020-03-13] MEDS: Normal Saline Flush 10 ML SYR IVP (10:53)
[2020-03-13] MEDS: IRON SUCROSE COMPLEX 200 MG in Normal Saline 100 ML 440 MG IVPB (10:53)
[2020-03-28] MEDS: IRON SUCROSE COMPLEX 200 MG in Normal Saline 100 ML 440 MG IVPB (13:40)
[2020-04-13] MEDS: Normal Saline Flush 10 ML SYR IVP (12:16)
[2020-04-13] MEDS: IRON SUCROSE COMPLEX 200 MG in Normal Saline 100 ML 440 MG IVPB (12:16)
== END 2020-03-21 16:28 | disposition home or self-care (01) ==
LOC: INF 00:55
PROVIDERS: PCP Internal Medicine; Visit Provider Internal Medicine
DX: D50.9 Iron deficiency anemia, unspecified (principal)
CPT/HCPCS: 96365; J1756

== ENCOUNTER 2020-04-13 00:47 | Outpatient (RCR) | payer MEDICARE, MEDICAID, SELFPAY ==
[2020-03-28] MEDS: Normal Saline Flush 10 ML SYR IVP (13:30)
[2020-03-28] MEDS: IRON SUCROSE COMPLEX 200 MG in Normal Saline 100 ML 440 MG IVPB (13:40)
[2020-04-13] MEDS: IRON SUCROSE COMPLEX 200 MG in Normal Saline 100 ML 440 MG IVPB (12:16)
[2020-04-13] MEDS: Normal Saline Flush 10 ML SYR IVP (12:55)
== END 2020-04-21 23:59 | disposition home or self-care (01) ==
LOC: INF 00:47
PROVIDERS: PCP Internal Medicine; Visit Provider Internal Medicine
DX: D50.9 Iron deficiency anemia, unspecified (principal)
CPT/HCPCS: 96365; J1756

== ENCOUNTER 2020-05-10 01:50 | Outpatient (RCR) | payer MEDICARE, MEDICAID, SELFPAY ==
[2020-04-26] MEDS: IRON SUCROSE COMPLEX 200 MG in Normal Saline 100 ML 440 MG IVPB (13:13)
[2020-04-26] MEDS: Normal Saline Flush 10 ML SYR IVP (13:13)
[2020-05-10] MEDS: IRON SUCROSE COMPLEX 200 MG in Normal Saline 100 ML 440 MG IVPB (12:42)
[2020-05-10] MEDS: Normal Saline Flush 10 ML SYR IVP (12:42)
== END 2020-05-22 23:59 | disposition home or self-care (01) ==
LOC: INF 01:50
PROVIDERS: PCP Internal Medicine; Visit Provider Internal Medicine
DX: D50.9 Iron deficiency anemia, unspecified (principal)
CPT/HCPCS: 96365; J1756

== ENCOUNTER 2020-06-29 01:35 | Outpatient (CLI) | payer MEDICARE, MEDICAID, SELFPAY ==
[2020-06-29 16:15] LABS: Abs Immature Grans 0.02 10^3/uL (0.0-0.06); Absolute Basophil Count 0.05 10^3/uL (0.0-0.2); Absolute Eosinophil Count 0.62 10^3/uL (0.0-0.7); Absolute Lymphocyte Count 0.81 10^3/uL (1.2-3.4); Absolute Monocyte Count 0.42 10^3/uL (0.1-0.8); Absolute Neutrophil Count 6.33 10^3/uL (1.2-6.7); Basophils % 0.6; Eosinophils % 7.5; HCT 37.3 % (36.0-46.0); HGB 12.2 g/dL (11.2-15.7); Immature Grans % 0.2; Lymphocytes % 9.8; MCHC 32.7 % (32.0-36.0); MCV 100.8 fL (80-95); MPV 10.4 fL (8.0-11.0); Monocytes % 5.1; Neutrophils % 76.8; Nucleated RBC 0 %; Platelet Count 214 10^3/uL (130-400); RDW 14.9 % (11.7-14.6); RDW-SD 55.1 fL; WBC 8.25 10^3/uL (4.4-10.8)
[2020-06-29 17:11] LABS: ESR 14 mm/hr (0-30)
[2020-06-29 17:23] LABS: ALT 22 U/L (14-59); AST 15 U/L (15-37); Albumin 3.4 g/dL (3.4-5.0); Alkaline Phosphatase 112 U/L (46-116); Anion Gap 8.7 mmol/L (3-11); BUN 14 mg/dL (7-18); Bilirubin, Total 0.5 mg/dL (0.2-1.0); C-Reactive Protein 0.18 mg/dL (0.0-0.3); CO2 29.3 mmol/L (21.0-32.0); CREATININE 0.81 mg/dL (0.55-1.02); Calcium 8.7 mg/dL (8.5-10.1); Chloride 98 mmol/L (98-107); Glucose 116 mg/dL (74-106); Sodium 136 mmol/L (136-145); Total Protein 6.4 g/dL (6.4-8.2)
== END 2020-06-29 01:55 ==
PROVIDERS: PCP Internal Medicine; Visit Provider Internal Medicine
DX: M06.9 Rheumatoid arthritis, unspecified (principal); M89.49 Other hypertrophic osteoarthropathy, multiple sites; Z79.899 Other long term (current) drug therapy
CPT/HCPCS: 36415; 80053; 85652; 85025; 86140

== ENCOUNTER 2021-04-28 12:46 | Outpatient (REF) | payer MEDICARE, MEDICAID, SELFPAY ==
[2021-04-28 13:14] LABS: Bilirubin Negative (Negative); Blood Small (Negative); Clarity Clear (Clear); Glucose Negative (Negative); Ketones Trace mg/dL (Negative); Leukocyte Esterase Negative (Negative); Nitrite Negative (Negative); Specific Gravity 1.025 (1.005-1.025); Urobilinogen 0.2 EU/dL (Up TO 0.2); pH 5.5 (5-8)
[2021-04-28 13:22] LABS: Bacteria Few HPF (Negative); Epithelial Cells Many HPF (Negative); Other Cells Few Renal (Negative); WBC 0-2 HPF (0-5)
[2021-04-28 13:23] LABS: C & S Indicated? C&S Done As Ordered; Casts 5-10 Hyaline LPF (Negative); Crystals Negative HPF (Negative); Mucus Moderate (Negative)
== END 2021-04-28 12:47 | disposition home or self-care (01) ==
LOC: LBN 12:46
PROVIDERS: PCP Internal Medicine; Visit Provider Internal Medicine
DX: R30.9 Painful micturition, unspecified (principal)
CPT/HCPCS: 81003; 81015; 87086

== ENCOUNTER 2021-08-01 02:33 | Outpatient (CLI) | payer MEDICARE, MEDICAID, SELFPAY ==
[2021-08-01 16:27] LABS: Abs Immature Grans 0.02 10^3/uL (0.0-0.06); Absolute Basophil Count 0.07 10^3/uL (0.0-0.2); Absolute Eosinophil Count 0.82 10^3/uL (0.0-0.7); Absolute Lymphocyte Count 0.97 10^3/uL (1.2-3.4); Absolute Monocyte Count 0.65 10^3/uL (0.1-0.8); Absolute Neutrophil Count 6.46 10^3/uL (1.2-6.7); Basophils % 0.8; Eosinophils % 9.1; HCT 36.1 % (36.0-46.0); HGB 11.5 g/dL (11.2-15.7); Immature Grans % 0.2; Lymphocytes % 10.8; MCH 31.3 pg (27.0-33.0); MCHC 31.9 % (32.0-36.0); MCV 98.4 fL (80-95); MPV 10.8 fL (8.0-11.0); Monocytes % 7.2; Neutrophils % 71.9; Nucleated RBC 0 %; Platelet Count 253 10^3/uL (130-400); RBC 3.67 10^6/uL (3.93-5.22); RDW-SD 54.5 fL; WBC 8.99 10^3/uL (4.4-10.8)
[2021-08-01 16:29] LABS: ESR 9 mm/hr (0-30)
[2021-08-01 19:18] LABS: Albumin 3.8 g/dL (3.4-5.0); Alkaline Phosphatase 117 U/L (46-116); BUN 15 mg/dL (7-18); Bilirubin, Total 0.4 mg/dL (0.2-1.0); CREATININE 0.7 mg/dL (0.55-1.02); Calcium 8.7 mg/dL (8.5-10.1); Glucose 101 mg/dL (74-106); Sodium 136 mmol/L (136-145); Total Protein 6.7 g/dL (6.4-8.2)
[2021-08-01 19:19] LABS: ALT 21 U/L (14-59); AST 21 U/L (15-37); Anion Gap 5.5 mmol/L (3-11); C-Reactive Protein 0.31 mg/dL (0.0-0.3); CO2 30.5 mmol/L (21.0-32.0); Chloride 100 mmol/L (98-107); Potassium 4.2 mmol/L (3.5-5.1)
== END 2021-08-01 02:34 | disposition home or self-care (01) ==
LOC: LBO 02:33
PROVIDERS: PCP Internal Medicine; Visit Provider Internal Medicine
DX: Z79.899 Other long term (current) drug therapy (principal); M06.9 Rheumatoid arthritis, unspecified
CPT/HCPCS: 36415; 80053; 85652; 85025; 86140

== ENCOUNTER 2021-12-10 03:23 | Outpatient (CLI) | payer MEDICARE, MEDICAID, SELFPAY ==
[2021-12-10 12:36] LABS: Abs Immature Grans 0.03 10^3/uL (0.0-0.06); Absolute Basophil Count 0.05 10^3/uL (0.0-0.2); Absolute Eosinophil Count 0.82 10^3/uL (0.0-0.7); Absolute Monocyte Count 0.45 10^3/uL (0.1-0.8); Absolute Neutrophil Count 7.04 10^3/uL (1.2-6.7); Basophils % 0.6; Eosinophils % 9.1; HCT 29.7 % (36.0-46.0); HGB 9.1 g/dL (11.2-15.7); Immature Grans % 0.3; Lymphocytes % 6.7; MCH 29.3 pg (27.0-33.0); MCHC 30.6 % (32.0-36.0); MCV 95.5 fL (80-95); MPV 9.8 fL (8.0-11.0); Neutrophils % 78.3; Nucleated RBC 0 %; Platelet Count 265 10^3/uL (130-400); RBC 3.11 10^6/uL (3.93-5.22); RDW 15.4 % (11.7-14.6); RDW-SD 53.1 fL; WBC 8.99 10^3/uL (4.4-10.8)
[2021-12-10 13:01] LABS: Hemoglobin A1C 5.3 % (<5.7)
[2021-12-10 13:45] LABS: ALT 17 U/L (14-59); AST 18 U/L (15-37); Albumin 3.6 g/dL (3.4-5.0); Alkaline Phosphatase 107 U/L (46-116); Anion Gap 9.8 mmol/L (3-11); BUN 16 mg/dL (7-18); Bilirubin, Total 0.6 mg/dL (0.2-1.0); CO2 26.2 mmol/L (21.0-32.0); CREATININE 0.7 mg/dL (0.55-1.02); Calcium 8.5 mg/dL (8.5-10.1); Chloride 96 mmol/L (98-107); Glucose 105 mg/dL (74-106); Potassium 4.1 mmol/L (3.5-5.1); Sodium 132 mmol/L (136-145); Total Protein 6.6 g/dL (6.4-8.2)
== END 2021-12-10 03:24 | disposition home or self-care (01) ==
LOC: LBO 03:23
PROVIDERS: PCP Internal Medicine; Visit Provider Internal Medicine
DX: R73.01 Impaired fasting glucose (principal); E78.5 Hyperlipidemia, unspecified
CPT/HCPCS: 36415; 80053; 83036; 85025

== ENCOUNTER 2021-12-16 03:30 | Emergency (ER) | payer MEDICARE, MEDICAID, SELFPAY ==
[2021-12-16] VITALS (32 sets, daily range): BP systolic 144–191; BP diastolic 58–79; PULSE 70–79; RESP 18; TEMP 36.4; O2SAT 87–100
--- NOTE | 2021-12-16 03:45 | DI.RAD_ITS ---
Exam(s) XR FEMUR RT EXAM: XR FEMUR RT CLINICAL HISTORY: right hip pain, possible fall. TECHNIQUE: 2D digital imaging was performed. COMPARISON: No exams were available for comparison FINDINGS: Suboptimal positioning. Exam limited by overlying material. No gross evidence of acute fracture or dislocation. Total knee prosthesis grossly intact but not well evaluated. Right hip joint space wel l maintained. Vascular calcifications. IMPRESSION: Limited exam. No gross evidence of an acute abnormality. DATA REPOSITORY: RADIATION DOSE DELIVERED:
--- NOTE | 2021-12-16 03:45 | DI.RAD_ITS ---
Exam(s) XR TIB/FIB RT EXAM: XR TIB/FIB RT CLINICAL HISTORY: possible fall, right hip pain. TECHNIQUE: 2D digital imaging was performed. COMPARISON: CR XR knee LT 3V AP,lat,sheryl from 01/10/2019 FINDINGS: Exam somewhat limited by patient body habitus. The total knee prosthesis is noted. Suboptimal posit ioning of the knee. Bones appear osteopenic. No evidence of fracture. Soft tissue edema. [place] aneal joint not well profiled. IMPRESSION: No gross evidence of acute fracture. Total knee prosthesis, not well evaluated. Ankle is not well e valuated. DATA REPOSITORY: RADIATION DOSE DELIVERED:
--- NOTE | 2021-12-16 03:45 | DI.RAD_ITS ---
Exam(s) XR PELVIS AP EXAM: XR PELVIS AP CLINICAL HISTORY: right hip pain. TECHNIQUE: 2D digital imaging was performed. One view COMPARISON: No exams were available for comparison FINDINGS: BONES: No acute fracture is present. No bony destructive lesion is seen. Sacrum obscured by overlyi ng bowel and stool. Left hip prosthesis, grossly unremarkable. JOINTS: No dislocation present. No joint space narrowing is present. SOFT TISSUE: Normal. IMPRESSION: No acute abnormality. DATA REPOSITORY: RADIATION DOSE DELIVERED:
--- NOTE | 2021-12-16 03:57 | ED.GENADUL_ITS ---
Discharge Plan Disposition Patient Disposition: HOME Condition: Improving Discharge Details Chief Complaint: Orthopedic Clinical Impression: Sciatic leg pain Primary Care Provider: Autumn Awan ED Provider: Amaury Wheatley Meds and New Rx's Prescriptions: No Action acetaminophen [Mapap Extra Strength] 500 MG tablet 1,000 mg PO TID 0RF citalopram 20 MG tablet 20 mg PO DAILY 0RF loratadine 10 MG tablet 10 mg PO DAILY 0RF acetic acid 2 % Solution 3 - 5 drp OTIC (EAR) Q6H 0RF Rx Instructions: apply to (cotton) wick; replace wick every 24 hours atorvastatin 20 mg tablet 20 mg PO DAILY 0RF Label Comments: TAKE ONE TABLET BY MOUTH EVERY DAY polyethylene glycol 3350 [Miralax] 17 gram Powder In Packet 17 g PO BID 0RF sulfamethoxazole-trimethoprim 800-160 mg tablet 2 tab PO BID 0RF Label Comments: TAKE ONE TABLET BY MOUTH TWO TIMES A DAY FOR 5 DAYS tramadol 50 mg Tablet 25 mg PO BID PRN0RF folic acid 1 mg Tablet 1 mg PO DAILY 0RF furosemide 20 mg Tablet 20 mg PO QAM 0RF hydroxychloroquine 200 mg tablet 400 mg PO DAILY 0RF Label Comments: TAKE ONE TABLET BY MOUTH TWICE A DAY FOR RHEUMATOID ARTHRITIS clobetasol 0.05 % Solution 1 applic TOPICAL DAILY 0RF ondansetron 4 mg Tablet,Disintegrating 4 mg PO Q12H PRN PRN0RF bupropion HCl 150 mg Tablet Extended Release 24 Hr 150 mg PO QAM 0RF fluocinolone acetonide oil 0.01 % Drops 5 drp OTIC (EAR) BID PRN0RF prednisone 10 mg tablet 5 mg PO DAILY 0RF aspirin [Aspir-Low] 81 mg Tablet,Delayed Release (Dr/Ec) 81 mg PO DAILY 0RF methotrexate sodium 2.5 mg Tablet 12.5 mg PO QWEEK 0RF Eliquis 5 mg Tablet 10 mg PO BID Qty: 60 0RF Rx Instructions: take 10 mg (2 tabs) BID x6 days then decrease to 5 mg (1 tab) BID. sucralfate 1 gram Tablet 1 g PO AC & HS Qty: 120 0RF midodrine 5 mg Tablet 2.5 mg PO TID Qty: 60 0RF magnesium oxide 400 mg (241.3 mg magnesium) Tablet 400 mg PO BID Qty: 4 0RF duloxetine [Cymbalta] 20 mg Capsule,Delayed Release(Dr/Ec) 20 mg PO DAILY Qty: 30 0RF omeprazole 40 mg capsule,delayed release(DR/EC) 40 mg PO BID Qty: 30 0RF Discharge Instructions Instructions: Sciatica (ED) Additional Instructions: Please use ibuprofen and acetaminophen as needed for pain. Ice and heat as needed. Please be seen by your primary care physician. Return to the emergency department if you have worsening uncontrolled pain falls numbness or weakness. Medical Decision Making 81-year-old female history of rheumatoid arthritis hypertension presents with right leg pain possible mechanical fall within the last week, pain worse with change in position, soft compartment sensate well-perfused lower extremity DP pulse intact, range of motion limited at right hip, no palpable deformity no external ecchymosis. Patient is neurologically intact cooperative. Hemodynamically stable. Does have some conjunctival pallor. Does endorse some dark stool. Not on blood thinners. Consider mechanical fall versus fatigue in the setting of anemia is considered GI bleed, concern for right hip fracture versus dislocation versus contusion. Screening labs to assess hemoglobin. X- ray lower extremity, analgesia, disposition pending reassessment and results. Low suspicion for intracranial hemorrhage spinal cord injury thoracoabdominal trauma or infectious process Patient repositioned on her left side, feeling great relief, lidocaine patch administered. Rectal exam normal brown stool in vault, guaiac negative. High clinical suspicion for sciatica versus muscle spasm given paroxysmal pain with normal-appearing x-ray awaiting official read. Likely home with close follow-up Resting comfortably no acute distress. Will attempt to ambulate, if successful will be discharged home. Likely sciatica. X-ray read showing tibiotalar degenerative disease, no pain at tibiotalar site, pain is located right hip and thigh Successful ambulation with assistance and walker. Greatly improved from arrival. HPI General Date/Time Provider Initiated Documentation: 12/16/21 03:32 . HPI Narrative: 81-year-old female history of rheumatoid arthritis hypertension, anemia, presents with right hip pain, had a mechanical fall from standing approximately 1 week ago, worsening pain over the last week specifically when changing positions. Was unable to maneuver the house at her baseline this evening. Pain when being transported via EMS. Has not been taking her methotrexate as she is on Bactrim for a right ingrown toenail. Related Data Home Medications Medication Instructions Recorded Confirmed acetaminophen 500 mg tablet (Mapap 1,000 mg PO TID 09/23/14 12/16/21 Extra Strength) citalopram 20 mg tablet 20 mg PO DAILY 09/23/14 01/18/19 loratadine 10 mg tablet 10 mg PO DAILY 09/23/14 12/16/21 aspirin 81 mg tablet,delayed 81 mg PO DAILY 01/10/19 01/18/19 release (Aspir-Low) methotrexate sodium 2.5 mg tablet 12.5 mg PO QWEEK 01/10/19 12/16/21 apixaban 5 mg tablet (Eliquis) 10 mg PO BID #60 tab 01/13/19 01/18/19 duloxetine 20 mg capsule,delayed 20 mg PO DAILY #30 cap 01/13/19 12/16/21 release (Cymbalta) magnesium oxide 400 mg (241.3 mg 400 mg PO BID #4 tab 01/13/19 01/18/19 magnesium) tablet midodrine 5 mg tablet 2.5 mg PO TID #60 tab 01/13/19 01/18/19 omeprazole 40 mg capsule,delayed 40 mg PO BID #30 cap 01/13/19 12/16/21 release sucralfate 1 gram tablet 1 g PO AC & HS #120 tab 01/13/19 01/18/19 acetic acid 2 % ear solution 3 - 5 drp OTIC (EAR) Q6H 12/16/21 12/16/21 atorvastatin 20 mg tablet 20 mg PO DAILY 12/16/21 12/16/21 bupropion HCl 150 mg 24 hr tablet, 150 mg PO QAM 12/16/21 12/16/21 extended release clobetasol 0.05 % scalp solution 1 applic TOPICAL DAILY 12/16/21 12/16/21 fluocinolone acetonide oil 0.01 % 5 drp OTIC (EAR) BID PRN 12/16/21 12/16/21 ear drops folic acid 1 mg tablet 1 mg PO DAILY 12/16/21 12/16/21 furosemide 20 mg tablet 20 mg PO QAM 12/16/21 12/16/21 hydroxychloroquine 200 mg tablet 400 mg PO DAILY 12/16/21 12/16/21 ondansetron 4 mg disintegrating 4 mg PO Q12H PRN PRN 12/16/21 12/16/21 tablet polyethylene glycol 3350 17 gram 17 g PO BID 12/16/21 12/16/21 oral powder packet (Miralax) prednisone 10 mg tablet 5 mg PO DAILY 12/16/21 12/16/21 sulfamethoxazole 800 2 tab PO BID 12/16/21 12/16/21 mg-trimethoprim 160 mg tablet tramadol 50 mg tablet 25 mg PO BID PRN 12/16/21 12/16/21 Previous Rx's Medication Instructions Recorded apixaban 5 mg tablet (Eliquis) 10 mg PO BID #60 tab 01/13/19 duloxetine 20 mg capsule,delayed 20 mg PO DAILY #30 cap 01/13/19 release (Cymbalta) magnesium oxide 400 mg (241.3 mg 400 mg PO BID #4 tab 01/13/19 magnesium) tablet midodrine 5 mg tablet 2.5 mg PO TID #60 tab 01/13/19 omeprazole 40 mg capsule,delayed 40 mg PO BID #30 cap 01/13/19 release sucralfate 1 gram tablet 1 g PO AC & HS #120 tab 01/13/19 Allergies Allergy/AdvReac Type Severity Reaction Status Date / Time hydromorphone [From Dilaudid] AdvReac Intermediate Other (See Unverified 12/16/21 04:07 Comment) Penicillins AdvReac Mild keeps Unverified 12/16/21 04:07 getting sicker General Stated Complaint: Orthopedic IFTIKHAR: 3 Review of Systems Narrative: Review of Systems Constitutional: negative Eyes: negative ENT: negative Cardiovascular: negative Respiratory: negative Gastrointestinal: negative : negative Musculoskeletal: Right hip pain Skin: negative Neurologic: negative Psych: negative PFSH All Active Problems (Updated 12/16/21 @ 07:20 by Amaury Whetaley MD) Sciatic leg pain (Acute) SVT (supraventricular tachycardia) (Chronic) Orthostatic hypotension (Acute) Iron deficiency anemia (Acute) HTN (hypertension) (Chronic) Discharge planning issues (Acute) DVT prophylaxis (Acute) Occult blood positive stool (Acute) H/O: GI bleed (Acute) Pain (Acute) Rheumatoid arthritis (Chronic) Adrenal insufficiency (Acute) Syncope (Chronic) Pulmonary embolism (Chronic) Medical History (Updated 12/16/21 @ 07:20 by Amaury Wheatley MD) Arthritis Surgical History H/O: hysterectomy History of cholecystectomy Social History Smoking/Tobacco Use Status: Former Tobacco Use Smoking risk assessment performed?: Yes Alcohol Intake: never Drug use: Never Do you feel safe at home: Yes Do you feel safe in your relationship?: Yes Exam Narrative Exam Narrative: Physical Examination General: alert, awake, cooperative, resting comfortably, no acute distress HEENT: normocephalic, atraumatic; PERRL, EOM intact, mild conjunctival pallor l; no nasal discharge; moist mucous membranes, oral and pharyngeal mucosa normal, tolerating secretions Neck: supple, trachea midline; full ROM Chest: normal to inspection Respiratory: normal respiratory effort, speaking in full sentences, clear to auscultation, no wheezing, rales or rhonchi Cardiac: regular rate, regular rhythm, S1S2 intact, no murmurs rubs or gallops GI: abdomen soft, non-tender, non-distended; no palpable mass or hepatosplenomegaly Skin: no lesions, rashes or trauma appreciated Neuro: AAOx3, normal speech Extremities: Decreased range of motion of right lower extremity however is able to range foot ankle and knee, not able to flex at hip, no palpable deformity along femur or pelvis, DP pulse intact sensate limb with soft compartments Psych: Appropriate mood and affect Course Vital Signs Vital signs: Vital Signs Temperature 36.4 C L 12/16/21 03:35 Pulse 78 12/16/21 03:35 Respiratory Rate 18 12/16/21 03:35 Blood Pressure 191/59 H 12/16/21 03:35 Pulse Oximetry 100 12/16/21 03:35 Temperature 36.4 C L 12/16/21 03:35 Temperature Source Temporal Artery Scan 12/16/21 03:35 Pulse 78 12/16/21 03:35 Respiratory Rate 18 12/16/21 03:35 Respiratory Effort Non-Labored 12/16/21 03:40 Blood Pressure 191/59 H 12/16/21 03:35 Blood Pressure Position Supine 12/16/21 03:35 Pulse Oximetry 100 12/16/21 03:35 Oxygen Delivery Method Room Air 12/16/21 03:35 Oxygen Flow Rate 0 12/16/21 03:35 Pain Level 6 12/16/21 03:40 Comment 12/16/21 03:35
[2021-12-16 04:10] LABS: Abs Immature Grans 0.04 10^3/uL (0.0-0.06); HCT 30.9 % (36.0-46.0); HGB 9.4 g/dL (11.2-15.7); MCH 28.6 pg (27.0-33.0); MCHC 30.4 % (32.0-36.0); MCV 93.9 fL (80-95); MPV 10.2 fL (8.0-11.0); Nucleated RBC 0 %; Platelet Count 281 10^3/uL (130-400); RBC 3.29 10^6/uL (3.93-5.22); RDW 15.3 % (11.7-14.6); WBC 12.08 10^3/uL (4.4-10.8)
[2021-12-16] MEDS: MORPHine 4 MG/ML SYR 1 MG IVP (04:16)
[2021-12-16] MEDS: Ondansetron 4 MG/2 ML VIAL IVP (04:16)
[2021-12-16 04:25] LABS: ALT 18 U/L (14-59); AST 16 U/L (15-37); Albumin 3.7 g/dL (3.4-5.0); Alkaline Phosphatase 118 U/L (46-116); Anion Gap 8.5 mmol/L (3-11); BUN 17 mg/dL (7-18); Bilirubin, Total 0.4 mg/dL (0.2-1.0); CO2 26.5 mmol/L (21.0-32.0); CREATININE 0.9 mg/dL (0.55-1.02); Calcium 8.6 mg/dL (8.5-10.1); Chloride 100 mmol/L (98-107); Glucose 94 mg/dL (74-106); INR 1.1 (0.9-1.1); PTT Activated 25.1 sec (21.0-27.5); Potassium 3.7 mmol/L (3.5-5.1); Prothrombin Time 10.9 sec (9.3-11.0); Sodium 135 mmol/L (136-145); Total Protein 6.9 g/dL (6.4-8.2)
[2021-12-16 04:27] LABS: Absolute Eosinophil Count 1.81 10^3/uL (0.0-0.7); Absolute Lymphocyte Count 3.14 10^3/uL (1.2-3.4); Absolute Monocyte Count 1.21 10^3/uL (0.1-0.8); Absolute Neutrophil Count 5.92 10^3/uL (1.2-6.7); Diff Comment Manual Differential; RBC Morphology Normal
[2021-12-16] MEDS: Acetaminophen 325 MG TAB 650 MG PO (05:29)
[2021-12-16] MEDS: Ibuprofen 600 MG TAB PO (05:29)
[2021-12-16] MEDS: Lidocaine 5% Patch 1 PATCH (05:54)
--- NOTE | 2021-12-16 06:02 | NUR.NOTE ---
Nursing Note: Around 05:50, patient was given a lidoderm patch per providers verbal order after patient's daughter insisted that the patient receive ativan to address discomfort. Patient was repositioned onto her left side to place the patch and then pillow placed to keep her on the side. Patient became more comfortable after this reposition but oxygen level dropped into high 80s when she began to fall asleep. 2L of oxygen via nasal cannula placed to ensure adequate oxygenation.
--- NOTE | 2021-12-16 06:40 | DI.VRAD_ITS ---
PROCEDURE INFORMATION: Exam: XR Pelvis Exam date and time: 12/16/2021 4:38 AM Age: 81 years old Clinical indication: Prior surgery; Patient HX: Right hip pain TECHNIQUE: Imaging protocol: XR pelvis. Views: 1 or 2 view. COMPARISON: No relevant prior studies available. FINDINGS: Bones/joints: Left hip prosthesis is present. No evidence of hardware complication. No acute bony abnormalities. Soft tissues: Unremarkable. Vasculature: Vascular calcifications are present. IMPRESSION: No acute findings. Dictated and Authenticated by: Shon Arenas MD. Ordering:EDSI Rebolledo MD
--- NOTE | 2021-12-16 06:41 | DI.VRAD_ITS ---
PROCEDURE INFORMATION: Exam: XR Right Femur Exam date and time: 12/16/2021 4:39 AM Age: 81 years old Clinical indication: Injury or trauma; Blunt trauma; Thigh or upper leg; Prior surgery; Patient HX: Possible fall, right hip pain TECHNIQUE: Imaging protocol: XR Right femur. Views: 2 views. COMPARISON: CR XR PELVIS AP 12/16/2021 4:38 AM FINDINGS: Bones/joints: Right knee prosthesis is present. No evidence of hardware complication on this exam. No acute bony abnormalities. Soft tissues: Unremarkable. Vasculature: Vascular calcifications are present. IMPRESSION: No acute findings Dictated and Authenticated by: Shon Arenas MD. Ordering:DESI Rebolledo MD
--- NOTE | 2021-12-16 06:42 | DI.VRAD_ITS ---
PROCEDURE INFORMATION: Exam: XR Right Tibia and Fibula Exam date and time: 12/16/2021 4:43 AM Age: 81 years old Clinical indication: Injury or trauma; Blunt trauma; Lower leg; Patient HX: Possible fall, right hip pain TECHNIQUE: Imaging protocol: XR Right tibia and fibula. Views: 2 views. COMPARISON: US extremity venous BI 01/11/2019 9:21 AM FINDINGS: Bones/joints: No evidence of an acute bony abnormality. Right knee prosthesis is present. No evidence of hardware complication on this examination. The right tibiotalar joint is abnormal in appearance and may be secondary to severe osteoarthritis. This joint is not well profiled on this exam. Soft tissues: Normal. Vasculature: Scattered vascular calcifications are present. IMPRESSION: Abnormal appearance of the tibiotalar joint which may be due to severe degenerative changes. Recommend correlation with patient's site of pain and mechanism of injury. No other bony abnormalities. Dictated and Authenticated by: Shon Arenas MD. Ordering:DESI Rebolledo MD
== END 2021-12-16 07:39 | disposition home or self-care (01) ==
PROVIDERS: Emergency Provider Emergency Medicine; PCP Internal Medicine
DX: M54.31 Sciatica, right side (principal); M25.551 Pain in right hip; I47.1 Supraventricular tachycardia; M79.604 Pain in right leg
CPT/HCPCS: 73552; 80053; 86850; 86900; 86901; 96374; 96375; 99284; 72170; 73590; 85025; 85610; 85730; J2270; J2405

== ENCOUNTER 2022-01-08 01:25 | Outpatient (RCR) | payer MEDICARE, MEDICAID, SELFPAY ==
[2021-12-26] MEDS: Normal Saline Flush 10 ML SYR IVP (10:23)
[2021-12-26] MEDS: IRON SUCROSE COMPLEX 300 MG in Normal Saline 250 ML 176.667 MG IVPB (10:23)
[2022-01-02] MEDS: IRON SUCROSE COMPLEX 300 MG in Normal Saline 250 ML 176.667 MG IVPB (10:38)
[2022-01-02] MEDS: Normal Saline Flush 10 ML SYR IVP (10:38)
[2022-01-08] MEDS: Normal Saline Flush 10 ML SYR IVP (10:26)
[2022-01-08] MEDS: IRON SUCROSE COMPLEX 300 MG in Normal Saline 250 ML 176.667 MG IVPB (10:39)
== END 2022-01-19 23:59 | disposition home or self-care (01) ==
LOC: INF 01:25
PROVIDERS: PCP Internal Medicine; Visit Provider Nurse Practitioner Acute Care
DX: D50.9 Iron deficiency anemia, unspecified (principal)
CPT/HCPCS: 96365; 96366; J1756

== ENCOUNTER 2022-03-16 16:14 | Emergency (ER) | payer MEDICARE, MEDICAID, SELFPAY ==
[2022-03-16 16:27] VITALS: BP 155/85; PULSE 94; RESP 16; TEMP 37.1; O2SAT 92
--- NOTE | 2022-03-16 17:35 | ED.GENADUL_ITS ---
Discharge Plan Disposition Patient Disposition: HOME Condition: Improving Discharge Details Clinical Impression: Constipation, Fecal impaction in rectum, UTI (urinary tract infection) Primary Care Provider: Autumn Awan ED Provider: Consuelo Foley Home Meds and New Rx's Prescriptions: New cephalexin 500 mg capsule 500 mg PO QID 7 Days Qty: 28 0RF Continued acetaminophen [Mapap Extra Strength] 500 MG tablet 1,000 mg PO TID citalopram 20 MG tablet 20 mg PO DAILY loratadine 10 MG tablet 10 mg PO DAILY acetic acid 2 % Solution 3 - 5 drp OTIC (EAR) Q6H Rx Instructions: apply to (cotton) wick; replace wick every 24 hours atorvastatin 20 mg tablet 20 mg PO DAILY Label Comments: TAKE ONE TABLET BY MOUTH EVERY DAY polyethylene glycol 3350 [Miralax] 17 gram Powder In Packet 17 g PO BID sulfamethoxazole-trimethoprim 800-160 mg tablet 2 tab PO BID Label Comments: TAKE ONE TABLET BY MOUTH TWO TIMES A DAY FOR 5 DAYS tramadol 50 mg Tablet 25 mg PO BID PRN folic acid 1 mg Tablet 800 mcg PO DAILY furosemide 20 mg Tablet 10 mg PO QAM hydroxychloroquine 200 mg tablet 200 mg PO BID Label Comments: TAKE ONE TABLET BY MOUTH TWICE A DAY FOR RHEUMATOID ARTHRITIS clobetasol 0.05 % Solution 1 applic TOPICAL DAILY ondansetron 4 mg Tablet,Disintegrating 4 mg PO Q12H PRN PRN bupropion HCl 150 mg Tablet Extended Release 24 Hr 150 mg PO 4-8XD fluocinolone acetonide oil 0.01 % Drops 5 drp OTIC (EAR) BID PRN prednisone 10 mg tablet 5 mg PO DAILY magnesium oxide 400 mg (241.3 mg magnesium) tablet 400 mg PO DAILY lidocaine 5 % Adhesive Patch,Medicated 1 patch DAILY aspirin [Aspir-Low] 81 mg Tablet,Delayed Release (Dr/Ec) 81 mg PO DAILY methotrexate sodium 2.5 mg Tablet 12.5 mg PO QWEEK Eliquis 5 mg Tablet 10 mg PO BID Qty: 60 0RF Rx Instructions: take 10 mg (2 tabs) BID x6 days then decrease to 5 mg (1 tab) BID. sucralfate 1 gram Tablet 1 g PO AC & HS Qty: 120 0RF midodrine 5 mg Tablet 2.5 mg PO TID Qty: 60 0RF duloxetine [Cymbalta] 20 mg Capsule,Delayed Release(Dr/Ec) 20 mg PO DAILY Qty: 30 0RF omeprazole 40 mg capsule,delayed release(DR/EC) 40 mg PO BID Qty: 30 0RF Discharge Instructions Instructions: Constipation (ED), Urinary Tract Infection in Older Adults (ED) Additional Instructions: Drink plenty of fluids and get plenty of rest. For your constipation, you can try [id number] suppositories, magnesium citrate and/or enemas as needed and directed. Continue stool softeners and MiraLAX as directed. Your urine sample shows findings suggestive of a possible urinary tract infection. A prescription for Keflex has been sent electronically to your pharmacy to take as directed. You will be notified if your urinalysis recommends a different antibiotic. Follow-up with your primary care doctor in 1 week. Return to the emergency department with any worsening or new concerning symptoms such as fever, persistent vomiting, abdominal pain or any other concerns. Discharge Data Discharge Date/Time-TO BE ENTERED AT DEPARTURE: 03/16/22 20:21 Discharge Physician: Consuelo Foley Medical Decision Making 81-year-old female with a history of hypertension, hyperlipidemia, rheumatoid arthritis, hysterectomy, cholecystectomy presents for constipation since last night. Vitals within normal limits. Patient is tearful and crying stating no one can help me . Her abdomen is soft and nontender. As she has no complaint of abdominal pain or vomiting, do not see an indication for lab work or CT imaging. We will start with abdominal x-ray, and give a dose of Ativan. Abdominal xray noted: IMPRESSION: 1. Bloating and severe constipation. There is a large amount of fecal material in the rectal vault, favoring rectal fecal impaction. 2. No bowel obstruction. No evidence of bowel perforation. Urinalysis noted 5-10 WBCs, packed bacteria, moderate leukocyte esterase. Large amounts of formed brown stool removed with digital disimpaction. Patient felt significantly better and was able to have additional bowel movement on the commode before discharge. Patient felt comfortable going home. Urinalysis results discussed with patient and daughter and would like to proceed with Keflex for antibiotic treatment. Advised to follow up with the primary care doctor for re-evaluation. Usual and customary return precautions given prior to discharge. Medical Records Medical records reviewed: Yes I reviewed the patient's medical records. Imaging Data Radiologic Study: Radiologist's impression: XR Abdomen Exam date and time: 03/16/2022 6:05 PM Age: 81 years old Clinical indication: Patient HX: Abdominal pain, rectal pain, constipation TECHNIQUE: Imaging protocol: Radiologic exam of the abdomen. Views: 2 Views. Upright and supine views. COMPARISON: XR PELVIS AP 12/16/2021 4:38 AM FINDINGS: Lungs: Lung bases are clear. Gastrointestinal tract: Diffusely air-filled loops of bowel in a nonobstructive pattern. There is excessive colonic stool content. Intraperitoneal space: There is no free intraperitoneal air. Bones/joints: Complete left hip arthroplasty. No acute skeletal abnormality or aggressive osseous lesion. IMPRESSION: 1. Bloating and severe constipation. There is a large amount of fecal material in the rectal vault, favoring rectal fecal impaction. 2. No bowel obstruction. No evidence of bowel perforation. Lab Data Lab results reviewed: Yes I reviewed the patient's lab results. Labs: 03/16/22 18:25 Urine - Reflex from Ua Urine Culture - Final Escherichia coli Gram Positive Lola,Mixed Laboratory Tests Range/Units 03/16/22 18:25 Urine Color (Yellow) Yellow Urine Clarity (Clear) Cloudy Urine pH (5-8) 7.5 Ur Specific [place] (1.005-1.025) 1.020 Urine Protein (Negative) mg/dL 30 H Urine Ketones (Negative) mg/dL Negative Urine Blood (Negative) Moderate H Urine Nitrite (Negative) Negative Urine Bilirubin (Negative) Negative Urine Urobilinogen (Up TO 0.2) EU/dL 0.2 Ur Leukocyte Esterase (Negative) Moderate H Urine RBC (0-2) HPF 5-10 H Urine WBC (0-5) HPF 5-10 Ur Epithelial Cells (Negative) HPF Negative Urine Crystals (Negative) HPF Negative Urine Bacteria (Negative) HPF Packed Urine Mucus (Negative) Negative Ur Culture Indicated? Yes Urine Glucose (Negative) mg/dL Negative HPI General Mode of arrival: ambulatory . Date/Time Provider Initiated Documentation: 03/16/22 16:15 . Limitations to Documentation: no limitations . Information obtained by: patient . HPI Narrative: Patient is an 81-year-old female with a history of hypertension, hyperlipidemia, rheumatoid arthritis who presents for constipation today. She states her last normal bowel movement was last night but she was able to have a small bowel movement this morning. Patient states she is tearful and feels rectal pain and needs to have a bowel movement. She denies any fever, nausea, vomiting, abdominal pain or urinary symptoms. She states she has tramadol that she takes at home occasionally but has not taken it recently. Related Data Home Medications Medication Instructions Recorded Confirmed acetaminophen 500 mg tablet (Mapap 1,000 mg PO TID 09/23/14 12/16/21 Extra Strength) citalopram 20 mg tablet 20 mg PO DAILY 09/23/14 01/18/19 loratadine 10 mg tablet 10 mg PO DAILY 09/23/14 03/16/22 aspirin 81 mg tablet,delayed 81 mg PO DAILY 01/10/19 01/18/19 release (Aspir-Low) methotrexate sodium 2.5 mg tablet 12.5 mg PO QWEEK 01/10/19 03/16/22 apixaban 5 mg tablet (Eliquis) 10 mg PO BID #60 tabs 01/13/19 01/18/19 duloxetine 20 mg capsule,delayed 20 mg PO DAILY #30 caps 01/13/19 03/16/22 release (Cymbalta) midodrine 5 mg tablet 2.5 mg PO TID #60 tabs 01/13/19 01/18/19 omeprazole 40 mg capsule,delayed 40 mg PO BID #30 caps 01/13/19 03/16/22 release sucralfate 1 gram tablet 1 g PO AC & HS #120 tabs 01/13/19 01/18/19 acetic acid 2 % ear solution 3 - 5 drp otic (ear) Q6H 12/16/21 12/16/21 atorvastatin 20 mg tablet 20 mg PO DAILY 12/16/21 03/16/22 bupropion HCl 150 mg 24 hr tablet, 150 mg PO 4-8XD 12/16/21 03/16/22 extended release clobetasol 0.05 % scalp solution 1 applic topical DAILY 12/16/21 12/16/21 fluocinolone acetonide oil 0.01 % 5 drp otic (ear) BID PRN 12/16/21 12/16/21 ear drops folic acid 1 mg tablet 800 mcg PO DAILY 12/16/21 03/16/22 furosemide 20 mg tablet 10 mg PO QAM 12/16/21 03/16/22 hydroxychloroquine 200 mg tablet 200 mg PO BID 12/16/21 03/16/22 ondansetron 4 mg disintegrating 4 mg PO Q12H PRN PRN 12/16/21 03/16/22 tablet polyethylene glycol 3350 17 gram 17 g PO BID 12/16/21 03/16/22 oral powder packet (Miralax) prednisone 10 mg tablet 5 mg PO DAILY 12/16/21 03/16/22 sulfamethoxazole 800 2 tab PO BID 12/16/21 12/16/21 mg-trimethoprim 160 mg tablet tramadol 50 mg tablet 25 mg PO BID PRN 12/16/21 03/16/22 cephalexin 500 mg capsule 500 mg PO QID 7 days #28 caps 03/16/22 lidocaine 5 % topical patch 1 patch DAILY 03/16/22 03/16/22 magnesium oxide 400 mg (241.3 mg 400 mg PO DAILY 03/16/22 03/16/22 magnesium) tablet Previous Rx's Medication Instructions Recorded apixaban 5 mg tablet (Eliquis) 10 mg PO BID #60 tabs 01/13/19 duloxetine 20 mg capsule,delayed 20 mg PO DAILY #30 caps 01/13/19 release (Cymbalta) midodrine 5 mg tablet 2.5 mg PO TID #60 tabs 01/13/19 omeprazole 40 mg capsule,delayed 40 mg PO BID #30 caps 01/13/19 release sucralfate 1 gram tablet 1 g PO AC & HS #120 tabs 01/13/19 cephalexin 500 mg capsule 500 mg PO QID 7 days #28 caps 03/16/22 Allergies Allergy/AdvReac Type Severity Reaction Status Date / Time hydromorphone [From Dilaudid] AdvReac Intermediate Other (See Unverified 03/16/22 16:31 Comment) Penicillins AdvReac Mild keeps Unverified 03/16/22 16:31 getting sicker General Stated Complaint: GenMedical IFTIKHAR: 3 Review of Systems All systems reviewed & are unremarkable except as noted in HPI and below Constitutional Constitutional: Reports as per HPI, Denies chills and Denies fever(s) Eyes Eyes: Denies blurry vision ENT Ears, Nose, Mouth, and Throat: Denies dizziness, Denies sore throat and Denies throat swelling Cardiovascular Cardiovascular: Denies chest pain and Denies dyspnea Respiratory Respiratory: Denies cough and Denies dyspnea Gastrointestinal Gastrointestinal: Reports abdominal pain, Reports constipation, Denies diarrhea and Denies vomiting Genitourinary Genitourinary: Denies hematuria and Denies dysuria Musculoskeletal Musculoskeletal: Denies back pain and Denies numbness Integumentary/Breasts Skin/Breast: Denies lesions and Denies rash Neurologic Neurologic: Denies dizziness, Denies localized weakness and Denies numbness Allergic/Immunologic Allergic/Immunologic: Denies throat swelling PFSH All Active Problems (Updated 03/19/22 @ 08:10 by Consuelo Foley DO) Constipation (Acute) Fecal impaction in rectum (Acute) UTI (urinary tract infection) (Acute) SVT (supraventricular tachycardia) (Chronic) Orthostatic hypotension (Acute) Iron deficiency anemia (Acute) HTN (hypertension) (Chronic) Discharge planning issues (Acute) DVT prophylaxis (Acute) Occult blood positive stool (Acute) H/O: GI bleed (Acute) Pain (Acute) Rheumatoid arthritis (Chronic) Adrenal insufficiency (Acute) Syncope (Chronic) Pulmonary embolism (Chronic) Medical History (Updated 03/19/22 @ 08:10 by Consuelo Foley DO) Arthritis Surgical History H/O: hysterectomy History of cholecystectomy Social History Smoking/Tobacco Use Status: Former Tobacco Use Smoking risk assessment performed?: Yes Alcohol Intake: never Drug use: Never Do you feel safe at home: Yes Do you feel safe in your relationship?: Yes Exam Const General: cooperative and no acute distress Orientation: alert, awake and oriented x3 HENMT Head: normal to inspection Mouth: oral mucosae normal Eyes General: appearance normal, both eyes and all related structures Neck Neck: normal visual inspection Resp Effort & Inspection: normal respiratory effort and able to speak in complete sentences Auscultation: clear to auscultation bilaterally Cardio Rate: regular rate Rhythm: regular rhythm GI Inspection: normal to inspection Palpation: soft, not firm, no guarding, no hernias, not rigid and nontender Skin General skin exam: no rashes or lesions noted Neuro General: patient alert, patient awake and patient oriented x3 Motor: muscle tone normal throughout Extrem General: normal to inspection and full ROM Psych Appearance: grossly normal Affect: normal affect Course Vital Signs Vital signs: Vital Signs Temperature 98.7 F 03/16/22 16:27 Pulse 94 H 03/16/22 16:27 Respiratory Rate 16 03/16/22 16:27 Blood Pressure 155/85 H 03/16/22 16:27 Pulse Oximetry 92 03/16/22 16:27 Temperature 98.7 F 03/16/22 16:27 Temperature Source Oral 03/16/22 16:27 Pulse 94 H 03/16/22 16:27 Respiratory Rate 16 03/16/22 16:27 Respiratory Effort 03/16/22 16:27 Blood Pressure 155/85 H 03/16/22 16:27 Blood Pressure Position Supine 03/16/22 16:27 Pulse Oximetry 92 03/16/22 16:27 Oxygen Delivery Method Room Air 03/16/22 16:27 Oxygen Flow Rate 0 03/16/22 16:27 Pain Level 0 03/16/22 16:27
[2022-03-16] MEDS: LORazepam 0.5 MG TAB PO (17:48)
--- NOTE | 2022-03-16 18:10 | DI.RAD_ITS ---
Exam(s) XR ABDOMEN FLAT UPRIGHT EXAM: XR ABDOMEN FLAT UPRIGHT CLINICAL HISTORY: abdominal pain, rectal pain, constipation. TECHNIQUE: 2D digital imaging was performed. COMPARISON: No exams were available for comparison FINDINGS: Two views-supine and upright Mild ileus pattern. No obvious bowel obstruction or free air. Abundant fecal material noted in the rectum. Left hip prosthesis noted. Calcification throughout the abdominal aorta noted. IMPRESSION: As above. If clinically indicated follow-up CT scan can be performed to determine if there is ischem ic bowel, given the heavy amount of calcification in the abdominal aorta. Left hip prosthesis noted. DATA REPOSITORY: RADIATION DOSE DELIVERED:
[2022-03-16 18:37] LABS: Bilirubin Negative (Negative); Blood Moderate (Negative); Clarity Cloudy (Clear); Glucose Negative (Negative); Ketones Negative (Negative); Leukocyte Esterase Moderate (Negative); Nitrite Negative (Negative); Urobilinogen 0.2 EU/dL (Up TO 0.2); pH 7.5 (5-8)
--- NOTE | 2022-03-16 18:39 | DI.VRAD_ITS ---
PROCEDURE INFORMATION: Exam: XR Abdomen Exam date and time: 03/16/2022 6:05 PM Age: 81 years old Clinical indication: Patient HX: Abdominal pain, rectal pain, constipation TECHNIQUE: Imaging protocol: Radiologic exam of the abdomen. Views: 2 Views. Upright and supine views. COMPARISON: XR PELVIS AP 12/16/2021 4:38 AM FINDINGS: Lungs: Lung bases are clear. Gastrointestinal tract: Diffusely air-filled loops of bowel in a nonobstructive pattern. There is excessive colonic stool content. Intraperitoneal space: There is no free intraperitoneal air. Bones/joints: Complete left hip arthroplasty. No acute skeletal abnormality or aggressive osseous lesion. IMPRESSION: 1. Bloating and severe constipation. There is a large amount of fecal material in the rectal vault, favoring rectal fecal impaction. 2. No bowel obstruction. No evidence of bowel perforation. Dictated and Authenticated by: Juan Donohue MD. Ordering:CHARLIE Cordero MD
[2022-03-16 18:47] LABS: Bacteria Packed HPF (Negative); C & S Indicated? Yes; Crystals Negative HPF (Negative); Epithelial Cells Negative HPF (Negative); Mucus Negative (Negative)
[2022-03-16] MEDS: Cephalexin 500 MG CAP PO (20:12)
[2022-03-16] MEDS: Cephalexin 500 MG CAP, 2 CAPS/BTL PO (20:12)
[2022-03-16 20:25] VITALS: BP 162/93; PULSE 110; RESP 20; O2SAT 95
--- NOTE | 2022-03-17 10:24 | NUR.NOTE ---
Nursing Note: Daughter called to confirm antibiotic dose.
== END 2022-03-16 20:21 | disposition home or self-care (01) ==
PROVIDERS: Emergency Provider Physician Assistant; PCP Internal Medicine
DX: K59.00 Constipation, unspecified (principal); N39.0 Urinary tract infection, site not specified; B96.20 Unspecified Escherichia coli [E. coli] as the cause of diseases classified elsewhere; B96.89 Other specified bacterial agents as the cause of diseases classified elsewhere; I10 Essential (primary) hypertension; Z87.891 Personal history of nicotine dependence
CPT/HCPCS: 87077; 99283; 74019; 81003; 81015; 87086; 87186; 99284

== ENCOUNTER → 2022-07-09 10:47 | Outpatient (BNVA) | payer MEDICARE, MEDICAID, SELFPAY | PROVIDERS: PCP Internal Medicine; Referring Provider Internal Medicine; Visit Provider Nurse Practitioner Gerontology | DX: R32 Unspecified urinary incontinence (principal); K59.00 Constipation, unspecified | CPT/HCPCS: 51798; 99215 ==

== ENCOUNTER → 2022-07-12 00:24 | Outpatient (CLI) | payer MEDICARE, MEDICAID, SELFPAY ==
--- OUTSIDE RECORDS SUMMARY | 2022-07-12 00:26 | XMS_ITS | Encounter Summary ---
:1940 Author Organization [facility] Address [address] [place] [address] Care Team Providers Name Role Phone Autumn Awan MD Primary Care Provider Encounter Details Date Type Department Care Team Description 05/13/2022 Office Visit Rheumatology at [facility] Megha Coleman High risk medication use; [facility] Yajaira Body mass index (BMI) 36.0-36.9, adult; [facility] Compression fracture [place] [address] CENTER [phone] RHEUMATOLOGY DEPT. [place], [place] [address] Social History Tobacco Use Types Packs/Day Years Used Date Former Smoker Quit: 10/12/18 71 Smokeless Tobacco: Never Used Sex Assigned at Date Recorded Not on file documented as of this encounter Progress Notes Megha Coleman MD - 05/13/2022 1:30 PM EDT This is a follow-up for polymyalgia rheumatica presentation of seronegative rheumatoid arthritis Cc: falls in November HPI: She had an injection and then to [facility] on 12/21--fell in the fpc and compression fracture and then UTI with delirium. Then back to the [facility] and a UTI and then went to [facility] in [place] then went to another [facility] and then 02/05 she is home. Alex arevalo well She has a plan to get another GTB injection. HAs had iron infusions. Taking vitamin D 1000 IU daily Mg 64 and mealtonin Past: She has had had some falls. Once she hurt her spine. She has active looking arthritis in her hands and more spasm. And and she has hammer toes and she is getting new shoes. And support. L ankle is inversion.She is not too bad in am. Her last labs were in July 2021, no inflammation, liver kidney, and cell counts all good. Her hand sfeel ok in the am although more spasm and ulnar deviation. Past: It is like she is feeling poorly. She takes miralax and the capsules. Takes MTX on Friday, ok on Friday then Fri- can feel poorly with constipation. The arthritis is doing ok. She also takes hydroxychloroquine 200 mg twice a day, prednisone 5 mg daily, and takes tramadol daily as well.She occasionally uses diclofenac gel. She feels the methotrexate is mildly causing the constipation than the tramadol. Past: She is getting diabetic shoes--she is hoping this will help with her gait. She feels good somedays, other days she does not feel good. She thinks she feels worse after taking MTX, either constipated or cramping-lasts for a couple of days after the dose.. No rashes, no SOB. NO extensive morning stiffness. No fevers or infections. Still some fatigue. She had her covid vaccine--first one without complications. Past: She finished her iron therapy. She is less tired. It did take her awhile to adjust to the medications. Her mTX is at 15mg weekly, HCQ 200mg. Joints are better humidity. No morning stiffness. She has no swelling, sometimes the joints look crooked. No infections. No CP or SOB. No rashes. She uses voltaren on hands an knees. She is off prednisone. No new symptoms. Past: Things are up and down. She is trying to continue to walk. She has gone through 40 sessions ofPT. She had a lot of atrophy. Then she had hip surgery. She has one side is still weak. This affectsher balance. She walks around in the kitchen. The weather has made things worse. No problems with medications. MTX 20mg weekly, tramadol 25mg twice a day, Tramadol 25mg twice a day (needs refill). No infections, fevers, no SOB. She is taking folic acid. Past: not as stiff as she was. On prednisone 5mg. She is taking the tramadol at 2 25 mg twice a day and she has had a market improvement with this. She continues to take methotrexate and does not have any side effects from this including no infections oral ulcers shortness of breath fevers. Overall she is feeling optimistic as her walking has improved. She has done about 17 episodes of physical therapy and is now able to walk a few steps and her balance is greatly improved. Is apparent that her confidence is improved as well. Her mood is greatly improved. She feels like her pain is well controlled.She still notes some weakness in her left leg but she is working on it. Overall she feels that she is the best she has been in about 3 years and is encouraged because she did not feel she would be ableto walk again. She stopped her Eliquis and her iron replacement. Past: This is an 79-year-old woman who was diagnosed with polymyalgia rheumatica in June 2018 andstarted on prednisone. Shortly after that, she developed synovitis particularly in her hands. She has pain in her hips and knees and toes as well. She has a history of osteoarthritis and has had bilateral knee replacements. The prednisone helped with her symptoms. She was evaluated by Jennifer Cohn [facility] 2019 and started on methotrexate and titrated up to 15 mg weekly. She had difficulty tapering prednisone below 10 mg. 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 She was tapered off of the prednisone prior to her hip surgery relatively rapidly. She had a difficult recovery fromthe hip surgery. Apparently it was a difficult procedure due to the bone quality and she has a lot of soft tissue recovery as well. She remains weak in her left leg. She also suffers from depression and Cymbalta does not seem to be effective. Pulmonary embolus she was noted to have a and is now on Eliquis. She gets some mild nausea from the methotrexate but overall tolerates it well. She states clearly that her goal is to get rid of pain. Since tapering off the prednisone, and stopping her tramadol she is noted an increase in pain. Her hands and feet have greater than 2 hours of stiffness in the morning. She had a fracture of her right wrist and this is now essentially fused. She takes acetaminophen with very little relief from this. She avoids NSAIDs as she has a history of PUD,GERD, and is also now on Eliquis. She has not had any recent infections no fevers chills or sweats, she is not very active but does not have shortness of breath at rest, she is off tramadol as she is concerned that she is taking it allthe time and she is concerned that she would become dependent on it. She has not had any rashes although she has some photosensitivity. No Raynaud's. She has bowel symptoms depending on the medicationsthat she is taking. She uses MiraLAX. She has not had any scalp tenderness, vision changes, jaw claudication, or dysphagia. Medications and allergies reviewed PMH: Anemia requiring I believe the iron infusions. Obesity GERD with an EGD in 01/04/2018 demonstrating gastric ulcer H. 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 Alert and pleasant, pale Skin is clear She has some swelling in her MCPs but no actual synovitis, some mild ulnar deviation, decreased gripstrength B--puffy across 2-3 MCP with synovitis on the left She has a trace LE edema Feet not examined, shoe removal is difficult Labs/studies: ROD is marked as positive and Dr. Cohn's notes although I do not have a titer Other work-up includes negative ROD, normal complements, negative ANCA is negative double-stranded DNA Most recent lab work I can find in the referral packet is in Dr. Cohn's note from January 02, 2019 ESR 19 CRP 0.61 with the upper limit of normal 0.3 WBC 9.3 Hemoglobin 12 Platelets 308 0.58 glucose 87 calcium 8.9 Albumin 3.3 Total protein 6.4 AST 17 ALT 26 Alk phos 85 Labs reviewed under scanned documents no new concerns--mild anemia Impression/Recommendations: This is a very pleasant 82-year-old woman with probably late onset rheumatoid arthritis that initially presented as polymyalgia. 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 She has resumed the prednis one due to level of relief she experiences from this. She is on methotrexate 12.5 mg weekly with folic acid 1 mg daily and doing well after treatment for her anemia. Anemia has improved, but not resolved. She has some intermittent hyponatremia due to her diuretic. She has now had multiple falls and a thoracic compression fracture. Would check a DEXA. High risk medication monitoring labs in March and will be due for them again in June and I will see her back about a month after that. 1. Methotrexate increase back to 15mg daily for active disease, 2 hours of am stiffness 2. Hydroxychloroquine 200 mg twice daily-annual eye exam 3. Continue folic acid 1 mg daily 4. prednisone 5 mg daily--helps significantly with control, understands risks 5. Follow up in 6 months 6. DEXA --history of fractures Orders Placed This Encounter Procedures ??? DXA Central Spine, Hip, and/or Whole Body (Generic) documented in this encounter Plan of Treatment Upcoming Encounters Date Type Specialty Care Team Description 08/14/2022 Office Visit Rheumatology Megha Coleman MD [facility] [address] RHEUMATOLOGY [place], [place] [address] ([facility]) Scheduled Orders Name Type Priority Associated Diagnoses Order S chedule DXA Central Spine, Imaging Routine High risk med ication use Expected: 05/13/2022, Hip, and/or Whole Body Body mass index (B DC) Expires: 05/13/2023 (Generic) 36.0-36.9, adult Compression fracture of body of thoracic vertebra documented as of this encounter Visit Diagnoses Diagnosis High risk medication use Encounter for long-term (current) use of other medications Body mass index (BMI) 36.0-36.9, adult Compression fracture of body of thoracic vertebra documented in this encounter Care Teams Departmental Shipping Clerk Relationship Specialty Start Date End Date Autumn Awan MD PCP - General General Internal Medicine 07/01/[address] [place] [id number] documented as of this encounter
--- OUTSIDE RECORDS SUMMARY | 2022-07-12 00:26 | XMS_ITS | Encounter Summary ---
:1940 Author Organization [facility] [address] Care Team Providers Name Role Phone Autumn Awan MD Primary Care Provider Encounter Details Date Type Department Care Team Description 04/11/2022 Refill Rheumatology at [facility] Megha Coleman MD [facility] [place] [address] RHEUMATOLOGY DEPT. [phone] [place], [place] [address] (Wo rk) Social History Tobacco Use Types Packs/Day Years Used Date Former Smoker Quit: 10/12/18 71 Smokeless Tobacco: Never Used Sex Assigned at Date Recorded Not on file documented as of this encounter Plan of Treatment Upcoming Encounters Date Type Specialty Care Team Description 08/14/2022 Office Visit Rheumatology Megha Coleman MD [facility] DR RHEUMATOLOGY [place]P [place], [place] [address] (Wo rk) documented as of this encounter Visit Diagnoses Not on filedocumented in this encounter Care Teams Victim Witness Administrator Relationship Specialty Start Date End Date Autumn Awan MD PCP - General General Internal Medicine 07/01/[address] [place] [address] [address] [place] [id number] documented as of this encounter
--- OUTSIDE RECORDS SUMMARY | 2022-07-12 00:26 | XMS_ITS | Encounter Summary ---
:1940 Author Organization [facility] [place] [address] Care Team Providers Name Role Phone Autumn Awan MD Primary Care Provider Encounter Details Date Type Department Care Team Description 05/07/2022 Refill Rheumatology at [facility] Amna Valdez, [place] [address] Social History Tobacco Use Types Packs/Day Years Used Date Former Smoker Quit: 10/12/18 71 Smokeless Tobacco: Never Used Sex Assigned at Date Recorded Not on file documented as of this encounter Plan of Treatment Upcoming Encounters Date Type Specialty Care Team Description 08/14/2022 Office Visit Rheumatology Megha Coleman MD [facility] DR RHEUMATOLOGY [place], [place] [address] (Wo rk) documented as of this encounter Visit Diagnoses Not on filedocumented in this encounter Care Teams Recruiting Scheduler Relationship Specialty Start Date End Date Autumn Awan MD PCP - General General Internal Medicine 07/01/[address] [place] [address] [place] [address] documented as of this encounter
--- OUTSIDE RECORDS SUMMARY | 2022-07-12 00:26 | XMS_ITS | Encounter Summary ---
:1940 Author Organization [facility] [place] [address] Care Team Providers Name Role Phone Autumn Awan MD Primary Care Provider Reason for Visit Reason Onset Date Comments Medication Refill 05/28/2022 Encounter Details Date Type Department Care Team Description 05/28/2022 Refill Rheumatology at [facility] [place] [address] Social History Tobacco Use Types Packs/Day Years Used Date Former Smoker Quit: 10/12/18 71 Smokeless Tobacco: Never Used Sex Assigned at Date Recorded Not on file documented as of this encounter Miscellaneous Notes Telephone Encounter - Makenna Nielsen RN - 05/28/2022 10:44 AM EDT 12/21/2021 Tramadol Hcl 50 Mg Tablet 30.00 5 Ka Mar ??07/15/2021 Tramadol Hcl 50 Mg Tablet 60.00 30 Al Zbe ??02/08/2021 Tramadol Hcl 50 Mg Tablet 60.00 30 Al Zbe ??11/21/2020 Tramadol Hcl 50 Mg Tablet 60.00 30 Al Zbe ??10/07/2020 Tramadol Hcl 50 Mg Tablet 60.00 30 Al Zbe ??08/09/2020 Tramadol Hcl 50 Mg Tablet 60.00 30 Al Zbe Another perscriber has ordered Tramadol in addition to Dr. Coleman. See PDMP results above. documented in this encounter Plan of Treatment Upcoming Encounters Date Type Specialty Care Team Description 08/14/2022 Office Visit Rheumatology Megha Coleman MD [facility] RHEUMATOLOGY [place], [place] [address] (Wo rk) documented as of this encounter Visit Diagnoses Not on filedocumented in this encounter Care Teams Stereotyper Apprentice Relationship Specialty Start Date End Date Autumn Awan MD PCP - General General Internal Medicine 07/01/[address] [place] [address] [place] [address] documented as of this encounter
--- OUTSIDE RECORDS SUMMARY | 2022-07-12 00:26 | XMS_ITS | Encounter Summary ---
:1940 Author Organization [facility] [place] [address] Care Team Providers Name Role Phone Autumn Awan MD Primary Care Provider Reason for Visit Reason Comments Medication Refill Encounter Details Date Type Department Care Team Description 2022 Refill Rheumatology at [facility] Megha Coleman MD [facility] [place] [address] RHEUMATOLOGY DEPT. [phone] [place], [place] [address] (Wo rk) Social History Tobacco Use Types Packs/Day Years Used Date Former Smoker Quit: 10/12/18 71 Smokeless Tobacco: Never Used Sex Assigned at Date Recorded Not on file documented as of this encounter Plan of Treatment Upcoming Encounters Date Type Specialty Care Team Description 08/14/2022 Office Visit Rheumatology Megha Coleman MD [facility] DR RHEUMATOLOGY DEP T. [place], [place] [address] (Wo rk) documented as of this encounter Visit Diagnoses Not on filedocumented in this encounter Care Teams Lead Section Supervisor Relationship Specialty Start Date End Date Autumn Awan MD PCP - General General Internal Medicine 07/01/[address] [place] [address] [place] [address] documented as of this encounter
--- OUTSIDE RECORDS SUMMARY | 2022-07-12 00:26 | XMS_ITS | Clinical Summary ---
:1940 Author Organization [facility] [place] [address] Care Team Providers Name Role Phone Autumn Awan MD Primary Care Provider Allergies Active Allergy Reactions Severity Noted Date Comments Lactase Penicillins Medications Medication Sig Dispensed Refills Start Date End Date Status aspirin 325 mg tablet 0 08/20/2005 Active nystatin (MYCOSTATIN) 348008w: Other 0 08/20/2006 Active ointment Appl(s), Top, PRN acetaminophen (TYLENOL 650MG = 1 0 08/20/2006 Active ARTHRITIS) 650 mg CR Tablet(s), PO, tablet Twice daily fexofenadine (OLE) 0 08/20/2006 Active 180 mg tablet acetaminophen (TYLENOL) Take 1,000 mg by 0 Active 500 mg Tablet mouth every 8 hours as needed for Pain (2 tablets). DULoxetine (CYMBALTA) TAKE 1 CAPSULE BY 4 04/05/2019 Active 60 mg Capsule, Delayed MOUTH ONCE DAILY Release(E.C.) omeprazole (PRILOSEC) TAKE ONE CAPSULE 3 06/08/2019 Active 40 mg Capsule, Delayed BY MOUTH TWICE A Release(E.C.) DAY loratadine (CLARITIN) Take 10 mg by 0 Active 10 mg Tablet mouth daily. furosemide (LASIX) 20 TAKE ONE TABLET BY 3 9 Active mg Tablet MOUTH EVERY MORNING LORazepam (ATIVAN) 0.5 TAKE 1 TABLET 0 06/22/2019 Active mg Tablet ORALLY ONCE A DAY FOR PANIC atorvastatin (Lipitor) Take 2 tablets by 90 tablet 0 0 Active 10 mg Tablet mouth daily. diclofenac (VOLTAREN) 1 APPLY 2 GRAMS 3 Tube 3 02/20/2021 Active % Gel TOPICALLY FOUR TIMES A DAY NEEDED FOR HAND AND KNEE PAIN buPROPion XL 150 mg daily. 0 08/19/2021 Ac tive (Wellbutrin XL) 150 mg Tablet Extended Release 24 hr metHOTREXate 2.5 mg TAKE FIVE TABLETS 20 tablet 5 11/07/2021 Active Tablet BY MOUTH ONCE A WEEK predniSONE (Deltasone) Take 1 tablet by 90 tablet 3 04/12/2022 Active 5 mg Tablet mouth daily. hydrOXYchloroQUINE TAKE ONE TABLET BY 60 tablet 11 05/07/2022 Active (Plaquenil) 200 mg MOUTH TWICE A DAY Tablet FOR RHEUMATOID ARTHRITIS metHOTREXate 2.5 mg Take 6 tablets (15 24 tablet 3 05/13/2022 Active Tablet mg) by mouth once a week. folic acid (Folvite) 1 TAKE 2 TABLETS BY 180 tablet 3 05/13/20 22 Active mg Tablet MOUTH ONCE DAILY traMADoL (Ultram) 50 mg TAKE ONE TABLET BY 60 tablet 3 022 Active Tablet MOUTH TWICE A DAY NEEDED FOR PAIN NOT MANAGED BY ACETAMINOPHEN Active Problems No known active problems Encounters Date Type Specialty Care Team Description 05/28/2022 Refill Rheumatology Makenna Nielsen RN 05/13/2022 Office Visit Rheumatology Megha Coleman MD High r isk medication use; Body mass index (BMI) 36.0-36.9, adult; Compression fra cture of body of thoracic vertebra 05/07/2022 Refill Rheumatology Amna Valdez RN 2022 Refill Rheumatology Megha Coleman MD 04/14/2022 Refill Rheumatology Megha Coleman MD 04/11/2022 Refill Rheumatology Megha Coleman MD from Last 3 Months Social History Tobacco Use Types Packs/Day Years Used Date Former Smoker Quit: 10/12/18 71 Smokeless Tobacco: Never Used Sex Assigned at Date Recorded Not on file Last Filed Vital Signs Vital Sign Reading Time Taken Comments Blood Pressure 150/67 11/07/2021 12:46 PM EST Pulse 69 11/07/2021 12:46 PM EST Temperature 36 ??C (96.8 ??F) 11/07/2021 12:46 PM EST Respiratory Rate - - Oxygen Saturation 100% 11/07/2021 12:46 PM EST Inhaled Oxygen - - Concentration Weight 88.5 kg (195 lb) 11/07/2021 12:46 PM self report ed- EST unknown Height 154.9 cm (5' 1) 11/07/2021 12:46 PM EST Body Mass Index 36.84 11/07/2021 12:46 PM EST Plan of Treatment Upcoming Encounters Date Type Specialty Care Team Description 08/14/2022 Office Visit Rheumatology Megha Coleman MD [facility] R[facility]ATOLOG[facility] [place], [place] [address] (Wo rk) Health Maintenance Due Date Last Done Comments Covid-19 Vaccine (#1) 1940 Tdap adult 1957 Tetanus vaccine 1957 Zoster vaccine (1 of 2) 1988 Advance Directive 1993 Bone Density Scan 2003 Pneumoccocal Vaccine: 65+ (1 - PCV) 2003 Influenza (Flu) vaccine (1 of 1 - Influenza standard 05/23/2022 series) Procedures Procedure Name Priority Date/Time Associated Diagnosis Comme nts LAB SCAN 06/18/2022 12:00 AM Results for this EDT procedure are i n the results section . LAB SCAN 06/18/2022 12:00 AM Results for this EDT procedure are i n the results section . LAB SCAN 06/18/2022 12:00 AM Results for this EDT procedure are i n the results section . LAB SCAN 06/18/2022 12:00 AM Results for this EDT procedure are i n the results section . from Last 3 Months Results SCAN DOC: LAB (06/18/2022 12:00 AM EDT)Only the most recent of4 resultswithin the time period is included. Narrative 06/18/2022 12:00 AM EDT This result has an attachment that is no t available. Ordered by an unspecified provider. Scanning Provider MEDIA MGR SCAN EXT ORDR/RSLT from Last 3 Months Insurance Payer Benefit Plan / Subscriber ID Effective Dates Phone Addre ss Type Group MEDICARE MEDICARE PART [id number] 2020-Prese [id number] [facility] [id number] [place] [id number] 2019-Prese [phone] [address] [place] [address] Care Teams Automotive Tire Worker Relationship Specialty Start Date End Date Autumn Awan MD PCP - General General Internal Medicine 07/01/[address] [place] [address] [place] [address]
--- OUTSIDE RECORDS SUMMARY | 2022-07-12 00:27 | XMS_ITS | Encounter Summary ---
:1940 Author Organization [facility] [place] [address] Care Team Providers Name Role Phone Merry Barnes MD Primary Care Provider Reason for Visit Reason Onset Date Comments Knee Pain 12/24/2010 left message for pt to return call Encounter Details Date Type Department Care Team Description 12/24/2010 Telephone Internal Medicine at Lauryn Brannon RN Kne e Pain (left message [facility] for pt to return call) [place] [address] Social History Tobacco Use Types Packs/Day Years Used Date Never Assessed Sex Assigned at Date Recorded Not on file documented as of this encounter Miscellaneous Notes Telephone Encounter - Lauryn Brannon RN - 12/24/2010 1:52 PM EDT Called pt to discuss. Will await return call. documented in this encounter Plan of Treatment Upcoming Encounters Date Type Specialty Care Team Description 08/14/2022 Office Visit Rheumatology Megha Coleman MD [facility] DR RHEUMATOLOGY [place], [place] [address] (Wo rk) documented as of this encounter Visit Diagnoses Not on filedocumented in this encounter Care Teams Rangel[place] Management Specialist Relationship Specialty Start Date End Date Merry Barnes MD PCP - General 08/14/10 06/30/19 [address] [place], [place] [id number] documented as of this encounter
--- OUTSIDE RECORDS SUMMARY | 2022-07-12 00:27 | XMS_ITS | Encounter Summary ---
:1940 Author Organization [facility] [place] [address] Care Team Providers Name Role Phone Autumn Awan MD Primary Care Provider Reason for Visit Reason Onset Date Comments Medication Refill 03/29/2020 Medication Refill 03/30/2020 Medication Refill 03/31/2020 Encounter Details Date Type Department Care Team Description 03/29/2020 Refill Rheumatology at [facility] [place] [place] [address] Social History Tobacco Use Types Packs/Day Years Used Date Former Smoker Quit: 10/12/18 71 Smokeless Tobacco: Never Used Sex Assigned at Date Recorded Not on file documented as of this encounter Miscellaneous Notes Telephone Encounter - Med Gee RN - 03/31/2020 9:22 AM EDT Spoke with Raisa, updated on mtx dosage change. Transferred to scheduling for appointment needs. Telephone Encounter - Med Gee RN - 03/29/2020 9:49 AM EDT Raisa Andino calls regarding refills of mtx and prednisone. States patient had 2 units of blood and 2 iron infusion and will have total of five iron infusions. Hgb on Friday, through [facility], will request results. documented in this encounter Plan of Treatment Upcoming Encounters Date Type Specialty Care Team Description 08/14/2022 Office Visit Rheumatology Megha Coleman MD [facility] RHEUMATOLOGY [place], [place] [address] (Wo rk) documented as of this encounter Visit Diagnoses Not on filedocumented in this encounter Care Teams Colorer Machine Relationship Specialty Start Date End Date Autumn Awan MD PCP - General General Internal Medicine 07/01/[address] [place] [address] [place] [address] documented as of this encounter
--- OUTSIDE RECORDS SUMMARY | 2022-07-12 00:27 | XMS_ITS | Encounter Summary ---
:1940 Author Organization [facility] [place] [address] Care Team Providers Name Role Phone Autumn Awan MD Primary Care Provider Reason for Visit Reason Onset Date Comments Medication Refill 08/09/2020 Encounter Details Date Type Department Care Team Description 08/09/2020 Telephone Rheumatology at [facility] Mo De Leon, Medication Refill [facility] [place] [address] Social History Tobacco Use Types Packs/Day Years Used Date Former Smoker Quit: 10/12/18 71 Smokeless Tobacco: Never Used Sex Assigned at Date Recorded Not on file documented as of this encounter Miscellaneous Notes Telephone Encounter - Mo De Leon RN - 08/09/2020 12:41 PM EST RTC to Margareth @ [facility] and they are now all set with the refill of Tramadol for Alexa. documented in this encounter Plan of Treatment Upcoming Encounters Date Type Specialty Care Team Description 08/14/2022 Office Visit Rheumatology Megha Coleman MD [facility] DR RHEUMATOLOGY DEP [place], [place] [address] (Wo rk) documented as of this encounter Visit Diagnoses Not on filedocumented in this encounter Care Teams Proofer Apprentice Relationship Specialty Start Date End Date Autumn Awan MD PCP - General General Internal Medicine 07/01/[address] [place] [address] [address] [place] [address] documented as of this encounter
--- OUTSIDE RECORDS SUMMARY | 2022-07-12 00:27 | XMS_ITS | Encounter Summary ---
:1940 Author Organization [facility] [place] [address] Care Team Providers Name Role Phone Autumn Awan MD Primary Care Provider Encounter Details Date Type Department Care Team Description 05/09/2021 Telephone [place]ology [place] [facility] [place] [address] Social History Tobacco Use Types Packs/Day Years Used Date Former Smoker Quit: 10/12/18 71 Smokeless Tobacco: Never Used Sex Assigned at Date Recorded Not on file documented as of this encounter Miscellaneous Notes Telephone Encounter - Elva Pepe - 05/09/2021 4:24 PM EDT Lm for pt to call back and book a fuv. Sending letter documented in this encounter Plan of Treatment Upcoming Encounters Date Type Specialty Care Team Description 08/14/2022 Office Visit Rheumatology Megha Coleman MD [facility] DR RHEUMATOLOGY [place], [place] [address] (Wo rk) documented as of this encounter Visit Diagnoses Not on filedocumented in this encounter Care Teams Frozen Foods Manager Relationship Specialty Start Date End Date Autumn Awan MD PCP - General General Internal Medicine 07/01/[address] [place] [address] [place] [address] documented as of this encounter
--- OUTSIDE RECORDS SUMMARY | 2022-07-12 00:27 | XMS_ITS | Encounter Summary ---
:1940 Author Organization [facility] [place] [address] Care Team Providers Name Role Phone Autumn Awan MD Primary Care Provider Reason for Visit Reason Comments Medication Refill Encounter Details Date Type Department Care Team Description 11/09/2020 Refill Rheumatology at [facility] Megha Coleman [place] [address] RHEUMATOLOGY DEPT. [phone] [place], [place] [address] (Wo rk) Social History Tobacco Use Types Packs/Day Years Used Date Former Smoker Quit: 10/12/18 71 Smokeless Tobacco: Never Used Sex Assigned at Date Recorded Not on file documented as of this encounter Miscellaneous Notes Telephone Encounter - Med Gee RN - 11/10/2020 9:16 AM EST Rheumatology appointment in the last 6 months? Yes RN confirm MTX dose? 12.5 mg weekly Most recent labs: External labs? Yes [ WBC Date Value Ref Range Status 10/12/2019 10.3 (H) 4.0 - 9.5 x10(3)/mcL Final Hemoglobin Date Value Ref Range Status 10/12/2019 9.3 (L) 11.7 - 15.5 gm/dL Final MCV Date Value Ref Range Status 10/12/2019 88.7 82.6 - 94.4 fL Final Platelets Date Value Ref Range Status 10/12/2019 330 145 - 357 x10(3)/mcL Final Creatinine Date Value Ref Range Status 10/12/2019 0.69 (L) 0.70 - 1.20 mg/dL Final Albumin Date Value Ref Range Status 10/12/2019 4.1 3.2 - 5.2 gm/dL Final AST Date Value Ref Range Status 10/12/2019 18 0 - 30 unit/L Final ALT Date Value Ref Range Status 10/12/2019 10 0 - 30 unit/L Final ] If last labs >12 weeks, were new labs ordered per protocol by RN? No Follow-up appointment scheduled: No Routed to [facility] for follow-up scheduling: Yes documented in this encounter Plan of Treatment Upcoming Encounters Date Type Specialty Care Team Description 08/14/2022 Office Visit Rheumatology Megha Coleman MD [facility] DR RHEUMATOLOGY [place], [place] [address] (Wo rk) documented as of this encounter Visit Diagnoses Not on filedocumented in this encounter Care Teams Buggy Loader Relationship Specialty Start Date End Date Autumn Awan MD PCP - General General Internal Medicine 07/01/[address] [place] [address] [place] [address] documented as of this encounter
--- OUTSIDE RECORDS SUMMARY | 2022-07-12 00:27 | XMS_ITS | Encounter Summary ---
:1940 Author Organization [facility] [place] [address] Care Team Providers Name Role Phone Autumn Awan MD Primary Care Provider Encounter Details Date Type Department Care Team Description 11/08/2020 Telephone Rheumatology at [facility] [place] [address] Social History Tobacco Use Types Packs/Day Years Used Date Former Smoker Quit: 10/12/18 71 Smokeless Tobacco: Never Used Sex Assigned at Date Recorded Not on file documented as of this encounter Miscellaneous Notes Telephone Encounter - Makenna Nielsen RN - 11/08/2020 10:50 AM EST Daughter Raisa calls to have labs faxed to [facility]. Faxed labs and left message for Raisa that it was done. documented in this encounter Plan of Treatment Upcoming Encounters Date Type Specialty Care Team Description 08/14/2022 Office Visit Rheumatology Megha Coleman MD [facility] DR RHEUMATOLOGY [place], [place] [address] (Wo rk) documented as of this encounter Visit Diagnoses Not on filedocumented in this encounter Care Teams Granulator Relationship Specialty Start Date End Date Autumn Awan MD PCP - General General Internal Medicine 07/01/[address] [place] [address] [place] [address] documented as of this encounter
--- OUTSIDE RECORDS SUMMARY | 2022-07-12 00:27 | XMS_ITS | Encounter Summary ---
:1940 Author Organization [facility] [place] [address] Care Team Providers Name Role Phone Autumn Awan MD Primary Care Provider Reason for Visit Reason Comments Medication Refill Encounter Details Date Type Department Care Team Description 11/05/2021 Refill Rheumatology at [facility] Megha Coleman MD [facility] [place] [address] RHEUMATOLOGY DEPT. [phone] [place] [employer], [place] [address] (Wo rk) Social History Tobacco Use Types Packs/Day Years Used Date Former Smoker Quit: 10/12/18 71 Smokeless Tobacco: Never Used Sex Assigned at Date Recorded Not on file documented as of this encounter Plan of Treatment Upcoming Encounters Date Type Specialty Care Team Description 08/14/2022 Office Visit Rheumatology Megha Coleman MD [facility] DR RHEUMATOLOGY [place]P [place] [employer], [place] [address] (Wo rk) documented as of this encounter Visit Diagnoses Not on filedocumented in this encounter Care Teams Java Software Developer Relationship Specialty Start Date End Date Autumn Awan MD PCP - General General Internal Medicine 07/01/[address] [place] [address] [place] [address] documented as of this encounter
--- OUTSIDE RECORDS SUMMARY | 2022-07-12 00:27 | XMS_ITS | Encounter Summary ---
:1940 Author Organization [facility] [place] [address] Care Team Providers Name Role Phone Autumn Awan MD Primary Care Provider Reason for Visit Reason Comments Medication Refill Encounter Details Date Type Department Care Team Description 02/07/2021 Refill Rheumatology at [facility] Megha Coleman MD [facility] [place] [address] RHEUMATOLOGY DEPT. [phone] [place], [place] [address] (Wo rk) Social History Tobacco Use Types Packs/Day Years Used Date Former Smoker Quit: 10/12/18 71 Smokeless Tobacco: Never Used Sex Assigned at Date Recorded Not on file documented as of this encounter Plan of Treatment Upcoming Encounters Date Type Specialty Care Team Description 08/14/2022 Office Visit Rheumatology Megha Coleman MD [facility] DR RHEUMATOLOGY [place]P [place], [place] [address] (Wo rk) documented as of this encounter Visit Diagnoses Not on filedocumented in this encounter Care Teams Medical Education Coordinator Relationship Specialty Start Date End Date Autumn Awan MD PCP - General General Internal Medicine 07/01/[address] [place] [address] [place] [address] documented as of this encounter
--- OUTSIDE RECORDS SUMMARY | 2022-07-12 00:27 | XMS_ITS | Encounter Summary ---
:1940 Author Organization [facility] [place] [address] Care Team Providers Name Role Phone Autumn Awan MD Primary Care Provider Reason for Visit Reason Comments Medication Refill Encounter Details Date Type Department Care Team Description 10/25/2019 Refill Rheumatology at [facility] Megha Coleman MD [facility] [place] [address] RHEUMATOLOGY DEPT. [phone] [place], [place] [address] (Wo rk) Social History Tobacco Use Types Packs/Day Years Used Date Former Smoker Quit: 10/12/18 71 Smokeless Tobacco: Never Used Sex Assigned at Date Recorded Not on file documented as of this encounter Plan of Treatment Upcoming Encounters Date Type Specialty Care Team Description 08/14/2022 Office Visit Rheumatology Megha Coleman MD [facility] DR RHEUMATOLOGY [place]P [place], [place] [address] (Wo rk) documented as of this encounter Visit Diagnoses Not on filedocumented in this encounter Care Teams Crm Marketing Manager Relationship Specialty Start Date End Date Autumn Awan MD PCP - General General Internal Medicine 07/01/[address] [place] [address] [place] [address] documented as of this encounter
--- OUTSIDE RECORDS SUMMARY | 2022-07-12 00:27 | XMS_ITS | Encounter Summary ---
:1940 Author Organization [facility] [place] [address] Care Team Providers Name Role Phone Autumn Awan MD Primary Care Provider Reason for Visit Reason Onset Date Comments Medication Refill 04/28/2020 Encounter Details Date Type Department Care Team Description 04/28/2020 Refill Rheumatology at [facility] Mo De Leon, [place] [address] Social History Tobacco Use Types Packs/Day Years Used Date Former Smoker Quit: 10/12/18 71 Smokeless Tobacco: Never Used Sex Assigned at Date Recorded Not on file documented as of this encounter Plan of Treatment Upcoming Encounters Date Type Specialty Care Team Description 08/14/2022 Office Visit Rheumatology Megha Coleman MD [facility] DR RHEUMATOLOGY [place], [place] [address] (Wo rk) documented as of this encounter Visit Diagnoses Not on filedocumented in this encounter Care Teams Transit Mixer Driver Relationship Specialty Start Date End Date Autumn Awan MD PCP - General General Internal Medicine 07/01/[address] [place] [address] [address] [place] [id number] documented as of this encounter
--- OUTSIDE RECORDS SUMMARY | 2022-07-12 00:27 | XMS_ITS | Encounter Summary ---
:1940 Author Organization [facility] Address [address] [place] [address] Care Team Providers Name Role Phone Autumn Awan MD Primary Care Provider Encounter Details Date Type Department Care Team Description 05/17/2020 TH Visit Rheumatology at [facility] Megha Coleman Rheumatoid arthritis involvi ng multiple sites, unspecified rheumatoid factor presence; (TeleHealth) [facility] MD Yajaira High risk medication use; [facility] Primary osteoarthritis invol ving multiple joints [place], [place] CENTER [address] RHEUMATOLOGY [phone] [place] [address] Social History Tobacco Use Types Packs/Day Years Used Date Former Smoker Quit: 10/12/18 71 Smokeless Tobacco: Never Used Sex Assigned at Date Recorded Not on file documented as of this encounter Progress Notes Megha Coleman MD - 05/17/2020 1:30 PM EDT This is a follow-up for polymyalgia rheumatica presentation of seronegative rheumatoid arthritis Cc: f/u for anemia due to GI blood loss and RA HPi: She finished her iron therapy. She is [...] symptoms. She was evaluated by Jennifer Cohn inFebruary 2019 and started on methotrexate and titrated [...] gastric ulcer H. 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 Alert and pleasant Labs/studies: ROD is marked as positive and [...] AST 17 ALT 26 Alk phos 85 05/17 Labs reviewed under scanned documents no new concerns Impression/Recommendations: This is a very pleasant 79-year-old woman with probably late onset rheumatoid arthritis that initially presented as polymyalgia. 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 She is currently off predni sone but fairly symptomatic and she is active synovitis on exam. She is on methotrexate 15 mg weeklywith folic acid 1 mg daily and doing well after treatment for her anmeia.. Seems to be fairly stable with progress overall since last visit. 1. Methotrexate to 15 mg weekly-no nausea 2. Hydroxychloroquine 200 mg twice daily-annual eye exam 3. Continue folic acid 1 mg daily 4. prednisone 5 mg daily-currently off,do not restart unless flare 5. Tramadol 25 mg twice daily she signed an opioid contract and this was refilled and I asked nursesto call in to Pharmacy documented in this encounter Plan of Treatment Upcoming Encounters Date Type Specialty Care Team Description 08/14/2022 Office Visit Rheumatology Megha Coleman MD [facility] DR RHEUMATOLOGY [place], [place] [address] (Wo rk) documented as of this encounter Visit Diagnoses Diagnosis Rheumatoid arthritis involving multiple sites, unspecified rheumatoid factor presence High risk medication use Encounter for long-term (current) use of other medications Primary osteoarthritis involving multipl e joints documented in this encounter Care Teams Assistant Grocery Relationship Specialty Start Date End Date Autumn Awan MD PCP - General General Internal Medicine 07/01/[address] [place] [address] [place] [address] documented as of this encounter
--- OUTSIDE RECORDS SUMMARY | 2022-07-12 00:27 | XMS_ITS | Encounter Summary ---
:1940 Author Organization [facility] Address [address] [place] [address] Care Team Providers Name Role Phone Autumn Awan MD Primary Care Provider Encounter Details Date Type Department Care Team Description 11/07/2021 Office Visit Rheumatology at [facility] Megha Coleman Primary osteoarthritis invol ving multiple joints; [facility] Yajaira Rheumatoid arthritis of multiple sites w [facility] negative rheumatoid factor; Drive [facility] Body mass index (BMI) 36.0-3 6.9, adult ; [place] [address] CENTER High risk medication use; [phone] RHEUMATOLOGY Rheumatoid arth ritis of other site, unspecified whether rheumatoid [place] [address] Social History Tobacco Use Types Packs/Day Years Used Date Former Smoker Quit: 10/12/18 71 Smokeless Tobacco: Never Used Sex Assigned at Date Recorded Not on file documented as of this encounter Last Filed Vital Signs Vital Sign Reading [...] Mass Index 36.84 11/07/2021 12:46 PM EST documented in this encounter Progress Notes Megha Coleman MD - 11/07/2021 1:00 PM EST This is a follow-up for polymyalgia rheumatica presentation of seronegative rheumatoid arthritis Cc: falls HPI: She has had had some falls. Once she hurt her spine. She has active looking arthritis in her hands and more spasm. And and she has hammer toes and she is getting new shoes. And support. L ankle isinversion.She is not too bad in am. Her [...] symptoms. She was evaluated by Jennifer Cohn [facility] 2019 and started on methotrexate and [...] gastric ulcer H. pylori negative Colonic polyps [place] in 01/04/2018 with polypectomy for sigmoid adenoma [...] FH: 8 sisters, 7 brothers osteoarthritis PE: BP 150/67 Pulse 69 Temp 36 ??C (96.8 ??F) (Temporal) Ht 154.9 cm (5' 1) Wt 88.5 kg (195lb) Comment: self reported- unknown SpO2 100% BMI 36.84 kg/m?? Alert and pleasant, pale Skin is clear She has some swelling in her MCPs but no actual synovitis, some mild ulnar deviation, decreased gripstrength B She has a trace LE edema Feet [...] anemia Impression/Recommendations: This is a very pleasant 81-year-old woman with probably late onset rheumatoid arthritis [...] some intermittent hyponatremia due to her diuretic. Increased spasming in the fingers andwould evaluate metabolic's and vitamin D. New shoes are pending to help relieve pressure form hammertoes. 1. Methotrexate to decrease to 12.5mg--feel would not decrease further at this time 2. Hydroxychloroquine 200 mg twice daily-annual eye exam 3. Continue folic acid 1 mg daily 4. prednisone 5 mg daily--helps significantly with control, understands risks 5. Follow up in 6 months Orders Placed This Encounter Procedures ??? CBC (with Diff) ??? Comprehensive metabolic panel (non-fasting) ??? Sedimentation rate ??? CRP, acute inflammation ??? Magnesium ??? Vitamin D, 25-Hydroxy ??? Hemogram ??? Differential, Automated documented in this encounter Plan of Treatment Upcoming Encounters Date Type Specialty Care Team Description 08/14/2022 Office Visit Rheumatology Megha Coleman MD [facility] RHEUMATOLOGY [place], [place] [address] (Wo rk) Scheduled Orders Name Type Priority Associated Diagnoses Order S chedule CBC (with Diff) Lab Routine Primary osteoarthritis Ev caty 3 months for 4 involving multip le joints Occurrences starting Rheumatoid arthritis of 10/23 until multiple sites with 11/07/19 23, 1 negative rheumatoid complete d factor Comprehensive metabolic Lab Routine Primary osteoarth ritis Every 3 months for 4 panel (non-fasting) involving mu ltiple joints Occurrences starting Rheumatoid arthritis of 10/23 until multiple sites with 11/07/19 23, 1 negative rheumatoid complete d factor Sedimentation rate Lab Routine Primary osteoarthritis Every 3 months for 4 involving multip le joints Occurrences starting Rheumatoid arthritis of 10/23 until multiple sites with 11/07/19 23, 1 negative rheumatoid complete d factor CRP, acute inflammation Lab Routine Primary osteoarth ritis Every 3 months for 4 involving multip le joints Occurrences starting Rheumatoid arthritis of 10/23 until multiple sites with 11/07/19 23, 1 negative rheumatoid complete d factor documented as of this encounter Procedures Procedure Name Priority Date/Time Associated Diagnosis Comme nts HC C-REACTIVE PROTEIN Routine 11/07/2021 1:57 Primary osteoart hritis Results for this PM EST involving multiple procedure are in joints the results Rheumatoid arthritis section . of multiple sites with negative rheumatoid factor HEMOGRAM Routine 11/07/2021 1:57 Primary osteoarthritis Re sults for this PM EST involving multiple procedure are in joints the results Rheumatoid arthritis section . of multiple sites with negative rheumatoid factor DIFFERENTIAL, Routine 11/07/2021 1:57 Primary osteoarthritis R esults for this AUTOMATED PM EST involving multiple procedure are in joints the results Rheumatoid arthritis section . of multiple sites with negative rheumatoid factor HC VITAMIN D TOTAL-25 Routine 11/07/2021 1:57 Primary osteoart hritis Results for this HYDROXY PM EST involving multiple procedure are in joints the results Rheumatoid arthritis section . of multiple sites with negative rheumatoid factor Body mass index (BMI) 36.0-36.9, adult HC ESR-SEDIMENTATION Routine 11/07/2021 1:57 Primary osteoarth ritis Results for this RATE, BLOOD PM EST involving multiple procedure are in joints the results Rheumatoid arthritis section . of multiple sites with negative rheumatoid factor HC CBC,PLT & AUTO Routine 11/07/2021 1:57 Primary osteoarthrit is DIFF PM EST involving multiple joints Rheumatoid arthritis of multiple sites with negative rheumatoid factor HC MAGNESIUM, SERUM Routine 11/07/2021 1:57 Primary osteoarthr itis Results for this PM EST involving multiple procedure are in joints the results Rheumatoid arthritis section . of multiple sites with negative rheumatoid factor COMPREHENSIVE Routine 11/07/2021 1:57 Primary osteoarthritis R esults for this METABOLIC PANEL PM EST involving multiple proced ure are in (NON-FASTING) joints the results Rheumatoid arthritis section . of multiple sites with negative rheumatoid factor documented in this encounter Results (ABNORMAL) Differential, Automated (11/07/2021 1:57 PM EST) [facility] Method Time Signature Neutrophils % 75.4 % [facility] Neutr Abs (ANC) 7.23 (H) 1.70 - [facility] 6.10 [facility] x10(3)/[facility] LABORATORY Lymphocytes % 10.4 % [facility] Lymphocytes Abs 1.0 0.9 - 3.2 [facility] x10(3)/[facility] LABORATORY Monocytes % 5.5 % [facility] Monocyte Abs 0.5 0.3 - 0.9 [facility] x10(3)/[facility] LABORATORY Eosinophils % 7.9 % [facility] Eosinophils Abs 0.8 (H) 0.0 - 0.4 [facility] x10(3)/[facility] LABORATORY Basophils % 0.5 % [facility] Basophils Abs 0.0 0.0 - 0.1 [facility] x10(3)/[facility] LABORATORY Immature Gran % 0.30 % [facility] Comment: Immature granulocytes(IG's)percentage an d absolute count will include metamyelocytes, myelocytes, and promyelo cytes. Blood smears from CBCs yielding IG's will be scanned manually for concor dance. If this scan disagrees with the automated IG or if promyelocytes are not ed, a manual differential will be performed. Alexia Gran Abs 0.03 0.00 - 0.04 x10(3)/[facility]ORATORY Specimen Anatomical Collection Method Collection Time Receive d Time (Source) Location / / Volume Laterality Blood 11/07/2021 1:57 PM 2 2:07 EST PM EST Resulting Agency Comment Spec In Lab Megha Coleman MD HEMATOLOGY ORDERABLES Performing Organization Address City/[facility]/[place] [address] (ABNORMAL) Hemogram (11/07/2021 1:57 PM EST) Analysis Performed At Patho logist Time Signature WBC 9.6 (H) 4.0 - 9.5 [facility] x10(3)/[facility] LABORATORY RBC 3.27 (L) 4.00 - [place] JIMI 5.21 [facility] x10(6)/[facility] LABORATORY Hemoglobin 10.1 (L) 11.7 - [facility] 15.5 g/dL [facility] Hematocrit 31.4 (L) 35.7 - [facility] 45.8 % [facility] MCV 96.0 (H) 82.6 - [facility] 94.4 [facility] LABORATORY MCH 30.9 27.1 - [facility] 32.0 pg [facility] MCHC 32.2 31.7 - [facility] 35.0 g/dL [facility] Platelets 294 145 - 357 [facility] x10(3)/[facility] LABORATORY RDWSD 53.9 (H) 37.0 - [place] JIMI 46.0 [facility] LABORATORY RDWCV 15.4 (H) 11.5 - [facility] JIMI 14.1 % [facility] MPV 10.1 7.6 - 12.9 [facility] LABORATORY nRBC % Auto 0.0 % [facility] nRBC Abs Auto 0.000 0.000 - [facility] JIMI 0.000 [facility] x10(3)/[facility] LABORATORY Specimen Anatomical Collection Method Collection Time Receive d Time (Source) Location / / Volume Laterality Blood 11/07/2021 1:57 PM 2:07 EST PM EST Resulting Agency Comment Spec In Lab Megha Coleman MD HEMATOLOGY ORDERABLES Performing Organization Address City/State/[place] [address] (ABNORMAL) Vitamin D, 25-Hydroxy (11/07/2021 1:57 PM EST) Patholo gist Method Time Signature 25-OH Vit D 12 (L) 21 - 100 [facility] Total ng/mL [facility] 25-OH Vit D Deficient [facility] LABORATORY Specimen Anatomical Collection Method Collection Time Receive d Time (Source) Location / / Volume Laterality Blood 11/07/2021 1:57 PM 2 2:07 EST PM EST Resulting Agency Comment Spec In Lab Megha Coleman MD CHEMISTRY ORDERABLES Performing Organization Address City/[facility]/[place]IP [place] [address] Magnesium (11/07/2021 1:57 PM EST) P athologist Signature Magnesium 0.80 0.69 - 1.07 [facility] mmol/L [facility] Specimen Anatomical Collection Method Collection Time Receive d Time (Source) Location / / Volume Laterality Blood 11/07/2021 1:57 PM 2 2:07 EST PM EST Resulting Agency Comment Spec In Lab Megha Coleman MD CHEMISTRY ORDERABLES Performing Organization Address City/[facility]/[place] [address] CRP, acute inflammation (11/07/2021 1:57 PM EST) P athologist Signature CRP 3.8 <=4.9 mg/L [facility] Specimen Anatomical Collection Method Collection Time Receive d Time (Source) Location / / Volume Laterality Blood 11/07/2021 1:57 PM 2 2:07 EST PM EST Resulting Agency Comment Spec In Lab Megha Coleman MD CHEMISTRY ORDERABLES Performing Organization Address City/[facility]/[place] [address] Sedimentation rate (11/07/2021 1:57 PM EST) P athologist Signature Sed Rate 15 3 - 46 [facility] mm/hr [facility] Comment: Effective September 01, 2019 new capillar y photometric technology has resulted in a change in reference ranges. It is r ecommended that each ESR result be reviewed with its own age appropriate re ference range. Specimen Anatomical Collection Method Collection Time Receive d Time (Source) Location / / Volume Laterality Blood 11/07/2021 1:57 PM 2 2:07 EST PM EST Resulting Agency Comment Spec In Lab Megha Coleman MD HEMATOLOGY ORDERABLES Performing Organization Address City/State/[place] [address] (ABNORMAL) Comprehensive metabolic panel (non-fasting) (11/07/2021 1:57 PM EST) athologist Signature Glucose Lvl 106 65 - 199 [facility] mg/dL [facility] Comment: Diabetes: >=200 mg/dL plus symp toms BUN 16 8 - 18 mg/dL [facility] Creatinine 0.66 (L) 0.70 - 1.20 mg/dL [facility] Sodium 132 (L) 135 - 145 mmol/L [facility] Potassium 4.4 3.5 - 5.0 mmol/L [facility] Comment: Please note: ??Patients with WBC >100,00 0 may have falsely elevated Potassium levels. ??For accurate Potassium quantif ication in these patients send serum separator tube (gold top) for subsequent determinations. ??Contact the Clinical Chemistry Laboratory if there are any qu estions. Chloride 97 (L) 98 - 107 mmol/L [facility] CO2 25 22 - 31 mmol/L [facility] Anion Gap 10 5 - 15 mmol/L [facility] Calcium 8.9 8.5 - 10.5 mg/dL [facility] Total Protein 6.6 6.1 - 8.0 g/dL [facility] Albumin 4.1 3.2 - 5.2 g/dL [facility] AST 18 0 - 30 unit/L [facility] ALT 9 0 - 30 unit/L [facility] Alk Phos 111 (H) 35 - 105 unit/L [facility] Total Bilirubin 0.4 0.2 - 1.3 mg/dL [facility] Estimated GFR 82 >=60 mL/min/1.73 m?? [facility] Comment: This patient? s estimated glomerular filtration rate (eGFR) is between 82 mL/min/1.73 m2 (patients with less muscl e mass) and 95 mL/min/1.73 m2 (patients with more muscle mass) as determined by the CKD-EPI equation. Assessment of eGFR is not appropriate when creatinine concentrations are rapidly changing. For clinical decisions where creatinine clearance will affect therapy, a 24-hour urine creatinine clearance may b e advised. Assignment of CKD stage 1 - 5 for patien ts with an eGFR near the transition point between stages may be based on cli nical assessment of muscle mass and symptoms in addition to eGFR. Specimen Anatomical Collection Method Collection Time Receive d Time (Source) Location / / Volume Laterality Blood 11/07/2021 1:57 PM 2 2:07 EST PM EST Resulting Agency Comment Spec In Lab Megha Coleman MD CHEMISTRY ORDERABLES Performing Organization Address City/State/[place] [address] documented in this encounter Visit Diagnoses Diagnosis Primary osteoarthritis involving multipl e joints Rheumatoid arthritis of multiple sites w ith negative rheumatoid factor Body mass index (BMI) 36.0-36.9, adult High risk medication use Encounter for long-term (current) use of other medications Rheumatoid arthritis of other site, unsp ecified whether rheumatoid factor present documented in this encounter Care Teams Body Maker Relationship Specialty Start Date End Date Autumn Awan MD PCP - General General Internal Medicine 07/01/[address] [place] [address] [place] [address] documented as of this encounter
--- OUTSIDE RECORDS SUMMARY | 2022-07-12 00:27 | XMS_ITS | Encounter Summary ---
:1940 Author Organization [facility] [place] [address] Care Team Providers Name Role Phone Autumn Awan MD Primary Care Provider Reason for Visit Reason Comments Medication Refill Encounter Details Date Type Department Care Team Description 09/27/2021 Refill Rheumatology at [facility] [place]ha Coleman MD [facility] [place] [address] RHEUMATOLOGY DEPT. [phone] [place], [place] [address] (Wo rk) Social History Tobacco Use Types Packs/Day Years Used Date Former Smoker Quit: 10/12/18 71 Smokeless Tobacco: Never Used Sex Assigned at Date Recorded Not on file documented as of this encounter Plan of Treatment Upcoming Encounters Date Type Specialty Care Team Description 08/14/2022 Office Visit Rheumatology Megha Coleman MD [facility] DR RHEUMATOLOGY DEP [place], [place] [address] (Wo rk) documented as of this encounter Visit Diagnoses Not on filedocumented in this encounter Care Teams Boat Motor Mechanic Relationship Specialty Start Date End Date Autumn Awan MD PCP - General General Internal Medicine 07/01/[address] [place] [address] [place] [address] documented as of this encounter
--- OUTSIDE RECORDS SUMMARY | 2022-07-12 00:27 | XMS_ITS | Encounter Summary ---
:1940 Author Organization [facility] [address] Care Team Providers Name Role Phone Autumn Awan MD Primary Care Provider Reason for Visit Reason Comments Medication Refill Encounter Details Date Type Department Care Team Description 03/24/2020 [place] [facility] [place]ha Coleman MD [facility] [place] [address] RHEUMATOLOGY DEPT. [phone] [place], [place] [address] (Wo rk) Social History Tobacco Use Types Packs/Day Years Used Date Former Smoker Quit: 10/12/18 71 Smokeless Tobacco: Never Used Sex Assigned at Date Recorded Not on file documented as of this encounter Plan of Treatment Upcoming Encounters Date Type Specialty Care Team Description 08/14/2022 Office Visit Rheumatology Megha Coleman MD [facility] DR RHEUMATOLOGY [place]P [place], [place] [address] (Wo rk) documented as of this encounter Visit Diagnoses Not on filedocumented in this encounter Care Teams Upholstery Trimmer Relationship Specialty Start Date End Date Autumn Awan MD PCP - General General Internal Medicine 07/01/[address] [place] [address] [place] [address] documented as of this encounter
--- OUTSIDE RECORDS SUMMARY | 2022-07-12 00:27 | XMS_ITS | Encounter Summary ---
:1940 Author Organization [facility] [place] [address] Care Team Providers Name Role Phone Autumn Awan MD Primary Care Provider Encounter Details Date Type Department Care Team Description 11/07/2020 TH Visit Rheumatology at [facility] [place] Megha Coleman High risk medication use; (TeleHealth) [facility] MD Yajaira Rheumatoid arthritis of other site, unsp ecified whether [place] [address] CENTER [phone] RHEUMATOLOGY DEPT. [place], [place] [address] Social History Tobacco Use Types Packs/Day Years Used Date Former Smoker Quit: 10/12/18 71 Smokeless Tobacco: Never Used Sex Assigned at Date Recorded Not on file documented as of this encounter Progress Notes Megha Coleman MD - 11/07/2020 2:00 PM EST This is a follow-up for polymyalgia rheumatica presentation of seronegative rheumatoid arthritis She forgot about the video visit, so we converted to telephone Cc: feet HPI: She is getting diabetic shoes--she is hoping this will help with her gait. She feels good some days, other days she does not feel good. [...] symptoms. She was evaluated by Jennifer Cohn [facility] 2019 and started on methotrexate and titrated [...] gastric ulcer H. pylori negative Colonic polyps [place] in 01/04/2018 with polypectomy for sigmoid adenoma [...] reviewed under scanned documents no new concerns She is due for labs at this time. Impression/Recommendations: This is a very pleasant 80-year-old woman with probably late onset rheumatoid arthritis [...] last visit. 1. Methotrexate to 15 mg weekly-decrease to 12.5mg weekly to see if this decreased GI cramping/constipation HOLD FOR ONE DOSE AFTER VACCINATION 2. Hydroxychloroquine 200 mg twice daily-annual eye exam 3. Continue folic acid 1 mg daily 4. prednisone 5 mg daily-she is unsure if she is taking this or not--she was off of it prior but sheis not sure if she restarted. 5. Tramadol 25 mg twice daily she signed an opioid contract and this was refilled and I asked nursesto call in to Pharmacy Have labs rechecked--should have standing order and last labs in June 2020.--she will contact us if the labs needs a new order. documented in this encounter Plan of Treatment Upcoming Encounters Date Type Specialty Care Team Description 08/14/2022 Office Visit Rheumatology Megha Coleman MD [facility] [place] [place] [address] (Wo rk) documented as of this encounter Visit Diagnoses Diagnosis High risk medication use Encounter for long-term (current) use of other medications Rheumatoid arthritis of other site, unsp ecified whether rheumatoid factor present documented in this encounter Care Teams Master Sheet Clerk Relationship Specialty Start Date End Date Autumn Awan MD PCP - General General Internal Medicine 07/01/[address] [place] [address] [place] [address] documented as of this encounter
--- OUTSIDE RECORDS SUMMARY | 2022-07-12 00:27 | XMS_ITS | Encounter Summary ---
:1940 Author Organization [facility] [place] [address] Care Team Providers Name Role Phone Autumn Awan MD Primary Care Provider Reason for Visit Reason Onset Date Comments Medication Refill 08/09/2020 Encounter Details Date Type Department Care Team Description 08/09/2020 Telephone Rheumatology at [facility] Mo De Leon, Medication Refill [facility] [place] [address] Social History Tobacco Use Types Packs/Day Years Used Date Former Smoker Quit: 10/12/18 71 Smokeless Tobacco: Never Used Sex Assigned at Date Recorded Not on file documented as of this encounter Miscellaneous Notes Telephone Encounter - Mo De Leon RN - 08/09/2020 3:28 PM EST RTC to [place] [facility] and to Raisa they are all set with the refill Tramadol for Alexa. documented in this encounter Plan of Treatment Upcoming Encounters Date Type Specialty Care Team Description 08/14/2022 Office Visit Rheumatology Megha Coleman MD [facility] DR RHEUMATOLOGY DEP [place], [place] [address] (Wo rk) documented as of this encounter Visit Diagnoses Not on filedocumented in this encounter Care Teams Sas Programmer Relationship Specialty Start Date End Date Autumn Awan MD PCP - General General Internal Medicine 07/01/[address] [place] [address] [address] [place] [id number] documented as of this encounter
--- OUTSIDE RECORDS SUMMARY | 2022-07-12 00:27 | XMS_ITS | Encounter Summary ---
:1940 Author Organization [facility] [place] [address] Care Team Providers Name Role Phone Unavailable Primary Care Provider Unavailable Encounter Details Date Type Department Care Team Description 1940 Ancillary Procedure Radiology Library at [facility] MD Margareth [facility] EMERGENCY [facility] [address] [place] [address] [place] [address] [phone] (Wo rk) Social History Tobacco Use Types Packs/Day Years Used Date Never Assessed Sex Assigned at Date Recorded Not on file documented as of this encounter Plan of Treatment Upcoming Encounters Date Type Specialty Care Team Description 08/14/2022 Office Visit Rheumatology Megha Coleman MD [facility] DR RHEUMATOLOGY DEP [place], [place] [address] (Wo rk) documented as of this encounter Procedures Procedure Name Priority Date/Time Associated Diagnosis Comme nts FILM LIBRARY Routine 1940 12:00 AM Results for this STORAGE ONLY CT EDT procedure ar e in HEAD the results section. documented in this encounter Results Film Library- Storage Only CT Head (1940 12:00 AM EDT) Specimen (Source) Anatomical Location Collection Method / Collectio n Time Received Time / Laterality Volume Narrative RAD - 04/16/2019 2:07 PM EDT This exam is auto-finalizing. It's purpo se is for storage only. Margareth Grubbs MD Rohith FILM LIBRARY ORDERABLES Performing Organization Address City/State/ZIP Code Phon e Number [facility] [place], [place] documented in this encounter Visit Diagnoses Not on filedocumented in this encounter
--- OUTSIDE RECORDS SUMMARY | 2022-07-12 00:27 | XMS_ITS | Encounter Summary ---
:1940 Author Organization [facility] [place] [address] Care Team Providers Name Role Phone Autumn Awan MD Primary Care Provider Encounter Details Date Type Department Care Team Description 07/26/2021 Telephone Rheumatology at [facility] [place] [address] Social History Tobacco Use Types Packs/Day Years Used Date Former Smoker Quit: 10/12/18 71 Smokeless Tobacco: Never Used Sex Assigned at Date Recorded Not on file documented as of this encounter Miscellaneous Notes Telephone Encounter - Antonia Espinosa - 07/26/2021 1:25 PM EDT Called and spoke with pt, she asked I called her daughter Raisa @ [phone] - called and left RaisaVM asking for CB to resched bumped appt with Dr. Coleman documented in this encounter Plan of Treatment Upcoming Encounters Date Type Specialty Care Team Description 08/14/2022 Office Visit Rheumatology Megha Coleman MD [facility] DR RHEUMATOLOGY [place], [place] [address] (Wo rk) documented as of this encounter Visit Diagnoses Not on filedocumented in this encounter Care Teams Supervisor Grounds Relationship Specialty Start Date End Date Autumn Awan MD PCP - General General Internal Medicine 07/01/[address] [place] [address] [place] [address] documented as of this encounter
--- OUTSIDE RECORDS SUMMARY | 2022-07-12 00:27 | XMS_ITS | Encounter Summary ---
:1940 Author Organization [facility] [place] [address] Care Team Providers Name Role Phone Autumn Awan MD Primary Care Provider Reason for Visit Reason Onset Date Comments Medication Refill 08/09/2020 Encounter Details Date Type Department Care Team Description 08/09/2020 Telephone Rheumatology at [facility] Mo De Leon, Medication Refill [facility] [place] [address] Social History Tobacco Use Types Packs/Day Years Used Date Former Smoker Quit: 10/12/18 71 Smokeless Tobacco: Never Used Sex Assigned at Date Recorded Not on file documented as of this encounter Miscellaneous Notes Telephone Encounter - Mo De Leon RN - 08/09/2020 11:02 AM EST RTC to Raisa and left a message with a call back number. I let her know that the script for Tramadol for Alexa has been filled and can be picked up. documented in this encounter Plan of Treatment Upcoming Encounters Date Type Specialty Care Team Description 08/14/2022 Office Visit Rheumatology Megha Coleman MD [facility] DR RHEUMATOLOGY [place], [place] [address] (Wo rk) documented as of this encounter Visit Diagnoses Not on filedocumented in this encounter Care Teams Body Shop Supervisor Relationship Specialty Start Date End Date Autumn Awan MD PCP - General General Internal Medicine 07/01/[address] [place] [address] [place] [address] documented as of this encounter
--- OUTSIDE RECORDS SUMMARY | 2022-07-12 00:27 | XMS_ITS | Encounter Summary ---
:1940 Author Organization [facility] [place] [address] Care Team Providers Name Role Phone Autumn Awan MD Primary Care Provider Reason for Visit Reason Onset Date Comments Other 05/09/2021 Encounter Details Date Type Department Care Team Description 05/09/2021 Telephone Rheumatology at [facility] Mo De Leon, [place] [address] Social History Tobacco Use Types Packs/Day Years Used Date Former Smoker Quit: 10/12/18 71 Smokeless Tobacco: Never Used Sex Assigned at Date Recorded Not on file documented as of this encounter Miscellaneous Notes Telephone Encounter - Mo De Leon RN - 05/09/2021 3:55 PM EDT RTC to Raisa for: Alexa, and left a message to call the unit secretary line. she is asking about setting up a FU appointment for Alexa. documented in this encounter Plan of Treatment Upcoming Encounters Date Type Specialty Care Team Description 08/14/2022 Office Visit Rheumatology Megha Coleman MD [facility] DR RHEUMATOLOGY [place], [place] [address] (Wo rk) documented as of this encounter Visit Diagnoses Not on filedocumented in this encounter Care Teams Quality Technician Relationship Specialty Start Date End Date Autumn Awan MD PCP - General General Internal Medicine 07/01/[address] [place] [address] [place] [address] documented as of this encounter
--- OUTSIDE RECORDS SUMMARY | 2022-07-12 00:27 | XMS_ITS | Encounter Summary ---
:1940 Author Organization [facility] [place] [address] Care Team Providers Name Role Phone Merry Barnes MD Primary Care Provider Encounter Details Date Type Department Care Team Description 04/16/2019 Telehealth notes only TeleHealth Telehealth, [facility] [place] [address] Social History Tobacco Use Types Packs/Day Years Used Date Never Assessed Sex Assigned at Date Recorded Not on file documented as of this encounter Plan of Treatment Upcoming Encounters Date Type Specialty Care Team Description 08/14/2022 Office Visit Rheumatology Megha Coleman MD [facility] ER DR RHEUMATOLOGY [place], [place] [address] (Wo rk) documented as of this encounter Visit Diagnoses Not on filedocumented in this encounter Care Teams Terminal Operator Relationship Specialty Start Date End Date Merry Barnes MD PCP - General 08/14/10 06/30/19 [address] [place], [place] [address] documented as of this encounter
--- OUTSIDE RECORDS SUMMARY | 2022-07-12 00:27 | XMS_ITS | Encounter Summary ---
:1940 Author Organization [facility] [place] [address] Care Team Providers Name Role Phone Autumn Awan MD Primary Care Provider Reason for Visit Reason Onset Date Comments Other 01/23/2021 Encounter Details Date Type Department Care Team Description 01/23/2021 Telephone Rheumatology at [facility] Mo [place], [place] [address] Social History Tobacco Use Types Packs/Day Years Used Date Former Smoker Quit: 10/12/18 71 Smokeless Tobacco: Never Used Sex Assigned at Date Recorded Not on file documented as of this encounter Miscellaneous Notes Telephone Encounter - Mo De Leon RN - 01/23/2021 9:12 AM EDT RTC to Alexa and left a message with a call back number. documented in this encounter Plan of Treatment Upcoming Encounters Date Type Specialty Care Team Description 08/14/2022 Office Visit Rheumatology Megha Coleman MD [facility] DR RHEUMATOLOGY [place], [place] [address] (Wo rk) documented as of this encounter Visit Diagnoses Not on filedocumented in this encounter Care Teams Faith Healer Relationship Specialty Start Date End Date Autumn Awan MD PCP - General General Internal Medicine 07/01/[address] [place] [address] [place] [address] documented as of this encounter
--- OUTSIDE RECORDS SUMMARY | 2022-07-12 00:27 | XMS_ITS | Encounter Summary ---
:1940 Author Organization [facility] [address] Care Team Providers Name Role Phone Autumn Awan MD Primary Care Provider Reason for Visit Reason Onset Date Comments Other 04/05/2020 Triage 04/05/2020 Encounter Details Date Type Department Care Team Description 04/05/2020 Telephone Rheumatology at [facility] Med Gee RN Other; [place] [address] Social History Tobacco Use Types Packs/Day Years Used Date Former Smoker Quit: 10/12/18 [birth year] Smokeless Tobacco: Never Used Sex Assigned at Date Recorded Not on file documented as of this encounter Miscellaneous Notes Telephone Encounter - Med Gee RN - 04/05/2020 2:07 PM EDT Images from the original note were not included. Megha Coleman MD Gavalakis, Rory A, RN Caller: Unspecified (Today, ??8:54 AM) ?? Ok to increase to 6 tablets. Raisa updated regarding above, expressed understanding. Telephone Encounter - Med Gee RN - 04/05/2020 10:13 AM EDT Raisa calls on behalf of patient. Hx RA Had decreased MTX from 8 tabs to 4 tabs per week. Patient having a lot of functional ability with arms and especially with arms, primary areas. Pain is present as well. Stiffness. Tearful this morning when speaking with daughter. Questions if can go up to 6 tabs per week. Patient amenable to conversation with provider if needed. Also, [facility] may bring in on May 17 instead of appointment if needed. documented in this encounter Plan of Treatment Upcoming Encounters Date Type Specialty Care Team Description 08/14/2022 Office Visit Rheumatology Megha Coleman MD [facility] DR RHEUMATOLOGY [place], [place] [address] (Wo rk) documented as of this encounter Visit Diagnoses Not on filedocumented in this encounter Care Teams Sizing Sprayer Relationship Specialty Start Date End Date Autumn Awan MD PCP - General General Internal Medicine 07/01/[address] [place] [address] [place] [address] documented as of this encounter
--- OUTSIDE RECORDS SUMMARY | 2022-07-12 00:27 | XMS_ITS | Encounter Summary ---
:1940 Author Organization [facility] [place] [address] Care Team Providers Name Role Phone Autumn Awan MD Primary Care Provider Reason for Visit Reason Onset Date Comments Labs Only 10/13/2019 Encounter Details Date Type Department Care Team Description 10/13/2019 Telephone Rheumatology at [facility] Med Gee RN [facility] [place] [address] Social History Tobacco Use Types Packs/Day Years Used Date Former Smoker Quit: 10/12/18 71 Smokeless Tobacco: Never Used Sex Assigned at Date Recorded Not on file documented as of this encounter Miscellaneous Notes Telephone Encounter - Med Gee RN - 10/13/2019 2:58 PM EST Message Please call with results (letter not working with update). Continued anemia, a little better, no other new concerns. ??Inflammation better. Thanks. ----- Message ----- From: Cedric, Lab [facility] Sent: 10/12/2019 ?? 4:54 PM EST To: Megha Coleman MD Patient updated on above, expressed understanding. Requests copy be sent to her and to pcp. documented in this encounter Plan of Treatment Upcoming Encounters Date Type Specialty Care Team Description 08/14/2022 Office Visit Rheumatology Megha Coleman MD [facility] DR RHEUMATOLOGY [place], [place] [address] (Wo rk) documented as of this encounter Visit Diagnoses Not on filedocumented in this encounter Care Teams Tractor Trailer Truck Driver Relationship Specialty Start Date End Date Autumn Awan MD PCP - General General Internal Medicine 07/01/[address] [place] [address] documented as of this encounter
--- OUTSIDE RECORDS SUMMARY | 2022-07-12 00:27 | XMS_ITS | Encounter Summary ---
:1940 Author Organization [facility] [place] [address] Care Team Providers Name Role Phone Autumn Awan MD Primary Care Provider Reason for Visit Reason Onset Date Comments Medication Refill 01/25/2020 Encounter Details Date Type Department Care Team Description 01/25/2020 Refill Rheumatology at [facility] Med Gee, [place] [address] Social History Tobacco Use Types Packs/Day Years Used Date Former Smoker Quit: 10/12/18 71 Smokeless Tobacco: Never Used Sex Assigned at Date Recorded Not on file documented as of this encounter Plan of Treatment Upcoming Encounters Date Type Specialty Care Team Description 08/14/2022 Office Visit Rheumatology Megha Coleman MD [facility] DR RHEUMATOLOGY [place], [place] [address] (Wo rk) documented as of this encounter Visit Diagnoses Not on filedocumented in this encounter Care Teams Supervisor Wool Shearing Relationship Specialty Start Date End Date Autumn Awan MD PCP - General General Internal Medicine 07/01/[address] [place] [address] [address] [place] [id number] documented as of this encounter
--- OUTSIDE RECORDS SUMMARY | 2022-07-12 00:27 | XMS_ITS | Encounter Summary ---
:1940 Author Organization [facility] [place] [address] Care Team Providers Name Role Phone Autumn Awan MD Primary Care Provider Reason for Visit Reason Onset Date Comments Medication Refill 06/28/2021 Encounter Details Date Type Department Care Team Description 06/28/[address] [facility] Megha Coleman MD [facility] [place] [id number] RHEUMATOLOGY DEPT. [phone] [place], [place] [address] (Wo rk) Social History Tobacco Use Types Packs/Day Years Used Date Former Smoker Quit: 10/12/18 71 Smokeless Tobacco: Never Used Sex Assigned at Date Recorded Not on file documented as of this encounter Miscellaneous Notes Telephone Encounter - Smitha Peñaloza LPN - 06/28/2021 3:56 PM EDT Requested Prescriptions Pending Prescriptions Disp Refills ??? predniSONE (Deltasone) 5 mg Tablet 90 tablet 0 Sig: TAKE ONE TABLET BY MOUTH EVERY DAY Last office visit: 02/20/2021 Last refill: 02/20/2021 documented in this encounter Plan of Treatment Upcoming Encounters Date Type Specialty Care Team Description 08/14/2022 Office Visit Rheumatology Megha Coleman MD [facility] RHEUMATOLOGY [place]P [place], [place] [address] (Wo rk) documented as of this encounter Visit Diagnoses Not on filedocumented in this encounter Care Teams Front Desk Receptionist Relationship Specialty Start Date End Date Autumn Awan MD PCP - General General Internal Medicine 07/01/[address] [place] [address] documented as of this encounter
--- OUTSIDE RECORDS SUMMARY | 2022-07-12 00:27 | XMS_ITS | Encounter Summary ---
:1940 Author Organization [facility] [place] [address] Care Team Providers Name Role Phone Autumn Awan MD Primary Care Provider Reason for Visit Reason Onset Date Comments Labs Only 07/03/2020 Encounter Details Date Type Department Care Team Description 07/03/2020 Telephone Rheumatology at [facility] Med Gee RN [place] [address] Social History Tobacco Use Types Packs/Day Years Used Date Former Smoker Quit: 10/12/18 71 Smokeless Tobacco: Never Used Sex Assigned at Date Recorded Not on file documented as of this encounter Miscellaneous Notes Telephone Encounter - Med Gee RN - 07/03/2020 12:03 PM EDT Patient updated on labs, expressed understanding. Telephone Encounter - Med Gee RN - 07/03/2020 12:00 PM EDT ----- Message from Megha Coleman MD sent at 07/02/2020 3:01 PM EDT ----- Please let her know her labs look good. Her kidney function is normal, her liver is normal, her inflammatory markers both the CRP and ESR are within normal limits her white blood cell count is normal she is not anemic and her platelets are normal. Thank you. ----- Message ----- From: Cedric, Clamp Carrier Operator Sent: 07/01/2020 12:18 PM EDT To: Megha Coleman MD documented in this encounter Plan of Treatment Upcoming Encounters Date Type Specialty Care Team Description 08/14/2022 Office Visit Rheumatology Megha Coleman MD [facility] ER DR RHEUMATOLOGY [place], [place] [address] (Wo rk) documented as of this encounter Visit Diagnoses Not on filedocumented in this encounter Care Teams Pigment Making Supervisor Relationship Specialty Start Date End Date Autumn Awan MD PCP - General General Internal Medicine 07/01/[address] [place] [address] [place] [address] documented as of this encounter
--- OUTSIDE RECORDS SUMMARY | 2022-07-12 00:27 | XMS_ITS | Encounter Summary ---
:1940 Author Organization [facility] [place] [address] Care Team Providers Name Role Phone Autumn Awan MD Primary Care Provider Reason for Visit Reason Onset Date Comments Medication Refill 05/31/2020 Encounter Details Date Type Department Care Team Description 05/31/2020 Refill Rheumatology at [facility] [place]ee, [place] [address] Social History Tobacco Use Types Packs/Day Years Used Date Former Smoker Quit: 10/12/18 71 Smokeless Tobacco: Never Used Sex Assigned at Date Recorded Not on file documented as of this encounter Plan of Treatment Upcoming Encounters Date Type Specialty Care Team Description 08/14/2022 Office Visit Rheumatology Megha Coleman MD [facility] DR RHEUMATOLOGY [place], [place] [address] (Wo rk) documented as of this encounter Visit Diagnoses Not on filedocumented in this encounter Care Teams Photoengraving Retoucher Relationship Specialty Start Date End Date Autumn Awan MD PCP - General General Internal Medicine 07/01/[address] [place] [address] [address] [place] [id number] documented as of this encounter
--- OUTSIDE RECORDS SUMMARY | 2022-07-12 00:27 | XMS_ITS | Encounter Summary ---
:1940 Author Organization [facility] [place] [address] Care Team Providers Name Role Phone Autumn Awan MD Primary Care Provider Reason for Visit Reason Onset Date Comments Labs Only 11/22/2020 Questions 11/22/2020 Encounter Details Date Type Department Care Team Description 11/22/2020 Telephone Rheumatology at [facility] Med Gee Labs Only; Questions One [facility] [place] [address] Social History Tobacco Use Types Packs/Day Years Used Date Former Smoker Quit: 10/12/18 71 Smokeless Tobacco: Never Used Sex Assigned at Date Recorded Not on file documented as of this encounter Miscellaneous Notes Telephone Encounter - Med Gee RN - 11/27/2020 7:56 AM EST Mailed labs to patient address on file. Telephone Encounter - Med Gee RN - 11/23/2020 9:00 AM EST Reviewed results with dtcrystal Kline. Advised regarding covid vaccination and mtx. Expressed understanding. Telephone Encounter - Med Gee RN - 11/23/2020 9:00 AM EST Images from the original note were not included. Megha Coleman MD Gavalakis, Rory A, RN Caller: Unspecified (2 days ago, ??4:25 PM) OK to review labs with them. They look fine from an RA standpoint. Inflammation under good control liver kidneys ok. Hold MTX one week after each vaccine dose, no other med adjustments needed. Telephone Encounter - Med Gee RN - 11/22/2020 9:00 AM EST Daughter calls to inquire if patient should alter any RA medication r/t having 2nd covid vaccinationand seeks lab results as well. documented in this encounter Plan of Treatment Upcoming Encounters Date Type Specialty Care Team Description 08/14/2022 Office Visit Rheumatology Megha Coleman MD [facility] DR RHEUMATOLOGY [place], [place] [address] (Wo rk) documented as of this encounter Visit Diagnoses Not on filedocumented in this encounter Care Teams Crowning Hammer Operator Relationship Specialty Start Date End Date Autumn Awan MD PCP - General General Internal Medicine 07/01/[address] [place] [address] [place] [address] documented as of this encounter
--- OUTSIDE RECORDS SUMMARY | 2022-07-12 00:27 | XMS_ITS | Encounter Summary ---
:1940 Author Organization [facility] [place] [address] Care Team Providers Name Role Phone Autumn Awan MD Primary Care Provider Reason for Visit Reason Onset Date Comments Medication Refill 08/05/2019 Encounter Details Date Type Department Care Team Description 08/05/2019 Refill Rheumatology at [facility] Med Gee, [place] [address] Social History Tobacco Use Types Packs/Day Years Used Date Never Assessed Sex Assigned at Date Recorded Not on file documented as of this encounter Plan of Treatment Upcoming Encounters Date Type Specialty Care Team Description 08/14/2022 Office Visit Rheumatology Megha Coleman MD [facility] DR RHEUMATOLOGY [place], [place] [address] (Wo rk) documented as of this encounter Visit Diagnoses Not on filedocumented in this encounter Care Teams Biztalk Developer Relationship Specialty Start Date End Date Autumn Awan MD PCP - General General Internal Medicine 07/01/[address] [place] [address] [place] [address] documented as of this encounter
--- OUTSIDE RECORDS SUMMARY | 2022-07-12 00:27 | XMS_ITS | Encounter Summary ---
:1940 Author Organization [facility] Address One [facility] [place] [address] Care Team Providers Name Role Phone Autumn Awan MD Primary Care Provider Encounter Details Date Type Department Care Team Description 02/20/2021 TH Visit [place]ology [place] [facility] [place]ha Coleman High risk medication use; (TeleHealth) [facility] MD Yajaira Rheumatoid arthritis of other site, unsp ecified whether rheumatoid factor present; Drive [facility] Primary osteoarthritis invol ving multiple joints [place], [place] CENTER [address] RHEUMATOLOGY [phone] [place] [address] Social History Tobacco Use Types Packs/Day Years Used Date Former Smoker Quit: 10/12/18 71 Smokeless Tobacco: Never Used Sex Assigned at Date Recorded Not on file documented as of this encounter Patient Instructions Patient InstructionsMegha Coleman MD - 02/20/2021 3:30 PM EDT 1) Hold tramadol for one week to see if this improves constipation (if you can tolerate) 2) try prune juice at night if constipation not resolved for one week 3) if not resolved then decrease methotrexate to 4 tablets documented in this encounter Progress Notes Megha Coleman MD - 02/20/2021 3:30 PM EDT This is a follow-up for polymyalgia rheumatica presentation of seronegative rheumatoid arthritis The video visit was not working so this was a telephone visit with patient consent. Cc: She has a lot of constipation and cramping. HPI: It is like she is feeling poorly. She takes miralax and the capsules. Takes MTX on Friday, shawna Friday then Fri- can feel poorly with constipation. The arthritis is doing ok. She also takes hydroxychloroquine 200 mg twice a day, prednisone 5 mg daily, and takes tramadol daily as well. She occasionally uses diclofenac gel. She feels the [...] symptoms. [facility] and started on methotrexate and titrated [...] gastric ulcer H. 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 She has resumed the prednis one. She is on methotrexate 12.5 mg weekly with folic acid 1 mg daily and doing well after treatmentfor her anemia. She is mostly complaining of constipation that she is relating to methotrexate rightnow. I think it might be more likely to be related to the tramadol, although I cannot completely rule out the methotrexate. I have outlined some steps to try and she is in agreement with these. She is already taking MiraLAX and a stool softener without much improvement. Medication monitoring labs werereviewed no new concerns. Seems to be fairly stable with progress overall since last visit. 1. Methotrexate to 15 mg weekly-decrease to 12.5mg 2. Hydroxychloroquine 200 mg twice daily-annual eye exam 3. Continue folic acid 1 mg daily 4. prednisone 5 mg daily-she is unsure if she is taking this or not--she was off of it prior but sheis not sure if she restarted, she does report taking this at this time. 5.. Standing orders are in place. 6. For constipation: 1) Hold tramadol for one week to see if this improves constipation (if you can tolerate) 2) try prune juice at night if constipation not resolved for one week 3) if not resolved then decrease methotrexate to 4 tablets (10mg) weekly documented in this encounter Plan of Treatment Upcoming Encounters Date Type Specialty Care Team Description 08/14/2022 Office Visit Rheumatology Megha Coleman MD [facility] DR RHEUMATOLOGY [place], [place] [address] ( rk) documented as of this encounter Visit Diagnoses Diagnosis High risk medication use Encounter for long-term (current) use of other medications Rheumatoid arthritis of other site, unsp ecified whether rheumatoid factor present Primary osteoarthritis involving multipl e joints documented in this encounter Care Teams Director Of Strategic Sourcing Relationship Specialty Start Date End Date Autumn Awan MD PCP - General General Internal Medicine 07/01/[address] [place] [address] [place] [address] documented as of this encounter
--- OUTSIDE RECORDS SUMMARY | 2022-07-12 00:27 | XMS_ITS | Encounter Summary ---
:1940 Author Organization [facility] Address One [facility] [place] [address] Care Team Providers Name Role Phone Autumn Awan MD Primary Care Provider Encounter Details Date Type Department Care Team Description 10/12/2019 [place] [facility] [place]ha Coleman Rheumatoid arthritis involvi ng multiple sites, unspecified rheumatoid factor presence; One [facility] MD Yajaira Primary osteoarthritis involving multipl e joints; Drive [facility] High [place] [address] CENTER [phone] [place] [address] Social History Tobacco Use Types Packs/Day Years Used Date Former Smoker Quit: 10/12/18 71 Smokeless Tobacco: Never Used Sex Assigned at Date Recorded Not on file documented as of this encounter Last Filed Vital Signs Vital Sign Reading Time Taken Comments Blood Pressure 143/62 10/12/2019 3:04 PM L arm maroon cuff EST Pulse 81 10/12/2019 2:57 PM EST Temperature 36.8 ??C (98.3 ??F) 10/12/2019 2:57 PM EST Respiratory Rate - - Oxygen Saturation 99% 10/12/2019 2:57 PM EST Inhaled Oxygen Concentration - - Weight 86.6 kg (191 lb) 10/12/2019 2:57 PM EST Height 154.9 cm (5' 1) 10/12/2019 2:57 PM EST Body Mass Index 36.09 10/12/2019 2:57 PM EST documented in this encounter Progress Notes Megha Coleman MD - 10/12/2019 3:00 PM EST This is a follow-up for polymyalgia rheumatica presentation of seronegative rheumatoid arthritis Cc: doing well HPI: not as stiff as she was. On prednisone 5mg. She is taking the tramadol at 2 25 mg twice a day and she has had a market improvement with this. She continues to take methotrexate and does not have any side effects from this including no infections oral ulcers shortness of breath fevers. Overall sheis feeling optimistic as her walking has improved. She has done about 17 episodes of physical therapy and is now able to walk a few steps and her balance is greatly improved. Is apparent that her confidence is improved as well. Her mood is greatly improved. She feels like her pain is well controlled. She still notes some weakness in her left leg but she is working on it. Overall she feels that she isthe best she has been in about 3 years and is encouraged because she did not feel she would be able to walk again. She stopped her Eliquis and [...] gastric ulcer H. pylori negative Colonic polyps [place] in 01/04/2018 with polypectomy for sigmoid adenoma [...] 8 sisters, 7 brothers osteoarthritis PE: BP 143/62 Comment: L arm maroon cuff Pulse 81 Temp 36.8 ??C (98.3 ??F) (Oral) Ht 154.9 cm (5' 1) Wt 86.6 kg (191 lb) SpO2 99% BMI 36.09 kg/m?? Alert and pleasant in NAD, overweight seen in wheelchair Skin: no rashes Sclera anicteric, conjunctiva not injected Nares without d/c O/p Moist no lesions, ulcers or thrush Neck: no cervical adenopathy Lungs: CTAB Heart RRR no mrg Ext: no edema MS: neck and spine: Nontender and cervical spine somewhat limited to range of motion by a few degrees in all directions Shoulders: Passive range of motion intact Elbows: Tender no effusions redness or warmth flexion contraction by approximately 5 degrees--she has a left forearm mass which could be a lipoma as it smooth and rubbery Wrists: Right wrist is postsurgical and fused left with decreased range of motion by approximately 10 degrees no warmth Hands: She can make a full fist but there is no appreciable swelling or synovitis compared to her last visit Knees: Status post replacement Ankles: Some pitting edema Feet: not examined Neuro: grossly non-focal Labs/studies: ROD is marked as positive and [...] AST 17 ALT 26 Alk phos 85 Impression/Recommendations: This is a very pleasant 79-year-old woman with probably late onset rheumatoid arthritis that initially presented as polymyalgia. 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 She is currently off predni sone but fairly symptomatic and she is active synovitis on exam. She is on methotrexate 15 mg weeklywith folic acid 1 mg daily. Based on Alexa's goal of care which is to be pain-free, I think it is reasonable to pursue up titration of methotrexate to help control the inflammatory arthritis, return to very low-dose prednisone to help control symptoms, the addition of hydroxychloroquine to help with the arthritis as well andto have some tramadol on hand to help with pain as needed. Ideally at her next visit should be able to taper the prednisone as she has a history of AVN. 1. Methotrexate to 20 mg weekly 2. Add in hydroxychloroquine 200 mg twice daily 3. Continue folic acid 1 mg daily 4. prednisone 5 mg p.o. Daily-taper at next visit 5. Tramadol 25 mg twice daily she signed an opioid contract today 6. Her mood is greatly improved and I think it is reasonable for her to consider Cymbalta and last her primary care doc wants to change Orders Placed This Encounter Procedures ??? CBC (with Diff) ??? Comprehensive metabolic panel (non-fasting) ??? Sedimentation rate ??? CRP, acute inflammation ??? Hemogram ??? Differential, Automated documented in this encounter Plan of Treatment Upcoming Encounters Date Type Specialty Care Team Description 08/14/2022 Office Visit Rheumatology Megha Coleman MD [facility] ER DR RHEUMATOLOGY [place], [place] [address] (Wo rk) documented as of this encounter Procedures Procedure Name Priority Date/Time Associated Diagnosis Comme nts HC VENIPUNCTURE Routine 10/12/2019 3:54 Rheumatoid arthritis R esults for this PM EST involving multiple procedure are in sites, unspecified the resul ts rheumatoid factor section. presence Primary osteoarthritis involving multiple joints High risk medication use HEMOGRAM Routine 10/12/2019 3:54 Rheumatoid arthritis Resu lts for this PM EST involving multiple procedure are in sites, unspecified the resul ts rheumatoid factor section. presence Primary osteoarthritis involving multiple joints High risk medication use DIFFERENTIAL, Routine 10/12/2019 3:54 Rheumatoid arthritis Res ults for this AUTOMATED PM EST involving multiple procedure are in sites, unspecified the resul ts rheumatoid factor section. presence Primary osteoarthritis involving multiple joints High risk medication use HC ESR-SEDIMENTATION Routine 10/12/2019 3:54 Rheumatoid arthri tis Results for this RATE, BLOOD PM EST involving multiple procedure are in sites, unspecified the resul ts rheumatoid factor section. presence Primary osteoarthritis involving multiple joints High risk medication use HC CBC,PLT & AUTO Routine 10/12/2019 3:54 Rheumatoid arthritis DIFF PM EST involving multiple sites, unspecified rheumatoid factor presence Primary osteoarthritis involving multiple joints High risk medication use COMPREHENSIVE Routine 10/12/2019 3:54 Rheumatoid arthritis Res ults for this METABOLIC PANEL PM EST involving multiple proced ure are in (NON-FASTING) sites, unspecified the resu lts rheumatoid factor section. presence Primary osteoarthritis involving multiple joints High risk medication use documented in this encounter Results (ABNORMAL) Differential, Automated (10/12/2019 3:54 PM EST) [facility] Method Time Signature Neutrophils % 70.1 % [facility] Neutr Abs (ANC) 7.20 (H) 1.70 - [facility] 6.10 [facility] x10(3)/[facility] L LABORATORY Lymphocytes % 10.8 % [facility] Lymphocytes Abs 1.1 0.9 - 3.2 [facility] x10(3)/[facility] LABORATORY Monocytes % 6.0 % [facility] Monocyte Abs 0.6 0.3 - 0.9 [facility] x10(3)/[facility] LABORATORY Eosinophils % 12.1 % [facility] Eosinophils Abs 1.2 (H) 0.0 - 0.4 [facility] x10(3)/[facility] LABORATORY Basophils % 0.7 % [facility] Basophils Abs 0.1 0.0 - 0.1 [facility] x10(3)/[facility] LABORATORY Immature Gran % 0.30 % [facility] Comment: Immature granulocytes(IG's)percentage an d absolute count will include metamyelocytes, myelocytes, and promyelo cytes. Blood smears from CBCs yielding IG's will be scanned manually for concor dance. If this scan disagrees with the automated IG or if promyelocytes are not ed, a manual differential will be performed. Alexia [place] Abs 0.03 0.00 - 0.04 x10(3)/[facility] LABORATORY Specimen Anatomical Collection Method Collection Time Receive d Time (Source) Location / / Volume Laterality Blood specimen 10/12/2019 3:54 PM 020 4:04 (specimen) EST PM EST Resulting Agency Comment Spec In Lab Megha Coleman MD HEMATOLOGY ORDERABLES Performing Organization Address City/State/ZIP [place] [address] (ABNORMAL) Hemogram (10/12/2019 3:54 PM EST) Analysis Performed At Patho logist Time Signature WBC 10.3 (H) 4.0 - 9.5 [facility] x10(3)/[facility] LABORATORY RBC 3.45 (L) 4.00 - [facility] 5.21 [facility] x10(6)/[facility] LABORATORY Hemoglobin 9.3 (L) 11.7 - [place] 15.5 gm/dL [facility] Hematocrit 30.6 (L) 35.7 - [place] 45.8 % [facility] MCV 88.7 82.6 - [facility] 94.4 [facility] LABORATORY MCH 27.0 (L) 27.1 - [place] 32.0 pg [facility] LAB[facility] MCHC 30.4 (L) 31.7 - [facility] 35.0 gm/dL [facility] Platelets 330 145 - 357 [facility] x10(3)/[facility] LABORATORY RDWSD 56.2 (H) 37.0 - [facility] 46.0 [facility] LABORATORY RDWCV 17.4 (H) 11.5 - [facility] 14.1 % [facility] LABORATORY MPV 10.3 7.6 - 12.9 [facility] LABORATORY nRBC % Auto 0.0 % [facility] LAB[facility] nRBC Abs Auto 0.000 0.000 - [place] 0.000 [facility] x10(3)/[facility] LABORATORY Specimen Anatomical Collection Method Collection Time Receive d Time (Source) Location / / Volume Laterality Blood specimen 10/12/2019 3:54 PM 020 4:04 (specimen) EST PM EST Resulting Agency Comment Spec In Lab Megha Coleman MD HEMATOLOGY ORDERABLES Performing Organization Address City/[facility] Code Phon e Number [address] CRP, acute inflammation (10/12/2019 3:54 PM EST) P athologist Signature CRP 3.3 <=4.9 mg/L [facility] Specimen Anatomical Collection Method Collection Time Receive d Time (Source) Location / / Volume Laterality Blood specimen 10/12/2019 3:54 PM 020 4:04 (specimen) EST PM EST Resulting Agency Comment Spec In Lab Megha Coleman MD CHEMISTRY ORDERABLES Performing Organization Address City/[facility] Phon e Number [address] Sedimentation rate (10/12/2019 3:54 PM EST) P athologist Signature Sed Rate 19 3 - 46 [facility] mm/hr [facility] Comment: Effective September 01, 2019 new capillar y photometric technology has resulted in a change in reference ranges. It is r ecommended that each ESR result be reviewed with its own age appropriate re ference range. Specimen Anatomical Collection Method Collection Time Receive d Time (Source) Location / / Volume Laterality Blood specimen 10/12/2019 3:54 PM 020 4:04 (specimen) EST PM EST Resulting Agency Comment Spec In Lab Megha Coleman MD HEMATOLOGY ORDERABLES Performing Organization Address City/State/ZIP [place] [address] (ABNORMAL) Comprehensive metabolic panel (non-fasting) (10/12/2019 3:54 PM EST) athologist Signature Glucose Lvl 112 65 - 199 [facility] mg/dL [facility] Comment: Diabetes: >=200 mg/dL plus symp toms BUN 16 8 - 18 mg/dL [facility] LABORATORY Creatinine 0.69 (L) 0.70 - 1.20 mg/dL [facility] LABOR[facility]ORY Sodium 135 135 - 145 mmol/L [facility] LABOR[facility]ORY Potassium 3.6 3.5 - 5.0 mmol/L [facility] Comment: Please note: ??Patients with WBC >100,00 0 may have falsely elevated Potassium levels. ??For accurate Potassium quantif ication in these patients send serum separator tube (gold top) for subsequent determinations. ??Contact the Clinical Chemistry Laboratory if there are any qu estions. Chloride 98 98 - 107 mmol/L [facility] CO2 25 22 - 31 mmol/L [facility] Anion Gap 12 5 - 15 mmol/L [facility] Calcium 8.9 8.5 - 10.5 mg/dL [facility] Total Protein 7.0 6.1 - 8.0 gm/dL [facility] LAB[facility] Albumin 4.1 3.2 - 5.2 gm/dL [facility] AST 18 0 - 30 unit/L [facility] ALT 10 0 - 30 unit/L [facility] Alk Phos 107 (H) 35 - 105 unit/L [facility] Total Bilirubin 0.2 0.2 - 1.3 mg/dL [facility] LABORATORY Estimated GFR 82 >=60 mL/min/1.73 m?? [facility] Comment: The eGFR was calculated using the CKD-EP I equation. As with all creatinine based estimates of kidney function, eGFR values calculated with the CKD-EPI equation are not accurate in patients wi th acute kidney failure, extremes of body mass or the acutely ill. http://[employer] eGFR 95 >=60 mL/min/1.73 m?? [facility] Comment: The eGFR was calculated using the CKD-EP I equation. As with all creatinine based estimates of kidney function, eGFR values calculated with the CKD-EPI equation are not accurate in patients wi th acute kidney failure, extremes of body mass or the acutely ill. http://[employer] Specimen Anatomical Collection Method Collection Time Receive d Time (Source) Location / / Volume Laterality Blood specimen 10/12/2019 3:54 PM 020 4:04 (specimen) EST PM EST Resulting Agency Comment Spec In Lab Megha Coleman MD CHEMISTRY ORDERABLES Performing Organization Address City/State/ZIP Code [place] [address] documented in this encounter Visit Diagnoses Diagnosis Rheumatoid arthritis involving multiple sites, unspecified rheumatoid factor presence Primary osteoarthritis involving multipl e joints High risk medication use Encounter for long-term (current) use of other medications documented in this encounter Care Teams Back Office Medical Assistant Relationship Specialty Start Date End Date Autumn Awan MD PCP - General General Internal Medicine 07/01/[address] [place] [address] [place] [address] documented as of this encounter
--- OUTSIDE RECORDS SUMMARY | 2022-07-12 00:27 | XMS_ITS | Encounter Summary ---
:1940 Author Organization [facility] [place] [address] Care Team Providers Name Role Phone Autumn Awan MD Primary Care Provider Reason for Visit Reason Comments Medication Refill Encounter Details Date Type Department Care Team Description 07/23/2020 Refill [place] [facility] [place]ha Coleman MD [facility] [place] [address] RHEUMATOLOGY DEPT. [phone] [place], [place] [address] (Wo rk) Social History Tobacco Use Types Packs/Day Years Used Date Former Smoker Quit: 10/12/18 71 Smokeless Tobacco: Never Used Sex Assigned at Date Recorded Not on file documented as of this encounter Miscellaneous Notes Telephone Encounter - Mo De Leon RN - 07/24/2020 11:48 AM EST RTC to Raisa the daughter of Alexa, she is requesting a script of MTX for a 3 month supply, instead of a 1 month supply? I left a message that I would send this refill request to Dr. Coleman. Rheumatology appointment in the last 6 months? Yes RN confirm MTX dose? 15 mg weekly Most recent labs: External labs? YES If last labs >12 weeks, were new labs ordered per protocol by RN? NO Follow-up appointment scheduled: YES documented in this encounter Plan of Treatment Upcoming Encounters Date Type Specialty Care Team Description 08/14/2022 Office Visit Rheumatology Megha Coleman MD [facility] RHEUMATOLOGY [place], [place] [address] (Wo rk) documented as of this encounter Visit Diagnoses Not on filedocumented in this encounter Care Teams Manager Land Relationship Specialty Start Date End Date Autumn Awan MD PCP - General General Internal Medicine 07/01/[address] [place] [address] [place] [address] documented as of this encounter
--- OUTSIDE RECORDS SUMMARY | 2022-07-12 00:27 | XMS_ITS | Encounter Summary ---
:1940 Author Organization [facility] [place] [address] Care Team Providers Name Role Phone Autumn Awan MD Primary Care Provider Encounter Details Date Type Department Care Team Description 11/10/2020 Telephone Rheumatology at [facility] [place] [address] Social History Tobacco Use Types Packs/Day Years Used Date Former Smoker Quit: 10/12/18 71 Smokeless Tobacco: Never Used Sex Assigned at Date Recorded Not on file documented as of this encounter Miscellaneous Notes Telephone Encounter - Antonia Espinosa - 11/10/2020 4:30 PM EST VM left with pt to sched fuv as requested by provider documented in this encounter Plan of Treatment Upcoming Encounters Date Type Specialty Care Team Description 08/14/2022 Office Visit Rheumatology Megha Coleman MD [facility] ER DR RHEUMATOLOGY [place], [place] [address] (Wo rk) documented as of this encounter Visit Diagnoses Not on filedocumented in this encounter Care Teams Work Force Advisor Relationship Specialty Start Date End Date Autumn Awan MD PCP - General General Internal Medicine 07/01/[address] [place] [address] [place] [address] documented as of this encounter
--- OUTSIDE RECORDS SUMMARY | 2022-07-12 00:27 | XMS_ITS | Encounter Summary ---
:1940 Author Organization [facility] [place] [address] Care Team Providers Name Role Phone Autumn Awan MD Primary Care Provider Reason for Visit Reason Comments Medication Refill Encounter Details Date Type Department Care Team Description 03/28/2020 Refill [place]ology [place] [facility] Megha Coleman MD [place] [address] RHEUMATOLOGY DEPT. [phone] [place], [place] [address] (Wo rk) Social History Tobacco Use Types Packs/Day Years Used Date Former Smoker Quit: 10/12/18 71 Smokeless Tobacco: Never Used Sex Assigned at Date Recorded Not on file documented as of this encounter Plan of Treatment Upcoming Encounters Date Type Specialty Care Team Description 08/14/2022 Office Visit Rheumatology Megha Coleman MD [facility] DR RHEUMATOLOGY [place]P [place]. [place], [place] [address] (Wo rk) documented as of this encounter Visit Diagnoses Not on filedocumented in this encounter Care Teams Zoo Director Relationship Specialty Start Date End Date Autumn Awan MD PCP - General General Internal Medicine 07/01/[address] [place] [address] [place] [address] documented as of this encounter
--- OUTSIDE RECORDS SUMMARY | 2022-07-12 00:27 | XMS_ITS | Encounter Summary ---
:1940 Author Organization [facility] [place] [address] Care Team Providers Name Role Phone Autumn Awan MD Primary Care Provider Reason for Visit Reason Onset Date Comments Labs Only 03/16/2021 Encounter Details Date Type Department Care Team Description 03/16/2021 Telephone Rheumatology at [facility] Makenna Nielsen RN Labs Only [facility] [place] [address] Social History Tobacco Use Types Packs/Day Years Used Date Former Smoker Quit: 10/12/18 71 Smokeless Tobacco: Never Used Sex Assigned at Date Recorded Not on file documented as of this encounter Miscellaneous Notes Telephone Encounter - Makenna Nielsen RN - 03/16/2021 9:49 AM EDT Megha Coleman MD sent to [facility] Rhe[facility] Nurse Please let Alexa know that her infammatory labs look good and she has only a mild anemia at thistime. Thank you. I spoke with Alexa and she is aware of labs. She would like labs mailed to her. Wants me to let Dr. Coleman know that her constipation is now controlled with Prune Juice. Reports she is not able to go lower than 4 tabs daily on the Tramadol. documented in this encounter Plan of Treatment Upcoming Encounters Date Type Specialty Care Team Description 08/14/2022 Office Visit Rheumatology Megha Coleman MD [facility] ER DR [facility] [place] [place] [address] (Wo rk) documented as of this encounter Visit Diagnoses Not on filedocumented in this encounter Care Teams Valve Seater Operator Relationship Specialty Start Date End Date Autumn Awan MD PCP - General General Internal Medicine 07/01/[address] [place] [address] [place] [address] documented as of this encounter
--- OUTSIDE RECORDS SUMMARY | 2022-07-12 00:27 | XMS_ITS | Encounter Summary ---
:1940 Author Organization [facility] [place] [address] Care Team Providers Name Role Phone Autumn Awan MD Primary Care Provider Reason for Visit Reason Onset Date Comments Other 01/23/2021 Encounter Details Date Type Department Care Team Description 01/23/2021 Telephone Rheumatology at [facility] [place], [place] [address] Social History Tobacco Use Types Packs/Day Years Used Date Former Smoker Quit: 10/12/18 71 Smokeless Tobacco: Never Used Sex Assigned at Date Recorded Not on file documented as of this encounter Miscellaneous Notes Telephone Encounter - Mo De Leon RN - 01/23/2021 11:16 AM EDT RTC to Alexa and she states that she is all set with a TH visit on 02-20-21 at 3:30, with Dr. Colmean. documented in this encounter Plan of Treatment Upcoming Encounters Date Type Specialty Care Team Description 08/14/2022 Office Visit Rheumatology Megha Coleman MD [facility] DR RHEUMATOLOGY [place], [place] [address] (Wo rk) documented as of this encounter Visit Diagnoses Not on filedocumented in this encounter Care Teams Operational Review Sergeant Relationship Specialty Start Date End Date Autumn Awan MD PCP - General General Internal Medicine 07/01/[address] [place] [address] [place] [address] documented as of this encounter
--- OUTSIDE RECORDS SUMMARY | 2022-07-12 00:27 | XMS_ITS | Encounter Summary ---
:1940 Author Organization [facility] [place] [address] Care Team Providers Name Role Phone Autumn Awan MD Primary Care Provider Reason for Visit Reason Onset Date Comments Labs Only 02/28/2020 Encounter Details Date Type Department Care Team Description 02/28/2020 Telephone Rheumatology at [facility] [place] [address] Social History Tobacco Use Types Packs/Day Years Used Date Former Smoker Quit: 10/12/18 71 Smokeless Tobacco: Never Used Sex Assigned at Date Recorded Not on file documented as of this encounter Miscellaneous Notes Telephone Encounter - Med Gee RN - 02/28/2020 4:41 PM EDT Raisa calls, no orders at [facility]. Labs faxed to [phone] per Raisa's request. documented in this encounter Plan of Treatment Upcoming Encounters Date Type Specialty Care Team Description 08/14/2022 Office Visit Rheumatology Megha Coleman MD [facility] DR RHEUMATOLOGY [place], [place] [address] (Wo rk) documented as of this encounter Visit Diagnoses Not on filedocumented in this encounter Care Teams Date Night Sitter Relationship Specialty Start Date End Date Autumn Awan MD PCP - General General Internal Medicine 07/01/[address] [place] [address] [place] [address] documented as of this encounter
--- OUTSIDE RECORDS SUMMARY | 2022-07-12 00:27 | XMS_ITS | Encounter Summary ---
:1940 Author Organization [facility] [place] [address] Care Team Providers Name Role Phone Autumn Awan MD Primary Care Provider Encounter Details Date Type Department Care Team Description 03/08/2020 Telephone Rheumatology at [facility] Megha Coleman MD [facility] [place] [address] RHEUMATOLOGY DEPT. [phone] [place], [place] [address] (Wo rk) Social History Tobacco Use Types Packs/Day Years Used Date Former Smoker Quit: 10/12/18 71 Smokeless Tobacco: Never Used Sex Assigned at Date Recorded Not on file documented as of this encounter Miscellaneous Notes Telephone Encounter - Med Gee RN - 03/09/2020 12:[address] Awan's office, spoke with Aleta. Notified of low Hgb, she will notify nursing. Will fax results as well. Telephone Encounter - Megha Coleman MD - 03/08/2020 5:50 PM EDT Received labs which showed a worsening of her chronic iron deficiency anemia to 7.3. Alexa was describing some more weakness and a little bit of unsteadiness, and this could potentially be why. With her baseline is in the nines and she has received iron infusions in the past. I tried calling Alexa to let her know, but she only has 1 number listed, and the mailbox was not set up so was unable to leave a message. We will notify Dr. Awan's office her PCP, that the anemia is worse. She hashad surgery for her hip, but this appears to be number of months ago and is probably not related to the acute worsening. RG is aware and will call the PCPs office and let them know. documented in this encounter Plan of Treatment Upcoming Encounters Date Type Specialty Care Team Description 08/14/2022 Office Visit Rheumatology Megha Coleman MD [facility] DR RHEUMATOLOGY [place], [place] [address] (Wo rk) documented as of this encounter Visit Diagnoses Not on filedocumented in this encounter Care Teams Pipe Coverer And Insulator Relationship Specialty Start Date End Date Autumn Awan MD PCP - General General Internal Medicine 07/01/[address] [place] [address] [place] [address] documented as of this encounter
--- OUTSIDE RECORDS SUMMARY | 2022-07-12 00:27 | XMS_ITS | Encounter Summary ---
:1940 Author Organization [facility] [place] [address] Care Team Providers Name Role Phone Autumn Awan MD Primary Care Provider Reason for Visit Reason Comments Medication Refill Encounter Details Date Type Department Care Team Description 09/30/2020 Refill Rheumatology at [facility] Megha Coleman MD [facility] [place] [address] RHEUMATOLOGY DEPT. [phone] [place], [place] [address] (Wo rk) Social History Tobacco Use Types Packs/Day Years Used Date Former Smoker Quit: 10/12/18 71 Smokeless Tobacco: Never Used Sex Assigned at Date Recorded Not on file documented as of this encounter Plan of Treatment Upcoming Encounters Date Type Specialty Care Team Description 08/14/2022 Office Visit Rheumatology Megha Coleman MD [facility] DR RHEUMATOLOGY [place]P [place]. [place], [place] [address] (Wo rk) documented as of this encounter Visit Diagnoses Not on filedocumented in this encounter Care Teams Clinic Physician Director Relationship Specialty Start Date End Date Autumn Awan MD PCP - General General Internal Medicine 07/01/[address] [place] [address] [place] [address] documented as of this encounter
--- OUTSIDE RECORDS SUMMARY | 2022-07-12 00:27 | XMS_ITS | Encounter Summary ---
:1940 Author Organization [facility] [place] [address] Care Team Providers Name Role Phone Autumn Awan MD Primary Care Provider Reason for Visit Consultation (Routine) - Specialty Diagnoses / Procedures Referred By Contact Refer red To Contact Rheumatology Diagnoses BURAK +ROD, inflammatory arthritis. Needs February appt Jennifer Cohn MD [facility] Rheumatology [address] [place] [address] [place] [address] [address] [place] [address] Referral ID Status Reason Start Date Expiration Date Visits V isits Requested Authorized [id number] 01/13/2019 01/13/2020 1 1 Encounter Details Date Type Department Care Team Description 07/01/2019 Office Visit Rheumatology at [facility] Megha Coleman Rheumatoid arthritis involvi ng multiple sites, unspecified rheumatoid factor presence; [facility] MD Yajaira Primary osteoarthritis involving multipl e joints; [facility] [place] [address] CENTER [phone] [place] [address] Social History Tobacco Use Types Packs/Day Years Used Date Never Assessed Sex Assigned at Date Recorded Not on file documented as of this encounter Patient Instructions Patient InstructionsMegha Coleman MD - 07/01/2019 12:00 PM EDT Prescription for tramadol will also be sent to pharmacy. 50mg twice a day as needed. documented in this encounter Progress Notes Megha Coleman MD - 07/01/2019 12:00 PM EDT Referred by: Jennifer Peterson. For consultation and evaluation of: inflammatory arthritis I have reviewed the provided records, pertinent records available in the [facility] medical record and anyforms completed by the patient. These have been scanned into the medical record for future review. Cc: pain HPI: This is an 79-year-old woman who was diagnosed with polymyalgia rheumatica in June 2018 and started on prednisone. Shortly after that, she developed synovitis particularly in her hands. She haspain in her hips and knees and toes as well. She has a history of osteoarthritis and has had bilateral knee replacements. The prednisone helped with her symptoms. She was evaluated by Jennifer Cohn in October 2018 and started on methotrexate and titrated up to 15 mg weekly. She had difficulty tapering prednisone below 10 mg. Her course is also been complicated by falls in spring 2018, and avascular necrosis of the left hip and for which she underwent hip replacement in April 2019. She was tapered off of the prednisone prior to her hip surgery relatively rapidly. She had a difficult recovery from the hip surgery. Apparently it was a difficult procedure due to the bone quality and she has a lot ofsoft tissue recovery as well. She remains weak [...] gastric ulcer H. 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 To call history Cholecystectomy 1953 hysterectomy Excision of lipomas 2011 [...] FH: 8 sisters, 7 brothers osteoarthritis PE: roomed by MD Crabtree and giselle in [place], overweight seen in wheelchair Skin: no rashes Sclera anicteric, conjunctiva not injected Nares without d/c O/p Moist no lesions, ulcers or thrush Neck: no cervical adenopathy Lungs: CTAB Heart RRR no mrg Abd: Active bs, soft, nt, nd no masses or organomegaly appreciated Ext: no edema MS: neck and spine: [...] by approximately 10 degrees no warmth Hands: Left greater than right hand swelling inability to make a fist on the left and active synovitis across her MCPs with less tenderness in the PIPs Hips: Not examined due to recent surgery Knees: Status post replacement Ankles: Some pitting edema and decreased range of motion at the ankles bilaterally limited to only afew degrees at that tibiotalar and subtalar joints Feet: She has some overlapping toes MTP squeeze is negative and there is no splaying no Achilles nodules Neuro: grossly non-focal Labs/studies: ROD is marked [...] hand to help with pain as needed. She did not like being on scheduled tramadol. We will look at state safety labs today. She could be even more anemic as the labs I have available were prior to her surgery. I think improving her pain control will help her mobility as well. Her ankles are pretty close to fused, so it is not surprising that she is having some difficulty with falls.Continue strength training will be critical to keeping her safe as she reports that she lives alone. We also discussed next steps, she may be a good candidate for an anti-TNF if the increase in medications does not get her symptoms under control. She is given information regarding hydroxychloroquine and anti-TNF's today. 1. Increase methotrexate to 20 mg weekly 2. Add in hydroxychloroquine 200 mg twice daily 3. Continue folic acid 1 mg daily 4. Adding prednisone 5 mg p.o. Daily 5. Trial of as needed tramadol. This was discussed with the patient so that she would have another option if her pain was severe. She used this in the past and we discussed possibility of constipation and fatigue with the use. 6. She is going to consider adjustment of her Cymbalta to see if another antidepressant might be more helpful she wants to discuss this with her primary care Orders Placed This Encounter Procedures ??? CBC (with Diff) ??? Comprehensive metabolic panel (non-fasting) ??? Sedimentation rate ??? CRP, acute inflammation ??? Hemogram ??? Differential, Automated ??? Scan, Peripheral Blood Thank you for this interesting referral. Please do not hesitate to contact me if you have any questions or concerns. documented in this encounter Plan of Treatment Upcoming Encounters Date Type Specialty Care Team Description 08/14/2022 Office Visit Rheumatology Megha Coleman MD [facility] DR RHEUMATOLOGY [place] [address] (Wo rk) documented as of this encounter Procedures Procedure Name Priority Date/Time Associated Diagnosis Comme nts HC C-REACTIVE PROTEIN Routine 07/01/2019 1:27 Rheumatoid arthr itis Results for this PM EDT involving multiple procedure are in sites, unspecified the resul ts rheumatoid factor section. presence Primary osteoarthritis involving multiple joints High risk medication use SCAN, PERIPHERAL Routine 07/01/2019 1:27 Results for this BLOOD PM EDT procedure are i n the results section. HEMOGRAM Routine 07/01/2019 1:27 Rheumatoid arthritis Resu lts for this PM EDT involving multiple procedure are in sites, unspecified the resul ts rheumatoid factor section. presence Primary osteoarthritis involving multiple joints High risk medication use DIFFERENTIAL, Routine 07/01/2019 1:27 Rheumatoid arthritis Res ults for this AUTOMATED PM EDT involving multiple procedure are in sites, unspecified the resul ts rheumatoid factor section. presence Primary osteoarthritis involving multiple joints High risk medication use HC ESR-SEDIMENTATION Routine 07/01/2019 1:27 Rheumatoid arthri tis Results for this RATE, BLOOD PM EDT involving multiple procedure are in sites, unspecified the resul ts rheumatoid factor section. presence Primary osteoarthritis involving multiple joints High risk medication use HC CBC,PLT & AUTO Routine 07/01/2019 1:27 Rheumatoid arthritis DIFF PM EDT involving multiple sites, unspecified rheumatoid factor presence Primary osteoarthritis involving multiple joints High risk medication use COMPREHENSIVE Routine 07/01/2019 1:27 Rheumatoid arthritis Res ults for this METABOLIC PANEL PM EDT involving multiple proced ure are in (NON-FASTING) sites, unspecified the resu lts rheumatoid factor section. presence Primary osteoarthritis involving multiple joints High risk medication use documented in this encounter Results Scan, Peripheral Blood (07/01/2019 1:27 PM EDT) [facility] [employer] [facility] Method Time Signature Plat Estimate Increased [facility] RBC Morphology Abnormal [facility] Ovalocytes 1-5 /HPF [facility] Specimen Anatomical Collection Method Collection Time Receive d Time (Source) Location / / Volume Laterality Blood specimen 07/01/2019 1:27 PM 019 1:32 (specimen) EDT PM EDT Resulting Agency Comment Spec In Lab Megha Coleman MD HEMATOLOGY ORDERABLES Performing Organization Address City/State/ZIP Code Phon e Number [place] [phone] (ABNORMAL) Differential, Automated (07/01/2019 1:27 PM EDT) [facility] Codewise Method Time Signature Neutrophils % 47.6 % [facility] Neutr Abs (ANC) 5.43 1.70 - [facility] 6.[address] [facility] x10(3)/[facility] LABORATORY Lymphocytes % 13.0 % [facility] Lymphocytes Abs 1.5 0.9 - [address].2 [facility] x10(3)/[facility] LABORATORY Monocytes % 7.2 % [facility] Monocyte Abs 0.8 0.3 - 0.9 [facility] x10(3)/[facility] LABORATORY Eosinophils % 31.2 % [facility] Eosinophils Abs 3.6 (H) 0.0 - 0.4 [facility] x10(3)/[facility] LABORATORY Basophils % 0.6 % [facility] Basophils Abs 0.1 0.0 - 0.1 [facility] x10(3)/[facility] LABORATORY Immature Gran % 0.40 % [facility] Comment: Immature granulocytes(IG's)percentage an d absolute count will include metamyelocytes, myelocytes, and promyelo cytes. Blood smears from CBCs yielding IG's will be scanned manually for concor dance. If this scan disagrees with the automated IG or if promyelocytes are not ed, a manual differential will be performed. Alexia Gran Abs 0.04 0.00 - 0.04 x10(3)/[facility] MAR Y [facility] LABORATORY Specimen Anatomical Collection Method Collection Time Receive d Time (Source) Location / / Volume Laterality Blood specimen 07/01/2019 1:27 PM 019 1:32 (specimen) EDT PM EDT Resulting Agency Comment Spec In Lab Megha Coleman MD HEMATOLOGY ORDERABLES Performing Organization Address City/State/[place] [address] (ABNORMAL) Hemogram (07/01/2019 1:27 PM EDT) Analysis Performed At Patho logist Time Signature WBC 11.4 (H) 4.0 - 9.5 [facility] x10(3)/[facility] LAB[facility]ATORY RBC 3.34 (L) 4.00 - [facility] [address] [facility] x10(6)/[facility]ATORY Hemoglobin 9.0 (L) 11.7 - [facility] 15.5 gm/dL [facility] Hematocrit 29.7 (L) 35.7 - [facility] 45.8 % [facility] MCV 88.9 82.6 - [facility] 94.4 [facility] LABORATORY MCH 26.9 (L) 27.1 - [facility] 32.[address] [facility] MCHC 30.3 (L) 31.7 - [facility] 35.0 gm/dL [facility] Platelets 401 (H) 145 - 357 [facility] x10(3)/[facility] LABORATORY RDWSD 55.8 (H) 37.0 - [facility] 46.0 [facility] LABORATORY RDWCV 17.2 (H) 11.5 - [facility] JIMI 14.1 % [facility]ORY MPV 9.4 7.6 - 12.9 [facility] LABORATORY nRBC % Auto 0.0 % [facility] nRBC Abs Auto 0.000 0.000 - [place] JIMI [address].000 [facility] x10(3)/[facility] LABORATORY Specimen Anatomical Collection Method Collection Time Receive d Time (Source) Location / / Volume Laterality Blood specimen 07/01/2019 1:27 PM 019 1:32 (specimen) EDT PM EDT Resulting Agency Comment Spec In Lab Megha Coleman MD HEMATOLOGY ORDERABLES Performing Organization Address City/[facility]/[place] [address] (ABNORMAL) CRP, acute inflammation (07/01/2019 1:27 PM EDT) P athologist Signature CRP 17.2 (H) <=4.9 mg/L [facility] Specimen Anatomical Collection Method Collection Time Receive d Time (Source) Location / / Volume Laterality Blood specimen 07/01/2019 1:27 PM 019 1:32 (specimen) EDT PM EDT Resulting Agency Comment Spec In Lab Megha Coleman MD CHEMISTRY ORDERABLES Performing Organization Address City/[facility]/[place] [address] (ABNORMAL) Sedimentation rate (07/01/2019 1:27 PM EDT) P athologist Signature Sed Rate 32 (H) 0 - 20 [facility] mm/hr [facility] Specimen Anatomical Collection Method Collection Time Receive d Time (Source) Location / / Volume Laterality Blood specimen 07/01/2019 1:27 PM 019 1:32 (specimen) EDT PM EDT Resulting Agency Comment Spec In Lab Megha Coleman MD HEMATOLOGY ORDERABLES Performing Organization Address City/[facility]/[place] [address] (ABNORMAL) Comprehensive metabolic panel (non-fasting) (07/01/2019 1:27 PM EDT) athologist Signature Glucose Lvl 101 65 - 199 [facility] mg/dL [facility] Comment: Diabetes: >=200 mg/dL plus symp toms BUN 10 8 - 18 mg/dL [facility] Creatinine 0.48 (L) 0.70 - 1.20 mg/dL [facility] Sodium 131 (L) 135 - 145 mmol/L [facility] Potassium 3.9 3.5 - 5.0 mmol/L [facility] Comment: Please note: ??Patients with WBC >100,00 0 may have falsely elevated Potassium levels. ??For accurate Potassium quantif ication in these patients send serum separator tube (gold top) for subsequent determinations. ??Contact the Clinical Chemistry Laboratory if there are any qu estions. Chloride 94 (L) 98 - 107 mmol/L [facility] CO2 26 22 - 31 mmol/L [facility] Anion Gap 11 5 - 15 mmol/L [facility] Calcium 9.0 8.5 - 10.5 mg/dL [facility] Total Protein 7.2 6.1 - 8.0 gm/dL [facility] Albumin 3.7 3.2 - 5.2 gm/dL [facility] AST 12 0 - 30 unit/L [facility] ALT <5 0 - 30 unit/L [facility] Alk Phos 129 (H) 35 - 105 unit/L [facility] Total Bilirubin 0.3 0.2 - 1.3 mg/dL [facility] Estimated GFR 92 >=60 mL/min/1.73 m?? [facility] Comment: The eGFR was calculated using the CKD-EP I equation. As with all creatinine based estimates of kidney function, eGFR values calculated with the CKD-EPI equation are not accurate in patients wi th acute kidney failure, extremes of body mass or the acutely ill. http://Digistrive/DHMCnkf eGFR 107 >=60 mL/min/1.73 m?? [facility] Comment: The eGFR was calculated using the CKD-EP I equation. As with all creatinine based estimates of kidney function, eGFR values calculated with the CKD-EPI equation are not accurate in patients wi th acute kidney failure, extremes of body mass or the acutely ill. [email or web address]/[facility]kf Specimen Anatomical Collection Method Collection Time Receive d Time (Source) Location / / Volume Laterality Blood specimen 07/01/2019 1:27 PM 019 1:32 (specimen) EDT PM EDT Resulting Agency Comment Spec In Lab Megha Coleman MD CHEMISTRY ORDERABLES Performing Organization Address City/State/ZIP Code Phon e Number [place] [phone] documented in this encounter Visit Diagnoses Diagnosis Rheumatoid arthritis involving multiple sites, unspecified rheumatoid factor presence Primary osteoarthritis involving multipl e joints High risk medication use Encounter for long-term (current) use of other medications documented in this encounter Care Teams Java Developer Relationship Specialty Start Date End Date Autumn Awan MD PCP - General General Internal Medicine 07/01/[address] [place] [address] [place] [address] documented as of this encounter
--- OUTSIDE RECORDS SUMMARY | 2022-07-12 00:27 | XMS_ITS | Encounter Summary ---
:1940 Author Organization [facility] [place] [address] Care Team Providers Name Role Phone Autumn Awan MD Primary Care Provider Encounter Details Date Type Department Care Team Description 01/25/2020 TH Visit Rheumatology at [facility] Megha Coleman Rheumatoid arthritis involvi ng multiple sites, unspecified rheumatoid factor presence; (TeleHealth) [facility] MD Yajaira [place] [address] [place] [address] RHEUMATOLOG[address] DEPT. [place], [place] [address] Social History Tobacco Use Types Packs/Day Years Used Date Former Smoker Quit: 10/12/18 71 Smokeless Tobacco: Never Used Sex Assigned at Date Recorded Not on file documented as of this encounter Progress Notes Megha Coleman MD - 01/25/2020 3:00 PM EDT This is a follow-up for polymyalgia rheumatica presentation of seronegative rheumatoid arthritis Cc: doing better overall HPI: Things are up and down. She is trying to continue to walk. She has gone through 40 sessions of PT. She had a lot of atrophy. Then she had hip surgery. She has one side is still weak. This affects her balance. She walks around in the kitchen. [...] symptoms. She was evaluated by Jennifer Cohn [facility] 2019 and started on methotrexate and titrated [...] gastric ulcer H. pylori negative Colonic polyps [place] in 01/04/2018 with polypectomy for sigmoid adenoma [...] mg weeklywith folic acid 1 mg daily. Seems to be fairly stable with progress overall since last visit. 1. Methotrexate to 20 mg weekly-no nausea 2. Hydroxychloroquine 200 mg twice daily-annual eye exam 3. Continue folic acid 1 mg daily 4. prednisone 5 mg daily (taper if needed) 5. Tramadol 25 mg twice daily she signed an opioid contract and this was refilled and I asked nursesto call in to Pharmacy Labs when able in the setting of COVID. Wants labs at [facility] in [facility]. Orders Placed This Encounter Procedures ??? CBC (with Diff) ??? Comprehensive metabolic panel (non-fasting) ??? Sedimentation rate ??? CRP, acute inflammation documented in this encounter Plan of Treatment Upcoming Encounters Date Type Specialty Care Team Description 08/14/2022 Office Visit Rheumatology Megha Coleman MD [facility] DR RHEUMATOLOGY [place], [place] [address] (Wo rk) documented as of this encounter Visit Diagnoses Diagnosis Rheumatoid arthritis involving multiple sites, unspecified rheumatoid factor presence High risk medication use Encounter for long-term (current) use of other medications documented in this encounter Care Teams Elastic Attacher Coverstitch Relationship Specialty Start Date End Date Autumn Awan MD PCP - General General Internal Medicine 07/01/[address] [place] [address] [place]NANDEZ [id number] documented as of this encounter
--- OUTSIDE RECORDS SUMMARY | 2022-07-12 00:27 | XMS_ITS | Encounter Summary ---
:1940 Author Organization [facility] [place] [address] Care Team Providers Name Role Phone Autumn Awan MD Primary Care Provider Reason for Visit Reason Onset Date Comments Medication Refill 12/27/2019 Encounter Details Date Type Department Care Team Description 12/27/2019 Refill Rheumatology at [facility] Med [facility]ee [place] [address] Social History Tobacco Use Types Packs/Day Years Used Date Former Smoker Quit: 10/12/18 71 Smokeless Tobacco: Never Used Sex Assigned at Date Recorded Not on file documented as of this encounter Miscellaneous Notes Telephone Encounter - Med Gee RN - 12/27/2019 8:59 AM EDT Raisa requests 90 day supply of prednisone 5 mg qd, mtx and hcq. Raisa advised have been instructed by department to cue 30 day supply of hcq at this time. Patient uses [facility] in [place]. documented in this encounter Plan of Treatment Upcoming Encounters Date Type Specialty Care Team Description 08/14/2022 Office Visit Rheumatology Megha Coleman MD [facility] ER DR RHEUMATOLOGY [place], [place] [address] (Wo rk) documented as of this encounter Visit Diagnoses Not on filedocumented in this encounter Care Teams Meter Record Clerk Relationship Specialty Start Date End Date Autumn Awan MD PCP - General General Internal Medicine 07/01/[address] [place] [address] [place] [address] documented as of this encounter
--- OUTSIDE RECORDS SUMMARY | 2022-07-12 00:27 | XMS_ITS | Encounter Summary ---
:1940 Author Organization [facility] [address] Care Team Providers Name Role Phone Autumn Awan MD Primary Care Provider Reason for Visit Reason Onset Date Comments Medication Refill 08/07/2020 Encounter Details Date Type Department Care Team Description 08/07/2020 Refill Rheumatology at [facility] Mo De Leon, [place] [address] Social History Tobacco Use Types Packs/Day Years Used Date Former Smoker Quit: 10/12/18 71 Smokeless Tobacco: Never Used Sex Assigned at Date Recorded Not on file documented as of this encounter Miscellaneous Notes Telephone Encounter - Mo De Leon RN - 08/07/2020 12:47 PM EST RTC to Raisa and left a message with a call back number. She was requesting a refill of Tramadol for Alexa Lewis, and I let her know that I would send that request to Dr. Coleman. documented in this encounter Plan of Treatment Upcoming Encounters Date Type Specialty Care Team Description 08/14/2022 Office Visit Rheumatology Megha Coleman MD [facility] ER DR RHEUMATOLOGY [place], [place] [address] (Wo rk) documented as of this encounter Visit Diagnoses Not on filedocumented in this encounter Care Teams Director Of Event Sales Relationship Specialty Start Date End Date Autumn Awan MD PCP - General General Internal Medicine 07/01/[address] [place] [address] [place] [address] documented as of this encounter
--- OUTSIDE RECORDS SUMMARY | 2022-07-12 00:27 | XMS_ITS | Encounter Summary ---
:1940 Author Organization [facility] [place] [address] Care Team Providers Name Role Phone Autumn Awan MD Primary Care Provider Reason for Visit Reason Onset Date Comments Medication Refill 01/01/2021 Encounter Details Date Type Department Care Team Description 01/01/2021 Refill Rheumatology at [facility] Med Gee, [place] [address] Social History Tobacco Use Types Packs/Day Years Used Date Former Smoker Quit: 10/12/18 71 Smokeless Tobacco: Never Used Sex Assigned at Date Recorded Not on file documented as of this encounter Plan of Treatment Upcoming Encounters Date Type Specialty Care Team Description 08/14/2022 Office Visit Rheumatology Megha Coleman MD [facility] RHEUMATOLOGY [place], [place] [address] (Wo rk) documented as of this encounter Visit Diagnoses Not on filedocumented in this encounter Care Teams Marine Underwriter Relationship Specialty Start Date End Date Autumn Awan MD PCP - General General Internal Medicine 07/01/[address] [place] [address] [address] [place] [id number] documented as of this encounter
--- OUTSIDE RECORDS SUMMARY | 2022-07-12 00:27 | XMS_ITS | Encounter Summary ---
:1940 Author Organization [facility] [place] [place] [address] Care Team Providers Name Role Phone Autumn Awan MD Primary Care Provider Encounter Details Date Type Department Care Team Description 03/30/2020 Orders Only Rheumatology at [facility] Megha Coleman MD [facility] [place] [address] RHEUMATOLOGY DEPT. [phone] [place], [place] [address] (Wo rk) Social History Tobacco Use Types Packs/Day Years Used Date Former Smoker Quit: 10/12/18 71 Smokeless Tobacco: Never Used Sex Assigned at Date Recorded Not on file documented as of this encounter Plan of Treatment Upcoming Encounters Date Type Specialty Care Team Description 08/14/2022 Office Visit Rheumatology Megha Coleman MD [facility] DR RHEUMATOLOGY DEP T. [place], [place] [address] (Wo rk) documented as of this encounter Visit Diagnoses Not on filedocumented in this encounter Care Teams Business Continuity Planning Director Relationship Specialty Start Date End Date Autumn Awan MD PCP - General General Internal Medicine 07/01/[address] [place] [address] [address] [place] [id number] documented as of this encounter
--- OUTSIDE RECORDS SUMMARY | 2022-07-12 00:29 | XMS_ITS | Encounter Summary ---
:1940 Author Organization [facility] Address [address] [place] [address] Care Team Providers Name Role Phone Unknown, Provider Primary Care Provider Encounter Details Date Type Department Care Team Description 12/22/2017 Hospital Encounter [facility] [place] Unknown, Provider, [facility] [address] [place] [address] [place] [address] (Work) [phone] Social History Tobacco Use Types Packs/Day Years Used Date Never Assessed Sex Assigned at Date Recorded Not on file documented as of this encounter Discharge Disposition Disposition Code Departure Means Destination Home or Self Intermediate documented in this encounter Plan of Treatment Not on filedocumented as of this encounter Visit Diagnoses Not on filedocumented in this encounter Care Teams 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
--- OUTSIDE RECORDS SUMMARY | 2022-07-12 00:29 | XMS_ITS | Encounter Summary ---
:1940 Author Organization [facility] Address [address] [place] [address] Care Team Providers Name Role Phone Unknown, Provider Primary Care Provider Encounter Details Date Type Department Care Team Description 12/22/2017 Results Only [facility]- Allie Reyes MD [address] [phone] [place] [address] (Wo rk) Social History Tobacco Use Types Packs/Day Years Used Date Never Assessed Sex Assigned at Date Recorded Not on file documented as of this encounter Plan of Treatment Not on filedocumented as of this encounter Procedures Procedure Name Priority Date/Time Associated Diagnosis Comme [facility] SURGICAL PATHOLOGY Routine 12/22/2017 8:25 EDT Re sults for this procedure are i n the results section. documented in this encounter Results SURGICAL PATHOLOGY (12/22/2017 8:25 EDT) Pathology Report: SURGICAL PATHOLOGY REPORT [facility] Reports generated via electronic interface contain nitin ginal data; LABORATORY however they are lacking the format of the original re port. SERVICES Caution should be taken when reading/interpreting unfo rmatted reports. Name: ? KYLEE LEWIS TE ? Accession #: ? [id number] ? : ? 1940 (Age: [age]) ??F ? Collect Date: ? 12/22/2017 ? Location: ? [facility] ? Receive Date: ? 8 ? Provider: KADEEM SAEED MD Copy to: ? Final Pathologic Diagnosis: A. ??STOMACH, ULCER, BIOPSY: - Reactive gastropathic changes, consistent with adjac ent ulcer. - Negative for Helicobacter pylori organisms. B. ??GASTROESOPHAGEAL JUNCTION, BIOPSY: - Squamocolumnar junctional mucosa. - Negative for Keita's specialized-columnar epitheli um. ?? C. ??COLON, SIGMOID POLYP, POLYPECTOMY: - Sessile serrated polyp/adenoma. ?? Document reviewed and electronically signed by: MICHAEL FINK MD Report ??Date: 12/24/2017 17:21 By the signature above, the attending physician certif ies that he/she has personally conducted a gross and/or microscopic examin ation of the described specimens and rendered or confirmed the above diagnosi s. Specimen(s) Received: A. ??Gastric ulcer bx B. ??GE junction bx C. ??Sigmoid polyp Clinical History: Anemia Gross Description: A. ?Received in formalin labelled with proper p atient identification (initials S, C) and gastric ulcer bx is a single lig ht barakat tissue fragment (0.3 x 0.1 x 0.1 cm). Submitted intact in A1. B. ?Received in formalin labelled with proper p atient identification (initials S, C) and GE junction bx are two white tissues (0.5 x 0.1 x 0.1 cm and 0.3 x 0.2 x 0.2 cm). Entirely submitted in B1. C. ?Received in formalin labelled with proper p atient identification (initials S, C) and sigmoid polyp is a single barakat-brown polypoid tissue (0.5 x 0.4 x 0.3 cm). The margin is inked blue. The specimen is bisected and entirely submitted in C1. Mary Fan 12/23/2017 9:18 AM End of Report Specimen Performing Organization Address City/State/ZIP Code Phon e Number [facility] [address] [place] [address] SERVICES documented in this encounter Visit Diagnoses Not on filedocumented in this encounter Care Teams Supervisor Heat Treating Relationship Specialty Start Date End Date Unknown, Provider, PCP - General 12/22/17 documented as of this encounter
--- NOTE | 2022-07-12 13:00 | DI.DEXA_ITS ---
Exam(s) XR DEXA BONE DENSITY W/WO FUNMILAYO EXAM: XR DEXA BONE DENSITY W/WO FUNMILAYO CLINICAL HISTORY: COMPRESSION FX OF BODY OF THORACIC VERTEBRA, S22.000A TECHNIQUE: Routine DEXA evaluation of the lumbar spine, hip, or forearm. COMPARISON: No exams were available for comparison FINDINGS: Performed on a Hologic unit. Lumbar Spine total T-score: -0.4 Hip total T-score:-2.9. Independent reading at the level of the femoral neck yields at T-score of -3.2. Forearm total T-score: -3.6 IMPRESSION: Bone mineral density measures in the osteoporosis range. Fracture risk is high. Note: Any spine fracture indicates 5x risk for subsequent spine fracture and 2x risk for subsequent h ip fracture. World Health Organization criteria for BMD interpretation classify patients: Normal...... T- Score at or above -1.0 Osteopenic... T- Score between -1.0 and -2.5 Osteoporosis... T-Score at or below -2.5
== END ==
PROVIDERS: PCP Internal Medicine; Visit Provider Internal Medicine
DX: Z13.820 Encounter for screening for osteoporosis (principal); M81.0 Age-related osteoporosis without current pathological fracture
CPT/HCPCS: 77080

== ENCOUNTER 2022-07-19 01:20 | Outpatient (RCR) | payer MEDICARE, MEDICAID, SELFPAY ==
[2022-07-19] MEDS: Normal Saline Flush 10 ML SYR IVP (10:12)
[2022-07-19] MEDS: IRON SUCROSE COMPLEX 300 MG in Normal Saline 250 ML 176.667 MG IVPB (10:15)
[2022-07-19 10:42] LABS: Abs Immature Grans 0.02 10^3/uL (0.0-0.06); Absolute Basophil Count 0.03 10^3/uL (0.0-0.2); Absolute Eosinophil Count 0.14 10^3/uL (0.0-0.7); Absolute Lymphocyte Count 1.26 10^3/uL (1.2-3.4); Basophils % 0.4; Eosinophils % 1.7; HGB 10.3 g/dL (11.2-15.7); Immature Grans % 0.2; Lymphocytes % 14.9; MCH 31.3 pg (27.0-33.0); MCHC 32.2 % (32.0-36.0); MCV 97 fL (80-95); MPV 10.4 fL (8.0-11.0); Monocytes % 10.7; Neutrophils % 72.1; Platelet Count 221 10^3/uL (130-400); RBC 3.29 10^6/uL (3.93-5.22); RDW 14.7 % (11.7-14.6); RDW-SD 52.8 fL; WBC 8.45 10^3/uL (4.4-10.8)
[2022-07-19 11:04] LABS: ALT 23 U/L (14-59); AST 24 U/L (15-37); Albumin 3.4 g/dL (3.4-5.0); Alkaline Phosphatase 86 U/L (46-116); Anion Gap 4.7 mmol/L (3-11); BUN 15 mg/dL (7-18); Bilirubin, Total 0.6 mg/dL (0.2-1.0); CO2 28.3 mmol/L (21.0-32.0); CREATININE 0.7 mg/dL (0.55-1.02); Calcium 8.5 mg/dL (8.5-10.1); Chloride 97 mmol/L (98-107); Estimated GFR 85.23 (mL/min/1.73m2); Glucose 101 mg/dL (74-106); Potassium 3.4 mmol/L (3.5-5.1); Sodium 130 mmol/L (136-145)
== END 2022-07-22 23:59 | disposition home or self-care (01) ==
LOC: INF 01:20
PROVIDERS: PCP Internal Medicine; Visit Provider Family Medicine
DX: E87.1 Hypo-osmolality and hyponatremia (principal)
CPT/HCPCS: 36415; 80053; 96365; 96366; 85025; J1756

== ENCOUNTER 2022-07-29 19:01 | Outpatient (REF) | payer MEDICARE, MEDICAID, SELFPAY ==
[2022-07-29 20:17] LABS: Bilirubin Negative (Negative); Blood Trace-intact (Negative); Clarity Clear (Clear); Glucose Negative (Negative); Ketones Negative (Negative); Leukocyte Esterase Negative (Negative); Nitrite Negative (Negative); pH 6.5 (5-8)
[2022-07-29 20:26] LABS: RBC 0-2 HPF (0-2)
[2022-07-29 20:27] LABS: Bacteria Rare HPF (Negative); C & S Indicated? C&S Done As Ordered; Casts Negative LPF (Negative); Crystals Negative HPF (Negative); Epithelial Cells Few HPF (Negative); Mucus Negative (Negative)
== END 2022-07-29 19:02 | disposition home or self-care (01) ==
LOC: LBN 19:01
PROVIDERS: PCP Internal Medicine; Visit Provider Internal Medicine
DX: R41.0 Disorientation, unspecified (principal)
CPT/HCPCS: 81003; 81015; 87086

== ENCOUNTER 2022-08-02 01:12 | Outpatient (RCR) | payer MEDICARE, MEDICAID, SELFPAY ==
[2022-07-26] MEDS: Normal Saline Flush 10 ML SYR IVP (10:08)
[2022-07-26] MEDS: IRON SUCROSE COMPLEX 300 MG in Normal Saline 250 ML 176.667 MG IVPB (10:53)
[2022-08-02] MEDS: IRON SUCROSE COMPLEX 300 MG in Normal Saline 250 ML 176.667 MG IVPB (10:10)
[2022-08-02] MEDS: Normal Saline Flush 10 ML SYR IVP (10:39)
== END 2022-08-21 23:59 | disposition home or self-care (01) ==
LOC: INF 01:12
PROVIDERS: PCP Internal Medicine; Visit Provider Family Medicine
DX: D50.9 Iron deficiency anemia, unspecified (principal)
CPT/HCPCS: 96365; 96366; J1756

== ENCOUNTER 2022-08-04 17:05 | Outpatient (REF) | payer MEDICARE, MEDICAID, SELFPAY ==
[2022-08-04 17:25] LABS: Bilirubin Negative (Negative); Blood Large (Negative); Clarity Cloudy (Clear); Glucose Negative (Negative); Ketones Negative (Negative); Leukocyte Esterase Large (Negative); Nitrite Negative (Negative); Urobilinogen 0.2 EU/dL (Up TO 0.2)
[2022-08-04 17:40] LABS: Bacteria Many HPF (Negative); C & S Indicated? Yes; Casts Negative LPF (Negative); Crystals Negative HPF (Negative); Epithelial Cells Few HPF (Negative); Mucus Negative (Negative); WBC >50 HPF (0-5)
== END 2022-08-04 17:06 | disposition home or self-care (01) ==
LOC: LBN 17:05
PROVIDERS: PCP Internal Medicine; Visit Provider Nurse Practitioner Family
DX: R09.89 Other specified symptoms and signs involving the circulatory and respiratory systems (principal)
CPT/HCPCS: 87077; 81003; 81015; 87086; 87186

== ENCOUNTER 2022-08-09 15:26 | Outpatient (REF) | payer MEDICARE, MEDICAID, SELFPAY ==
[2022-08-09 18:05] LABS: ALT 14 U/L (14-59); AST 19 U/L (15-37); Albumin 3.2 g/dL (3.4-5.0); Alkaline Phosphatase 72 U/L (46-116); Anion Gap 6.5 mmol/L (3-11); BUN 11 mg/dL (7-18); Bilirubin, Total 0.4 mg/dL (0.2-1.0); CO2 28.5 mmol/L (21.0-32.0); CREATININE 0.8 mg/dL (0.55-1.02); Calcium 8.7 mg/dL (8.5-10.1); Chloride 100 mmol/L (98-107); Estimated GFR 72.61 (mL/min/1.73m2); Glucose 115 mg/dL (74-106); Potassium 3.4 mmol/L (3.5-5.1); Sodium 135 mmol/L (136-145); TSH 1.12 uIU/mL (0.36-3.74); Total Protein 5.4 g/dL (6.4-8.2)
== END 2022-08-09 15:27 | disposition home or self-care (01) ==
LOC: LBN 15:26
PROVIDERS: PCP Internal Medicine; Visit Provider Internal Medicine
DX: I50.9 Heart failure, unspecified (principal)
CPT/HCPCS: 80053; 83036; 84443; 85025

== ENCOUNTER 2022-08-22 13:39 | Outpatient (REF) | payer MEDICARE, MEDICAID, SELFPAY | END 2022-08-22 13:40 | disposition home or self-care (01) | LOC: LBN 13:39 | PROVIDERS: PCP Internal Medicine; Visit Provider Internal Medicine | DX: M06.09 Rheumatoid arthritis without rheumatoid factor, multiple sites (principal); Z79.899 Other long term (current) drug therapy | CPT/HCPCS: 82533 ==

== ENCOUNTER 2023-05-01 06:10 | Inpatient (IN) | payer MEDICARE, MEDICAID, SELFPAY ==
[2023-05-01] VITALS (41 sets, daily range): BP systolic 131–156; BP diastolic 61–81; PULSE 74–109; RESP 18–22; TEMP 36.4–37.1; O2SAT 88–98
--- NOTE | 2023-05-01 09:04 | ED.PROG_ITS ---
Date of service: 05/01/23 Time of Service: 09:04 Medical Decision Making Patient was signed out to me by my colleague Dr. Schmitt during downtime. Please refer to his HPI, physical exam, assessment and plan and documentation from downtime paperwork. Abbreviated history. Patient came last night by ambulance for abdominal pain shortness of breath questionable mild chest pain. Nausea and vomiting were present. EKG was performed and showed evidence of left bundle branch block. Labs were ordered. Unfortunately during downtime although labs were ordered, and blood was drawn, the labs were never received by laboratory. This was discovered at 9 AM when lab was contacted for the results. New blood will be drawn right away. Still pending imaging. 10:53 AM Laboratory workup has returned, no white count, or bandemia. Sodium is 130, creatinine normal. Calcium slightly low at 8.1, proBNP high at 7700. Troponin normal. Lipase normal. CT shows evidence of bilateral pleural effusions, as well as questionable atelectasis or pneumonia. There is cardiomegaly. Exam demonstrates +1 to +2 pitting edema of the lower extremities bilaterally. Patient is in the high 80s on room air. Supplemental oxygen has been applied. There is also evidence of comminuted T12 vertebral body fracture with retropuls ion into the spinal canal with approximately half of the AP diameter of the spinal canal limited secondary to the fracture. At the time of signout, the original assumption was that the patient was from health [facility] rehab, however this is not the case. Patient actually lives at home with family. All 3 daughters are at bedside and on the phone for consult. We discussed the case together, they deny any recent falls. They do confirm that the patient is DNR/DNI, she does not want any major surgeries or procedures. Her goals are comfort and general medical management. They state that she would not want major spinal surgery. We will give 20 mg of Lasix IV to start the diuresis process. We will give IV doxycycline for treatment of potential community-acquired pneumonia. We will consult medicine for admission for CHF, hypoxemia, questionable pneumonia, and PT OT eval. Discussed the case with Dr. Kyara wilkerson. He agrees with the assessment and plan. I have extensively reviewed the treatment plan with the patient. I have addressed all patient concerns at this time. I have also discussed the plan with the admitting physician and they agree with the current assessment and plan and have agreed to assume responsibility for the patient. All parties demonstrate verbal understanding and agreement with our assessment and plan at this time. The documentation in this chart was dictated using [employer] dictation software. Please excuse any dictation errors. FINDINGS: The examination is limited due to patient motion artifact. CHEST: Tracheobronchial tree: Patent where visualized. Pulmonary parenchyma: There are moderate bilateral pleural effusions and subjacent infiltrates. No architectural distortion. Visualized thyroid gland: The thyroid gland is heterogeneous with multiple m asses present. There does appear to be a large 3.5 x 2.3 cm nodule. A nonemergent thyroid ultrasound is recommended for further evaluation. Mediastinum and Joselyn: No dominant adenopathy or fluid collection. The esophagus is unremarkable. Pleura: No pneumothorax. Heart: Mild cardiomegaly. There are marked calcification and/or stents the coronary arteries. No pericardial effusion. Pulmonary arteries: No central pulmonary embolus is present. The segmental and subsegmental pulmonary arteries are poorly evaluated on this examination due to bolus timing. Aorta: Thoracic aorta non-dilated. Atherosclerosis. Lymph nodes: Within normal limits. Soft tissues: Unremarkable. Bones:Within normal limits for the patient's age. There are healed bilateral rib fractures. There is a comminuted fracture of the T12 vertebral body of indeterminate age. There is retropulsion into the spinal canal with an AP diameter of 8 mm. This compares to an AP diameter of 1.5 cm at the level above. Bilateral neural foraminal stenosis is seen at T11-T12 and T12-L1. ABDOMEN: Liver: Normal density. There is a stable peripheral cyst in the right lobe of the liver. Portal, Superior Mesenteric, and Splenic Veins: Unremarkable. Gallbladder and Biliary Tract: Status post cholecystectomy. No significant biliary ductal dilatation. Pancreas: Normal density, no abnormal calcifications or inflammatory process. Spleen: Normal. Adrenals: No masses seen. Kidneys: Normal size, contour and axis. No radiodense stones or obstructive uropathy. There is a cyst in the superior pole of the right kidney. Abdominal Aorta: Abdominal portion non-dilated. Marked atherosclerosis. Bowel: There is diverticulosis of the colon without evidence of acute diverticulitis. There is no bowel wall thickening or obstruction. There is no evidence of acute appendicitis. Peritoneal Cavity: No ascites, collection or mesenteric inflammatory response. No free air. Lymph Nodes: Within normal limits. Bones: The patient has a left total hip replacement. Soft Tissues: Unremarkable. PELVIS: Bladder: The urinary bladder is adequately distended. Portions of the bladder are obscured by the artifact from the left hip prosthesis. No gross abnormalities identified. Reproductive Organs: Status post hysterectomy. Lymph Nodes: Within normal limits. Bones: Within normal limits. IMPRESSION: 1. There are moderate bilateral pleural effusions and subjacent infiltrates which may represent atelectasis or pneumonia. 2. There is cardiomegaly. 3. Heterogeneous thyroid gland with 3.5 cm nodule. Nonemergent thyroid ultrasound is recommended for further evaluation. 4. Comminuted T12 vertebral body fracture with retropulsion into the spinal canal. There is loss of approximately half of the AP diameter of the spinal canal at this level secondary to the fracture. This is of indeterminate acuity. Please correlate clinically. 5. No acute abdominal pelvic process. 6. Findings were discussed with Dr. Anderson at 10:35 a.m. on 05/01/2023. Discharge Plan Disposition Patient Disposition: Admit to [facility] Condition: Improving Discharge Details Clinical Impression: CHF exacerbation, Hypoxemia, Compression fracture of T12 vertebra Primary Care Provider: Autumn Awan ED Provider: Alonso Anderson Home Meds and New Rx's Prescriptions: No Action acetaminophen 500 mg capsule 1,000 mg PO BID Qty: 10 0RF morphine concentrate 100 mg/5 mL (20 mg/mL) solution 10 mg PO Q4H MDD 60 mg PRN (Reason: pain) Qty: 15 0RF folic acid 1 mg tablet 2 mg PO DAILY Qty: 7 0RF methotrexate sodium 2.5 mg tablet 15 mg PO QWEEK morphine concentrate 100 mg/5 mL (20 mg/mL) solution 5 mg PO Q3H MDD as per PCP PRN (Reason: pain) Qty: 15 0RF Rx Instructions: Family has on hand in case pt becomes acutely ill, prescribed by PCP lorazepam 0.5 mg tablet 0.5 mg PO Q6H PRN Qty: 1 0RF magnesium chloride 64 mg tablet,delayed release (DR/EC) 64 mg PO DAILY melatonin 3 mg capsule 3 mg PO HS PRN cholecalciferol (vitamin D3) 50 mcg (2,000 unit) capsule 50 mcg PO DAILY furosemide [Lasix] 20 mg tablet 20 mg PO DAILY lidocaine [Lidoderm] 5 % adhesive patch,medicated 1 patch topical DAILY Rx Instructions: leave on most painful area for up to 12 hrs Myrbetriq 25 mg tablet extended release 24 hr 25 mg PO DAILY loratadine 10 MG tablet 10 mg PO DAILY atorvastatin 20 mg tablet 20 mg PO DAILY Patient Comments: TAKE ONE TABLET BY MOUTH EVERY DAY polyethylene glycol 3350 [Miralax] 17 gram Powder In Packet 17 g PO BID tramadol 50 mg Tablet 25 mg PO BID PRN folic acid 1 mg Tablet 800 mcg PO DAILY hydroxychloroquine 200 mg tablet 200 mg PO BID Patient Comments: TAKE ONE TABLET BY MOUTH TWICE A DAY FOR RHEUMATOID ARTHRITIS clobetasol 0.05 % Solution 1 applic TOPICAL DAILY ondansetron 4 mg Tablet,Disintegrating 4 mg PO Q12H PRN PRN bupropion HCl 150 mg Tablet Extended Release 24 Hr 150 mg PO 4-8XD prednisone 10 mg tablet 5 mg PO DAILY lidocaine 5 % Adhesive Patch,Medicated 1 patch DAILY aspirin [Aspir-Low] 81 mg Tablet,Delayed Release (Dr/Ec) 81 mg PO DAILY omeprazole 40 mg capsule,delayed release(DR/EC) 40 mg PO BID Qty: 30 0RF
[2023-05-01 09:16] LABS: Abs Immature Grans 0.05 10^3/uL (0.0-0.06); Absolute Basophil Count 0.02 10^3/uL (0.0-0.2); Absolute Eosinophil Count 0.06 10^3/uL (0.0-0.7); Absolute Lymphocyte Count 1.52 10^3/uL (1.2-3.4); Absolute Monocyte Count 1.06 10^3/uL (0.1-0.8); Absolute Neutrophil Count 7.97 10^3/uL (1.2-6.7); Basophils % 0.2; Eosinophils % 0.6; HGB 11.4 g/dL (11.2-15.7); Immature Grans % 0.5; Lymphocytes % 14.2; MCH 34.7 pg (27.0-33.0); MCHC 34.5 % (32.0-36.0); MCV 100 fL (80-95); MPV 9.4 fL (8.0-11.0); Monocytes % 9.9; Neutrophils % 74.6; Platelet Count 224 10^3/uL (130-400); RBC 3.29 10^6/uL (3.93-5.22); RDW 13.7 % (11.7-14.6); RDW-SD 50.4 fL; WBC 10.68 10^3/uL (4.4-10.8)
[2023-05-01 09:37] LABS: ALT 20 U/L (14-59); AST 20 U/L (15-37); Albumin 2.9 g/dL (3.4-5.0); Alkaline Phosphatase 67 U/L (46-116); Anion Gap 5.8 mmol/L (3-11); BUN 13 mg/dL (7-18); Bilirubin, Total 0.6 mg/dL (0.2-1.0); CO2 31.2 mmol/L (21.0-32.0); CREATININE 0.5 mg/dL (0.55-1.02); Calcium 8.1 mg/dL (8.5-10.1); Chloride 93 mmol/L (98-107); Estimated GFR 92.43 (mL/min/1.73m2); Glucose 97 mg/dL (74-106); Lipase 16 U/L (16-77); NT-proBNP 7704 pg/mL (<300); Potassium 3.5 mmol/L (3.5-5.1); Sodium 130 mmol/L (136-145); Total Protein 5.2 g/dL (6.4-8.2); Troponin I < 50 ng/L (<or=60)
[2023-05-01] MEDS: Normal Saline - Diluent 50 ML VIAL IJ (10:00)
[2023-05-01] MEDS: Omnipaque 350 MG/ML 100 ML BTL IJ (10:00)
--- NOTE | 2023-05-01 10:05 | DI.CT_ITS ---
Exam(s) CT CHEST/ABD/PEL W EXAM: CT CHEST/ABD/PEL W CLINICAL HISTORY: vomiting, chest pain, sob TECHNIQUE: Imaging Protocol: Axial computed tomography images with coronal and sagittal reformatted images were created and reviewed CONTRAST MATERIAL: Intravenous: Omnipaque 350 contrast volume:100 mL Oral: No COMPARISON: CT CT CHEST PE CTA from 01/10/2019 CR,XR XR ABDOMEN FLAT UPRIGHT from 03/16/2022 CR XR DEXA BONE DENSITY W/WO FUNMILAYO from 07/12/2022 FINDINGS: The examination is limited due to patient motion artifact. CHEST: Tracheobronchial tree: Patent where visualized. Pulmonary parenchyma: There are moderate bilateral pleural effusions and subjacent infiltrates. No a rchitectural distortion. Visualized thyroid gland: The thyroid gland is heterogeneous with multiple masses present. There larsen s appear to be a large 3.5 x 2.3 cm nodule. A nonemergent thyroid ultrasound is recommended for furt her evaluation. Mediastinum and Joselyn: No dominant adenopathy or fluid collection. The esophagus is unremarkable. Pleura: No pneumothorax. Heart: Mild cardiomegaly. There are marked calcification and/or stents the coronary arteries. No pe ricardial effusion. Pulmonary arteries: No central pulmonary embolus is present. The segmental and subsegmental pulmonar y arteries are poorly evaluated on this examination due to bolus timing. Aorta: Thoracic aorta non-dilated. Atherosclerosis. Lymph nodes: Within normal limits. Soft tissues: Unremarkable. Bones:Within normal limits for the patient's age. There are healed bilateral rib fractures. There i s a comminuted fracture of the T12 vertebral body of indeterminate age. There is retropulsion into t he spinal canal with an AP diameter of 8 mm. This compares to an AP diameter of 1.5 cm at the level above. Bilateral neural foraminal stenosis is seen at T11-T12 and T12-L1. ABDOMEN: Liver: Normal density. There is a stable peripheral cyst in the right lobe of the liver. Portal, Superior Mesenteric, and Splenic Veins: Unremarkable. Gallbladder and Biliary Tract: Status post cholecystectomy. No significant biliary ductal dilatation . Pancreas: Normal density, no abnormal calcifications or inflammatory process. Spleen: Normal. Adrenals: No masses seen. Kidneys: Normal size, contour and axis. No radiodense stones or obstructive uropathy. There is a cyst in the superior pole of the right kidney. Abdominal Aorta: Abdominal portion non-dilated. Marked atherosclerosis. Bowel: There is diverticulosis of the colon without evidence of acute diverticulitis. There is no joseph wel wall thickening or obstruction. There is no evidence of acute appendicitis. Peritoneal Cavity: No ascites, collection or mesenteric inflammatory response. No free air. Lymph Nodes: Within normal limits. Bones: The patient has a left total hip replacement. Soft Tissues: Unremarkable. PELVIS: Bladder: The urinary bladder is adequately distended. Portions of the bladder are obscured by the ar tifact from the left hip prosthesis. No gross abnormalities identified. Reproductive Organs: Status post hysterectomy. Lymph Nodes: Within normal limits. Bones: Within normal limits. IMPRESSION: 1. There are moderate bilateral pleural effusions and subjacent infiltrates which may represent atele ctasis or pneumonia. 2. There is cardiomegaly. 3. Heterogeneous thyroid gland with 3.5 cm nodule. Nonemergent thyroid ultrasound is recommended for further evaluation. 4. Comminuted T12 vertebral body fracture with retropulsion into the spinal canal. There is loss of approximately half of the AP diameter of the spinal canal at this level secondary to the fracture. T his is of indeterminate acuity. Please correlate clinically. 5. No acute abdominal pelvic process. 6. Findings were discussed with Dr. Anderson at 10:35 a.m. on 05/01/2023. RADIATION DOSE DELIVERED: 1,143.79mGy.cm Total DLP DATA REPOSITORY: All CT scans at this facility are submitted to the National Radiology Data Registry (NRDR) Dose Index Registry (DIR) with the [employer] (ACR). RADIATION OPTIMIZATION: All CT scans at this facility use at least one of these dose optimization te chniques: automated exposure control; mA and/or kV adjustment per patient size (includes targeted exa ms where dose is matched to clinical indication); or iterative reconstruction.
[2023-05-01] MEDS: Furosemide 20 MG/2 ML VIAL IVP ×2 (10:44→15:16)
[2023-05-01 12:01] LABS: Lab Add On Test DONE
[2023-05-01 12:47] LABS: Procalcitonin < 0.1 ng/mL
[2023-05-01 12:58] LABS: Clarity Clear (Clear)
[2023-05-01 12:59] LABS: Bilirubin Negative (Negative); Blood Trace-lysed (Negative); Glucose Negative (Negative); Ketones Negative (Negative); Leukocyte Esterase Negative (Negative); Nitrite Negative (Negative); Urobilinogen 0.2 mg/dL (Up to 0.2)
[2023-05-01 13:07] LABS: Bacteria Few HPF (Negative); C & S Indicated? No/Sq. Contamination; Casts Negative LPF (Negative); Crystals Negative HPF (Negative); Epithelial Cells Many HPF (Negative); Mucus Negative (Negative); WBC 0-2 HPF (0-5)
[2023-05-01] MEDS: DOXYCYCLINE 100 MG in Normal Saline 100 ML IVPB (14:10)
--- NOTE | 2023-05-01 14:38 | W.PM.HP.N ---
Date of service: 05/01/23 Time of Service: 14:39 Assessment and Plan Assessment and plan (1) CHF exacerbation: Status: Acute Assessment and plan: H/O HFpEF. Etiology not clear but may have some basis in amount of Na intake. Troponin negative. Responded well to first IV lasix dosage. Cont 20mg IV lasix BID. Daily wt. Supplemental O2 as needed; attempt to wean off. Echocardiogram. (2) Hypoxemia: Status: Acute Assessment and plan: Secondary to pulmonary edema. Diuresing. Supplemental O2. (3) Compression fracture of T12 vertebra: Status: Acute Assessment and plan: She is on chronic 5mg prednisone for RA. No current complaint of pain. Acetaminophen as needed. Previously had lidoderm patch but not on current med list; add if needed. (4) Depressive disorder: Status: Chronic Assessment and plan: Wellbutrin recently discontinued and citalopram initiated. Currently is hyponatremic (daughters state this has occured on previous occasions and she becomes confused even with modest decreases); citalopram can cause hyponatremia. (5) Rheumatoid arthritis: Status: Chronic Assessment and plan: Cont weekly methotrexate; due today. Prednisone 5mg daily. (6) Pulmonary embolism: Status: Chronic Assessment and plan: Previous history. Not on anticoagulation. (7) Hyponatremia: Status: Acute Assessment and plan: In background of CHF as well as recently started (04/23/23) citalopram. Should improve with diureses. Monitor. History of Present Illness History of Present Illness Chief Complaint: Shortness of breath Narrative: This is an 82 yo female with a PMH of HFpEF, mild cognitive impairment, HLD, depression, RA, adrenal insufficiency, pulmonary embolism. She presented via EMS after having a restless night of sleep, feeling short of air. Questionable mild chest pain/pressure. No palpitations. She also endorsed nausea and cough. No fever. She has had a PMH of admissions at [facility] for CHF exacerbations. Her WBC count and procalcitonin were normal. HGB 11.4. Na 130. K 3.5. Creatinine 0.5. Mg 1.7. Troponin neg. CT chest with bilateral pleural effusions and atelectasis vs infiltrates. +cardiomegaly. Also noted was a comminuted T12 vertebral body fx with retorpulsion into the spinal canal with appx half of the AP diameter of the spinal canal limited secondarily to the fx. RA O2 saturations in the upper 80's. Supplemental O2 initiated. She was given 20mg IV lasix with good diureses following administration. 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) use of systemic steroids (Acute) Heart failure with preserved ejection fraction (Acute) EF 45% 08/13 [facility] [place] History of delirium (Acute) Recurrent with hospitalizations Mild cognitive impairment (Acute) Constipation (Acute) Impacted cerumen of both ears (Acute) Cerumen impaction (Acute) Urinary incontinence (Acute) Right knee pain (Acute) Restless legs (Acute) Right wrist pain (Acute) Osteoarthritis (Chronic) Low back pain (Acute) HLD (hyperlipidemia) (Acute) Gastroesophageal reflux disease (Chronic) Edema (Acute) Depressive disorder (Chronic) [place] of toe (Acute) Chronic hypotension (Acute) CTS (carpal tunnel syndrome) (Acute) Ankle pain (Acute) Allergic rhinitis (Acute) SVT (supraventricular tachycardia) (Chronic) Orthostatic hypotension (Acute) Iron deficiency anemia (Acute) HTN (hypertension) (Chronic) Discharge planning issues (Acute) DVT prophylaxis (Acute) Occult blood positive stool (Acute) H/O: GI bleed (Acute) Pain (Acute) Rheumatoid arthritis (Chronic) [facility] [place]um Adrenal insufficiency (Acute) Syncope (Chronic) Pulmonary embolism (Chronic) Medical History Ankle joint pain Arthritis FH: cholecystectomy Surgical History H/O: hysterectomy History of cholecystectomy S/P excision of lipoma Family History Mother Cancer of stomach Father Heart disease Sister Heart disease Lung cancer Social History Smoking/Tobacco Use Status: Former Tobacco Use Smoking risk assessment performed?: Yes Alcohol Intake: never Drug use: Never Housing: house Do you feel safe at home: Yes Do you feel safe in your relationship?: Yes Meds Allergies and Home Medications Allergies Allergy/AdvReac Type Severity Reaction Status Date / Time animal dander Allergy Verified 07/09/22 10:56 house dust Allergy Verified 07/09/22 10:56 mold Allergy Verified 07/09/22 10:56 tree and shrub pollen Allergy Verified 07/09/22 10:56 hydromorphone [From Dilaudid] AdvReac Intermediate Other (See Unverified 07/09/22 10:56 Comment) Penicillins AdvReac Mild keeps Unverified 07/09/22 10:56 getting sicker lactose AdvReac Verified 05/01/23 13:49 Home Medications Medication Instructions Recorded Confirmed Type loratadine 10 mg tablet 10 mg PO DAILY 09/23/14 11/29/22 History aspirin 81 mg tablet,delayed 81 mg PO DAILY 01/10/19 11/29/22 History release (Aspir-Low) omeprazole 40 mg capsule,delayed 40 mg PO BID #30 caps 01/13/19 11/29/22 Rx release atorvastatin 20 mg tablet 20 mg PO DAILY 12/16/21 11/29/22 History bupropion HCl 150 mg 24 hr tablet, 150 mg PO 4-8XD 12/16/21 11/29/22 History extended release clobetasol 0.05 % scalp solution 1 applic topical DAILY 12/16/21 11/29/22 History folic acid 1 mg tablet 800 mcg PO DAILY 12/16/21 11/29/22 History hydroxychloroquine 200 mg tablet 200 mg PO BID 12/16/21 11/29/22 History ondansetron 4 mg disintegrating 4 mg PO Q12H PRN PRN 12/16/21 11/29/22 History tablet polyethylene glycol 3350 17 gram 17 g PO BID 12/16/21 11/29/22 History oral powder packet (Miralax) prednisone 10 mg tablet 5 mg PO DAILY 12/16/21 11/29/22 History tramadol 50 mg tablet 25 mg PO BID PRN 12/16/21 11/29/22 History lidocaine 5 % topical patch 1 patch DAILY 03/16/22 11/29/22 History cholecalciferol (vitamin D3) 50 50 mcg PO DAILY 04/11/22 11/29/22 History mcg (2,000 unit) capsule magnesium chloride 64 mg 64 mg PO DAILY 04/11/22 11/29/22 History (magnesium chloride) tablet,delayed release melatonin 3 mg capsule 3 mg PO HS PRN 04/11/22 11/29/22 History furosemide 20 mg tablet (Lasix) 20 mg PO DAILY 05/03/22 11/29/22 History lidocaine 5 % topical patch 1 patch topical DAILY 05/03/22 11/29/22 History (Lidoderm) mirabegron 25 mg tablet,extended 25 mg PO DAILY 05/03/22 11/29/22 History release 24 hr (Myrbetriq) acetaminophen 500 mg capsule 1,000 mg PO BID pain #10 caps 09/04/22 11/29/22 Rx folic acid 1 mg tablet 2 mg PO DAILY #7 tabs 09/04/22 11/29/22 Rx methotrexate sodium 2.5 mg tablet 15 mg PO QWEEK 09/04/22 11/29/22 History morphine concentrate 100 mg/5 mL 10 mg (0.5 mL) PO Q4H PRN pain #15 09/04/22 11/29/22 Rx (20 mg/mL) oral solution mL lorazepam 0.5 mg tablet 0.5 mg PO Q6H PRN Anxiety #1 tab 11/29/22 11/29/22 Rx morphine concentrate 100 mg/5 mL 5 mg (0.25 mL) PO Q3H PRN pain #15 11/29/22 11/29/22 Rx (20 mg/mL) oral solution mL Exam Narrative Exam Narrative: Elderly female lying with head of bed at 45 degrees. Pleasant and conversational. NAD HEENT: sclera clear. MMM Neck: No JVD. Lungs: crackles throughout. Nonlabored breathing. CV: RRR Abd: soft, NT, ND Exts: 2+ pedal edema. No calf tenderness. Psych: A&O to person. Affect flat. Results Labs 05/01/23 09:05 05/01/23 09:05 Labs: Laboratory Results - last 24 hr 05/01/23 05/01/23 05/01/23 09:05 09:05 09:05 WBC 10.68 RBC 3.29 L Hgb 11.4 Hct 33.0 L MCV 100 H MCH 34.7 H MCHC 34.5 RDW 13.7 Plt Count 224 MPV 9.4 Immature Gran % 0.5 Neutrophils % 74.6 Lymphocytes % 14.2 Monocytes % 9.9 Eosinophils % 0.6 Basophils % 0.2 Nucleated RBC % 0.0 Absolute Neutrophils 7.97 H Absolute Lymphocytes 1.52 Absolute Monocytes 1.06 H Absolute Eosinophils 0.06 Absolute Basophils 0.02 Sodium 130 L Potassium 3.5 Chloride 93 L Carbon Dioxide 31.2 Anion Gap 5.8 BUN 13 Creatinine 0.5 L Est GFR (CKD-EPI 2020) 92.43 Glucose 97 Calcium 8.1 L Total Bilirubin 0.6 AST 20 ALT 20 Alkaline Phosphatase 67 Troponin I < 50 NT-Pro-B Natriuret Pep 7704 H Total Protein 5.2 L Albumin 2.9 L Lipase 16 Procalcitonin Urine Color Urine Clarity Urine pH Ur Specific [place] Urine Protein Urine Ketones Urine Blood Urine Nitrite Urine Bilirubin Urine Urobilinogen Ur Leukocyte Esterase Urine RBC Urine WBC Ur Epithelial Cells Urine Crystals Urine Bacteria Urine Casts Urine Mucus Ur Culture Indicated? Urine Glucose Add-On Test Request DONE 05/01/23 05/01/23 09:05 12:40 WBC RBC Hgb Hct MCV MCH MCHC RDW Plt Count MPV Immature Gran % Neutrophils % Lymphocytes % Monocytes % Eosinophils % Basophils % Nucleated RBC % Absolute Neutrophils Absolute Lymphocytes Absolute Monocytes Absolute Eosinophils Absolute Basophils Sodium Potassium Chloride Carbon Dioxide Anion Gap BUN Creatinine Est GFR (CKD-EPI 2020) Glucose Calcium Total Bilirubin AST ALT Alkaline Phosphatase Troponin I NT-Pro-B Natriuret Pep Total Protein Albumin Lipase Procalcitonin < 0.1 Urine Color Yellow Urine Clarity Clear Urine pH 7.0 Ur Specific [place] 1.010 Urine Protein Negative Urine Ketones Negative Urine Blood Trace-lysed H Urine Nitrite Negative Urine Bilirubin Negative Urine Urobilinogen 0.2 Ur Leukocyte Esterase Negative Urine RBC 3-5 H Urine WBC 0-2 Ur Epithelial Cells Many Urine Crystals Negative Urine Bacteria Few Urine Casts Negative Urine Mucus Negative Ur Culture Indicated? No/Sq. Contamination Urine Glucose Negative Add-On Test Request Last Vital Signs Temp 37.1 C 05/01/23 12:50 Pulse 77 05/01/23 12:50 Resp 22 05/01/23 12:50 BP 139/78 05/01/23 12:50 Pulse Ox 91 L 05/01/23 12:50 Time Spent Time spent with Patient: 40-54 minutes Time was spent: preparing to see the patient(eg.review tests), obtaining and/or reviewing separately otained hiistory, ordering medications,tests, procedures, referring, communicating with other health care coordination manager, indepentently interpreting results and counseling the patient
[2023-05-01] MEDS: Magnesium Oxide 400 MG TAB PO ×3 (15:16→20:46)
[2023-05-01] MEDS: POTASSIUM CHLORIDE 10 MEQ/100 ML BAG 100 MEQ IVPB (15:18)
[2023-05-01] MEDS: Enoxaparin 40 MG/0.4 ML SYR SC (15:44)
[2023-05-01 16:16] LABS: Troponin I < 50 ng/L (<or=60)
[2023-05-01] MEDS: Prochlorperazine 10 MG/2 ML VIAL IVP (19:53)
[2023-05-01] MEDS: Normal Saline Flush 10 ML SYR IVP ×2 (19:54→21:51)
[2023-05-01] MEDS: Potassium Chloride 20 MEQ TABCR PO (20:46)
[2023-05-01] MEDS: Melatonin 3 MG TAB 9 MG PO (20:46)
[2023-05-01] MEDS: LORazepam 2 MG/ML VIAL 0.5 MG IVP (21:51)
[2023-05-01] MEDS: QUEtiapine 25 MG TAB PO (23:30)
[2023-05-02] VITALS (17 sets, daily range): BP systolic 124–196; BP diastolic 62–93; PULSE 90–135; RESP 2–35; TEMP 36.4–37.4; O2SAT 86–97
[2023-05-02] MEDS: Prochlorperazine 10 MG/2 ML VIAL IVP ×3 (02:00→16:48)
[2023-05-02] MEDS: LORazepam 2 MG/ML VIAL 0.5 MG IVP ×4 (02:11→21:30)
[2023-05-02] MEDS: Normal Saline Flush 10 ML SYR IVP ×7 (02:11→13:09)
[2023-05-02] MEDS: Levalbuterol 1.25 MG/3 ML UPD VIAL UPD ×4 (02:15→03:34)
[2023-05-02] MEDS: Furosemide 20 MG/2 ML VIAL IVP ×3 (02:20→16:47)
--- NOTE | 2023-05-02 02:45 | DI.RAD_ITS ---
Exam(s) XR PORTABLE CHEST AP EXAM: XR PORTABLE CHEST AP CLINICAL HISTORY: increased SOB TECHNIQUE: 2D digital imaging was performed. COMPARISON: CR XR CHEST 2V PA LATERAL from 01/18/[address] CHEST/ABD/PEL W from 05/01/2023 FINDINGS: The exam is limited by under penetration at the lung bases as well as lack of pulmonary inflation. Leads overlie the chest. LUNGS: Small bilateral pleural effusions. Pulmonary prominence and increased interstitial markings s uspicious for CHF. HEART: Difficult to evaluate due to expiratory changes. AORTA: Normal diameter. Calcified. BONES: Mostly obscured. Soft tissues: Unremarkable. IMPRESSION: limited exam. Findings suspicious for CHF. DATA REPOSITORY: RADIATION DOSE DELIVERED:
--- NOTE | 2023-05-02 03:19 | NUR.NOTE ---
Nursing Note: At 0150, pt bed alarm went off, pt found to be attempting to get out of bed. Pt agitated and restless, endorsed shortness of breath and nausea. Audible wheezes (inspiratory and expiratory) as well as crackles in bilateral anterior lungs. Vital signs found to be BP 196/92 (manual/auscultation), P 135, T 37.1, O2 86% on current 1L/min NC. CC notified, MD/COMPOSITE BOND WORKER made aware. PRN compezine administered per NOV, O2 titrated to 3L/min with recovery to >90% oxygen saturation. IVP furosemide administered per NOV and isbell catheter placed with immediate 600cc yellow/light esther urine. PRN xopenex administered per NOV x3 per COMPOSITE BOND WORKER ad chest xray obtained. PRN lorazepam administered per NOV for increased agitation/anxiety with good effect, blood cultures also drawn. Pt maintaining oxygen saturations >90% on 3L/min NC, although with coarse crackles/expiratory wheezes/accessory muscle use. BP improved to 124/64, P now 90-96. CC/COMPOSITE BOND WORKER aware. Will continue to monitor closely.
[2023-05-02] MEDS: Furosemide 40 MG/4 ML VIAL IVP (03:38)
[2023-05-02] MEDS: cefTRIAXone 1 GM/50 ML BAG IVPB (03:38)
[2023-05-02 03:40] LABS: Anion Gap 10.2 mmol/L (3-11); BUN 12 mg/dL (7-18); CO2 26.8 mmol/L (21.0-32.0); CREATININE 0.5 mg/dL (0.55-1.02); Calcium 8.1 mg/dL (8.5-10.1); Chloride 93 mmol/L (98-107); Estimated GFR 92.43 (mL/min/1.73m2); Glucose 109 mg/dL (74-106); Magnesium 1.5 mg/dL (1.8-2.4); Sodium 130 mmol/L (136-145)
[2023-05-02 03:44] LABS: Potassium 2.9 mmol/L (3.5-5.1)
[2023-05-02 03:47] LABS: Troponin I < 50 ng/L (<or=60)
[2023-05-02 03:51] LABS: NT-proBNP 9621 pg/mL (<300)
--- NOTE | 2023-05-02 04:01 | DI.VRAD_ITS ---
PROCEDURE INFORMATION: Exam: XR Chest Exam date and time: 05/02/2023 2:55 AM Age: 82 years old Clinical indication: Shortness of breath TECHNIQUE: Imaging protocol: Radiologic exam of the chest. Views: 1 view. COMPARISON: CT CHEST/ABD/PEL W 05/01/2023 9:53 AM FINDINGS: Bilateral pleural effusions. Bibasilar infiltrates, left greater than right. No pneumothorax. Pulmonary venous congestion. Calcified thoracic aorta. IMPRESSION: Bilateral pleural effusions and bibasilar infiltrates. Dictated and Authenticated by: Mohamud Bae MD. Ordering:TANK Rose MD
[2023-05-02] MEDS: POTASSIUM CHLORIDE 10 MEQ/100 ML BAG 100 MEQ IVPB ×4 (04:05→07:16)
--- NOTE | 2023-05-02 08:48 | INITIAL_ITS ---
Date of service: 05/02/23 Time of Service: 08:48 Care Management Initial Assmt Initial Assessment REASON FOR HOSPITALIZATION:: CHF PREVIOUS FUNCTIONAL STATUS/SOCIAL/FAMILY SUPPORTS:: Alexa lives in a single family home [place] with her daughter Raisa and Raisa's . She has [employer] Highest needs and has caregivers from 9-12 every day who help with ADLs and meals. Alexa uses a walker for ambulation and uses a hospital bed for sleep. Alexa also has a wheelchair which is used when she goes out of the home. CURRENT FUNCTIONAL STATUS:: Alexa was asleep when CM went to meet with her. Her daughter Rosemarie was present and requested that she not be awakened. Last night Alexa became very agitated and required medication. Marc was able to provide CM with all needed information and was very helpful. She explained that Alexa can function independently at home. She moves slowly and requires assistance but she is not confused. Rosemarie stated that Alexa always becomes delirious when hospitalized. Rosemarie informed CM that the family has been considering hospice for Alexa. She had several questions which CM was able to answer. A hospice consult will be considered if Alexa remains hospi talized through the weekend. ADVANCE DIRECTIVES:: On file. Raisa Cisneros Has patient been provided with info about the portal/API?: Yes Did the patient sign up for the portal?: No CODE STATUS:: DNR/DNI INSURANCE COVERAGE / FINANCIAL ISSUES:: Medicare teletypesetter monitor Medicaid CURRENT HOME/COMMUNITY SERVICES/EQUIPMENT:: hospital bed, wheelchair, walker, commode [employer] highest needs with 3 hours/day of caregiver support PRIMARY CARE PHYSICIAN:: Autumn Awan POTENTIAL DISCHARGE NEEDS:: Follow up with PCP and plan of care PATIENT/FAMILY EDUCATION NEEDS:: Review of discharge instructions, activity, limitations, follow up plan, discuss Ask Me Three TRANSPORTATION:: via private vehicle PLAN:: Anticipate that Alexa will be discharged home with a resumption of her caregiver services. She will follow up with her community providers and plan of care and transport with family. CM will continue to support Alexa and assess for discharge planning needs. 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) use of systemic steroids (Acute) Heart failure with preserved ejection fraction (Acute) EF 45% 08/13 [facility] [place] History of delirium (Acute) Recurrent with hospitalizations Mild cognitive impairment (Acute) Constipation (Acute) Impacted cerumen of both ears (Acute) Cerumen impaction (Acute) Urinary incontinence (Acute) Right knee pain (Acute) Restless legs (Acute) Right wrist pain (Acute) Osteoarthritis (Chronic) Low back pain (Acute) HLD (hyperlipidemia) (Acute) Gastroesophageal reflux disease (Chronic) Edema (Acute) Depressive disorder (Chronic) [place] of toe (Acute) Chronic hypotension (Acute) CTS (carpal tunnel syndrome) (Acute) Ankle pain (Acute) Allergic rhinitis (Acute) SVT (supraventricular tachycardia) (Chronic) Orthostatic hypotension (Acute) Iron deficiency anemia (Acute) HTN (hypertension) (Chronic) Discharge planning issues (Acute) DVT prophylaxis (Acute) Occult blood positive stool (Acute) H/O: GI bleed (Acute) Pain (Acute) Rheumatoid arthritis (Chronic) [facility] [place] Rheum Adrenal insufficiency (Acute) Syncope (Chronic) Pulmonary embolism (Chronic) Medical History Ankle joint pain Arthritis FH: cholecystectomy Surgical History H/O: hysterectomy History of cholecystectomy S/P excision of lipoma Family History Mother Cancer of stomach Father Heart disease Sister Heart disease Lung cancer Social History Smoking/Tobacco Use Status: Former Tobacco Use Smoking risk assessment performed?: Yes Alcohol Intake: never Drug use: Never Housing: house Do you feel safe at home: Yes Do you feel safe in your relationship?: Yes
[2023-05-02] MEDS: LORazepam 2 MG/ML VIAL 1 MG IVP (10:08)
--- NOTE | 2023-05-02 15:56 | CHAPLAIN ---
Alexa was mostly sleeping when I visited. She woke up now and then and spoke a few words to her daughter. She was feeling warm and did not want to have any clothes on. She lives with another daughter in [place], and that daughter is on vacation so another daughter, Rosemarie is with her now. Rosemarie said her mom prefers to be at home and does much better at home. Alexa had some delirium last night so Rosemarie is planning on spending the night tonight to help with that. Rosemarie asked if it were possible for Alexa to have Reiki as she did last night she was here and her turned out to be very relaxing for her. I suggested she check with nursing staff on Friday if Alexa is still her to see if the Reiki volunteer is a available. Rosemarie shared that Alexa is the eight of 16 children born within about 20 years. I introduced myself, explained my role and offered support.
[2023-05-02] MEDS: Enoxaparin 40 MG/0.4 ML SYR SC (16:20)
--- NOTE | 2023-05-02 17:29 | PDOC.STREC ---
Date of service: 05/02/23 Time of Service: 17:29 Speech Therapy Recommendations Report ST Recommendations: NON-TREATMENT RECOMMENDATION NOTE: HPI/Medical history ? Alexa is an 82 y/o F with PMH of HFpEF, mild cognitive impairment, HLD, depression, RA, adrenal insufficiency, pulmonary embolism.? She is hospitalized with altered mental status and also with acute dysphagia secondary to medical CHF exacerbation with altered mental status. Also hypoxemic currently on 1L oxygen. CT chest with bilateral pleural effusions and atelectasis vs infiltrates. She lives with her daughter who is her primary caregiver, but is currently being cared for by her other daughter as primary is on vacation. Subjective: Unfortunately patient was asleep most of the day when attempting to make contact for clinical swallow evaluation. Re-visited with daughter present at 5pm but patient continues to be somnolent and barely rousable to touch and voice, only keeping eyes open for 1-2 seconds at a time before falling back asleep. Gathered subjective from patient's daughter who stated that Alexa has been taking her pills fine and eating ok all week. Typically she performs her own oral care standing up at the sink. She does have partial top plate for upper dentition per daughter report and has to avoid very hard/crunch foods. Dissolvable solids such as ritz crackers are ok. During CHF, her swallowing becomes very poor, as it is reportedly now, and she is unable to coordinate or initiate a swallow. As [employer] IOS DEVELOPER does not provide service on the weekends, patient/family were instructed on conditions for consideration of starting PO diet. Dysphagia education provided. Recommendations: NPO at this time. If patient's cognitive/mental and medical status improves to meet the following criteria, a PO diet may be trialed: -Awake alert for 30+ min at a time -Oriented to self, place, and situation -Consistently accurate with Y/N questions -Able to follow 2-step instructions consistently. -Patient is subjectively close to baseline mental status per family report. -Patient is able to sit upright or tolerate supported upright posture for 30 minutes at close to 90 degrees. -Tolerating low flow O2 or room air without dyspnea and with good O2 saturation. -Able to speak in full sentences. If medical staff would like to trial PO diet over the weekend, the following conditions would be recommended: Diet: Puree solids to start, if tolerated well may advance to minced/moist. Thin liquids to start, if not tolerated provide only water via tsp. Medications: 1 at a time with puree Posture: Upright at bedside or upright HOB as close to 90 degrees as possible. Risk management: Oral care BID and before & after each meal/snack. Fully upright Avoid TV or unnecessary conversation/background noise Assitance/supervision: 1:1 assist/supervision when awake/alert/oriented with cues for the following: Strategies: Small sips and bites (approx. 1/2 tsp) Swallow HARD! Slow rate of intake Swallow between bites Check for wet voice between bites/sips and clear throat gently as needed If coughing/choking/gurgly voice, STOP PO and re-consult [employer] DEVELOPER prior to re-initiating diet. PFSH All Active Problems?(Updated 05/01/23 @ 14:56 by Amaury Coles MD) Hyponatremia (Acute) CHF exacerbation (Acute) Hypoxemia (Acute) Compression fracture of T12 vertebra (Acute) Anxiety (Chronic) Advanced care planning/counseling discussion (Acute) Palliative care encounter (Acute) care home (current) use of systemic steroids (Acute) Heart failure with preserved ejection fraction (Acute) EF 45% 08/13 [facility] [place] [facility] [place] noteHistory of delirium (Acute) Recurrent with hospitalizationsMild cognitive impairment (Acute) Constipation (Acute) Impacted cerumen of both ears (Acute) Cerumen impaction (Acute) Urinary incontinence (Acute) Right knee pain (Acute) Restless legs (Acute) Right wrist pain (Acute) Osteoarthritis (Chronic) Low back pain (Acute) HLD (hyperlipidemia) (Acute) Gastroesophageal reflux disease (Chronic) Edema (Acute) Depressive disorder (Chronic) [place] of toe (Acute) Chronic hypotension (Acute) CTS (carpal tunnel syndrome) (Acute) Ankle pain (Acute) Allergic rhinitis (Acute) SVT (supraventricular tachycardia) (Chronic) Orthostatic hypotension (Acute) Iron deficiency anemia (Acute) HTN (hypertension) (Chronic) Discharge planning issues (Acute) DVT prophylaxis (Acute) Occult blood positive stool (Acute) H/O: GI bleed (Acute) Pain (Acute) Rheumatoid arthritis (Chronic) [facility] [place] [facility] [place]um Adrenal insufficiency (Acute) Syncope (Chronic) Pulmonary embolism (Chronic) Medical History? Ankle joint pain Arthritis FH: cholecystectomy Surgical History? H/O: hysterectomy History of cholecystectomy S/P excision of lipoma Coding
--- NOTE | 2023-05-02 18:17 | W.PM.PROGNOT ---
Date of Service Date of service: 05/02/23 Time of Service: 18:17 Assessment and Plan Assessment and plan (1) CHF exacerbation: Status: Acute Assessment and plan: H/O HFpEF. Etiology not clear but may have some basis in amount of Na intake. Troponin negative. Responded well to first IV lasix dosage. Cont 20mg IV lasix BID. Repeat CXR overnight showed evidence of CHF. Echocardiogram: Limited exam technically. EF est visually at 40%. Right ventricle normal size. No valvular findings. Daily wt. Supplemental O2 as needed; attempt to wean off. (2) Hypoxemia: Status: Acute Assessment and plan: Secondary to pulmonary edema. Diuresing. Supplemental O2. Now on 1L NC with saturations in the upper 90's. (3) Delirium: Status: Acute Assessment and plan: In background of dementia. IV haldol, 4mg planned for tonight if needed. Her daughters have noted this typically occured during her previous hospitalizations. (4) Compression fracture of T12 vertebra: Status: Acute Assessment and plan: She is on chronic 5mg prednisone for RA. No current complaint of pain. Acetaminophen as needed. Previously had lidoderm patch but not on current med list; add if needed. (5) Depressive disorder: Status: Chronic Assessment and plan: Wellbutrin recently discontinued and citalopram initiated. Currently is hyponatremic (daughters state this has occured on previous occasions and she becomes confused even with modest decreases); citalopram can cause hyponatremia. (6) Rheumatoid arthritis: Status: Chronic Assessment and plan: Cont weekly methotrexate; due today. Prednisone 5mg daily. (7) Pulmonary embolism: Status: Chronic Assessment and plan: Previous history. Not on anticoagulation. (8) Hyponatremia: Status: Acute Assessment and plan: In background of CHF as well as recently started (04/23/23) citalopram. Na 130 on admission; 130 again today. Monitor. Subjective Subjective Patient reports: nausea, vomiting and afebrile Interval history since last seen: Pt has been agitated and delirious; overnight and this AM. She was given IV ativan initially with some decrease in her agitated behaviors. Overnight she was more tachypneic with increased coarse breath sounds. IV lasix was administered. Supplemental O2 titrated as needed. Exam Narrative Exam Narrative: Elderly female lying in bed. Restless; trying to get out of bed. Doesn't follow commands. HEENT: sclera clear. MMM Neck: No JVD. Lungs: crackles throughout. Coarse upper airway sounds. CV: RRR Abd: soft, NT, ND Exts: 1+ pedal edema. No calf tenderness. Psych: Drowsy. Confused. Objective Last Vital Signs Temp 36.5 C 05/02/23 07:21 Pulse 100 H 05/02/23 15:00 Resp 18 05/02/23 07:21 BP 165/84 H 05/02/23 07:21 Pulse Ox 96 05/02/23 15:57 Laboratory Results - last 24 hr 05/02/23 05/02/23 05/02/23 03:22 03:22 03:22 WBC RBC Hgb Hct MCV MCH MCHC RDW Plt Count MPV Immature Gran % Neutrophils % Band Neutrophils % Lymphocytes % Atypical Lymphs % Monocytes % Eosinophils % Basophils % Metamyelocytes % Myelocytes % Promyelocytes % Other Cells % Nucleated RBC % Absolute Neutrophils Absolute Lymphocytes Absolute Monocytes Absolute Eosinophils Absolute Basophils RBC Morphology Polychromasia Hypochromasia Poikilocytosis Basophilic Stippling Anisocytosis Microcytosis Macrocytosis Spherocytes Tear Drop Cells Ovalocytes Stomatocytes [place] Bodies [place] Cells/Echinocytes Acanthocytes (Spur) Schistocytes Sodium 130 L Potassium 2.9 L Chloride 93 L Carbon Dioxide 26.8 Anion Gap 10.2 BUN 12 Creatinine 0.5 L Est GFR (CKD-EPI 2020) 92.43 Glucose 109 H Calcium 8.1 L Magnesium 1.5 L Troponin I < 50 NT-Pro-B Natriuret Pep 9621 H 05/02/23 12:00 WBC Cancelled RBC Cancelled Hgb Cancelled Hct Cancelled MCV Cancelled MCH Cancelled MCHC Cancelled RDW Cancelled Plt Count Cancelled MPV Cancelled Immature Gran % Cancelled Neutrophils % Cancelled Band Neutrophils % Cancelled Lymphocytes % Cancelled Atypical Lymphs % Cancelled Monocytes % Cancelled Eosinophils % Cancelled Basophils % Cancelled Metamyelocytes % Cancelled Myelocytes % Cancelled Promyelocytes % Cancelled Other Cells % Cancelled Nucleated RBC % Cancelled Absolute Neutrophils Cancelled Absolute Lymphocytes Cancelled Absolute Monocytes Cancelled Absolute Eosinophils Cancelled Absolute Basophils Cancelled RBC Morphology Cancelled Polychromasia Cancelled Hypochromasia Cancelled Poikilocytosis Cancelled Basophilic Stippling Cancelled Anisocytosis Cancelled Microcytosis Cancelled Macrocytosis Cancelled Spherocytes Cancelled Tear Drop Cells Cancelled Ovalocytes Cancelled Stomatocytes Cancelled [place] Bodies Cancelled [place] Cells/Echinocytes Cancelled Acanthocytes (Spur) Cancelled Schistocytes Cancelled Sodium Potassium Chloride Carbon Dioxide Anion Gap BUN Creatinine Est GFR (CKD-EPI 2020) Glucose Calcium Magnesium Troponin I NT-Pro-B Natriuret Pep Time Spent with Patient Time Spent with Patient: 25-34 minutes Time was spent: preparing to see the patient(eg.review tests), obtaining and/or reviewing separately otained hiistory, ordering medications,tests, procedures, referring, communicating with other health post acute care registered nurse, indepentently interpreting results and counseling the patient
[2023-05-02] MEDS: Haloperidol 5 MG/ML VIAL 4 MG IM/IV (19:09)
[2023-05-02] MEDS: ACETAMINOPHEN 1,000 MG/100 ML BTL 400 MG IVPB (20:43)
[2023-05-03] VITALS (13 sets, daily range): BP systolic 153–190; BP diastolic 74–95; PULSE 82–150; RESP 2–26; TEMP 36.1–37; O2SAT 90–95
[2023-05-03] MEDS: Levalbuterol 1.25 MG/3 ML UPD VIAL UPD (00:39)
[2023-05-03] MEDS: Furosemide 40 MG/4 ML VIAL IVP (01:32)
[2023-05-03] MEDS: LORazepam 2 MG/ML VIAL 1 MG IVP ×2 (01:32→05:52)
[2023-05-03 03:08] LABS: Abs Immature Grans 0.03 10^3/uL (0.0-0.06); Absolute Basophil Count 0.03 10^3/uL (0.0-0.2); Absolute Eosinophil Count 0.02 10^3/uL (0.0-0.7); Absolute Lymphocyte Count 0.64 10^3/uL (1.2-3.4); Absolute Monocyte Count 0.91 10^3/uL (0.1-0.8); Absolute Neutrophil Count 7.71 10^3/uL (1.2-6.7); Basophils % 0.3; Eosinophils % 0.2; HCT 31.9 % (36.0-46.0); HGB 11.5 g/dL (11.2-15.7); Immature Grans % 0.3; Lymphocytes % 6.9; MCH 34.8 pg (27.0-33.0); MCHC 36.1 % (32.0-36.0); MCV 97 fL (80-95); MPV 9.9 fL (8.0-11.0); Monocytes % 9.7; Neutrophils % 82.6; Platelet Count 208 10^3/uL (130-400); RDW 13.3 % (11.7-14.6); RDW-SD 47.4 fL; WBC 9.34 10^3/uL (4.4-10.8)
[2023-05-03] MEDS: cefTRIAXone 1 GM/50 ML BAG IVPB (03:17)
[2023-05-03 03:18] LABS: Anion Gap 8.2 mmol/L (3-11); BUN 10 mg/dL (7-18); CO2 29.8 mmol/L (21.0-32.0); CREATININE 0.4 mg/dL (0.55-1.02); Calcium 8.3 mg/dL (8.5-10.1); Chloride 90 mmol/L (98-107); Estimated GFR 97.53 (mL/min/1.73m2); Glucose 91 mg/dL (74-106); Magnesium 1.4 mg/dL (1.8-2.4); Sodium 128 mmol/L (136-145)
[2023-05-03] MEDS: Normal Saline Flush 10 ML SYR IVP ×4 (03:20→16:04)
[2023-05-03 03:21] LABS: Potassium 2.7 mmol/L (3.5-5.1)
[2023-05-03 07:10] LABS: Anion Gap 8.4 mmol/L (3-11); BUN 9 mg/dL (7-18); CO2 29.6 mmol/L (21.0-32.0); CREATININE 0.4 mg/dL (0.55-1.02); Calcium 8.1 mg/dL (8.5-10.1); Chloride 89 mmol/L (98-107); Estimated GFR 97.53 (mL/min/1.73m2); Glucose 84 mg/dL (74-106); Magnesium 1.3 mg/dL (1.8-2.4); Sodium 127 mmol/L (136-145)
[2023-05-03 07:30] LABS: Potassium 2.6 mmol/L (3.5-5.1)
--- NOTE | 2023-05-03 08:03 | NUR.NOTE ---
in chart to check on the status of ECG Nursing Note:
[2023-05-03] MEDS: MAGNESIUM SULFATE 4 GM/100 ML BAG IVPB (08:58)
[2023-05-03] MEDS: POTASSIUM CHLORIDE 10 MEQ/100 ML BAG 100 MEQ IVPB ×4 (08:59→12:48)
[2023-05-03] MEDS: Furosemide 20 MG/2 ML VIAL IVP ×2 (09:04→16:04)
[2023-05-03] MEDS: Ketorolac 15 MG/ML VIAL IVP (14:39)
--- NOTE | 2023-05-03 14:51 | W.PM.PROGNOT ---
Date of Service Date of service: 05/03/23 Time of Service: 14:51 Assessment and Plan Assessment and plan (1) CHF exacerbation: Status: Acute Assessment and plan: Now on RA H/O HFpEF. Etiology not clear but may have some basis in amount of Na intake. Troponin negative. Responded well to lasix. Cont 20mg IV lasix BID. Repeat CXR overnight showed evidence of CHF. Echocardiogram: Limited exam technically. EF est visually at 40%. Right ventricle normal size. No valvular findings. Daily wt. (2) Hypoxemia: Status: Acute Assessment and plan: Secondary to pulmonary edema. Now not requiring supplemental O2. (3) Delirium: Status: Acute Assessment and plan: In background of dementia. IV haldol, 4mg given last PM. Also received ativan overnight. Her daughters have noted this typically occured during her previous hospitalizations. She is starting to recover from the sedating effect of these medications. (4) Compression fracture of T12 vertebra: Status: Acute Assessment and plan: She is on chronic 5mg prednisone for RA. No current complaint of pain. Acetaminophen now scheduled; 1000mg Q8H Previously had lidoderm patch but not on current med list; add if needed. Will give 15mg IV toradol and then prn if helpful. (5) Depressive disorder: Status: Chronic Assessment and plan: Wellbutrin recently discontinued and citalopram initiated. Currently is hyponatremic (daughters state this has occured on previous occasions and she becomes confused even with modest decreases); citalopram can cause hyponatremia. (6) Rheumatoid arthritis: Status: Chronic Assessment and plan: Cont weekly methotrexate; due today. Prednisone 5mg daily. (7) Pulmonary embolism: Status: Chronic Assessment and plan: Previous history. Not on anticoagulation. (8) Hyponatremia: Status: Acute Assessment and plan: In background of CHF as well as recently started (04/23/23) citalopram. Na decreased to 127 from 130. Monitor. (9) Hypokalemia: Status: Acute Assessment and plan: Repleting and monitoring. (10) Hypomagnesemia: Status: Acute Assessment and plan: Repleting and monitoring. (11) Discharge planning issues: Status: Acute Assessment and plan: Given her hospital related delirium planning to discharge possibly tomorrow. Will discuss when daughter she lives with arrives today. The home is well equipped for the pts needs, including a hospital bed. Subjective Subjective Interval history since last seen: Pt was somnolent much of the day until the middle of the afternoon. She then started to wake up intermittently and was aware of who her daughter that was present was as well as who the daughter talking on the phone was. She stated she was thirsty and was able to swallow to sips of water, but with some delay in her swallowing. Exam Narrative Exam Narrative: Elderly female lying in bed asleep and snoring this AM. Later in the afternoon she was awake intermittently. Smiled and spoke short sentences to her daughters. HEENT: sclera clear. MMM Neck: No JVD. Lungs: crackles throughout. CV: RRR Abd: soft, NT, ND Exts: 1+ pedal edema. No calf tenderness. Psych: Drowsy. Objective Last Vital Signs Temp 37.0 C 05/03/23 11:06 Pulse 90 05/03/23 11:06 Resp 21 05/03/23 11:06 BP 165/79 H 05/03/23 11:06 Pulse Ox 92 05/03/23 11:06 Laboratory Results - last 24 hr 05/03/23 05/03/23 05/03/23 02:44 02:44 06:32 WBC 9.34 RBC 3.30 L Hgb 11.5 Hct 31.9 L MCV 97 H MCH 34.8 H MCHC 36.1 H RDW 13.3 Plt Count 208 MPV 9.9 Immature Gran % 0.3 Neutrophils % 82.6 Lymphocytes % 6.9 Monocytes % 9.7 Eosinophils % 0.2 Basophils % 0.3 Nucleated RBC % 0.0 Absolute Neutrophils 7.71 H Absolute Lymphocytes 0.64 L Absolute Monocytes 0.91 H Absolute Eosinophils 0.02 Absolute Basophils 0.03 Sodium 128 L 127 L Potassium 2.7 L* 2.6 L* Chloride 90 L 89 L Carbon Dioxide 29.8 29.6 Anion Gap 8.2 8.4 BUN 10 9 Creatinine 0.4 L 0.4 L Est GFR (CKD-EPI 2020) 97.53 97.53 Glucose 91 84 Calcium 8.3 L 8.1 L Magnesium 1.4 L 1.3 L Time Spent with Patient Time Spent with Patient: 35-49 minutes Time was spent: preparing to see the patient(eg.review tests), obtaining and/or reviewing separately otained hiistory, ordering medications,tests, procedures, referring, communicating with other health foster care therapist, indepentently interpreting results, counseling the patient and care coordination
[2023-05-03] MEDS: Potassium Chloride 20 MEQ TABCR PO (19:33)
[2023-05-03] MEDS: Magnesium Oxide 400 MG TAB PO (19:33)
[2023-05-03] MEDS: QUEtiapine 25 MG TAB PO (19:33)
[2023-05-03] MEDS: ACETAMINOPHEN 1,000 MG/100 ML BTL 400 MG IVPB (20:33)
[2023-05-04] MEDS: cefTRIAXone 1 GM/50 ML BAG IVPB (03:37)
[2023-05-04 05:45] VITALS: BP 160/90; PULSE 97; RESP 16; TEMP 36.8; O2SAT 92
[2023-05-04 07:49] LABS: Anion Gap 11.3 mmol/L (3-11); BUN 9 mg/dL (7-18); CO2 26.7 mmol/L (21.0-32.0); CREATININE 0.5 mg/dL (0.55-1.02); Calcium 8.4 mg/dL (8.5-10.1); Chloride 87 mmol/L (98-107); Estimated GFR 91.86 (mL/min/1.73m2); Glucose 87 mg/dL (74-106); Magnesium 1.9 mg/dL (1.8-2.4); Sodium 125 mmol/L (136-145)
[2023-05-04 07:52] LABS: Potassium 2.9 mmol/L (3.5-5.1)
[2023-05-04 08:05] VITALS: PULSE 89
[2023-05-04] MEDS: predniSONE 10 MG TAB 5 MG PO (08:35)
[2023-05-04] MEDS: Loratidine 10 MG TAB PO (08:35)
[2023-05-04] MEDS: Torsemide 20 MG TAB PO (08:36)
[2023-05-04] MEDS: ACETAMINOPHEN 1,000 MG/100 ML BTL 400 MG IVPB (08:37)
[2023-05-04] MEDS: POTASSIUM CHLORIDE 10 MEQ/100 ML BAG 100 MEQ IVPB ×3 (08:38→11:37)
[2023-05-04] MEDS: Hydroxychloroquine 200 MG TAB PO (08:54)
[2023-05-04] MEDS: Citalopram 10 MG TAB PO (08:54)
[2023-05-04] MEDS: Mirabegron 25 MG TABCR PO (08:54)
[2023-05-04] MEDS: Atorvastatin 20 MG TAB PO (08:54)
[2023-05-04 09:23] VITALS: BP 160/89; PULSE 90; RESP 16; TEMP 36.5; O2SAT 92
[2023-05-04] MEDS: SODIUM CHLORIDE 3% 180 ML IV (09:25)
--- NOTE | 2023-05-04 11:29 | PHA.REVIEW2 ---
Pharmacy Admission Review Admission Clinical Review Admission Pharmacy Review: (Updated 05/03/23 @ 15:04 by Amaury Coles MD) Hypomagnesemia (Acute) Hypokalemia (Acute) Delirium (Acute) Hyponatremia (Acute) CHF exacerbation (Acute) Hypoxemia (Acute) Compression fracture of T12 vertebra (Acute) Discharge planning issues (Acute) animal dander Allergy (Verified 05/01/23 15:24) house dust Allergy (Verified 05/01/23 15:24) mold Allergy (Verified 05/01/23 15:24) tree and shrub pollen Allergy (Verified 05/01/23 15:24) hydromorphone [From Dilaudid] Adverse Reaction (Intermediate, Unverified 05/01/23 15:24) Other (See Comment) Penicillins Adverse Reaction (Mild, Unverified 05/01/23 15:24) keeps getting sicker lactose Adverse Reaction (Verified 05/01/23 15:24) Resuscitation Status DNR/DNI Height 5 ft 1 in Weight 70 kg Pharmacy Admission Review Renal Dosing Renal Dosing: BUN 9 mg/dL (7-18) 05/04/23 07: Creatinine 0.5 mg/dL (0.55-1.02) L 05/04/23 07:23 Medications needing adjustments: Reviewed (crcl ~36, current meds ok - monitor for addition of new meds) Anticoagulation Anticoagulation: Hgb 11.5 g/dL (11.2-15.7) 05/03/23 02:44 Hct 31.9 % (36.0-46.0) L 05/03/23 02:44 Plt Count 208 10^3/uL (130-400) 05/03/23 02:44 Creatinine 0.5 mg/dL (0.55-1.02) L 05/04/23 07:23 DVT Prophylaxis: Reviewed Medications: Enoxaparin (40 mg q24h) Therapeutic Anticoagulation: N/A Opiate Usage Evaluate Pain Scale/Pains Meds: N/A Relevant Labs Relevant Labs: Sodium 125 mmol/L (136-145) L 05/04/23 07:23 Potassium 2.9 mmol/L (3.5-5.1) L 05/04/23 07:23 Chloride 87 mmol/L (98-107) L 05/04/23 07:23 Magnesium 1.9 mg/dL (1.8-2.4) 05/04/23 07:23 Electrolytes, C-Reactive P, ESR: Reviewed (30 mL bolus 3% NaCl today, 30 mEq K+ IV (in addition to BID oral K+ supplements). Rec'd 4g mag IV yesterday) DM Control DM Control: N/A Cardiac Review Cardiac Review: Troponin I < 50 ng/L (<or=60) 05/02/23 03:22 NT-Pro-B Natriuret Pep 9621 pg/mL (<300) H 05/02/23 03:22 BP, HR, EF%: Reviewed (diuresed on IV lasix, now dc'd. pt takes lasix at home but no other cardiac meds) QTc Review QTc: N/A (no EKG to review) IV to PO Switch IV Medications: Reviewed
--- NOTE | 2023-05-04 12:50 | W.PM.DS.N ---
Date of service: 05/04/23 Time of Service: 12:50 DS: Diagnosis Discharge Diagnosis (1) CHF exacerbation: Status: Acute Asessment and Plan: Administration of IV furosemide 20mg BID continued until the day of discharge when the diuretic was changed to torsemide. Echocardiogram showed at 40% EF. Right ventricle is normal size. She will continue torsemide 20mg daily with K+ supplementation. (2) Hypoxemia: Status: Acute Asessment and Plan: Resolved. (3) Delirium: Status: Acute Asessment and Plan: Resolved. Related to hospitalization. Seroquel 25mg po prn at home. (4) Compression fracture of T12 vertebra: Status: Acute Asessment and Plan: Scheduled acetaminophen. OTC lidoderm patches. (5) Depressive disorder: Status: Chronic Asessment and Plan: Continue citalopram 10mg daily. If Na continues to be low, the citalopram may be the causative agent. She has tried wellbutrin (recently stopped), Remaron and duloxetine in the past. (6) Rheumatoid arthritis: Status: Chronic Asessment and Plan: Cont current treatment with hydroxychloroquine, methotrexate, diclofenac gel and acetaminophen. Rheumatology f/u per their recommendations. (7) Hyponatremia: Status: Acute Asessment and Plan: Monitor; lab requisition given for home health to drawn a BMP. (8) Hypokalemia: Status: Acute Asessment and Plan: Liquid K+ supplementation. Monitor. (9) Hypomagnesemia: Status: Acute Asessment and Plan: She will continue home Mg supplementation. Monitor. (10) Discharge planning issues: Status: Acute Asessment and Plan: Home health nursing, PT/OT. Discharge Plan Disposition Patient Disposition: Home W/Home Health Services Condition: Improving Discharge Details Reason For Visit: CHF Exacerbation Admit Date/Time: 05/01/23 11:35 Admit Provider: Amaury Coles Attending Provider: Amaury Coles Primary Care Provider: Autumn Awan Hospital Course Hospital Course: This is an 82 yo female with a PMH of HFpEF, mild cognitive impairment, HLD, depression, RA, adrenal insufficiency, pulmonary embolism.? She presented via EMS after having a restless night of sleep, feeling short of air. Questionable mild chest pain/pressure.? No palpitations.? She also endorsed nausea and cough.? No fever.? She has had a PMH of admissions at [facility] for CHF exacerbations.? Her WBC count and procalcitonin were normal.? HGB 11.4. Na 130. K 3.5. Creatinine 0.5. Mg 1.7. Troponin neg. CT chest with bilateral pleural effusions and atelectasis vs infiltrates.? +cardiomegaly.? Also noted was a comminuted T12 vertebral body fx with retorpulsion into the spinal canal with appx half of the AP diameter of the spinal canal limited secondarily to the fx. RA O2 saturations in the upper 80's.? Supplemental O2 initiated.? She was given 20mg IV lasix with good diureses following administration.? See Diagnosis PCP f/u in 1-2 weeks. Home Meds and New Rx's Prescriptions: New citalopram 10 mg Tablet 10 mg PO DAILY Qty: 0 0RF quetiapine 25 mg Tablet 25 mg PO HS PRN PRN (Reason: Agitation) Qty: 15 0RF torsemide 20 mg Tablet 20 mg PO DAILY Qty: 30 0RF potassium chloride 40 mEq/15 mL liquid 20 meq PO DAILY Qty: 473 0RF Continued acetaminophen 500 mg capsule 1,000 mg PO BID Qty: 10 0RF morphine concentrate 100 mg/5 mL (20 mg/mL) solution 10 mg PO Q4H MDD 60 mg PRN (Reason: pain) Qty: 15 0RF methotrexate sodium 2.5 mg tablet 15 mg PO QWEEK morphine concentrate 100 mg/5 mL (20 mg/mL) solution 5 mg PO Q3H MDD as per PCP PRN (Reason: pain) Qty: 15 0RF Rx Instructions: Family has on hand in case pt becomes acutely ill, prescribed by PCP lorazepam 0.5 mg tablet 0.5 mg PO Q6H PRN Qty: 1 0RF magnesium chloride 64 mg tablet,delayed release (DR/EC) 64 mg PO DAILY melatonin 3 mg capsule 3 mg PO HS PRN cholecalciferol (vitamin D3) 50 mcg (2,000 unit) capsule 50 mcg PO DAILY lidocaine [Lidoderm] 5 % adhesive patch,medicated 1 patch topical DAILY Rx Instructions: leave on most painful area for up to 12 hrs Myrbetriq 25 mg tablet extended release 24 hr 25 mg PO DAILY loratadine 10 MG tablet 10 mg PO DAILY atorvastatin 20 mg tablet 20 mg PO DAILY Patient Comments: TAKE ONE TABLET BY MOUTH EVERY DAY polyethylene glycol 3350 [Miralax] 17 gram Powder In Packet 17 g PO BID tramadol 50 mg Tablet 25 mg PO BID PRN folic acid 1 mg Tablet 800 mcg PO DAILY hydroxychloroquine 200 mg tablet 200 mg PO BID Patient Comments: TAKE ONE TABLET BY MOUTH TWICE A DAY FOR RHEUMATOID ARTHRITIS clobetasol 0.05 % Solution 1 applic TOPICAL DAILY ondansetron 4 mg Tablet,Disintegrating 4 mg PO Q12H PRN PRN prednisone 10 mg tablet 5 mg PO DAILY aspirin [Aspir-Low] 81 mg Tablet,Delayed Release (Dr/Ec) 81 mg PO DAILY omeprazole 40 mg capsule,delayed release(DR/EC) 40 mg PO BID Qty: 30 0RF Discontinued folic acid 1 mg tablet 2 mg PO DAILY Qty: 7 0RF furosemide [Lasix] 20 mg tablet 20 mg PO DAILY bupropion HCl 150 mg Tablet Extended Release 24 Hr 150 mg PO 4-8XD lidocaine 5 % Adhesive Patch,Medicated 1 patch DAILY Discharge Instructions Additional Instructions: Seroquel or lorazepam prn for agitation, delirium. If Na remains low, discuss discontinuing citalpram and consider a different antidepressant. Effexor might be a choice given it also has the benefit of helping with pain control. Referrals: [facility] [OTHER] - (Dementia, recurrent CHF) Activity:: Activity as Tolerated Equipment/Supplies:: No Equipment Needed Diet:: As Tolerated Discharge Orders Discharge Orders: Discharge Order (Routine); Ordered 05/04/23 Ordered By: Amaury Coles Other Ambulatory Orders: Basic Metabolic Panel (Routine) Location: None Selected Ordered By: Amaury Coles Magnesium (Routine) Location: None Selected Ordered By: Amaury Coles DS: Summary Time Spent with Patient providing and/or coordinating discharge services: Greater than 30 minutes Status at Discharge Functional status at discharge: uses cane/walker Overall status at discharge: patient is progressing back to baseline Mental Status: other (Oriented to person and place.) Speech and Movement: speech clear Mood: congruent mood and other (Oriented to person and place.) Affect: normal affect Exam Narrative Exam Narrative: Gen: Ms Lewis is sitting in chair. 2 daughters are present. She is alert and conversing. HEENT: sclera clear. MMM Neck: No JVD. Lungs: crackles throughout. CV: RRR Abd: soft, NT, ND Exts: No pedal edema. No calf tenderness. Psych: Drowsy. Psych Mental Status: other (Oriented to person and place.) Speech and Movement: speech clear Mood: congruent mood and other (Oriented to person and place.) Affect: normal affect DS: Data Vitals/I&O Vitals and I&O: Vital Signs Temperature 36.5 C 05/04/23 09:23 Temperature Source Tympanic 05/04/23 09:23 Pulse 90 05/04/23 09:23 Pulse Rhythm Regular 05/04/23 08:20 Respiratory Rate 16 05/04/23 09:23 Respiratory Effort Non-Labored 05/03/23 20:40 Respiratory Depth Shallow 05/03/23 20:40 Respiratory Pattern Irregular 05/03/23 20:40 Blood Pressure 160/89 H 05/04/23 09:23 Pulse Oximetry 92 05/04/23 09:23 Oxygen Delivery Method Room Air 05/04/23 05:45 Oxygen Flow Rate 0 05/04/23 05:45 Pain Level 0 05/04/23 09:23 Comment RN Notified 05/03/23 22:33 Intake & Output 05/03/23 05/04/23 05/04/23 23:59 11:59 23:59 Intake Total 300 / 550 680 / 680 Output Total 775 / 2675 500 / 500 Balance -475 / -2125 180 / 180 Weight 70 kg Intake: IV 300 / 550 380 / 380 Oral 300 / 300 Output: Urine 775 / 2675 500 / 500 Other: Urine Color Yellow Yellow Urine Appearance Clear Clear Comment pt voided unknown amout nights emptied it Stool Size Small Stool Characteristics Liquid Brown Voiding Methods Bedside Commode Data Completed and Pending Labs on day of discharge: Labs from last 24 hours 05/04/23 05/04/23 05/04/23 12:30 07:23 06:22 Sodium Pending 125 L Cancelled Potassium Pending 2.9 L Cancelled Chloride Pending 87 L Cancelled Carbon Dioxide Pending 26.7 Cancelled Anion Gap Pending 11.3 H Cancelled BUN Pending 9 Cancelled Creatinine Pending 0.5 L Cancelled Est GFR (CKD-EPI 2020) Pending 91.86 Cancelled Glucose Pending 87 Cancelled Calcium Pending 8.4 L Cancelled Magnesium 1.9 Cancelled Preliminary micro results at discharge 05/01/23 12:10 Blood Culture - Preliminary Blood NO GROWTH 48 HOURS 05/01/23 11:30 Blood Culture - Preliminary Blood NO GROWTH 48 HOURS PFSH All Active Problems Hypomagnesemia (Acute) Hypokalemia (Acute) Hyperkalemia (Acute) Delirium (Acute) Hyponatremia (Acute) CHF exacerbation (Acute) Hypoxemia (Acute) Compression fracture of T12 vertebra (Acute) Anxiety (Chronic) Advanced care planning/counseling discussion (Acute) Palliative care encounter (Acute) nursing home (current) use of systemic steroids (Acute) Heart failure with preserved ejection fraction (Acute) EF 45% 08/13 [facility] [place] History of delirium (Acute) Recurrent with hospitalizations Mild cognitive impairment (Acute) Constipation (Acute) Impacted cerumen of both ears (Acute) Cerumen impaction (Acute) Urinary incontinence (Acute) Right knee pain (Acute) Restless legs (Acute) Right wrist pain (Acute) Osteoarthritis (Chronic) Low back pain (Acute) HLD (hyperlipidemia) (Acute) Gastroesophageal reflux disease (Chronic) Edema (Acute) Depressive disorder (Chronic) [place] of toe (Acute) Chronic hypotension (Acute) CTS (carpal tunnel syndrome) (Acute) Ankle pain (Acute) Allergic rhinitis (Acute) SVT (supraventricular tachycardia) (Chronic) Orthostatic hypotension (Acute) Iron deficiency anemia (Acute) HTN (hypertension) (Chronic) Discharge planning issues (Acute) DVT prophylaxis (Acute) Occult blood positive stool (Acute) H/O: GI bleed (Acute) Pain (Acute) Rheumatoid arthritis (Chronic) [facility] [place]um Adrenal insufficiency (Acute) Syncope (Chronic) Pulmonary embolism (Chronic) Medical History Ankle joint pain Arthritis FH: cholecystectomy Surgical History H/O: hysterectomy History of cholecystectomy S/P excision of lipoma Family History Mother Cancer of stomach Father Heart disease Sister Heart disease Lung cancer Social History Smoking/Tobacco Use Status: Former Tobacco Use Smoking risk assessment performed?: Yes Alcohol Intake: never Drug use: Never Housing: house Do you feel safe at home: Yes Do you feel safe in your relationship?: Yes Time Spent with Patient Time Spent with Patient: 45-69 minutes Time was spent: preparing to see the patient(eg.review tests), obtaining and/or reviewing separately otained hiistory, ordering medications,tests, procedures, referring, communicating with other health home care consultant, indepentently interpreting results, counseling the patient and care coordination
[2023-05-04 12:57] LABS: BUN 9 mg/dL (7-18); CREATININE 0.5 mg/dL (0.55-1.02); Calcium 8.8 mg/dL (8.5-10.1); Chloride 87 mmol/L (98-107); Estimated GFR 91.86 (mL/min/1.73m2); Glucose 120 mg/dL (74-106); Potassium 3.3 mmol/L (3.5-5.1); Sodium 127 mmol/L (136-145)
--- NOTE | 2023-05-04 13:40 | PDOC.HHF2F_ITS ---
Home Health Referral Home Health Orders Clinical synopsis of why skilled professionals are needed: Admitted for treatment of CHF and UTI. Treated with lasix and antibiotics. She developed hyponatremia, hypomagnesemia and hypokalemia; repleting and monitoring. She experienced hospital-related delirium; now resolved. She had transient difficulty swallowing; mostly related to sedation. This has improved. Also noted to have a comminuted T12 vertebral body fx with retropulsion into the spinal canal. Acetaminophen scheduled. Family to obtain OTC lidocaine patches. Medical diagnosis necessitation home health referral: Acute CHF; resolved. Electrolyte disturbances. UTI Vertebral fx. Registered Nurse: Check all that apply Instruct on new or changed medication(s)/assess compliance: Ordered Assess for exacerbation of medical condition, instruct patient/caregivers on signs and symptoms to report for early detection: Ordered Physical Therapist: Check all that apply Increase strength & endurance for safe mobility at home: Ordered To design/establish home maintenance program: Ordered Occupational Therapist: Evaluate and treat for patient unable to perform ADL/IADL/self-care: Ordered Upper extremity strengthening, range and motion: Ordered Home Bound Status Requires the aid of supportive device (check all that apply): Walker Assistance of another person (Describe assistance and medical necessity): Debility from age and now from hospitalization. Also has new vertebral fx. Describe why leaving home would require a considerable and taxing effort: Requires frequent rest periods and Confusion Encounter Date and Reason: I certify that a FTF encounter for this patient was performed on May 04, 2023 and that such encounter was related to the primary reason the patient requires home health services. The encounter was conducted in the following manner: * By me as the certifying physician, REPRODUCTION MACHINE LOADER, PA or * By an inpatient physician, REPRODUCTION MACHINE LOADER or PA during an inpatient stay who communicated findings to me, Certification And Authentication I certify that I composed the above information based on my clinical judgment relating to this patient's medical condition and, if applicable, clinical findings communicated to me by the NPP or inpatient physician who performed the FTF encounter. Name of Provider that will be monitoring home health services: Amaury Coles
--- NOTE | 2023-05-04 15:17 | PDOC.CMDIS ---
Date of service: 05/04/23 Time of Service: 15:17 LACE Index Scoring Tool Questions: Length of Stay (in days): 3 Was the patient admitted via the E.D.?: Yes E.D. Visits: 0 Answers: Total Score: 6 Risk of Readmission: Low Risk Care Management Discharge Plan Reason for Hospitalization: CHF Discharge Plan: Alexa returned home today with a resumption of her [facility] services, as well as new orders for HH RN, PT. She was transported via EMS, [facility]. She will follow up with her PCP and discharge plan of care. She is happy to be going home today, as it [birth year]. Patient/Family Education Needs: Review discharge instructions and limitations, discussion of self care needs including ask me three. Services Needed at Discharge: Home Health Care Services (new HH RN, PT) and Transportation ([facility])
--- NOTE | 2023-05-05 10:30 | PT.INNT ---
PT Notes Visit Reasons: CHF Exacerbation Orders received for PT consult, however patient discharged from acute care prior to consultation.
== END 2023-05-04 14:43 | disposition home health service (06) | DRG 291 ==
LOC: ER 11:52 → MS 12:44
PROVIDERS: Family Medicine; Nurse Practitioner Acute Care; Admitting Provider Family Medicine; Emergency Provider Student in an Organized Health Care Education/Training Program; PCP Internal Medicine; Visit Provider Family Medicine
DX: I11.0 Hypertensive heart disease with heart failure (principal); I50.33 Acute on chronic diastolic (congestive) heart failure; S22.088A Other fracture of T11-T12 vertebra, initial encounter for closed fracture; N39.0 Urinary tract infection, site not specified; E27.40 Unspecified adrenocortical insufficiency; E87.1 Hypo-osmolality and hyponatremia; I27.82 Chronic pulmonary embolism; I47.1 Supraventricular tachycardia; F05 Delirium due to known physiological condition; R09.02 Hypoxemia; F32.A Depression, unspecified; M06.9 Rheumatoid arthritis, unspecified; E87.6 Hypokalemia; E83.42 Hypomagnesemia; I44.7 Left bundle-branch block, unspecified; X58.XXXA Exposure to other specified factors, initial encounter; E78.5 Hyperlipidemia, unspecified; Z79.52 Long term (current) use of systemic steroids; K59.00 Constipation, unspecified; G25.81 Restless legs syndrome; K21.9 Gastro-esophageal reflux disease without esophagitis; J30.9 Allergic rhinitis, unspecified; I95.1 Orthostatic hypotension; D50.9 Iron deficiency anemia, unspecified; F03.90 Unspecified dementia, unspecified severity, without behavioral disturbance, psychotic disturbance, mood disturbance, and anxiety; B96.20 Unspecified Escherichia coli [E. coli] as the cause of diseases classified elsewhere
CPT/HCPCS: 36415; 74177; 80048; 80053; 83690; 84145; 87040; 96374; 99285; J1650; 71045; 71260; 81003; 81015; 83735; 83880; 84484; 85025; 93306; 99223; 99232; 99239; J0131; J0696; J0780; J1630; J1885; J1940; J1941; J2060; J3475; J3480; J3490; J7512; J7614; J8610

== ENCOUNTER 2023-05-06 16:12 | Outpatient (REF) | payer MEDICARE, MEDICAID, SELFPAY ==
[2023-05-06 14:44] LABS: Anion Gap 6.8 mmol/L (3-11); BUN 19 mg/dL (7-18); CO2 34.2 mmol/L (21.0-32.0); Calcium 8.9 mg/dL (8.5-10.1); Chloride 88 mmol/L (98-107); Estimated GFR 55.21 (mL/min/1.73m2); Glucose 125 mg/dL (74-106); Magnesium 1.5 mg/dL (1.8-2.4); Potassium 3.4 mmol/L (3.5-5.1); Sodium 129 mmol/L (136-145)
== END 2023-05-06 16:13 | disposition home or self-care (01) ==
LOC: LBN 16:12
PROVIDERS: PCP Internal Medicine; Visit Provider Family Medicine
DX: E87.6 Hypokalemia (principal); E87.1 Hypo-osmolality and hyponatremia
CPT/HCPCS: 80048; 83735

== ENCOUNTER 2023-05-11 16:51 | Outpatient (REF) | payer MEDICARE, MEDICAID, SELFPAY | END 2023-05-11 16:52 | disposition home or self-care (01) | LOC: LBN 16:51 | PROVIDERS: PCP Internal Medicine; Visit Provider Student in an Organized Health Care Education/Training Program | DX: R39.89 Other symptoms and signs involving the genitourinary system (principal) | CPT/HCPCS: 87086 ==